=== PATIENT | female | born 1995 | race Asian ===

== ENCOUNTER 2020-10-25 14:51 | Outpatient (CLI) | payer OTHER ==
--- NOTE | 2020-10-26 12:47 | Ultrasound Report ---
PROCEDURE: OB First Trimester INDICATIONS: POSITIVE TEST OUTSIDE/PRIOR DATING DATA: Last menstrual period (LMP): 08/18/2020. LMP-based estimated date of delivery (MATTI): 05/25/2021. First dating scan (date and location): 10/25/2020. Estimated date of delivery (MATTI) from first dating scan: 05/25/2021. TECHNIQUE: Real-time scanning was performed of the fetus and maternal pelvic organs, with image documentation. COMPARISON: None FINDINGS: Embryo: [place]-rump length measures 2.9 cm corresponding to 9 weeks 5 days. Heart rate: 176 Measurement variability in dating: +/- 4 weeks by LMP, +/- 7 days by mean sac diameter (use before 6 weeks gestation if crown-rump length not able to be measured), +/- 5 days by crown-rump length (6-12 weeks gestation). Maternal organs: Ovaries within normal limits, with right corpus luteal cyst measuring 18 mm. IMPRESSION: 9 week 5 day single living IUP. Reviewed by: KIMMIE Hussein on 10/26/2020 12:46 PM PDT Approved by: Oseas Montgomery MD on 10/26/2020 12:46 PM PDT Station ID: [id number]
== END 2020-10-25 14:52 | disposition home or self-care (01) ==
LOC: DI 14:51
PROVIDERS: ATTEND Advanced Practice Midwife
DX: Z32.01 Encounter for pregnancy test, result positive (principal)

== ENCOUNTER 2020-11-08 08:00 | Outpatient (CLI) | payer OTHER ==
[2020-11-09 11:49] LABS: BILIRUBIN,URINE NEGATIVE (NEGATIVE); GLUCOSE, URINE (UA) NEGATIVE (NEGATIVE); KETONES,URINE (UA) NEGATIVE (NEGATIVE); LEUKOCYTE ESTERASE, URINE SMALL (NEGATIVE); NITRITE,URINE NEGATIVE (NEGATIVE); OCCULT BLOOD,URINE NEGATIVE (NEGATIVE); PH,URINE 6.5 PH (5.0-7.5); PROTEIN,URINE NEGATIVE (NEGATIVE); UROBILINOGEN,URINE 0.2 (NORMAL) E.U./dL (NORMAL)
[2020-11-09 11:52] LABS: CLARITY,URINE CLEAR (CLEAR)
[2020-11-09 12:08] LABS: BACTERIA,URINE Few /HPF (None Seen); RBC,URINE 0-5 /HPF (0-5); SQUAMOUS EPITHELIAL CELL,UR FEW Squamous (<= Few); WBC,URINE 0-3 /HPF (0-5)
[2020-11-09 22:18] LABS: NEISSERIA GONORRHOEAE DNA NEGATIVE (NEGATIVE); TRICHOMONAS VAGINALIS DNA NEGATIVE (NEGATIVE)
[2020-11-09 22:21] LABS: CHLAMYDIA TRACHOMATIS DNA POSITIVE (NEGATIVE)
== END 2020-11-08 23:59 ==
LOC: LAB.WCP 08:00
PROVIDERS: ATTEND Nurse Practitioner Obstetrics & Gynecology
DX: Z34.90 Encounter for supervision of normal pregnancy, unspecified, unspecified trimester (principal)
CPT/HCPCS: 81001; 87086; 87491; 87591; 87661

== ENCOUNTER 2020-12-06 08:00 | Outpatient (CLI) | payer OTHER ==
[2020-12-06 21:29] LABS: CHLAMYDIA TRACHOMATIS DNA NEGATIVE (NEGATIVE); NEISSERIA GONORRHOEAE DNA NEGATIVE (NEGATIVE); TRICHOMONAS VAGINALIS DNA NEGATIVE (NEGATIVE)
== END 2020-12-06 23:59 | disposition home or self-care (01) ==
LOC: LAB 08:00
PROVIDERS: ATTEND Nurse Practitioner Obstetrics & Gynecology
DX: O98.319 Other infections with a predominantly sexual mode of transmission complicating pregnancy, unspecified trimester (principal); A56.09 Other chlamydial infection of lower genitourinary tract; O99.891 Other specified diseases and conditions complicating pregnancy; K12.0 Recurrent oral aphthae
CPT/HCPCS: 81001; 86695; 86696; 87086; 87491; 87591; 87661

== ENCOUNTER 2020-12-06 12:40 | Outpatient (CLI) | payer OTHER ==
[2020-12-06 13:17] LABS: BILIRUBIN,URINE NEGATIVE (NEGATIVE); GLUCOSE, URINE (UA) 100 mg/dL (NEGATIVE); KETONES,URINE (UA) 40 mg/dL (NEGATIVE); LEUKOCYTE ESTERASE, URINE NEGATIVE (NEGATIVE); NITRITE,URINE NEGATIVE (NEGATIVE); OCCULT BLOOD,URINE TRACE-INTA (NEGATIVE); PROTEIN,URINE NEGATIVE (NEGATIVE); UROBILINOGEN,URINE 0.2 (NORMAL) E.U./dL (NORMAL)
[2020-12-06 13:37] LABS: CLARITY,URINE CLEAR (CLEAR)
[2020-12-06 13:54] LABS: BACTERIA,URINE None Seen /HPF (None Seen); RBC,URINE None Seen /HPF (0-5); SQUAMOUS EPITHELIAL CELL,UR MANY Squamous (<= Few); WBC,URINE 0-3 /HPF (0-5)
[2020-12-08 10:57] LABS: HSV 1 IGG TYPE SPECIFIC AB <0.90 index; HSV 2 IGG TYPE SPECIFIC AB <0.90 index
== END 2020-12-06 12:41 | disposition home or self-care (01) ==
LOC: LAB 12:40
PROVIDERS: ATTEND Nurse Practitioner Obstetrics & Gynecology
DX: O99.891 Other specified diseases and conditions complicating pregnancy (principal); K12.0 Recurrent oral aphthae
CPT/HCPCS: 81001; 86695; 86696; 87086; 87491; 87591; 87661

== ENCOUNTER 2021-01-08 08:54 | Outpatient (CLI) | payer OTHER ==
--- NOTE | 2021-01-08 13:41 | Ultrasound Report ---
PROCEDURE: OB Detailed Eval INDICATIONS: SUPERVISION OF OUTSIDE/PRIOR DATING DATA: Last menstrual period (LMP): 08/18/2020. LMP-based estimated date of delivery (MATTI): 05/25/2021. First dating scan (date and location): 10/25/2020. Estimated date of delivery (MATTI) from first dating scan: 05/25/2021. The below data below was generated using the ultrasound MATTI of 05/25/2021 TECHNIQUE: Real-time scanning was performed of the fetus, with image documentation and biometric measurements. COMPARISON: 10/25/2020 FINDINGS: General: A single live intrauterine gestation is present. Presentation: Vertex Placenta: Placental position is anterior, without previa. Amniotic fluid index: 16.5 cm, within normal limits for gestational age. heart rate: 150 beats per minute. Maternal cervical canal: 4.1 cm long; normal length is 2.5 cm or more. biometrics: Biparietal diameter: 4.8 cm equals 20 weeks 4 days Head circumference: 17.6 cm equals 20 weeks 0 days Abdominal circumference: 15.6 cm equals 20 weeks 5 days Femur length: 30 cm equals 19 weeks 2 days Estimated gestational age from initial scan: 20 weeks 3 days Composite gestational age from present scan: 20 weeks 0 days Estimated weight and percentile: 331 g, 27th percentile Measurement variability in biometric dating: +/- 10 days from 12-20 weeks gestation, +/- 2 weeks from 20-30 weeks gestation, +/- 3 weeks at 30 weeks gestation or later. Anatomic survey: Neuro: Ventricles are normal at less than 10 mm. Cisterna magna is normal at 3-11 mm. Cerebellum i s normal in size and morphology. Nuchal skin fold: Normal at less than 6 mm between 14 and 20 weeks gestational age. Face: Nose and lips, facial profile are normal. Spine: No evidence for spina bifida. Heart: 4-chambered heart is present, with normal ventricular outflow tracts. Diaphragm: Diaphragm is intact. Stomach: Left-sided stomach is present. Kidneys: No hydronephrosis. Normal is less than 5 mm in 2nd trimester, less than 7 mm in 3rd trimester. Cord: 3 vessel cord has orthotopic insertion. Bladder: Normal in size. Extremities: All 4 extremities are visualized. IMPRESSION: Normal interval growth compared to the prior ultrasound examination. No anatomic abnormalities are identified. Reviewed by: Hema Gutierrez MD on 01/08/2021 12:[address] [facility] Approved by: Hema Gutierrez MD on 01/08/2021 12:[address] [facility] Station ID: [id number]
== END 2021-01-08 08:55 | disposition home or self-care (01) ==
LOC: DI 08:54
PROVIDERS: ATTEND Nurse Practitioner Obstetrics & Gynecology
DX: Z34.00 Encounter for supervision of normal first pregnancy, unspecified trimester (principal); Z36.8A Encounter for antenatal screening for other genetic defects

== ENCOUNTER 2021-01-30 11:56 | Outpatient (CLI) | payer OTHER ==
[2021-01-30 12:37] LABS: BASOPHILS # (AUTO) 0.1 10^3/uL (0.0-0.1); BASOPHILS % (AUTO) 1.8 %; EOSINOPHILS # (AUTO) 0.3 10^3/uL (0.0-0.7); EOSINOPHILS % (AUTO) 8.8 %; HCT - HEMATOCRIT 32.8 % (37.0-47.0); HGB - HEMOGLOBIN 11.4 g/dL (12.0-16.0); LYMPHOCYTES # (AUTO) 1.1 10^3/uL (1.5-3.5); LYMPHOCYTES % (AUTO) 38.5 %; MEAN CORPUSCULAR HEMOGLOBIN 29.3 pg (27.0-31.0); MEAN CORPUSCULAR HGB CONC 34.8 g/dL (32.0-36.0); MEAN CORPUSCULAR VOLUME 84.3 fL (81.0-99.0); MEAN PLATELET VOLUME 9.8 fL (7.9-10.8); MONOCYTES # (AUTO) 0.6 10^3/uL (0.0-1.0); MONOCYTES % (AUTO) 21.2 %; NEUTROPHILS # (AUTO) 0.8 10^3/uL (1.5-6.6); NEUTROPHILS % (AUTO) 28.6 %; PLT - PLATELET COUNT 340 10^3/uL (130-450); RED BLOOD COUNT 3.89 10^6/uL (4.20-5.40); RED CELL DISTRIBUTION WIDTH 13.4 % (12.0-15.0); WHITE BLOOD COUNT 2.8 x10^3/uL (4.8-10.8)
[2021-01-30 12:42] LABS: SLIDE REVIEW? Indicated
[2021-01-30 13:50] LABS: DIFFERENTIAL COMMENT MANUAL=AUTO DIFF; PLATELET ESTIMATE, MANUAL NORMAL (130-450,000) (NORMAL); PLATELET MORPHOLOGY NORMAL APPEARANCE (NORMAL); RBC MORPHOLOGY (MULTIPLE) NORMAL APPEARANCE (NORMAL); WBC MORPHOLOGY (MULTIPLE) NORMAL APPEARANCE (NORMAL)
[2021-01-31 11:12] LABS: HEPATITIS C ANTIBODY NON-REACTIVE (NON-REACTIVE)
[2021-01-31 11:13] LABS: HEPATITIS B SURFACE ANTIGEN NON-REACTIVE (NON-REACTIVE)
[2021-01-31 15:25] LABS: HIV AG/AB 4TH GEN NON-REACTIVE (NON-REACTIVE)
== END 2021-01-30 11:57 | disposition home or self-care (01) ==
LOC: LAB 11:56
DX: Z36.89 Encounter for other specified antenatal screening (principal)
CPT/HCPCS: 36415; 85025; 86592; 86762; 86787; 86803; 86850; 86900; 86901; 87340; 87389

== ENCOUNTER 2021-01-31 08:00 | Outpatient (CLI) | payer OTHER | END 2021-01-31 23:59 | disposition home or self-care (01) | LOC: LAB.WC 08:00 | PROVIDERS: ATTEND Nurse Practitioner Obstetrics & Gynecology | DX: K12.0 Recurrent oral aphthae (principal) | CPT/HCPCS: 81599; 87255 ==

== ENCOUNTER 2021-01-31 12:10 | Outpatient (CLI) | payer OTHER | END 2021-01-31 12:11 | disposition home or self-care (01) | LOC: LAB 12:10 | PROVIDERS: ATTEND Nurse Practitioner Obstetrics & Gynecology | DX: Z34.00 Encounter for supervision of normal first pregnancy, unspecified trimester (principal); Z36.8A Encounter for antenatal screening for other genetic defects | CPT/HCPCS: 36415 ==

== ENCOUNTER 2021-02-14 08:00 | Outpatient (CLI) | payer OTHER | END 2021-02-14 23:59 | LOC: LAB.N 08:00 | PROVIDERS: ATTEND Family Medicine | DX: U07.1 COVID-19 (principal) ==

== ENCOUNTER 2021-03-07 11:15 | Outpatient (CLI) | payer OTHER ==
[2021-03-07 12:46] LABS: HCT - HEMATOCRIT 32.8 % (37.0-47.0); HGB - HEMOGLOBIN 11.2 g/dL (12.0-16.0); MEAN CORPUSCULAR HEMOGLOBIN 29.2 pg (27.0-31.0); MEAN CORPUSCULAR HGB CONC 34.1 g/dL (32.0-36.0); MEAN CORPUSCULAR VOLUME 85.4 fL (81.0-99.0); RED BLOOD COUNT 3.84 10^6/uL (4.20-5.40); WHITE BLOOD COUNT 2.8 x10^3/uL (4.8-10.8)
== END 2021-03-07 11:16 | disposition home or self-care (01) ==
LOC: LAB 11:15
PROVIDERS: ATTEND Nurse Practitioner Obstetrics & Gynecology
DX: Z34.90 Encounter for supervision of normal pregnancy, unspecified, unspecified trimester (principal); Z36.8A Encounter for antenatal screening for other genetic defects
CPT/HCPCS: 36415; 82950; 85027

== ENCOUNTER 2021-03-15 08:00 | Outpatient (CLI) | payer OTHER ==
[2021-03-15 23:49] LABS: NEISSERIA GONORRHOEAE DNA NEGATIVE (NEGATIVE); TRICHOMONAS VAGINALIS DNA NEGATIVE (NEGATIVE)
[2021-03-15 23:51] LABS: CHLAMYDIA TRACHOMATIS DNA POSITIVE (NEGATIVE)
== END 2021-03-15 23:59 | disposition home or self-care (01) ==
LOC: LAB.WC 08:00
PROVIDERS: ATTEND Nurse Practitioner Obstetrics & Gynecology
DX: A56.09 Other chlamydial infection of lower genitourinary tract (principal)
CPT/HCPCS: 87491; 87591; 87661

== ENCOUNTER 2021-03-16 07:58 | Outpatient (CLI) | payer OTHER ==
[2021-03-16 08:41] LABS: GTT GLUCOSE,FASTING 81 mg/dL (70-100)
== END 2021-03-16 07:59 | disposition home or self-care (01) ==
LOC: LAB 07:58
PROVIDERS: ATTEND Nurse Practitioner Obstetrics & Gynecology
DX: O99.810 Abnormal glucose complicating pregnancy (principal)
CPT/HCPCS: 36415; 82951; 82952

== ENCOUNTER 2021-04-11 10:01 | Outpatient (CLI) | payer OTHER ==
[2021-04-11 10:11] LABS: HCT - HEMATOCRIT 38.4 % (37.0-47.0); MEAN CORPUSCULAR HGB CONC 33.9 g/dL (32.0-36.0); MEAN CORPUSCULAR VOLUME 85.7 fL (81.0-99.0); MEAN PLATELET VOLUME 10.2 fL (7.9-10.8); RED BLOOD COUNT 4.48 10^6/uL (4.20-5.40); RED CELL DISTRIBUTION WIDTH 14.3 % (12.0-15.0); WHITE BLOOD COUNT 2.9 x10^3/uL (4.8-10.8)
[2021-04-11 10:26] LABS: ALBUMIN 2.9 g/dL (3.2-5.5); ALBUMIN/GLOBULIN RATIO 0.7 (1.0-2.2); BILIRUBIN,TOTAL 0.3 mg/dL (0.2-1.0); CALCIUM 9.1 mg/dL (8.5-10.3); CREATININE 0.8 mg/dL (0.4-1.0); POTASSIUM 3.8 mmol/L (3.5-5.0); TOTAL PROTEIN 6.9 g/dL (6.7-8.2)
[2021-04-11 10:58] LABS: CREATININE,URINE 42.4 mg/dL; PROTEIN/CREATININE RATIO,URINE 0.2 (<=0.2)
== END 2021-04-11 10:02 | disposition home or self-care (01) ==
LOC: LAB 10:01
PROVIDERS: ATTEND Nurse Practitioner Obstetrics & Gynecology
DX: R03.0 Elevated blood-pressure reading, without diagnosis of hypertension (principal)
CPT/HCPCS: 36415; 80053; 82570; 84156; 85027

== ENCOUNTER 2021-04-21 10:30 | Outpatient (CLI) | payer OTHER ==
[2021-04-21 10:52] VITALS: BP 157/96
[2021-04-21 11:33] LABS: BASOPHILS # (AUTO) 0.1 10^3/uL (0.0-0.1); BASOPHILS % (AUTO) 2.4 %; EOSINOPHILS # (AUTO) 0.1 10^3/uL (0.0-0.7); EOSINOPHILS % (AUTO) 3.9 %; HCT - HEMATOCRIT 37.4 % (37.0-47.0); HGB - HEMOGLOBIN 12.9 g/dL (12.0-16.0); LYMPHOCYTES # (AUTO) 1.9 10^3/uL (1.5-3.5); LYMPHOCYTES % (AUTO) 55.4 %; MEAN CORPUSCULAR HEMOGLOBIN 29.5 pg (27.0-31.0); MEAN CORPUSCULAR HGB CONC 34.5 g/dL (32.0-36.0); MEAN CORPUSCULAR VOLUME 85.6 fL (81.0-99.0); MEAN PLATELET VOLUME 10.7 fL (7.9-10.8); MONOCYTES # (AUTO) 0.4 10^3/uL (0.0-1.0); MONOCYTES % (AUTO) 11.6 %; NEUTROPHILS # (AUTO) 0.9 10^3/uL (1.5-6.6); NEUTROPHILS % (AUTO) 26.4 %; PLT - PLATELET COUNT 275 10^3/uL (130-450); RED BLOOD COUNT 4.37 10^6/uL (4.20-5.40); RED CELL DISTRIBUTION WIDTH 14.7 % (12.0-15.0); WHITE BLOOD COUNT 3.4 x10^3/uL (4.8-10.8)
[2021-04-21 11:46] LABS: CREATININE,URINE 42.1 mg/dL; PROTEIN/CREATININE RATIO,URINE 0.1 (<=0.2)
[2021-04-21 11:47] LABS: ALBUMIN 2.7 g/dL (3.2-5.5); ALBUMIN/GLOBULIN RATIO 0.7 (1.0-2.2); BILIRUBIN,TOTAL 0.6 mg/dL (0.2-1.0); CALCIUM 9.1 mg/dL (8.5-10.3); CREATININE 0.7 mg/dL (0.4-1.0); POTASSIUM 3.7 mmol/L (3.5-5.0); TOTAL PROTEIN 6.7 g/dL (6.7-8.2)
--- NOTE | 2021-04-21 12:37 | Ultrasound Report ---
PROCEDURE: OB Biophysical Profile INDICATIONS: high blood pressure OUTSIDE/PRIOR DATING DATA: Last menstrual period (LMP): August 18, 2020. LMP-based estimated date of delivery (MATTI): May 25, 2021. First dating scan (date ): October 25, 2020. Estimated date of delivery (MATTI) from first dating scan: May 25, 2021. TECHNIQUE: Real-time scanning was performed of the fetus, with image documentation and biometric anne surements. Biophysical profile was also obtained. COMPARISON: January 08, 2021 FINDINGS: General: A single living intrauterine gestation is present. Presentation: Vertex Placenta: Placental position is anterior, without previa. Amniotic fluid index: 10 cm, appropriate for gestational age. heart rate: 148 beats per minute. Maternal cervical canal: 3.8 cm long; normal length is 2.5 cm or more. Biophysical profile: Tone: 2 points. Movement: 2 points. Respiration: 2 points. Largest pocket of fluid: 2 points. Umbilical artery Doppler: 2.1, 2.2, 2.1 IMPRESSION: 1. No significant abnormality. Reviewed by: Herb Marino MD on 04/21/2021 12:35 PM PST Approved by: Herb Marino MD on 04/21/2021 12:35 PM PST Station ID: [id number]
--- NOTE | 2021-04-21 16:52 | PROVIDER PROGRESS NOTE ---
- HPI Chief Complaint: Hypertension/PIH Current : Current EDU 05/29/21 Gestation 34 Weeks and 4 Days 1 Para 0 Vital Signs Temperature 36.9 C 04/21/21 10:36 Heart Rate 101 H 04/21/21 10:36 Respiratory Rate 20 04/21/21 10:36 Blood Pressure 157/96 H 04/21/21 10:36 O2 Saturation 100 04/21/21 10:36 Temperature 36.9 C 04/21/21 10:36 Heart Rate 101 H 04/21/21 10:36 Respiratory Rate 20 04/21/21 10:36 Blood Pressure 157/96 H 04/21/21 10:36 O2 Saturation 100 04/21/21 10:36 - Procedures OB Procedure Performed: NST Diagnosis/Indication for NST: Gestational Hypertension NST Procedure: NST Procedure Start Date 04/21/21 Start Time 10:47 Stop Time 11:31 Vibroacoustic Stimulation Used No Patient States Movement Yes - Plan Plan: Dena presents to [facility] as directed following her routine office visit secondary to gestational hypertension. She denies [place], visual disturbances, RUQ or epigastric pain. She denies edema. She states she is feeling great. She reports +FM and denies vaginal bleeding, leakage of fluid, or contractions. Serial BPs 130-150s/90s-100s NST performed 04/21/2021 NST read 04/21/2021 NST reactive. FHR baseline 140s, moderate variability, + accels, no decels No contractions appreciated via tocometry BPP 8/8. PIH labs WNL. Protein/creatinine ratio 0.1. Pt released home with precautions. Will return Saturday for NST. Proceed with twice weekly NSTs, once weekly BPPs and AFIs and weekly labs. FINAL DIAGNOSIS: Gestational hypertension, third trimester
== END 2021-04-21 13:00 | disposition home or self-care (01) ==
LOC: WFO 10:30 → FBP 10:33 → WFO 13:00
PROVIDERS: ATTEND Nurse Practitioner Obstetrics & Gynecology
DX: O13.3 Gestational [pregnancy-induced] hypertension without significant proteinuria, third trimester (principal); Z3A.34 34 weeks gestation of pregnancy
CPT/HCPCS: 36415; 59025; 80053; 82570; 84156; 85025; 99214

== ENCOUNTER 2021-04-25 14:20 | Outpatient (CLI) | payer OTHER ==
[2021-04-25 14:33] VITALS: BP 146/93
--- NOTE | 2021-04-26 07:40 | PROCEDURE REPORT ---
- HPI Diagnosis/Indication for NST: Gestational Hypertension Current EDU 05/29/21 Gestation 35 Weeks and 1 Days 1 Para 0 Vital Signs Temperature 97.9 F 04/25/21 14:32 Heart Rate 95 04/25/21 14:32 Respiratory Rate 18 04/25/21 14:32 Blood Pressure 146/93 H 04/25/21 14:32 O2 Saturation 100 04/25/21 14:32 Temperature 97.9 F 04/25/21 14:40 Heart Rate 95 04/25/21 14:32 Respiratory Rate 18 04/25/21 14:32 Blood Pressure 146/93 H 04/25/21 14:32 O2 Saturation 100 04/25/21 14:32 - NST Procedure NST Procedure Start Date 04/25/21 Start Time 14:29 Stop Time 15:01 Vibroacoustic Stimulation Used No Patient States Movement Yes EFM: 130s, moderate variability, 15x15 accelerations, no decelerations [place]: 1 contraction Reactive NST - Results and Plan Plan: 25yo at 35w presenting for scheduled NST for gestational hypertension - NST reactive - Reviewed labs and BPP 3/4, repeat weekly - Consider growth US - Plan for IOL after 37w for GHTN or earlier if severe BP/preeclampsia - Preeclampsia, labor precautions
== END 2021-04-25 15:07 | disposition home or self-care (01) ==
LOC: WFO 14:20 → FBP 14:21 → WFO 15:07
PROVIDERS: ATTEND Obstetrics & Gynecology
DX: O13.3 Gestational [pregnancy-induced] hypertension without significant proteinuria, third trimester (principal); Z3A.35 35 weeks gestation of pregnancy
CPT/HCPCS: 59025

== ENCOUNTER 2021-04-28 11:54 | Observation (INO) | payer OTHER ==
[2021-04-28 15:35] LABS: BASOPHILS # (AUTO) 0.1 10^3/uL (0.0-0.1); BASOPHILS % (AUTO) 1.8 %; EOSINOPHILS # (AUTO) 0.2 10^3/uL (0.0-0.7); EOSINOPHILS % (AUTO) 4.5 %; HCT - HEMATOCRIT 38.6 % (37.0-47.0); HGB - HEMOGLOBIN 13.2 g/dL (12.0-16.0); LYMPHOCYTES # (AUTO) 2.2 10^3/uL (1.5-3.5); LYMPHOCYTES % (AUTO) 66.3 %; MEAN CORPUSCULAR HEMOGLOBIN 29.4 pg (27.0-31.0); MEAN CORPUSCULAR HGB CONC 34.2 g/dL (32.0-36.0); MEAN PLATELET VOLUME 10.8 fL (7.9-10.8); MONOCYTES # (AUTO) 0.4 10^3/uL (0.0-1.0); MONOCYTES % (AUTO) 12.3 %; NEUTROPHILS % (AUTO) 14.8 %; PLT - PLATELET COUNT 311 10^3/uL (130-450); RED BLOOD COUNT 4.49 10^6/uL (4.20-5.40); RED CELL DISTRIBUTION WIDTH 14.9 % (12.0-15.0); WHITE BLOOD COUNT 3.3 x10^3/uL (4.8-10.8)
[2021-04-28 15:41] LABS: URIC ACID 10.3 mg/dL (2.6-7.2)
[2021-04-28 15:43] LABS: SLIDE REVIEW? Indicated
--- NOTE | 2021-04-28 15:47 | PROCEDURE REPORT ---
- HPI Diagnosis/Indication for NST: Gestational Hypertension Current EDU 05/29/21 Gestation 35 Weeks and 4 Days 1 Para 0 Vital Signs Temperature 98.1 F 04/28/21 12:10 Heart Rate 92 04/28/21 12:10 Respiratory Rate 16 04/28/21 12:10 Blood Pressure 149/84 H 04/28/21 12:10 O2 Saturation 100 04/28/21 12:10 Temperature 98.1 F 04/28/21 12:10 Heart Rate 92 04/28/21 12:10 Respiratory Rate 18 04/28/21 12:10 Blood Pressure 149/84 H 04/28/21 12:10 O2 Saturation 100 04/28/21 12:10 - NST Procedure NST Procedure Start Date 04/28/21 Start Time 12:06 Stop Time 12:30 Vibroacoustic Stimulation Used No Patient States Movement Yes heart rate baseline-beats per minutes Moderate variability Accelerations 15x15 Decelerations none Contractions rare NST reactive and reassuring NSTs and BPP scheduled for history of gestational hypertension. Blood pressures mild range 140s over 80s. Asymptomatic. BPP was 8 out of 10 -2 for breathing. Preeclampsia labs significant for elevated urine protein creatinine ratio of 0.3. Uric acid was incidentally found to be elevated as well. We will continue blood pressure monitoring. Start betamethasone series and continue to monitor overnight. - Results and Plan Findings/Impression: 25-year-old G1, P0 at 35 weeks 5 days who presents for BPP and NST secondary to history of gestational hypertension, Now with elevated urine protein creatinine ratio significant for preeclampsia without severe features. NST reactive and reassuring. BPP8/10. Will observe patient overnight.
[2021-04-28 16:31] LABS: DIFFERENTIAL COMMENT MANUAL=AUTO DIFF; PLATELET ESTIMATE, MANUAL NORMAL (130-450,000) (NORMAL); PLATELET MORPHOLOGY NORMAL APPEARANCE (NORMAL); RBC MORPHOLOGY (MULTIPLE) NORMAL APPEARANCE (NORMAL)
[2021-04-28 16:33] LABS: NEUTROPHILS # (AUTO) 0.5 10^3/uL (1.5-6.6)
[2021-04-28 16:37] LABS: CREATININE,URINE 34.7 mg/dL
--- NOTE | 2021-04-28 16:38 | Ultrasound Report ---
PROCEDURE: OB Biophysical Profile INDICATIONS: GHTN OUTSIDE/PRIOR DATING DATA: Last menstrual period (LMP): 08/18/2020. LMP-based estimated date of delivery (MATTI): 05/25/2021. First dating scan (date and location): 04/28/2021. Estimated date of delivery (MATTI) from first dating scan: 06/04/2021. The below data below was generated using the MATTI of 05/25/2021 TECHNIQUE: Real-time scanning was performed of the fetus, with image documentation and biometric anne surements. Biophysical profile was also obtained. COMPARISON: 11/04/2020, 01/08/2021, 04/21/2021. FINDINGS: General: A single living intrauterine gestation is present. Presentation: Vertex Placenta: Placental position is anterior, without previa. Amniotic fluid index: 16.8 cm, within normal limits for gestational age. heart rate: 126 beats per minute. Maternal cervical canal: The 0.7 cm long; normal length is 2.5 cm or more. Biophysical profile: Tone: 2 points. Movement: 2 points. Respiration: 0 points. Largest pocket of fluid: 2 points. (4.93 cm.) Umbilical artery Doppler: Systolic/diastolic ratios of 2.37, 2.63, and 2.35 IMPRESSION: 1. Single living intrauterine redemonstrated in vertex presentation. 2. Biophysical profile score 6/8. No respiration visualized. 3. Umbilical artery Doppler demonstrates preserved diastolic flow. Reviewed by: Chapo Coughlin MD on 04/28/2021 4:37 PM PST Approved by: Chapo Coughlin MD on 04/28/2021 4:37 PM PST Station ID: [id number]
--- NOTE | 2021-04-28 16:41 | HISTORY & PHYSICAL EXAMINATION ---
Admit History - Visit Reason Visit Reason: Other (Patient was scheduled for NST and BPP secondary to history of gestational hypertension. She has no complaints. She denies headaches vision changes or abdominal pain. The patient was noted to have a BPP of 6 out of 8. Preeclampsia labs were done and were significant for e) - : 1 Parity: 0 Care: positive: [facility] Complications This : positive: Pre-eclampsia, Other Smoking Status: Never smoker - Mother's Labs Mother's Blood Type: positive: B Mother's RH: positive: Positive Rubella Status: positive: Immune Meds/Allgy - Home Medications Home Medications: Ambulatory Orders Medication Instructions Recorded Confirmed Amoxicillin 500 mg PO TID #30 cap 02/15/21 Pnv No.95/Ferrous Fum/Folic AC 02/15/21 [ Caplet] guaiFENesin/CODEINE [Robitussin AC] 5 - 10 ml PO Q6H PRN #120 ml 02/15/21 - Allergies Allergies/Adverse Reactions: Allergies Allergy/AdvReac Type Severity Reaction Status Date / Time No Known Drug Allergies Allergy Verified 02/15/21 13:47 Physical - Abdominal Exam Vital Signs: Temp Pulse Resp BP Pulse Ox 98.1 F 92 18 149/84 H 100 04/28/21 12:10 04/28/21 12:10 04/28/21 12:10 04/28/21 12:10 04/28/21 12:10 Uterine Resting Tone: positive: Soft - Monitoring Strip Review: positive: Category I Assessment/Plan - Problem List (1) Preeclampsia Assessment/Plan: NSTs and BPP scheduled for history of gestational hypertension. Blood pressures mild range 140s over 80s. Asymptomatic. BPP was 8 out of 10, -2 for breathing. Preeclampsia labs significant for elevated urine protein creatinine ratio of 0.3. Uric acid was incidentally found to be elevated as well. We will continue blood pressure monitoring. Start betamethasone series and continue to monitor overnight. (2) 35 weeks gestation of Assessment/Plan: Betamethasone series ordered. Admitted for blood pressure monitoring. - Results Lab Results: Laboratory Results AST 30 IU/L (10-42) 04/28/21 15:23 - Home Meds/Allergies Allergies No Known Drug Allergies Allergy (Verified 02/15/21 13:47) - Additional Planning My Orders: My Active Orders 04/28/21 GROUP B STREP PCR Routine 04/28/21 12:10 NST [OB NST] [RC] ONCE 04/28/21 Dinner Regular Diet [DIET] 04/28/21 17:14 Vital Signs - OB [RC] Q1HR 04/28/21 17:15 Activity Orders [RC] DAILY IO [RC] Q4H IV Insert [RC] ONCE 04/28/21 17:20 Electronic Monitoring - [RC] [id number] 04/28/21 17:30 Betamethasone [Celestone Soluspan] 12 mg IM Q24H 04/29/21 15:00 OB Biophysical Profile [US] Routine
[2021-04-28 16:52] LABS: PROTEIN/CREATININE RATIO,URINE 0.3 (<=0.2)
--- OUTSIDE RECORDS SUMMARY | 2021-04-28 17:26 | EXTERNAL MEDICAL SUMMARY RPT | Continuity of Care Document ---
:1995 Author Organization [facility] Address [address] [place] [address] Phone Care Team Providers Name Role Phone Enrike, Provider Unavailable Unavailable ALLEGRA, Deanne Arreola Unavailable Unavailable Ralph UMANA Unavailable Unavailable RN, Annie Mcdaniel Unavailable Unavailable Miscellaneous, Doctor Unavailable Unavailable CNM, Michelle BAILEY, Unavailable Unavailable BEV, Lorena Stoo Unavailable Unavailable Allergies No information. Encounters No information. Medications date description facility 20210307 ferrous gluconate All 20210307 ferrous gluconate All 20210307 ferrous gluconate All 20210307 ferrous gluconate All 20210307 ferrous gluconate All Problems date description facility [id number] US OB FOLLOW-UP All 20210421 NST WITH BIOPHYSICAL PROFILE All 20210411 URINE PROTEIN TO CREATININE RATIO All 20210411 Gestational [-induced] hyperten samy without All significant proteinuria, third trimester 20210411 Elevated blood pressure reading without diagnosis of All hypertension 20210411 COMPREHENSIVE METABOLIC PANEL All 20210411 Elevated blood-pressure reading without diagnosis of All hypertension 20210411 Transient hypertension of , an tepartum condition or All complication 20210411 -induced hypertension All 20210411 Elevated blood-pressure reading, withou t diagnosis of All hypertension 20210411 CBC AND PLATELETS w/o DIFF All 20210314 CHLAM, NEISSERIA, TRICH DNA All 20210307 Impaired glucose tolerance in All 20210307 Anemia complicating , childbirt h, or the puerperium, All antepartum condition or complication 20210307 Abnormal glucose tolerance complicating , childbirth, All or the puerperium, antepartum condition or complication 20210307 Anemia complicating , unspecif ied trimester All 20210307 Anemia during - baby not yet delivered All 20210307 Abnormal glucose complicating All 20210307 3HR GTT All 20210228 Encounter for immunization All 20210228 Need for prophylactic vaccination and in oculation against other All combinations of diseases 20210228 CBC w/o DIFF All 20210228 1HR GTT All 20210228 Administration of diphtheria, pertussis , and tetanus vaccine All 20210214 Total score? All 20210214 Never smoker All 20210214 Cough All 20210214 Alcohol use All 20210214 Details of drug misuse behavior All 20210214 Other specified cough All 20210214 COVID19 Testing All 20210131 [facility] All 20210130 [facility] All Procedures date description facility 20210421 0502F - SUBSEQUENT VISIT All 20210421 050F - SUBSEQUENT VISIT All 20210411 CBC AND PLATELETS w/o DIFF All 20210411 COMPREHENSIVE METABOLIC PANEL All 20210411 050F - SUBSEQUENT VISIT All 20210411 URINE PROTEIN TO CREATININE RATIO All 20210411 CBC AND PLATELETS w/o DIFF All 20210411 COMPREHENSIVE METABOLIC PANEL All 20210411 050F - SUBSEQUENT VISIT All 20210411 URINE PROTEIN TO CREATININE RATIO All 20210411 CBC AND PLATELETS w/o DIFF All 20210411 COMPREHENSIVE METABOLIC PANEL All 20210411 050F - SUBSEQUENT VISIT All 20210411 URINE PROTEIN TO CREATININE RATIO All 20210411 CBC AND PLATELETS w/o DIFF All 20210411 COMPREHENSIVE METABOLIC PANEL All 20210411 050F - SUBSEQUENT VISIT All 20210411 URINE PROTEIN TO CREATININE RATIO All 20210328 0502F - SUBSEQUENT VISIT All 20210328 0502F - SUBSEQUENT VISIT All 20210328 0502F - SUBSEQUENT VISIT All 20210328 0502F - SUBSEQUENT VISIT All 20210314 0502F - SUBSEQUENT VISIT All 20210314 0502F - SUBSEQUENT VISIT All 20210314 0502F - SUBSEQUENT VISIT All 20210314 0502F - SUBSEQUENT VISIT All 20210314 0502F - SUBSEQUENT VISIT All 20210307 3HR GTT All 20210307 3HR GTT All 20210307 3HR GTT All 20210307 3HR GTT All 20210228 INJECTION FEE All 20210228 TDAP INJECTION All 20210228 Boostrix Intramuscular Suspension 5-2.5 -18.5 All 20210228 First Ix admin via ID IM or jet injects with counseling All by physician for adult 20210228 CBC w/o DIFF All 20210228 1HR GTT All 20210228 0502F - SUBSEQUENT VISIT All 20210228 INJECTION FEE All 20210228 TDAP INJECTION All 20210228 Boostrix Intramuscular Suspension 5-2.5 -18.5 All 20210228 First Ix admin via ID IM or jet injects with counseling All by physician for adult 20210228 CBC w/o DIFF All 20210228 1HR GTT All 20210228 0502F - SUBSEQUENT VISIT All 20210228 INJECTION FEE All 20210228 TDAP INJECTION All 20210228 Boostrix Intramuscular Suspension 5-2.5 -18.5 All 20210228 First Ix admin via ID IM or jet injects with counseling All by physician for adult 20210228 CBC w/o DIFF All 20210228 1HR GTT All 20210228 0502F - SUBSEQUENT VISIT All 20210228 INJECTION FEE All 20210228 TDAP INJECTION All 20210228 Boostrix Intramuscular Suspension 5-2.5 -18.5 All 20210228 First Ix admin via ID IM or jet injects with counseling All by physician for adult 20210228 CBC w/o DIFF All 20210228 1HR GTT All 20210228 0502F - SUBSEQUENT VISIT All 20210228 INJECTION FEE All 20210228 TDAP INJECTION All 20210228 Boostrix Intramuscular Suspension 5-2.5 -18.5 All 20210228 First Ix admin via ID IM or jet injects with counseling All by physician for adult 20210228 CBC w/o DIFF All 20210228 1HR GTT All 20210228 0502F - SUBSEQUENT VISIT All 20210214 COVID19 Testing All 20210214 COVID19 Testing All 20210214 COVID19 Testing All 20210214 COVID19 Testing All 20210214 COVID19 Testing All 20210214 COVID19 Testing All 20210131 Viral Culture All 14063934 0502F - SUBSEQUENT VISIT All 73922160 Viral Culture All 20210131 0502F - SUBSEQUENT VISIT All 76362168 Viral Culture All 20210131 0502F - SUBSEQUENT VISIT All 77965242 Viral Culture All 86196986 0502F - SUBSEQUENT VISIT All 69435111 Viral Culture All 47665171 0502F - SUBSEQUENT VISIT All 20210130 HARMONY All 20210130 HARMONY All 20210130 HARMONY All 20210130 HARMONY All 20210129 [facility] 20210129 [facility] 20210129 [facility] Results test status date ordered by attending specimen geovanna e platelet_count_estimat unknown 20210428 unknown unknown unknown e Erythrocytes_volume_in unknown 20210428 unknown unknown unknown _Blood_by_Automated_cou nt Erythrocyte_distributi unknown 20210428 unknown unknown unknown on_width_Ratio_by_Autom ated_count MCV_Entitic_volume_by_ unknown 20281278 unknown unknown unknown Automated_count MCH_Entitic_mass_by_Au unknown 33267735 unknown unknown unknown tomated_count Platelets_volume_in_Bl unknown 51403885 unknown unknown unknown ood_by_Automated_count Platelet_mean_volume_E unknown 23870708 unknown unknown unknown ntitic_volume_in_Blood_ by_Rees-Ericka neutrophil_count_blood unknown 04158193 unknown unknown unknown monocyte_count_blood unknown 75918342 unknown unknown un known lymphocyte_count_blood unknown 68728847 unknown unknown unknown Hemoglobin_Mass_volume unknown 95280327 unknown unknown unknown _in_Blood eosinophil_count_blood unknown 32769455 unknown unknown unknown Basophils_volume_in_Bl unknown 71662168 unknown unknown unknown ood_by_Manual_count leukocyte_count_blood unknown 01328430 unknown unknown u nknown erythrocyte_RBC_count unknown 47332123 unknown unknown u nknown Leukocytes_volume_in_B unknown 47165312 unknown unknown unknown lood_by_Automated_count platelet_count unknown 00315894 unknown unknown unknown hemoglobin_blood unknown 69689362 unknown unknown unknow n hematocrit_blood unknown 85547461 unknown unknown unknow n uric_acid_serum unknown 32985708 unknown unknown unknown Hematocrit_Volume_Frac unknown 14749478 unknown unknown unknown tion_of_Blood_by_Automa ted_count aspartate_aminotransfe unknown 19315020 unknown unknown unknown rase_SGOT_serum mean_corpuscular_volum unknown 16642545 unknown unknown unknown e_RBC platelet_count_estimat unknown 87873326 unknown unknown unknown e Urate_Mass_volume_in_S unknown 74676848 unknown unknown unknown erum_or_Plasma eosinophil_count_blood unknown 59300402 unknown unknown unknown mean_platelet_volume unknown 65634854 unknown unknown un known basophil_count_blood unknown 99100808 unknown unknown un known monocyte_count_blood unknown 21799140 unknown unknown un known lymphocyte_count_blood unknown 61812212 unknown unknown unknown neutrophil_count_blood unknown 17830561 unknown unknown unknown Aspartate_aminotransfe unknown 12551874 unknown unknown unknown rase_Enzymatic_activity _volume_in_Serum_or_Pla sma mean_corpuscular_hemog unknown 69681823 unknown unknown unknown lobin_concentration_rbc LACTATE_DEHYDROGENASE unknown 43654153 unknown unknown u nknown mean_corpuscular_hemog unknown 67829376 unknown unknown unknown lobin_RBC red_blood_cell_distrib unknown 73630733 unknown unknown unknown ution_width Slide_Interpretation unknown 63725000 unknown unknown un known T unknown 47958179 unknown unknown unknown T unknown 15164396 unknown unknown unknown T unknown 13012426 unknown unknown unknown SLIDE_REVIEW_ unknown 21058407 unknown unknown unknown T unknown 17404208 unknown unknown unknown T unknown 72095092 unknown unknown unknown T unknown 51921953 unknown unknown unknown PLATELET_ESTIMATE_MANU unknown 80852874 unknown unknown unknown AL T unknown 47470376 unknown unknown unknown NEUTROPHILS_AUTO_ unknown 09894634 unknown unknown unkno wn T unknown 28624489 unknown unknown unknown T unknown 57285607 unknown unknown unknown MONOCYTES_AUTO_ unknown 66067394 unknown unknown unknown T unknown 42057802 unknown unknown unknown T unknown 46264889 unknown unknown unknown T unknown 41065087 unknown unknown unknown T unknown 98705111 unknown unknown unknown LYMPHOCYTES_AUTO_ unknown 70538513 unknown unknown unkno wn T unknown 96995943 unknown unknown unknown T unknown 36047316 unknown unknown unknown T unknown 80826277 unknown unknown unknown T unknown 99297462 unknown unknown unknown EOSINOPHILS_AUTO_ unknown 43659198 unknown unknown unkno wn T unknown 49636651 unknown unknown unknown BASOPHILS_AUTO_ unknown 54618928 unknown unknown unknown T unknown 30169235 unknown unknown unknown T unknown 57487136 unknown unknown unknown urea_nitrogen_blood unknown 95970965 unknown unknown unk nown Erythrocytes_volume_in unknown 70335228 unknown unknown unknown _Blood_by_Automated_cou nt Erythrocyte_distributi unknown 33703713 unknown unknown unknown on_width_Ratio_by_Autom ated_count MCV_Entitic_volume_by_ unknown 87761437 unknown unknown unknown Automated_count MCH_Entitic_mass_by_Au unknown 07585797 unknown unknown unknown tomated_count Platelets_volume_in_Bl unknown 11444714 unknown unknown unknown ood_by_Automated_count Platelet_mean_volume_E unknown 11034243 unknown unknown unknown ntitic_volume_in_Blood_ by_Rees-Ericka neutrophil_count_blood unknown 43194055 unknown unknown unknown monocyte_count_blood unknown 99506143 unknown unknown un known lymphocyte_count_blood unknown 77241290 unknown unknown unknown Hemoglobin_Mass_volume unknown 08995669 unknown unknown unknown _in_Blood eosinophil_count_blood unknown 94876837 unknown unknown unknown Basophils_volume_in_Bl unknown 54686858 unknown unknown unknown ood_by_Manual_count leukocyte_count_blood unknown 14593868 unknown unknown u nknown erythrocyte_RBC_count unknown 80642975 unknown unknown u nknown Leukocytes_volume_in_B unknown 15101683 unknown unknown unknown lood_by_Automated_count Glomerular_Filtration_ unknown 64313505 unknown unknown unknown rate platelet_count unknown 90615782 unknown unknown unknown hemoglobin_blood unknown 79776487 unknown unknown unknow n hematocrit_blood unknown 36518963 unknown unknown unknow n potassium_blood unknown 25019246 unknown unknown unknown Glomerular_filtration_r unknown 06452754 unknown unknown unknown ate_1.73_sq_M.predicted _among_non-blacks_Volum e_Rate_Area_in_Serum_Pl asma_or_Blood_by_Creati nine-based_formula_MDRD _ Hematocrit_Volume_Frac unknown 10570769 unknown unknown unknown tion_of_Blood_by_Automa ted_count bilirubin_serum_total unknown 98437129 unknown unknown u nknown alanine_aminotransfera unknown 52420214 unknown unknown unknown se_SGPT_serum carbon_dioxide_serum_t unknown 66051566 unknown unknown unknown otal aspartate_aminotransfe unknown 70627285 unknown unknown unknown rase_SGOT_serum protein_total_serum unknown 36898272 unknown unknown unk nown blood_glucose unknown 76688465 unknown unknown unknown potassium_blood unknown 03070101 unknown unknown unknown mean_corpuscular_volum unknown 48447953 unknown unknown unknown e_RBC Urea_nitrogen_Mass_vol unknown 94946357 unknown unknown unknown ume_in_Serum_or_Plasma globulin_serum unknown 79291923 unknown unknown unknown alkaline_phosphatase_s unknown 36190903 unknown unknown unknown anthony Sodium_Moles_volume_in unknown 58619212 unknown unknown unknown _Serum_or_Plasma Protein_Mass_volume_in unknown 28838314 unknown unknown unknown _Serum_or_Plasma eosinophil_count_blood unknown 18484339 unknown unknown unknown anion_gap_serum unknown 71703226 unknown unknown unknown mean_platelet_volume unknown 42443914 unknown unknown un known basophil_count_blood unknown 41563868 unknown unknown un known monocyte_count_blood unknown 01233875 unknown unknown un known lymphocyte_count_blood unknown 41457310 unknown unknown unknown neutrophil_count_blood unknown 33515652 unknown unknown unknown Glucose_Mass_volume_in unknown 16605053 unknown unknown unknown _Serum_or_Plasma Globulin_Mass_volume_i unknown 36198502 unknown unknown unknown n_Serum Creatinine_Mass_volume unknown 22547590 unknown unknown unknown _in_Serum_or_Plasma Chloride_Moles_volume_ unknown 96734440 unknown unknown unknown in_Serum_or_Plasma carbon_dioxide_serum_t unknown 80668494 unknown unknown unknown otal Calcium_Moles_volume_i unknown 60017323 unknown unknown unknown n_Serum_or_Plasma albumin_serum unknown 11162416 unknown unknown unknown Bilirubin.total_Mass_v unknown 94756216 unknown unknown unknown olume_in_Serum_or_Plasm a Aspartate_aminotransfe unknown 21058322 unknown unknown unknown rase_Enzymatic_activity _volume_in_Serum_or_Pla sma Anion_gap_4_in_Serum_o unknown 99518264 unknown unknown unknown r_Plasma creatinine_serum unknown 94373218 unknown unknown unknow n Alkaline_phosphatase_E unknown 13732355 unknown unknown unknown nzymatic_activity_volum e_in_Blood Albumin_Globulin_Mass_ unknown 32485884 unknown unknown unknown Ratio_in_Serum_or_Plasm a Albumin_Mass_volume_in unknown 39797812 unknown unknown unknown _Serum_or_Plasma Alanine_aminotransfera unknown 05753285 unknown unknown unknown se_Enzymatic_activity_v olume_in_Serum_or_Plasm a mean_corpuscular_hemog unknown 43564597 unknown unknown unknown lobin_concentration_rbc sodium_serum unknown 21586458 unknown unknown unknown albumin_globulin_ratio unknown 11154965 unknown unknown unknown _serum chloride_serum unknown 87388327 unknown unknown unknown calcium_serum unknown 59830844 unknown unknown unknown mean_corpuscular_hemog unknown 31606036 unknown unknown unknown lobin_RBC red_blood_cell_distrib unknown 29461622 unknown unknown unknown ution_width T unknown 23808087 unknown unknown unknown T unknown 31991856 unknown unknown unknown T unknown 13405572 unknown unknown unknown T unknown 10793808 unknown unknown unknown T unknown 67859108 unknown unknown unknown T unknown 11647546 unknown unknown unknown NEUTROPHILS_AUTO_ unknown 89094678 unknown unknown unkno wn T unknown 64741095 unknown unknown unknown T unknown 90641665 unknown unknown unknown T unknown 19609253 unknown unknown unknown MONOCYTES_AUTO_ unknown 81205224 unknown unknown unknown T unknown 22167140 unknown unknown unknown T unknown 72825270 unknown unknown unknown T unknown 98350883 unknown unknown unknown T unknown 78650457 unknown unknown unknown LYMPHOCYTES_AUTO_ unknown 34663260 unknown unknown unkno wn T unknown 95059967 unknown unknown unknown T unknown 14575418 unknown unknown unknown T unknown 65082993 unknown unknown unknown T unknown 48414312 unknown unknown unknown T unknown 50450913 unknown unknown unknown T unknown 91977828 unknown unknown unknown T unknown 09477329 unknown unknown unknown GFR_-_MDRD unknown 90181297 unknown unknown unknown T unknown 89176072 unknown unknown unknown EOSINOPHILS_AUTO_ unknown 23518246 unknown unknown unkno wn T unknown 57684542 unknown unknown unknown T unknown 80616309 unknown unknown unknown T unknown 14883078 unknown unknown unknown T unknown 48566802 unknown unknown unknown T unknown 84313544 unknown unknown unknown T unknown 28456317 unknown unknown unknown BILIRUBIN_TOTAL unknown 49210316 unknown unknown unknown BASOPHILS_AUTO_ unknown 53834120 unknown unknown unknown T unknown 19832518 unknown unknown unknown T unknown 31799128 unknown unknown unknown T unknown 06318338 unknown unknown unknown T unknown 05777275 unknown unknown unknown ALT_ALANINE_AMINOTRANS unknown 21195527 unknown unknown unknown FERASE ALKALINE_PHOSPHATASE unknown 74376665 unknown unknown un known T unknown 87356740 unknown unknown unknown T unknown 82313496 unknown unknown unknown ALBUMIN_GLOBULIN_RATIO unknown 55170850 unknown unknown unknown urea_nitrogen_blood unknown 94545652 unknown unknown unk nown Erythrocytes_volume_in unknown 49484109 unknown unknown unknown _Blood_by_Automated_cou nt Erythrocyte_distributi unknown 02394929 unknown unknown unknown on_width_Ratio_by_Autom ated_count MCV_Entitic_volume_by_ unknown 61849856 unknown unknown unknown Automated_count MCH_Entitic_mass_by_Au unknown 95378247 unknown unknown unknown tomated_count Platelets_volume_in_Bl unknown 66687089 unknown unknown unknown ood_by_Automated_count Platelet_mean_volume_E unknown 75110613 unknown unknown unknown ntitic_volume_in_Blood_ by_Rees-Ericka neutrophil_count_blood unknown 38223602 unknown unknown unknown monocyte_count_blood unknown 28634919 unknown unknown un known lymphocyte_count_blood unknown 27381633 unknown unknown unknown Hemoglobin_Mass_volume unknown 62622798 unknown unknown unknown _in_Blood eosinophil_count_blood unknown 49472404 unknown unknown unknown Basophils_volume_in_Bl unknown 90165923 unknown unknown unknown ood_by_Manual_count leukocyte_count_blood unknown 65229830 unknown unknown u nknown erythrocyte_RBC_count unknown 25254826 unknown unknown u nknown Leukocytes_volume_in_B unknown 53012117 unknown unknown unknown lood_by_Automated_count Glomerular_Filtration_ unknown 81627706 unknown unknown unknown rate platelet_count unknown 85600604 unknown unknown unknown hemoglobin_blood unknown 51701816 unknown unknown unknow n hematocrit_blood unknown 38681413 unknown unknown unknow n potassium_blood unknown 80029514 unknown unknown unknown Glomerular_filtration_r unknown 12883276 unknown unknown unknown ate_1.73_sq_M.predicted _among_non-blacks_Volum e_Rate_Area_in_Serum_Pl asma_or_Blood_by_Creati nine-based_formula_MDRD _ Hematocrit_Volume_Frac unknown 34613690 unknown unknown unknown tion_of_Blood_by_Automa ted_count bilirubin_serum_total unknown 49295408 unknown unknown u nknown alanine_aminotransfera unknown 81532919 unknown unknown unknown se_SGPT_serum carbon_dioxide_serum_t unknown 81223729 unknown unknown unknown otal aspartate_aminotransfe unknown 37627974 unknown unknown unknown rase_SGOT_serum protein_total_serum unknown 74261720 unknown unknown unk nown blood_glucose unknown 50888597 unknown unknown unknown potassium_blood unknown 58186546 unknown unknown unknown mean_corpuscular_volum unknown 26032895 unknown unknown unknown e_RBC Urea_nitrogen_Mass_vol unknown 58987982 unknown unknown unknown ume_in_Serum_or_Plasma globulin_serum unknown 30676032 unknown unknown unknown alkaline_phosphatase_s unknown 03772037 unknown unknown unknown anthony Sodium_Moles_volume_in unknown 50546194 unknown unknown unknown _Serum_or_Plasma Protein_Mass_volume_in unknown 32511947 unknown unknown unknown _Serum_or_Plasma eosinophil_count_blood unknown 28996844 unknown unknown unknown anion_gap_serum unknown 34812730 unknown unknown unknown mean_platelet_volume unknown 43088480 unknown unknown un known basophil_count_blood unknown 78433488 unknown unknown un known monocyte_count_blood unknown 52116273 unknown unknown un known lymphocyte_count_blood unknown 33956853 unknown unknown unknown neutrophil_count_blood unknown 39544748 unknown unknown unknown Glucose_Mass_volume_in unknown 99264673 unknown unknown unknown _Serum_or_Plasma Globulin_Mass_volume_i unknown 46623750 unknown unknown unknown n_Serum Creatinine_Mass_volume unknown 86574303 unknown unknown unknown _in_Serum_or_Plasma Chloride_Moles_volume_ unknown 12019378 unknown unknown unknown in_Serum_or_Plasma carbon_dioxide_serum_t unknown 51337410 unknown unknown unknown otal Calcium_Moles_volume_i unknown 05726403 unknown unknown unknown n_Serum_or_Plasma albumin_serum unknown 67627589 unknown unknown unknown Bilirubin.total_Mass_v unknown 61071598 unknown unknown unknown olume_in_Serum_or_Plasm a Aspartate_aminotransfe unknown 71643365 unknown unknown unknown rase_Enzymatic_activity _volume_in_Serum_or_Pla sma Anion_gap_4_in_Serum_o unknown 78094900 unknown unknown unknown r_Plasma creatinine_serum unknown 91543982 unknown unknown unknow n Alkaline_phosphatase_E unknown 68918205 unknown unknown unknown nzymatic_activity_volum e_in_Blood Albumin_Globulin_Mass_ unknown 80018413 unknown unknown unknown Ratio_in_Serum_or_Plasm a Albumin_Mass_volume_in unknown 34531900 unknown unknown unknown _Serum_or_Plasma Alanine_aminotransfera unknown 41404987 unknown unknown unknown se_Enzymatic_activity_v olume_in_Serum_or_Plasm a mean_corpuscular_hemog unknown 05119027 unknown unknown unknown lobin_concentration_rbc sodium_serum unknown 80646787 unknown unknown unknown albumin_globulin_ratio unknown 19997035 unknown unknown unknown _serum chloride_serum unknown 03623377 unknown unknown unknown calcium_serum unknown 21534433 unknown unknown unknown mean_corpuscular_hemog unknown 37418337 unknown unknown unknown lobin_RBC red_blood_cell_distrib unknown 60187451 unknown unknown unknown ution_width T unknown 90735364 unknown unknown unknown T unknown 93057333 unknown unknown unknown T unknown 84046092 unknown unknown unknown T unknown 36822683 unknown unknown unknown T unknown 01010882 unknown unknown unknown T unknown 34349741 unknown unknown unknown NEUTROPHILS_AUTO_ unknown 54571634 unknown unknown unkno wn T unknown 17381648 unknown unknown unknown T unknown 84718002 unknown unknown unknown T unknown 64819206 unknown unknown unknown MONOCYTES_AUTO_ unknown 99948314 unknown unknown unknown T unknown 99413623 unknown unknown unknown T unknown 20748971 unknown unknown unknown T unknown 92924319 unknown unknown unknown T unknown 03836315 unknown unknown unknown LYMPHOCYTES_AUTO_ unknown 98446023 unknown unknown unkno wn T unknown 61040772 unknown unknown unknown T unknown 55133946 unknown unknown unknown T unknown 90516882 unknown unknown unknown T unknown 98878254 unknown unknown unknown T unknown 86670883 unknown unknown unknown T unknown 42835423 unknown unknown unknown T unknown 64540689 unknown unknown unknown GFR_-_MDRD unknown 23806653 unknown unknown unknown T unknown 40703985 unknown unknown unknown EOSINOPHILS_AUTO_ unknown 33470564 unknown unknown unkno wn T unknown 01361678 unknown unknown unknown T unknown 30749771 unknown unknown unknown T unknown 83418006 unknown unknown unknown T unknown 68192118 unknown unknown unknown T unknown 98968326 unknown unknown unknown T unknown 49819047 unknown unknown unknown BILIRUBIN_TOTAL unknown 97426109 unknown unknown unknown BASOPHILS_AUTO_ unknown 06913450 unknown unknown unknown T unknown 25550788 unknown unknown unknown T unknown 02225414 unknown unknown unknown T unknown 34779285 unknown unknown unknown T unknown 46939951 unknown unknown unknown ALT_ALANINE_AMINOTRANS unknown 88707584 unknown unknown unknown FERASE ALKALINE_PHOSPHATASE unknown 77408051 unknown unknown un known T unknown 62156965 unknown unknown unknown T unknown 41594319 unknown unknown unknown ALBUMIN_GLOBULIN_RATIO unknown 59367008 unknown unknown unknown urea_nitrogen_blood unknown 50985451 unknown unknown unk nown Erythrocytes_volume_in unknown 37451993 unknown unknown unknown _Blood_by_Automated_cou nt Erythrocyte_distributi unknown 44679604 unknown unknown unknown on_width_Ratio_by_Autom ated_count MCV_Entitic_volume_by_ unknown 66218951 unknown unknown unknown Automated_count MCH_Entitic_mass_by_Au unknown [id number] unknown unknown unknown tomated_count Platelets_volume_in_Bl unknown [id number] unknown unknown unknown ood_by_Automated_count Platelet_mean_volume_E unknown 03787359 unknown unknown unknown ntitic_volume_in_Blood_ by_Rees-Ericka Hemoglobin_Mass_volume unknown 10522625 unknown unknown unknown _in_Blood leukocyte_count_blood unknown [id number] unknown unknown u nknown erythrocyte_RBC_count unknown 39321150 unknown unknown u nknown Leukocytes_volume_in_B unknown 83459845 unknown unknown unknown lood_by_Automated_count Glomerular_Filtration_ unknown 08061773 unknown unknown unknown rate platelet_count unknown 15897130 unknown unknown unknown hemoglobin_blood unknown 22463198 unknown unknown unknow n hematocrit_blood unknown 12451520 unknown unknown unknow n potassium_blood unknown 01536394 unknown unknown unknown Glomerular_filtration_r unknown 47930589 unknown unknown unknown ate_1.73_sq_M.predicted _among_non-blacks_Volum e_Rate_Area_in_Serum_Pl asma_or_Blood_by_Creati nine-based_formula_MDRD _ Hematocrit_Volume_Frac unknown [id number] unknown unknown unknown tion_of_Blood_by_Automa ted_count bilirubin_serum_total unknown 61551304 unknown unknown u nknown alanine_aminotransfera unknown 75742668 unknown unknown unknown se_SGPT_serum carbon_dioxide_serum_t unknown 06479869 unknown unknown unknown otal aspartate_aminotransfe unknown 44839372 unknown unknown unknown rase_SGOT_serum protein_total_serum unknown 99575155 unknown unknown unk nown blood_glucose unknown 29527923 unknown unknown unknown potassium_blood unknown 03901840 unknown unknown unknown mean_corpuscular_volum unknown [id number] unknown unknown unknown e_RBC Urea_nitrogen_Mass_vol unknown 86536550 unknown unknown unknown ume_in_Serum_or_Plasma globulin_serum unknown 54351281 unknown unknown unknown alkaline_phosphatase_s unknown 38292081 unknown unknown unknown anthony Sodium_Moles_volume_in unknown 15730613 unknown unknown unknown _Serum_or_Plasma Protein_Mass_volume_in unknown 26272053 unknown unknown unknown _Serum_or_Plasma anion_gap_serum unknown [id number] unknown unknown unknown mean_platelet_volume unknown 92047522 unknown unknown un known Glucose_Mass_volume_in unknown 63866009 unknown unknown unknown _Serum_or_Plasma Globulin_Mass_volume_i unknown 17960657 unknown unknown unknown n_Serum Creatinine_Mass_volume unknown [id number] unknown unknown unknown _in_Serum_or_Plasma Chloride_Moles_volume_ unknown 31943238 unknown unknown unknown in_Serum_or_Plasma carbon_dioxide_serum_t unknown 12153703 unknown unknown unknown otal Calcium_Moles_volume_i unknown 94195938 unknown unknown unknown n_Serum_or_Plasma albumin_serum unknown 49112144 unknown unknown unknown Bilirubin.total_Mass_v unknown 47316096 unknown unknown unknown olume_in_Serum_or_Plasm a Aspartate_aminotransfe unknown 39840400 unknown unknown unknown rase_Enzymatic_activity _volume_in_Serum_or_Pla sma Anion_gap_4_in_Serum_o unknown 95735265 unknown unknown unknown r_Plasma creatinine_serum unknown 34900920 unknown unknown unknow n Alkaline_phosphatase_E unknown 85374260 unknown unknown unknown nzymatic_activity_volum e_in_Blood Albumin_Globulin_Mass_ unknown 81545120 unknown unknown unknown Ratio_in_Serum_or_Plasm a Albumin_Mass_volume_in unknown 90486636 unknown unknown unknown _Serum_or_Plasma Alanine_aminotransfera unknown 06181894 unknown unknown unknown se_Enzymatic_activity_v olume_in_Serum_or_Plasm a mean_corpuscular_hemog unknown 51027532 unknown unknown unknown lobin_concentration_rbc sodium_serum unknown 41390583 unknown unknown unknown albumin_globulin_ratio unknown 83361390 unknown unknown unknown _serum chloride_serum unknown 95072587 unknown unknown unknown calcium_serum unknown 51199626 unknown unknown unknown mean_corpuscular_hemog unknown 66077478 unknown unknown unknown lobin_RBC red_blood_cell_distrib unknown 13819768 unknown unknown unknown ution_width T unknown 09494175 unknown unknown unknown T unknown [id number] unknown unknown unknown T unknown 22726056 unknown unknown unknown T unknown 62356998 unknown unknown unknown T unknown 18920552 unknown unknown unknown T unknown 75193671 unknown unknown unknown T unknown [id number] unknown unknown unknown T unknown 23564015 unknown unknown unknown T unknown 13850899 unknown unknown unknown T unknown 44435550 unknown unknown unknown T unknown 61307987 unknown unknown unknown T unknown 21543311 unknown unknown unknown T unknown 72264126 unknown unknown unknown T unknown 45703797 unknown unknown unknown T unknown 22617744 unknown unknown unknown T unknown 56042013 unknown unknown unknown T unknown 13662474 unknown unknown unknown GFR_-_MDRD unknown 28328769 unknown unknown unknown T unknown [id number] unknown unknown unknown T unknown 86255402 unknown unknown unknown T unknown 75353974 unknown unknown unknown T unknown 76413497 unknown unknown unknown T unknown 95204076 unknown unknown unknown T unknown 66424916 unknown unknown unknown BILIRUBIN_TOTAL unknown 11225141 unknown unknown unknown T unknown 68773425 unknown unknown unknown T unknown 10625347 unknown unknown unknown T unknown 77940010 unknown unknown unknown ALT_ALANINE_AMINOTRANS unknown 93719257 unknown unknown unknown FERASE ALKALINE_PHOSPHATASE unknown 91150940 unknown unknown un known T unknown 41574096 unknown unknown unknown T unknown 02791749 unknown unknown unknown ALBUMIN_GLOBULIN_RATIO unknown 84205213 unknown unknown unknown urea_nitrogen_blood unknown [id number] unknown unknown unk nown Erythrocytes_volume_in unknown 91705622 unknown unknown unknown _Blood_by_Automated_cou nt Erythrocyte_distributi unknown 46692323 unknown unknown unknown on_width_Ratio_by_Autom ated_count MCV_Entitic_volume_by_ unknown 97766708 unknown unknown unknown Automated_count MCH_Entitic_mass_by_Au unknown 97231775 unknown unknown unknown tomated_count Platelets_volume_in_Bl unknown 74638311 unknown unknown unknown ood_by_Automated_count Platelet_mean_volume_E unknown 71945938 unknown unknown unknown ntitic_volume_in_Blood_ by_Rees-Ericka Hemoglobin_Mass_volume unknown 65032404 unknown unknown unknown _in_Blood leukocyte_count_blood unknown 54419609 unknown unknown u nknown erythrocyte_RBC_count unknown 24964389 unknown unknown u nknown Leukocytes_volume_in_B unknown 54861141 unknown unknown unknown lood_by_Automated_count Glomerular_Filtration_ unknown 21226359 unknown unknown unknown rate platelet_count unknown 70286036 unknown unknown unknown hemoglobin_blood unknown 20207148 unknown unknown unknow n hematocrit_blood unknown 27866888 unknown unknown unknow n potassium_blood unknown 03386139 unknown unknown unknown Glomerular_filtration_r unknown 33765449 unknown unknown unknown ate_1.73_sq_M.predicted _among_non-blacks_Volum e_Rate_Area_in_Serum_Pl asma_or_Blood_by_Creati nine-based_formula_MDRD _ Hematocrit_Volume_Frac unknown 86916759 unknown unknown unknown tion_of_Blood_by_Automa ted_count bilirubin_serum_total unknown 63910658 unknown unknown u nknown alanine_aminotransfera unknown 39490219 unknown unknown unknown se_SGPT_serum carbon_dioxide_serum_t unknown 38291384 unknown unknown unknown otal aspartate_aminotransfe unknown 43334491 unknown unknown unknown rase_SGOT_serum protein_total_serum unknown 25208682 unknown unknown unk nown blood_glucose unknown 63930189 unknown unknown unknown potassium_blood unknown 04230303 unknown unknown unknown mean_corpuscular_volum unknown 20442627 unknown unknown unknown e_RBC Urea_nitrogen_Mass_vol unknown 30806249 unknown unknown unknown ume_in_Serum_or_Plasma globulin_serum unknown 49112179 unknown unknown unknown alkaline_phosphatase_s unknown 58416651 unknown unknown unknown anthony Sodium_Moles_volume_in unknown 43388204 unknown unknown unknown _Serum_or_Plasma Protein_Mass_volume_in unknown 74822213 unknown unknown unknown _Serum_or_Plasma anion_gap_serum unknown 65076892 unknown unknown unknown mean_platelet_volume unknown 62030831 unknown unknown un known Glucose_Mass_volume_in unknown 03069129 unknown unknown unknown _Serum_or_Plasma Globulin_Mass_volume_i unknown 66372187 unknown unknown unknown n_Serum Creatinine_Mass_volume unknown 78982683 unknown unknown unknown _in_Serum_or_Plasma Chloride_Moles_volume_ unknown 28006838 unknown unknown unknown in_Serum_or_Plasma carbon_dioxide_serum_t unknown 97199870 unknown unknown unknown otal Calcium_Moles_volume_i unknown 88297832 unknown unknown unknown n_Serum_or_Plasma albumin_serum unknown 17305148 unknown unknown unknown Bilirubin.total_Mass_v unknown 49368783 unknown unknown unknown olume_in_Serum_or_Plasm a Aspartate_aminotransfe unknown 82191151 unknown unknown unknown rase_Enzymatic_activity _volume_in_Serum_or_Pla sma Anion_gap_4_in_Serum_o unknown 68769506 unknown unknown unknown r_Plasma creatinine_serum unknown 94620583 unknown unknown unknow n Alkaline_phosphatase_E unknown 06368635 unknown unknown unknown nzymatic_activity_volum e_in_Blood Albumin_Globulin_Mass_ unknown 33042142 unknown unknown unknown Ratio_in_Serum_or_Plasm a Albumin_Mass_volume_in unknown 11947249 unknown unknown unknown _Serum_or_Plasma Alanine_aminotransfera unknown [id number] unknown unknown unknown se_Enzymatic_activity_v olume_in_Serum_or_Plasm a mean_corpuscular_hemog unknown 92912649 unknown unknown unknown lobin_concentration_rbc sodium_serum unknown 26124272 unknown unknown unknown albumin_globulin_ratio unknown 64996523 unknown unknown unknown _serum chloride_serum unknown 57401094 unknown unknown unknown calcium_serum unknown 83064943 unknown unknown unknown mean_corpuscular_hemog unknown 41826905 unknown unknown unknown lobin_RBC red_blood_cell_distrib unknown 38506079 unknown unknown unknown ution_width T unknown 80883774 unknown unknown unknown T unknown 37640414 unknown unknown unknown T unknown 76978515 unknown unknown unknown T unknown 38529998 unknown unknown unknown T unknown 58450299 unknown unknown unknown T unknown 12496196 unknown unknown unknown T unknown 54790382 unknown unknown unknown T unknown 20860501 unknown unknown unknown T unknown 64857446 unknown unknown unknown T unknown 86011070 unknown unknown unknown T unknown 79254439 unknown unknown unknown T unknown 64443609 unknown unknown unknown T unknown 27772489 unknown unknown unknown T unknown 22934146 unknown unknown unknown T unknown 09149594 unknown unknown unknown T unknown 36834633 unknown unknown unknown T unknown 57047759 unknown unknown unknown GFR_-_MDRD unknown 31351188 unknown unknown unknown T unknown 53811052 unknown unknown unknown T unknown 07419026 unknown unknown unknown T unknown 77965896 unknown unknown unknown T unknown 99728511 unknown unknown unknown T unknown 54973264 unknown unknown unknown T unknown 56374732 unknown unknown unknown BILIRUBIN_TOTAL unknown 94233851 unknown unknown unknown T unknown 47158455 unknown unknown unknown T unknown 29657785 unknown unknown unknown T unknown 86254617 unknown unknown unknown ALT_ALANINE_AMINOTRANS unknown 94749903 unknown unknown unknown FERASE ALKALINE_PHOSPHATASE unknown 10187185 unknown unknown un known T unknown 03029526 unknown unknown unknown T unknown 10960692 unknown unknown unknown ALBUMIN_GLOBULIN_RATIO unknown 20240346 unknown unknown unknown urea_nitrogen_blood unknown 61220288 unknown unknown unk nown Erythrocytes_volume_in unknown 31616798 unknown unknown unknown _Blood_by_Automated_cou nt Erythrocyte_distributi unknown 52774992 unknown unknown unknown on_width_Ratio_by_Autom ated_count MCV_Entitic_volume_by_ unknown 17031526 unknown unknown unknown Automated_count MCH_Entitic_mass_by_Au unknown 02413840 unknown unknown unknown tomated_count Platelets_volume_in_Bl unknown 93202070 unknown unknown unknown ood_by_Automated_count Platelet_mean_volume_E unknown 60480477 unknown unknown unknown ntitic_volume_in_Blood_ by_Rees-Ericka Hemoglobin_Mass_volume unknown 09291861 unknown unknown unknown _in_Blood leukocyte_count_blood unknown 25733031 unknown unknown u nknown erythrocyte_RBC_count unknown 72725771 unknown unknown u nknown Leukocytes_volume_in_B unknown 63369868 unknown unknown unknown lood_by_Automated_count Glomerular_Filtration_ unknown 29597674 unknown unknown unknown rate platelet_count unknown 05080405 unknown unknown unknown hemoglobin_blood unknown 28287074 unknown unknown unknow n hematocrit_blood unknown 74053887 unknown unknown unknow n potassium_blood unknown 26753947 unknown unknown unknown Glomerular_filtration_r unknown 49938768 unknown unknown unknown ate_1.73_sq_M.predicted _among_non-blacks_Volum e_Rate_Area_in_Serum_Pl asma_or_Blood_by_Creati nine-based_formula_MDRD _ Hematocrit_Volume_Frac unknown 58927588 unknown unknown unknown tion_of_Blood_by_Automa ted_count bilirubin_serum_total unknown 26411373 unknown unknown u nknown alanine_aminotransfera unknown 58799419 unknown unknown unknown se_SGPT_serum carbon_dioxide_serum_t unknown 09436839 unknown unknown unknown otal aspartate_aminotransfe unknown 23186774 unknown unknown unknown rase_SGOT_serum protein_total_serum unknown 09330680 unknown unknown unk nown blood_glucose unknown 05980983 unknown unknown unknown potassium_blood unknown 49440826 unknown unknown unknown mean_corpuscular_volum unknown 29581202 unknown unknown unknown e_RBC Urea_nitrogen_Mass_vol unknown 54225441 unknown unknown unknown ume_in_Serum_or_Plasma globulin_serum unknown 24983822 unknown unknown unknown alkaline_phosphatase_s unknown 04524488 unknown unknown unknown anthony Sodium_Moles_volume_in unknown 27320631 unknown unknown unknown _Serum_or_Plasma Protein_Mass_volume_in unknown 01997394 unknown unknown unknown _Serum_or_Plasma anion_gap_serum unknown 63601814 unknown unknown unknown mean_platelet_volume unknown 21668086 unknown unknown un known Glucose_Mass_volume_in unknown 97822957 unknown unknown unknown _Serum_or_Plasma Globulin_Mass_volume_i unknown 03985387 unknown unknown unknown n_Serum Creatinine_Mass_volume unknown 42298053 unknown unknown unknown _in_Serum_or_Plasma Chloride_Moles_volume_ unknown 79281394 unknown unknown unknown in_Serum_or_Plasma carbon_dioxide_serum_t unknown 63678164 unknown unknown unknown otal Calcium_Moles_volume_i unknown 02150442 unknown unknown unknown n_Serum_or_Plasma albumin_serum unknown 56550417 unknown unknown unknown Bilirubin.total_Mass_v unknown 74383242 unknown unknown unknown olume_in_Serum_or_Plasm a Aspartate_aminotransfe unknown 17747753 unknown unknown unknown rase_Enzymatic_activity _volume_in_Serum_or_Pla sma Anion_gap_4_in_Serum_o unknown 25423572 unknown unknown unknown r_Plasma creatinine_serum unknown 79150606 unknown unknown unknow n Alkaline_phosphatase_E unknown 62362113 unknown unknown unknown nzymatic_activity_volum e_in_Blood Albumin_Globulin_Mass_ unknown 00012952 unknown unknown unknown Ratio_in_Serum_or_Plasm a Albumin_Mass_volume_in unknown 42117414 unknown unknown unknown _Serum_or_Plasma Alanine_aminotransfera unknown 47242938 unknown unknown unknown se_Enzymatic_activity_v olume_in_Serum_or_Plasm a mean_corpuscular_hemog unknown 93105457 unknown unknown unknown lobin_concentration_rbc sodium_serum unknown 85955252 unknown unknown unknown albumin_globulin_ratio unknown 43500549 unknown unknown unknown _serum chloride_serum unknown 74527026 unknown unknown unknown calcium_serum unknown 45665424 unknown unknown unknown mean_corpuscular_hemog unknown 57445191 unknown unknown unknown lobin_RBC red_blood_cell_distrib unknown 84709620 unknown unknown unknown ution_width T unknown 04925078 unknown unknown unknown T unknown 34814325 unknown unknown unknown T unknown 69566840 unknown unknown unknown T unknown 93049059 unknown unknown unknown T unknown 09677490 unknown unknown unknown T unknown 52588172 unknown unknown unknown T unknown 94865843 unknown unknown unknown T unknown 20226208 unknown unknown unknown T unknown 61993570 unknown unknown unknown T unknown 46896990 unknown unknown unknown T unknown 70569388 unknown unknown unknown T unknown 45400560 unknown unknown unknown T unknown 89533390 unknown unknown unknown T unknown 59511027 unknown unknown unknown T unknown 08558353 unknown unknown unknown T unknown 31755222 unknown unknown unknown T unknown 51297095 unknown unknown unknown GFR_-_MDRD unknown 91087732 unknown unknown unknown T unknown 89408112 unknown unknown unknown T unknown [id number] unknown unknown unknown T unknown 54959433 unknown unknown unknown T unknown 24419745 unknown unknown unknown T unknown 69623051 unknown unknown unknown T unknown 01798925 unknown unknown unknown BILIRUBIN_TOTAL unknown 63270581 unknown unknown unknown T unknown 92937637 unknown unknown unknown T unknown 26702797 unknown unknown unknown T unknown 40945580 unknown unknown unknown ALT_ALANINE_AMINOTRANS unknown 01488600 unknown unknown unknown FERASE ALKALINE_PHOSPHATASE unknown 84523382 unknown unknown un known T unknown [id number] unknown unknown unknown T unknown 20997136 unknown unknown unknown ALBUMIN_GLOBULIN_RATIO unknown 10712188 unknown unknown unknown glucose_tolerance_test unknown 38441402 unknown unknown unknown _with_glucose_fasting blood_glucose_3_hours_ unknown 87047135 unknown unknown unknown after_glucose_tolerance _test blood_glucose_2_hours_ unknown 80186286 unknown unknown unknown after_glucose_tolerance _test blood_glucose_60_minut unknown 95531561 unknown unknown unknown es_after_glucose_tolera nce_test glucose_tolerance_test unknown 99171302 unknown unknown unknown _with_glucose_fasting blood_glucose_3_hours_ unknown 73921624 unknown unknown unknown after_glucose_tolerance _test blood_glucose_2_hours_ unknown 33899054 unknown unknown unknown after_glucose_tolerance _test blood_glucose_60_minut unknown 91695308 unknown unknown unknown es_after_glucose_tolera nce_test glucose_tolerance_test unknown 22632596 unknown unknown unknown _with_glucose_fasting blood_glucose_3_hours_ unknown 20210316 unknown unknown unknown after_glucose_tolerance _test blood_glucose_2_hours_ unknown 20210316 unknown unknown unknown after_glucose_tolerance _test blood_glucose_60_minut unknown 20210316 unknown unknown unknown es_after_glucose_tolera nce_test glucose_tolerance_test unknown 20210316 unknown unknown unknown _with_glucose_fasting blood_glucose_3_hours_ unknown 20210316 unknown unknown unknown after_glucose_tolerance _test blood_glucose_2_hours_ unknown 20210316 unknown unknown unknown after_glucose_tolerance _test blood_glucose_60_minut unknown 20210316 unknown unknown unknown es_after_glucose_tolera nce_test glucose_tolerance_test unknown 20210316 unknown unknown unknown _with_glucose_fasting blood_glucose_3_hours_ unknown 20210316 unknown unknown unknown after_glucose_tolerance _test blood_glucose_2_hours_ unknown 20210316 unknown unknown unknown after_glucose_tolerance _test blood_glucose_60_minut unknown 20210316 unknown unknown unknown es_after_glucose_tolera nce_test Chlamydia_trachomatis_ unknown 20210314 unknown unknown unknown DNA_Presence_in_Specime n_by_NAA_with_probe_det ection chlamydia_DNA_probe unknown 20210314 unknown unknown unk nown TRICHOMONAS_VAGINALIS_ unknown 20210314 unknown unknown unknown DNA_PROBE TRICHOMONAS_VAGINALIS_ unknown 20210314 unknown unknown unknown DNA T unknown 20210314 unknown unknown unknown CHLAMYDIA_TRACHOMATIS_ unknown 20210314 unknown unknown unknown DNA T unknown 20210314 unknown unknown unknown Chlamydia_trachomatis_ unknown 20210314 unknown unknown unknown DNA_Presence_in_Specime n_by_NAA_with_probe_det ection chlamydia_DNA_probe unknown 20210314 unknown unknown unk nown TRICHOMONAS_VAGINALIS_ unknown 20210314 unknown unknown unknown DNA_PROBE TRICHOMONAS_VAGINALIS_ unknown 20210314 unknown unknown unknown DNA T unknown 20210314 unknown unknown unknown CHLAMYDIA_TRACHOMATIS_ unknown 20210314 unknown unknown unknown DNA T unknown 20210314 unknown unknown unknown Chlamydia_trachomatis_ unknown 20210314 unknown unknown unknown DNA_Presence_in_Specime n_by_NAA_with_probe_det ection chlamydia_DNA_probe unknown 20210314 unknown unknown unk nown TRICHOMONAS_VAGINALIS_ unknown 20210314 unknown unknown unknown DNA_PROBE TRICHOMONAS_VAGINALIS_ unknown 20210314 unknown unknown unknown DNA T unknown 20210314 unknown unknown unknown CHLAMYDIA_TRACHOMATIS_ unknown 20210314 unknown unknown unknown DNA T unknown 20210314 unknown unknown unknown Chlamydia_trachomatis_ unknown 20210314 unknown unknown unknown DNA_Presence_in_Specime n_by_NAA_with_probe_det ection chlamydia_DNA_probe unknown 20210314 unknown unknown unk nown TRICHOMONAS_VAGINALIS_ unknown 20210314 unknown unknown unknown DNA_PROBE TRICHOMONAS_VAGINALIS_ unknown 20210314 unknown unknown unknown DNA T unknown 20210314 unknown unknown unknown CHLAMYDIA_TRACHOMATIS_ unknown 20210314 unknown unknown unknown DNA T unknown 20210314 unknown unknown unknown Chlamydia_trachomatis_ unknown 20210314 unknown unknown unknown DNA_Presence_in_Specime n_by_NAA_with_probe_det ection chlamydia_DNA_probe unknown 20210314 unknown unknown unk nown TRICHOMONAS_VAGINALIS_ unknown 20210314 unknown unknown unknown DNA_PROBE TRICHOMONAS_VAGINALIS_ unknown 20210314 unknown unknown unknown DNA T unknown 20210314 unknown unknown unknown CHLAMYDIA_TRACHOMATIS_ unknown 20210314 unknown unknown unknown DNA T unknown 20210314 unknown unknown unknown blood_glucose_1_hour_a unknown 20210307 unknown unknown unknown fter_100_gm_oral_glucos e blood_glucose_1_hour_a unknown 20210307 unknown unknown unknown fter_50_gm_oral_glucose blood_glucose_1_hour_a unknown 20210307 unknown unknown unknown fter_100_gm_oral_glucos e blood_glucose_1_hour_a unknown 20210307 unknown unknown unknown fter_50_gm_oral_glucose T unknown 20210307 unknown unknown unknown GLUCOSE_1H_PP_50GM_DOS unknown 20210307 unknown unknown unknown E blood_glucose_1_hour_a unknown 20210307 unknown unknown unknown fter_100_gm_oral_glucos e blood_glucose_1_hour_a unknown 20210307 unknown unknown unknown fter_50_gm_oral_glucose blood_glucose_1_hour_a unknown 20210307 unknown unknown unknown fter_100_gm_oral_glucos e blood_glucose_1_hour_a unknown 20210307 unknown unknown unknown fter_50_gm_oral_glucose T unknown 20210307 unknown unknown unknown GLUCOSE_1H_PP_50GM_DOS unknown 20210307 unknown unknown unknown E Erythrocytes_volume_in unknown 20210307 unknown unknown unknown _Blood_by_Automated_cou nt Erythrocyte_distributi unknown 20210307 unknown unknown unknown on_width_Ratio_by_Autom ated_count MCV_Entitic_volume_by_ unknown 20210307 unknown unknown unknown Automated_count MCH_Entitic_mass_by_Au unknown 20210307 unknown unknown unknown tomated_count Platelets_volume_in_Bl unknown 20210307 unknown unknown unknown ood_by_Automated_count Platelet_mean_volume_E unknown 20210307 unknown unknown unknown ntitic_volume_in_Blood_ by_Rees-Ericka Hemoglobin_Mass_volume unknown 20210307 unknown unknown unknown _in_Blood leukocyte_count_blood unknown 20210307 unknown unknown u nknown erythrocyte_RBC_count unknown 20210307 unknown unknown u nknown Leukocytes_volume_in_B unknown 20210307 unknown unknown unknown lood_by_Automated_count platelet_count unknown 20210307 unknown unknown unknown hemoglobin_blood unknown 20210307 unknown unknown unknow n hematocrit_blood unknown 20210307 unknown unknown unknow n Hematocrit_Volume_Frac unknown 20210307 unknown unknown unknown tion_of_Blood_by_Automa ted_count mean_corpuscular_volum unknown 20210307 unknown unknown unknown e_RBC blood_glucose_1_hour_a unknown 20210307 unknown unknown unknown fter_100_gm_oral_glucos e mean_platelet_volume unknown 20210307 unknown unknown un known mean_corpuscular_hemog unknown 20210307 unknown unknown unknown lobin_concentration_rbc blood_glucose_1_hour_a unknown 20210307 unknown unknown unknown fter_50_gm_oral_glucose blood_glucose_1_hour_a unknown 20210307 unknown unknown unknown fter_100_gm_oral_glucos e blood_glucose_1_hour_a unknown 20210307 unknown unknown unknown fter_50_gm_oral_glucose mean_corpuscular_hemog unknown 20210307 unknown unknown unknown lobin_RBC red_blood_cell_distrib unknown 20210307 unknown unknown unknown ution_width T unknown 20210307 unknown unknown unknown T unknown 20210307 unknown unknown unknown T unknown 20210307 unknown unknown unknown T unknown 20210307 unknown unknown unknown T unknown 20210307 unknown unknown unknown T unknown 20210307 unknown unknown unknown T unknown 20210307 unknown unknown unknown T unknown 20210307 unknown unknown unknown T unknown 20210307 unknown unknown unknown T unknown 20210307 unknown unknown unknown T unknown 20210307 unknown unknown unknown GLUCOSE_1H_PP_50GM_DOS unknown 20210307 unknown unknown unknown E Erythrocytes_volume_in unknown 20210307 unknown unknown unknown _Blood_by_Automated_cou nt Erythrocyte_distributi unknown 20210307 unknown unknown unknown on_width_Ratio_by_Autom ated_count MCV_Entitic_volume_by_ unknown 20210307 unknown unknown unknown Automated_count MCH_Entitic_mass_by_Au unknown 20210307 unknown unknown unknown tomated_count Platelets_volume_in_Bl unknown 20210307 unknown unknown unknown ood_by_Automated_count Platelet_mean_volume_E unknown 20210307 unknown unknown unknown ntitic_volume_in_Blood_ by_Rees-Ericka Hemoglobin_Mass_volume unknown 20210307 unknown unknown unknown _in_Blood leukocyte_count_blood unknown 20210307 unknown unknown u nknown erythrocyte_RBC_count unknown 20210307 unknown unknown u nknown Leukocytes_volume_in_B unknown 20210307 unknown unknown unknown lood_by_Automated_count platelet_count unknown 20210307 unknown unknown unknown hemoglobin_blood unknown 20210307 unknown unknown unknow n hematocrit_blood unknown 20210307 unknown unknown unknow n Hematocrit_Volume_Frac unknown 20210307 unknown unknown unknown tion_of_Blood_by_Automa ted_count mean_corpuscular_volum unknown 20210307 unknown unknown unknown e_RBC blood_glucose_1_hour_a unknown 20210307 unknown unknown unknown fter_100_gm_oral_glucos e mean_platelet_volume unknown 20210307 unknown unknown un known mean_corpuscular_hemog unknown 20210307 unknown unknown unknown lobin_concentration_rbc blood_glucose_1_hour_a unknown 20210307 unknown unknown unknown fter_50_gm_oral_glucose blood_glucose_1_hour_a unknown 20210307 unknown unknown unknown fter_100_gm_oral_glucos e blood_glucose_1_hour_a unknown 20210307 unknown unknown unknown fter_50_gm_oral_glucose mean_corpuscular_hemog unknown 20210307 unknown unknown unknown lobin_RBC red_blood_cell_distrib unknown 20210307 unknown unknown unknown ution_width T unknown 20210307 unknown unknown unknown T unknown 20210307 unknown unknown unknown T unknown 20210307 unknown unknown unknown T unknown 20210307 unknown unknown unknown T unknown 20210307 unknown unknown unknown T unknown 20210307 unknown unknown unknown T unknown 20210307 unknown unknown unknown T unknown 20210307 unknown unknown unknown T unknown 20210307 unknown unknown unknown T unknown 20210307 unknown unknown unknown T unknown 20210307 unknown unknown unknown GLUCOSE_1H_PP_50GM_DOS unknown 20210307 unknown unknown unknown E Erythrocytes_volume_in unknown 20210307 unknown unknown unknown _Blood_by_Automated_cou nt Erythrocyte_distributi unknown 20210307 unknown unknown unknown on_width_Ratio_by_Autom ated_count MCV_Entitic_volume_by_ unknown 20210307 unknown unknown unknown Automated_count MCH_Entitic_mass_by_Au unknown 20210307 unknown unknown unknown tomated_count Platelets_volume_in_Bl unknown 20210307 unknown unknown unknown ood_by_Automated_count Platelet_mean_volume_E unknown 20210307 unknown unknown unknown ntitic_volume_in_Blood_ by_Rees-Ericka Hemoglobin_Mass_volume unknown 20210307 unknown unknown unknown _in_Blood leukocyte_count_blood unknown 20210307 unknown unknown u nknown erythrocyte_RBC_count unknown 20210307 unknown unknown u nknown Leukocytes_volume_in_B unknown 20210307 unknown unknown unknown lood_by_Automated_count platelet_count unknown 20210307 unknown unknown unknown hemoglobin_blood unknown 20210307 unknown unknown unknow n hematocrit_blood unknown 20210307 unknown unknown unknow n Hematocrit_Volume_Frac unknown 20210307 unknown unknown unknown tion_of_Blood_by_Automa ted_count mean_corpuscular_volum unknown 20210307 unknown unknown unknown e_RBC blood_glucose_1_hour_a unknown 20210307 unknown unknown unknown fter_100_gm_oral_glucos e mean_platelet_volume unknown [id number] unknown unknown un known mean_corpuscular_hemog unknown 20210307 unknown unknown unknown lobin_concentration_rbc blood_glucose_1_hour_a unknown 20210307 unknown unknown unknown fter_50_gm_oral_glucose blood_glucose_1_hour_a unknown 25922597 unknown unknown unknown fter_100_gm_oral_glucos e blood_glucose_1_hour_a unknown 20210307 unknown unknown unknown fter_50_gm_oral_glucose mean_corpuscular_hemog unknown 20210307 unknown unknown unknown lobin_RBC red_blood_cell_distrib unknown 20210307 unknown unknown unknown ution_width T unknown 20210307 unknown unknown unknown T unknown 20210307 unknown unknown unknown T unknown 20210307 unknown unknown unknown T unknown 20210307 unknown unknown unknown T unknown 20210307 unknown unknown unknown T unknown 20210307 unknown unknown unknown T unknown 20210307 unknown unknown unknown T unknown 20210307 unknown unknown unknown T unknown 20210307 unknown unknown unknown T unknown 20210307 unknown unknown unknown T unknown 20210307 unknown unknown unknown GLUCOSE_1H_PP_50GM_DOS unknown [id number] unknown unknown unknown E _2019NCoV_COVID-19_Lab unknown [id number] unknown unknown unknown _Test_Result_Text_ COVID-19_REFERENCE_TES unknown 10307794 unknown unknown unknown T T unknown [id number] unknown unknown unknown _2019NCoV_COVID-19_Lab unknown 11024616 unknown unknown unknown _Test_Result_Text_ COVID-19_REFERENCE_TES unknown [id number] unknown unknown unknown T T unknown 10358613 unknown unknown unknown _2019NCoV_COVID-19_Lab unknown [id number] unknown unknown unknown _Test_Result_Text_ COVID-19_REFERENCE_TES unknown 87045571 unknown unknown unknown T T unknown [id number] unknown unknown unknown _2019NCoV_COVID-19_Lab unknown [id number] unknown unknown unknown _Test_Result_Text_ COVID-19_REFERENCE_TES unknown 92315685 unknown unknown unknown T T unknown [id number] unknown unknown unknown _2019NCoV_COVID-19_Lab unknown [id number] unknown unknown unknown _Test_Result_Text_ COVID-19_REFERENCE_TES unknown [id number] unknown unknown unknown T T unknown 12393295 unknown unknown unknown SIGNAL_TO_CUT-OFF unknown [id number] unknown unknown unkno wn platelet_count_estimat unknown 42469324 unknown unknown unknown e antibody_screen_serum unknown 12598413 unknown unknown u nknown hepatitis_B_surface_an unknown 42833772 unknown unknown unknown tigen varicella_zoster_antib unknown 74786274 unknown unknown unknown ody_IgG_serum rubella_antibody_serum unknown [id number] unknown unknown unknown _titer Reagin_Ab_Units_volume unknown 44981219 unknown unknown unknown _in_Serum_by_VDRL hepatitis_B_surface_an unknown 79913164 unknown unknown unknown tigen rubella_antibody_serum unknown 10074452 unknown unknown unknown _titer platelet_count_estimat unknown 02860500 unknown unknown unknown e rapid_plasma_reagin_an unknown 29460279 unknown unknown unknown tibody_serum Rh_antigen unknown [id number] unknown unknown unknown antibody_screen_serum unknown 71610235 unknown unknown u nknown varicella_zoster_antib unknown [id number] unknown unknown unknown ody_IgG_serum blood_type_with_RH_fac unknown 31226158 unknown unknown unknown tor Hepatitis_C_Antibody_S unknown [id number] unknown unknown unknown ignal_to_Cut-Off Rh_antigen unknown [id number] unknown unknown unknown Slide_Interpretation unknown 25749595 unknown unknown un known T unknown [id number] unknown unknown unknown SLIDE_REVIEW_ unknown [id number] unknown unknown unknown T unknown 82953444 unknown unknown unknown T unknown [id number] unknown unknown unknown PLATELET_ESTIMATE_MANU unknown [id number] unknown unknown unknown AL SIGNAL_TO_CUT-OFF unknown [id number] unknown unknown unkno wn platelet_count_estimat unknown 15225118 unknown unknown unknown e antibody_screen_serum unknown 88711977 unknown unknown u nknown hepatitis_B_surface_an unknown 24718294 unknown unknown unknown tigen neutrophil_count_blood unknown 90306186 unknown unknown unknown monocyte_count_blood unknown 13445399 unknown unknown un known lymphocyte_count_blood unknown 01482579 unknown unknown unknown eosinophil_count_blood unknown 99858574 unknown unknown unknown Basophils_volume_in_Bl unknown 13360877 unknown unknown unknown ood_by_Manual_count varicella_zoster_antib unknown 55354113 unknown unknown unknown ody_IgG_serum rubella_antibody_serum unknown [id number] unknown unknown unknown _titer Reagin_Ab_Units_volume unknown 53374395 unknown unknown unknown _in_Serum_by_VDRL hepatitis_B_surface_an unknown 29266848 unknown unknown unknown tigen rubella_antibody_serum unknown 08302900 unknown unknown unknown _titer platelet_count_estimat unknown 14037244 unknown unknown unknown e rapid_plasma_reagin_an unknown 31269697 unknown unknown unknown tibody_serum eosinophil_count_blood unknown 12518209 unknown unknown unknown Rh_antigen unknown 28367594 unknown unknown unknown antibody_screen_serum unknown 22275157 unknown unknown u nknown varicella_zoster_antib unknown 74850871 unknown unknown unknown ody_IgG_serum basophil_count_blood unknown 09166689 unknown unknown un known monocyte_count_blood unknown 21134603 unknown unknown un known lymphocyte_count_blood unknown [id number] unknown unknown unknown neutrophil_count_blood unknown 89749537 unknown unknown unknown blood_type_with_RH_fac unknown 19961386 unknown unknown unknown tor Hepatitis_C_Antibody_S unknown 38285927 unknown unknown unknown ignal_to_Cut-Off Rh_antigen unknown 54826992 unknown unknown unknown Slide_Interpretation unknown 54148769 unknown unknown un known T unknown [id number] unknown unknown unknown SLIDE_REVIEW_ unknown [id number] unknown unknown unknown T unknown [id number] unknown unknown unknown T unknown 73110316 unknown unknown unknown PLATELET_ESTIMATE_MANU unknown [id number] unknown unknown unknown AL NEUTROPHILS_AUTO_ unknown [id number] unknown unknown unkno wn T unknown [id number] unknown unknown unknown MONOCYTES_AUTO_ unknown 72761084 unknown unknown unknown T unknown [id number] unknown unknown unknown LYMPHOCYTES_AUTO_ unknown [id number] unknown unknown unkno wn T unknown [id number] unknown unknown unknown EOSINOPHILS_AUTO_ unknown [id number] unknown unknown unkno wn T unknown [id number] unknown unknown unknown BASOPHILS_AUTO_ unknown [id number] unknown unknown unknown T unknown 79430103 unknown unknown unknown SIGNAL_TO_CUT-OFF unknown 25791101 unknown unknown unkno wn platelet_count_estimat unknown [id number] unknown unknown unknown e antibody_screen_serum unknown 49082530 unknown unknown u nknown hepatitis_B_surface_an unknown 55160049 unknown unknown unknown tigen neutrophil_count_blood unknown 60831217 unknown unknown unknown monocyte_count_blood unknown 65467249 unknown unknown un known lymphocyte_count_blood unknown [id number] unknown unknown unknown eosinophil_count_blood unknown 95972914 unknown unknown unknown Basophils_volume_in_Bl unknown 39630813 unknown unknown unknown ood_by_Manual_count varicella_zoster_antib unknown [id number] unknown unknown unknown ody_IgG_serum rubella_antibody_serum unknown [id number] unknown unknown unknown _titer Reagin_Ab_Units_volume unknown 71171803 unknown unknown unknown _in_Serum_by_VDRL hepatitis_B_surface_an unknown 65585102 unknown unknown unknown tigen rubella_antibody_serum unknown [id number] unknown unknown unknown _titer platelet_count_estimat unknown 52377254 unknown unknown unknown e rapid_plasma_reagin_an unknown 33081999 unknown unknown unknown tibody_serum eosinophil_count_blood unknown 84814470 unknown unknown unknown Rh_antigen unknown [id number] unknown unknown unknown antibody_screen_serum unknown 10747067 unknown unknown u nknown varicella_zoster_antib unknown [id number] unknown unknown unknown ody_IgG_serum basophil_count_blood unknown [id number] unknown unknown un known monocyte_count_blood unknown 66286458 unknown unknown un known lymphocyte_count_blood unknown 51872291 unknown unknown unknown neutrophil_count_blood unknown 16190196 unknown unknown unknown blood_type_with_RH_fac unknown 17900963 unknown unknown unknown tor Hepatitis_C_Antibody_S unknown [id number] unknown unknown unknown ignal_to_Cut-Off Rh_antigen unknown 82265901 unknown unknown unknown Slide_Interpretation unknown [id number] unknown unknown un known T unknown 91226183 unknown unknown unknown SLIDE_REVIEW_ unknown [id number] unknown unknown unknown T unknown [id number] unknown unknown unknown T unknown [id number] unknown unknown unknown PLATELET_ESTIMATE_MANU unknown [id number] unknown unknown unknown AL NEUTROPHILS_AUTO_ unknown [id number] unknown unknown unkno wn T unknown 62011660 unknown unknown unknown MONOCYTES_AUTO_ unknown [id number] unknown unknown unknown T unknown [id number] unknown unknown unknown LYMPHOCYTES_AUTO_ unknown [id number] unknown unknown unkno wn T unknown [id number] unknown unknown unknown EOSINOPHILS_AUTO_ unknown [id number] unknown unknown unkno wn T unknown [id number] unknown unknown unknown BASOPHILS_AUTO_ unknown [id number] unknown unknown unknown T unknown [id number] unknown unknown unknown SIGNAL_TO_CUT-OFF unknown [id number] unknown unknown unkno wn platelet_count_estimat unknown [id number] unknown unknown unknown e antibody_screen_serum unknown [id number] unknown unknown u nknown hepatitis_B_surface_an unknown 16421764 unknown unknown unknown tigen neutrophil_count_blood unknown 05594658 unknown unknown unknown monocyte_count_blood unknown 46248547 unknown unknown un known lymphocyte_count_blood unknown 29125041 unknown unknown unknown eosinophil_count_blood unknown 84211583 unknown unknown unknown Basophils_volume_in_Bl unknown 63753764 unknown unknown unknown ood_by_Manual_count varicella_zoster_antib unknown [id number] unknown unknown unknown ody_IgG_serum rubella_antibody_serum unknown 58056138 unknown unknown unknown _titer Reagin_Ab_Units_volume unknown [id number] unknown unknown unknown _in_Serum_by_VDRL hepatitis_B_surface_an unknown 51626073 unknown unknown unknown tigen rubella_antibody_serum unknown [id number] unknown unknown unknown _titer platelet_count_estimat unknown 00416066 unknown unknown unknown e rapid_plasma_reagin_an unknown 38512122 unknown unknown unknown tibody_serum eosinophil_count_blood unknown 38833303 unknown unknown unknown Rh_antigen unknown 55588299 unknown unknown unknown antibody_screen_serum unknown 75954914 unknown unknown u nknown varicella_zoster_antib unknown [id number] unknown unknown unknown ody_IgG_serum basophil_count_blood unknown [id number] unknown unknown un known monocyte_count_blood unknown 83515811 unknown unknown un known lymphocyte_count_blood unknown 03736256 unknown unknown unknown neutrophil_count_blood unknown 63859883 unknown unknown unknown blood_type_with_RH_fac unknown 28130713 unknown unknown unknown tor Hepatitis_C_Antibody_S unknown [id number] unknown unknown unknown ignal_to_Cut-Off Rh_antigen unknown 19562886 unknown unknown unknown Slide_Interpretation unknown 60214120 unknown unknown un known T unknown [id number] unknown unknown unknown SLIDE_REVIEW_ unknown [id number] unknown unknown unknown T unknown 38876285 unknown unknown unknown T unknown [id number] unknown unknown unknown PLATELET_ESTIMATE_MANU unknown 62690411 unknown unknown unknown AL NEUTROPHILS_AUTO_ unknown [id number] unknown unknown unkno wn T unknown [id number] unknown unknown unknown MONOCYTES_AUTO_ unknown [id number] unknown unknown unknown T unknown [id number] unknown unknown unknown LYMPHOCYTES_AUTO_ unknown [id number] unknown unknown unkno wn T unknown [id number] unknown unknown unknown EOSINOPHILS_AUTO_ unknown [id number] unknown unknown unkno wn T unknown 28120816 unknown unknown unknown BASOPHILS_AUTO_ unknown [id number] unknown unknown unknown T unknown [id number] unknown unknown unknown SIGNAL_TO_CUT-OFF unknown [id number] unknown unknown unkno wn platelet_count_estimat unknown 55180090 unknown unknown unknown e antibody_screen_serum unknown 11866036 unknown unknown u nknown hepatitis_B_surface_an unknown 27326532 unknown unknown unknown tigen Erythrocytes_volume_in unknown 05929889 unknown unknown unknown _Blood_by_Automated_cou nt Erythrocyte_distributi unknown 74840100 unknown unknown unknown on_width_Ratio_by_Autom ated_count MCV_Entitic_volume_by_ unknown [id number] unknown unknown unknown Automated_count MCH_Entitic_mass_by_Au unknown 54902845 unknown unknown unknown tomated_count Platelets_volume_in_Bl unknown 91445292 unknown unknown unknown ood_by_Automated_count Platelet_mean_volume_E unknown 06053720 unknown unknown unknown ntitic_volume_in_Blood_ by_Rees-Ericka neutrophil_count_blood unknown 23887957 unknown unknown unknown monocyte_count_blood unknown 33309856 unknown unknown un known lymphocyte_count_blood unknown 64983700 unknown unknown unknown Hemoglobin_Mass_volume unknown 39162155 unknown unknown unknown _in_Blood eosinophil_count_blood unknown 75607929 unknown unknown unknown Basophils_volume_in_Bl unknown 42536221 unknown unknown unknown ood_by_Manual_count leukocyte_count_blood unknown 38071112 unknown unknown u nknown erythrocyte_RBC_count unknown 61166021 unknown unknown u nknown Leukocytes_volume_in_B unknown 40005789 unknown unknown unknown lood_by_Automated_count platelet_count unknown 98638455 unknown unknown unknown hemoglobin_blood unknown 01446328 unknown unknown unknow n hematocrit_blood unknown 91575464 unknown unknown unknow n varicella_zoster_antib unknown 47241881 unknown unknown unknown ody_IgG_serum rubella_antibody_serum unknown 72024600 unknown unknown unknown _titer Reagin_Ab_Units_volume unknown 95826635 unknown unknown unknown _in_Serum_by_VDRL hepatitis_B_surface_an unknown 24838887 unknown unknown unknown tigen Hematocrit_Volume_Frac unknown 41917829 unknown unknown unknown tion_of_Blood_by_Automa ted_count rubella_antibody_serum unknown 06768501 unknown unknown unknown _titer mean_corpuscular_volum unknown 93533931 unknown unknown unknown e_RBC platelet_count_estimat unknown 25506527 unknown unknown unknown e rapid_plasma_reagin_an unknown 89990403 unknown unknown unknown tibody_serum eosinophil_count_blood unknown 72584207 unknown unknown unknown mean_platelet_volume unknown 91058264 unknown unknown un known Rh_antigen unknown 61514970 unknown unknown unknown antibody_screen_serum unknown 47193684 unknown unknown u nknown varicella_zoster_antib unknown 32043297 unknown unknown unknown ody_IgG_serum basophil_count_blood unknown 18499854 unknown unknown un known monocyte_count_blood unknown 85846550 unknown unknown un known lymphocyte_count_blood unknown 58413139 unknown unknown unknown neutrophil_count_blood unknown 36258274 unknown unknown unknown blood_type_with_RH_fac unknown 20814531 unknown unknown unknown tor mean_corpuscular_hemog unknown 37872798 unknown unknown unknown lobin_concentration_rbc Hepatitis_C_Antibody_S unknown [id number] unknown unknown unknown ignal_to_Cut-Off Rh_antigen unknown 57726508 unknown unknown unknown mean_corpuscular_hemog unknown 28670085 unknown unknown unknown lobin_RBC red_blood_cell_distrib unknown 89941518 unknown unknown unknown ution_width Slide_Interpretation unknown [id number] unknown unknown un known T unknown 60771085 unknown unknown unknown T unknown 32843141 unknown unknown unknown SLIDE_REVIEW_ unknown 71239444 unknown unknown unknown T unknown 22931815 unknown unknown unknown T unknown 83960769 unknown unknown unknown T unknown 88013554 unknown unknown unknown T unknown [id number] unknown unknown unknown PLATELET_ESTIMATE_MANU unknown 05902887 unknown unknown unknown AL T unknown 79796437 unknown unknown unknown NEUTROPHILS_AUTO_ unknown [id number] unknown unknown unkno wn T unknown 24263668 unknown unknown unknown T unknown [id number] unknown unknown unknown MONOCYTES_AUTO_ unknown [id number] unknown unknown unknown T unknown [id number] unknown unknown unknown T unknown 32634587 unknown unknown unknown T unknown [id number] unknown unknown unknown T unknown [id number] unknown unknown unknown LYMPHOCYTES_AUTO_ unknown [id number] unknown unknown unkno wn T unknown 12295125 unknown unknown unknown T unknown 20210130 unknown unknown unknown T unknown 20210130 unknown unknown unknown EOSINOPHILS_AUTO_ unknown 20210130 unknown unknown unkno wn T unknown 20210130 unknown unknown unknown BASOPHILS_AUTO_ unknown 20210130 unknown unknown unknown T unknown 20210130 unknown unknown unknown facility observation status value reference units lab abnor mal line range code notes All platelet_cou unknown NORMAL unknown _9317-9 unknow n unknown nt_estimate (130-450,00 0) All Erythrocytes unknown 4.49 10 unknown _789-8 unknow n unknown _volume_in_Bl 6/UL ood_by_Automa ted_count All Erythrocyte_ unknown 14.9 unknown % _788-0 unknown unknown distribution_ width_Ratio_b y_Automated_c ount All MCV_Entitic_ unknown 86.0 unknown fL _787-2 unknown unknown volume_by_Aut omated_count All MCH_Entitic_ unknown 29.4 unknown pg _785-6 unknown unknown mass_by_Autom ated_count All Platelets_vo unknown 311 10 unknown _777-3 unknown unknown lume_in_Blood 3/UL _by_Automated _count All Platelet_mea unknown 10.8 unknown fL _776-5 unknown unknown n_volume_Enti tic_volume_in _Blood_by_Ree s-Ericka All neutrophil_c unknown 0.5 10 unknown _752-6 unknown unknown ount_blood 3/UL All monocyte_cou unknown 0.4 10 unknown _743-5 unknown unknown nt_blood 3/UL All lymphocyte_c unknown 2.2 10 unknown _732-8 unknown unknown ount_blood 3/UL All Hemoglobin_M unknown 13.2 unknown g/dL _718-7 unknown unknown ass_volume_in _Blood All eosinophil_c unknown 0.2 10 unknown _712-0 unknown unknown ount_blood 3/UL All Basophils_vo unknown 0.1 10 unknown _705-4 unknown unknown lume_in_Blood 3/UL _by_Manual_co unt All leukocyte_co unknown 3.3 X10 unknown _68 unknow n unknown unt_blood 3/UL All erythrocyte_ unknown 4.49 10 unknown _67 unknow n unknown RBC_count 6/UL All Leukocytes_v unknown 3.3 X10 unknown _6690-2 unkno wn unknown olume_in_Bloo 3/UL d_by_Automate d_count All platelet_cou unknown 311 10 unknown _66 unknown unknown nt 3/UL All hemoglobin_b unknown 13.2 unknown g/dL _65 unknown unknown lood All hematocrit_b unknown 38.6 unknown % _64 unknown unknown lood All uric_acid_se unknown 10.3 unknown mg/dL _46 unknown unknown rum All Hematocrit_V unknown 38.6 unknown % _4544-3 unknow n unknown olume_Fractio n_of_Blood_by _Automated_co unt All aspartate_am unknown 30 unknown U/L _39 unknown unknown inotransferas e_SGOT_serum All mean_corpusc unknown 86.0 unknown fL _315 unknown unknown ular_volume_R BC All platelet_cou unknown NORMAL unknown _3109 unknown unknown nt_estimate (130-450,00 0) All Urate_Mass_v unknown 10.3 unknown mg/dL _3084-1 unknow n unknown olume_in_Seru m_or_Plasma All eosinophil_c unknown 0.2 10 unknown _285 unknown unknown ount_blood 3/UL All mean_platele unknown 10.8 unknown fL _2784 unknown unknown t_volume All basophil_cou unknown 0.1 10 unknown _2427 unknown unknown nt_blood 3/UL All monocyte_cou unknown 0.4 10 unknown _2422 unknown unknown nt_blood 3/UL All lymphocyte_c unknown 2.2 10 unknown _2420 unknown unknown ount_blood 3/UL All neutrophil_c unknown 0.5 10 unknown _2418 unknown unknown ount_blood 3/UL All Aspartate_am unknown 30 unknown U/L _1920-8 unknow n unknown inotransferas e_Enzymatic_a ctivity_volum e_in_Serum_or _Plasma All mean_corpusc unknown 34.2 unknown g/dL _17029 unknown unknown ular_hemoglob in_concentrat ion_rbc All LACTATE_DEHY unknown 181 unknown U/L _124575 unknow n unknown DROGENASE All mean_corpusc unknown 29.4 unknown pg _1031 unknown unknown ular_hemoglob in_RBC All red_blood_ce unknown 14.9 unknown % _1030 unknown unknown ll_distributi on_width All Slide_Interp unknown Indicated unknown _102992 unk nown unknown retation All T unknown 3.3 X10 unknown WBC unknown unk nown 3/UL All T unknown 10.3 unknown mg/dL URIC unknown unkn own All T unknown Indicated unknown SLIDE_R unknown unknown EVIEW_ All SLIDE_REVIEW unknown Indicated unknown SLIDERE unk nown unknown _ V_ All T unknown 14.9 unknown % RDW unknown unkn own All T unknown 4.49 10 unknown RBC unknown unk nown 6/UL All T unknown NORMAL unknown PLT_EST unknown unk nown (130-450,00 0) All PLATELET_EST unknown NORMAL unknown PLTEST unknown unknown IMATE_MANUAL (130-450,00 0) All T unknown 311 10 unknown PLT unknown unkn own 3/UL All NEUTROPHILS_ unknown 0.5 10 unknown NE_ unknown unknown AUTO_ 3/UL All T unknown 0.5 10 unknown NEUT_AU unknown unk nown 3/UL TO_ All T unknown 10.8 unknown fL MPV unknown unkn own All MONOCYTES_AU unknown 0.4 10 unknown MO_ unknown unknown TO_ 3/UL All T unknown 0.4 10 unknown MONO_AU unknown unk nown 3/UL TO_ All T unknown 86.0 unknown fL MCV unknown unkn own All T unknown 34.2 unknown g/dL MCHC unknown unkn own All T unknown 29.4 unknown pg MCH unknown unkn own All LYMPHOCYTES_ unknown 2.2 10 unknown LY_ unknown unknown AUTO_ 3/UL All T unknown 2.2 10 unknown LYMPH_A unknown unk nown 3/UL UTO_ All T unknown 181 unknown U/L LDH unknown unkn own All T unknown 13.2 unknown g/dL HGB unknown unkn own All T unknown 38.6 unknown % HCT unknown unkn own All EOSINOPHILS_ unknown 0.2 10 unknown EO_ unknown unknown AUTO_ 3/UL All T unknown 0.2 10 unknown EOS_AUT unknown unk nown 3/UL O_ All BASOPHILS_AU unknown 0.1 10 unknown BA_ unknown unknown TO_ 3/UL All T unknown 0.1 10 unknown BASO_AU unknown unk nown 3/UL TO_ All T unknown 30 unknown U/L AST unknown unkn own All urea_nitroge unknown 12 unknown mg/dL _9 unknown unknown n_blood All Erythrocytes unknown 4.37 10 unknown _789-8 unknow n unknown _volume_in_Bl 6/UL ood_by_Automa ted_count All Erythrocyte_ unknown 14.7 unknown % _788-0 unknown unknown distribution_ width_Ratio_b y_Automated_c ount All MCV_Entitic_ unknown 85.6 unknown fL _787-2 unknown unknown volume_by_Aut omated_count All MCH_Entitic_ unknown 29.5 unknown pg _785-6 unknown unknown mass_by_Autom ated_count All Platelets_vo unknown 275 10 unknown _777-3 unknown unknown lume_in_Blood 3/UL _by_Automated _count All Platelet_mea unknown 10.7 unknown fL _776-5 unknown unknown n_volume_Enti tic_volume_in _Blood_by_Ree s-Ericka All neutrophil_c unknown 0.9 10 unknown _752-6 unknown unknown ount_blood 3/UL All monocyte_cou unknown 0.4 10 unknown _743-5 unknown unknown nt_blood 3/UL All lymphocyte_c unknown 1.9 10 unknown _732-8 unknown unknown ount_blood 3/UL All Hemoglobin_M unknown 12.9 unknown g/dL _718-7 unknown unknown ass_volume_in _Blood All eosinophil_c unknown 0.1 10 unknown _712-0 unknown unknown ount_blood 3/UL All Basophils_vo unknown 0.1 10 unknown _705-4 unknown unknown lume_in_Blood 3/UL _by_Manual_co unt All leukocyte_co unknown 3.4 X10 unknown _68 unknow n unknown unt_blood 3/UL All erythrocyte_ unknown 4.37 10 unknown _67 unknow n unknown RBC_count 6/UL All Leukocytes_v unknown 3.4 X10 unknown _6690-2 unkno wn unknown olume_in_Bloo 3/UL d_by_Automate d_count All Glomerular_F unknown 101 unknown mL/mi _66455 unknown unknown iltration_rat n e All platelet_cou unknown 275 10 unknown _66 unknown unknown nt 3/UL All hemoglobin_b unknown 12.9 unknown g/dL _65 unknown unknown lood All hematocrit_b unknown 37.4 unknown % _64 unknown unknown lood All potassium_bl unknown 3.7 unknown meq/L _6298-4 unknow n unknown ood All Glomerular_fi unknown 101 unknown mL/mi _48642- unknow n unknown ltration_rate n 3 _1.73_sq_M.pr edicted_among _non-blacks_V olume_Rate_Ar ea_in_Serum_P lasma_or_Bloo d_by_Creatini ne-based_form ula_MDRD_ All Hematocrit_V unknown 37.4 unknown % _4544-3 unknow n unknown olume_Fractio n_of_Blood_by _Automated_co unt All bilirubin_se unknown 0.6 unknown mg/dL _43 unknown unknown rum_total All alanine_amin unknown 16 unknown U/L _40 unknown unknown otransferase_ SGPT_serum All carbon_dioxi unknown 22 unknown mmol/ _3962 unknown unknown de_serum_tota L l All aspartate_am unknown 27 unknown U/L _39 unknown unknown inotransferas e_SGOT_serum All protein_tota unknown 6.7 unknown g/dL _36 unknown unknown l_serum All blood_glucos unknown 109 unknown mg/dL _3565 unknown unknown e All potassium_bl unknown 3.7 unknown meq/L _3483 unknown unknown ood All mean_corpusc unknown 85.6 unknown fL _315 unknown unknown ular_volume_R BC All Urea_nitroge unknown 12 unknown mg/dL _3094-0 unknow n unknown n_Mass_volume _in_Serum_or_ Plasma All globulin_ser unknown 4.0 unknown _3059 unknown unknown um All alkaline_pho unknown 154 unknown U/L _3 unknown unknown sphatase_seru m All Sodium_Moles unknown 134 unknown mmol/ _2951-2 unknow n unknown _volume_in_Se L rum_or_Plasma All Protein_Mass unknown 6.7 unknown g/dL _2885-2 unknow n unknown _volume_in_Se rum_or_Plasma All eosinophil_c unknown 0.1 10 unknown _285 unknown unknown ount_blood 3/UL All anion_gap_se unknown 9.0 unknown _279 unknown unknown rum All mean_platele unknown 10.7 unknown fL _2784 unknown unknown t_volume All basophil_cou unknown 0.1 10 unknown _2427 unknown unknown nt_blood 3/UL All monocyte_cou unknown 0.4 10 unknown _2422 unknown unknown nt_blood 3/UL All lymphocyte_c unknown 1.9 10 unknown _2420 unknown unknown ount_blood 3/UL All neutrophil_c unknown 0.9 10 unknown _2418 unknown unknown ount_blood 3/UL All Glucose_Mass unknown 109 unknown mg/dL _2345-7 unknow n unknown _volume_in_Se rum_or_Plasma All Globulin_Mas unknown 4.0 unknown _2336-6 unknow n unknown s_volume_in_S anthony All Creatinine_M unknown 0.7 unknown mg/dL _2160-0 unknow n unknown ass_volume_in _Serum_or_Pla sma All Chloride_Mol unknown 103 unknown mmol/ _2074-0 unknow n unknown es_volume_in_ L Serum_or_Plas ma All carbon_dioxi unknown 22 unknown mmol/ _2027- unknow n unknown de_serum_tota L l All Calcium_Mole unknown 9.1 unknown mg/dL _1999- unknow n unknown s_volume_in_S erum_or_Plasm a All albumin_seru unknown 2.7 unknown g/dL _2 unknown unknown m All Bilirubin.to unknown 0.6 unknown mg/dL _1974- unknow n unknown tal_Mass_volu me_in_Serum_o r_Plasma All Aspartate_am unknown 27 unknown U/L _1920-8 unknow n unknown inotransferas e_Enzymatic_a ctivity_volum e_in_Serum_or _Plasma All Anion_gap_4_ unknown 9.0 unknown _1863-0 unknow n unknown in_Serum_or_P lasma All creatinine_s unknown 0.7 unknown mg/dL _18 unknown unknown anthony All Alkaline_pho unknown 154 unknown U/L _1783-0 unknow n unknown sphatase_Enzy matic_activit y_volume_in_B lood All Albumin_Glob unknown 0.7 unknown _1759-0 unknow n unknown ulin_Mass_Rat io_in_Serum_o r_Plasma All Albumin_Mass unknown 2.7 unknown g/dL _1751-7 unknow n unknown _volume_in_Se rum_or_Plasma All Alanine_amin unknown 16 unknown U/L _1742-6 unknow n unknown otransferase_ Enzymatic_act ivity_volume_ in_Serum_or_P lasma All mean_corpusc unknown 34.5 unknown g/dL _17029 unknown unknown ular_hemoglob in_concentrat ion_rbc All sodium_serum unknown 134 unknown mmol/ _159 unknown unknown L All albumin_glob unknown 0.7 unknown _146 unknown unknown ulin_ratio_se rum All chloride_ser unknown 103 unknown mmol/ _13 unknown unknown um L All calcium_seru unknown 9.1 unknown mg/dL _11 unknown unknown m All mean_corpusc unknown 29.5 unknown pg _1031 unknown unknown ular_hemoglob in_RBC All red_blood_ce unknown 14.7 unknown % _1030 unknown unknown ll_distributi on_width All T unknown 3.4 X10 unknown WBC unknown unk nown 3/UL All T unknown 0.6 unknown mg/dL TOTAL_B unknown unk nown THONG All T unknown 14.7 unknown % RDW unknown unkn own All T unknown 4.37 10 unknown RBC unknown unk nown 6/UL All T unknown 6.7 unknown g/dL PRO_TOT unknown unk nown AL All T unknown 275 10 unknown PLT unknown unkn own 3/UL All NEUTROPHILS_ unknown 0.9 10 unknown NE_ unknown unknown AUTO_ 3/UL All T unknown 0.9 10 unknown NEUT_AU unknown unk nown 3/UL TO_ All T unknown 134 unknown mmol/ NA unknown unkn own L All T unknown 10.7 unknown fL MPV unknown unkn own All MONOCYTES_AU unknown 0.4 10 unknown MO_ unknown unknown TO_ 3/UL All T unknown 0.4 10 unknown MONO_AU unknown unk nown 3/UL TO_ All T unknown 85.6 unknown fL MCV unknown unkn own All T unknown 34.5 unknown g/dL MCHC unknown unkn own All T unknown 29.5 unknown pg MCH unknown unkn own All LYMPHOCYTES_ unknown 1.9 10 unknown LY_ unknown unknown AUTO_ 3/UL All T unknown 1.9 10 unknown LYMPH_A unknown unk nown 3/UL UTO_ All T unknown 3.7 unknown meq/L K unknown unkn own All T unknown 12.9 unknown g/dL HGB unknown unkn own All T unknown 37.4 unknown % HCT unknown unkn own All T unknown 109 unknown mg/dL GLU unknown unkn own All T unknown 4.0 unknown GLOB unknown unkn own All T unknown 101 unknown mL/mi GFR_-_M unknown unk nown n DRD All GFR_-_MDRD unknown 101 unknown mL/mi GFR unknown unknown n All T unknown 9.0 unknown GAP unknown unkn own All EOSINOPHILS_ unknown 0.1 10 unknown EO_ unknown unknown AUTO_ 3/UL All T unknown 0.1 10 unknown EOS_AUT unknown unk nown 3/UL O_ All T unknown 0.7 unknown mg/dL CREAT unknown unkn own All T unknown 22 unknown mmol/ CO2 unknown unkn own L All T unknown 103 unknown mmol/ CL unknown unkn own L All T unknown 9.1 unknown mg/dL CA unknown unkn own All T unknown 12 unknown mg/dL BUN unknown unkn own All BILIRUBIN_TO unknown 0.6 unknown mg/dL BILIT unknown unknown JULIO All BASOPHILS_AU unknown 0.1 10 unknown BA_ unknown unknown TO_ 3/UL All T unknown 0.1 10 unknown BASO_AU unknown unk nown 3/UL TO_ All T unknown 0.7 unknown A_G_RAT unknown unk nown IO All T unknown 27 unknown U/L AST unknown unkn own All T unknown 16 unknown U/L ALT_SGP unknown unk nown T_ All ALT_ALANINE_ unknown 16 unknown U/L ALT unknown unknown AMINOTRANSFER ASE All ALKALINE_PHO unknown 154 unknown U/L ALP unknown unknown SPHATASE All T unknown 154 unknown U/L ALK_PHO unknown unk nown S All T unknown 2.7 unknown g/dL ALB unknown unkn own All ALBUMIN_GLOB unknown 0.7 unknown AGRATIO unknow n unknown ULIN_RATIO All urea_nitroge unknown 12 unknown mg/dL _9 unknown unknown n_blood All Erythrocytes unknown 4.37 10 unknown _789-8 unknow n unknown _volume_in_Bl 6/UL ood_by_Automa ted_count All Erythrocyte_ unknown 14.7 unknown % _788-0 unknown unknown distribution_ width_Ratio_b y_Automated_c ount All MCV_Entitic_ unknown 85.6 unknown fL _787-2 unknown unknown volume_by_Aut omated_count All MCH_Entitic_ unknown 29.5 unknown pg _785-6 unknown unknown mass_by_Autom ated_count All Platelets_vo unknown 275 10 unknown _777-3 unknown unknown lume_in_Blood 3/UL _by_Automated _count All Platelet_mea unknown 10.7 unknown fL _776-5 unknown unknown n_volume_Enti tic_volume_in _Blood_by_Ree s-Ericka All neutrophil_c unknown 0.9 10 unknown _752-6 unknown unknown ount_blood 3/UL All monocyte_cou unknown 0.4 10 unknown _743-5 unknown unknown nt_blood 3/UL All lymphocyte_c unknown 1.9 10 unknown _732-8 unknown unknown ount_blood 3/UL All Hemoglobin_M unknown 12.9 unknown g/dL _718-7 unknown unknown ass_volume_in _Blood All eosinophil_c unknown 0.1 10 unknown _712-0 unknown unknown ount_blood 3/UL All Basophils_vo unknown 0.1 10 unknown _705-4 unknown unknown lume_in_Blood 3/UL _by_Manual_co unt All leukocyte_co unknown 3.4 X10 unknown _68 unknow n unknown unt_blood 3/UL All erythrocyte_ unknown 4.37 10 unknown _67 unknow n unknown RBC_count 6/UL All Leukocytes_v unknown 3.4 X10 unknown _6690-2 unkno wn unknown olume_in_Bloo 3/UL d_by_Automate d_count All Glomerular_F unknown 101 unknown mL/mi _66455 unknown unknown iltration_rat n e All platelet_cou unknown 275 10 unknown _66 unknown unknown nt 3/UL All hemoglobin_b unknown 12.9 unknown g/dL _65 unknown unknown lood All hematocrit_b unknown 37.4 unknown % _64 unknown unknown lood All potassium_bl unknown 3.7 unknown meq/L _6298-4 unknow n unknown ood All Glomerular_fi unknown 101 unknown mL/mi _48642- unknow n unknown ltration_rate n 3 _1.73_sq_M.pr edicted_among _non-blacks_V olume_Rate_Ar ea_in_Serum_P lasma_or_Bloo d_by_Creatini ne-based_form ula_MDRD_ All Hematocrit_V unknown 37.4 unknown % _4544-3 unknow n unknown olume_Fractio n_of_Blood_by _Automated_co unt All bilirubin_se unknown 0.6 unknown mg/dL _43 unknown unknown rum_total All alanine_amin unknown 16 unknown U/L _40 unknown unknown otransferase_ SGPT_serum All carbon_dioxi unknown 22 unknown mmol/ _3962 unknown unknown de_serum_tota L l All aspartate_am unknown 27 unknown U/L _39 unknown unknown inotransferas e_SGOT_serum All protein_tota unknown 6.7 unknown g/dL _36 unknown unknown l_serum All blood_glucos unknown 109 unknown mg/dL _3565 unknown unknown e All potassium_bl unknown 3.7 unknown meq/L _3483 unknown unknown ood All mean_corpusc unknown 85.6 unknown fL _315 unknown unknown ular_volume_R BC All Urea_nitroge unknown 12 unknown mg/dL _3094-0 unknow n unknown n_Mass_volume _in_Serum_or_ Plasma All globulin_ser unknown 4.0 unknown _3059 unknown unknown um All alkaline_pho unknown 154 unknown U/L _3 unknown unknown sphatase_seru m All Sodium_Moles unknown 134 unknown mmol/ _2951-2 unknow n unknown _volume_in_Se L rum_or_Plasma All Protein_Mass unknown 6.7 unknown g/dL _2885-2 unknow n unknown _volume_in_Se rum_or_Plasma All eosinophil_c unknown 0.1 10 unknown _285 unknown unknown ount_blood 3/UL All anion_gap_se unknown 9.0 unknown _279 unknown unknown rum All mean_platele unknown 10.7 unknown fL _2784 unknown unknown t_volume All basophil_cou unknown 0.1 10 unknown _2427 unknown unknown nt_blood 3/UL All monocyte_cou unknown 0.4 10 unknown _2422 unknown unknown nt_blood 3/UL All lymphocyte_c unknown 1.9 10 unknown _2420 unknown unknown ount_blood 3/UL All neutrophil_c unknown 0.9 10 unknown _2418 unknown unknown ount_blood 3/UL All Glucose_Mass unknown 109 unknown mg/dL _2345-7 unknow n unknown _volume_in_Se rum_or_Plasma All Globulin_Mas unknown 4.0 unknown _2336-6 unknow n unknown s_volume_in_S anthony All Creatinine_M unknown 0.7 unknown mg/dL _2160-0 unknow n unknown ass_volume_in _Serum_or_Pla sma All Chloride_Mol unknown 103 unknown mmol/ _5-0 unknow n unknown es_volume_in_ L Serum_or_Plas ma All carbon_dioxi unknown 22 unknown mmol/ _2027- unknow n unknown de_serum_tota L l All Calcium_Mole unknown 9.1 unknown mg/dL _1999- unknow n unknown s_volume_in_S erum_or_Plasm a All albumin_seru unknown 2.7 unknown g/dL _2 unknown unknown m All Bilirubin.to unknown 0.6 unknown mg/dL _1974- unknow n unknown tal_Mass_volu me_in_Serum_o r_Plasma All Aspartate_am unknown 27 unknown U/L _192-8 unknow n unknown inotransferas e_Enzymatic_a ctivity_volum e_in_Serum_or _Plasma All Anion_gap_4_ unknown 9.0 unknown _1863-0 unknow n unknown in_Serum_or_P lasma All creatinine_s unknown 0.7 unknown mg/dL _18 unknown unknown anthony All Alkaline_pho unknown 154 unknown U/L _1783-0 unknow n unknown sphatase_Enzy matic_activit y_volume_in_B lood All Albumin_Glob unknown 0.7 unknown _1759-0 unknow n unknown ulin_Mass_Rat io_in_Serum_o r_Plasma All Albumin_Mass unknown 2.7 unknown g/dL _1751-7 unknow n unknown _volume_in_Se rum_or_Plasma All Alanine_amin unknown 16 unknown U/L _1742-6 unknow n unknown otransferase_ Enzymatic_act ivity_volume_ in_Serum_or_P lasma All mean_corpusc unknown 34.5 unknown g/dL _17029 unknown unknown ular_hemoglob in_concentrat ion_rbc All sodium_serum unknown 134 unknown mmol/ _159 unknown unknown L All albumin_glob unknown 0.7 unknown _146 unknown unknown ulin_ratio_se rum All chloride_ser unknown 103 unknown mmol/ _13 unknown unknown um L All calcium_seru unknown 9.1 unknown mg/dL _11 unknown unknown m All mean_corpusc unknown 29.5 unknown pg _1031 unknown unknown ular_hemoglob in_RBC All red_blood_ce unknown 14.7 unknown % _1030 unknown unknown ll_distributi on_width All T unknown 3.4 X10 unknown WBC unknown unk nown 3/UL All T unknown 0.6 unknown mg/dL TOTAL_B unknown unk nown THONG All T unknown 14.7 unknown % RDW unknown unkn own All T unknown 4.37 10 unknown RBC unknown unk nown 6/UL All T unknown 6.7 unknown g/dL PRO_TOT unknown unk nown AL All T unknown 275 10 unknown PLT unknown unkn own 3/UL All NEUTROPHILS_ unknown 0.9 10 unknown NE_ unknown unknown AUTO_ 3/UL All T unknown 0.9 10 unknown NEUT_AU unknown unk nown 3/UL TO_ All T unknown 134 unknown mmol/ NA unknown unkn own L All T unknown 10.7 unknown fL MPV unknown unkn own All MONOCYTES_AU unknown 0.4 10 unknown MO_ unknown unknown TO_ 3/UL All T unknown 0.4 10 unknown MONO_AU unknown unk nown 3/UL TO_ All T unknown 85.6 unknown fL MCV unknown unkn own All T unknown 34.5 unknown g/dL MCHC unknown unkn own All T unknown 29.5 unknown pg MCH unknown unkn own All LYMPHOCYTES_ unknown 1.9 10 unknown LY_ unknown unknown AUTO_ 3/UL All T unknown 1.9 10 unknown LYMPH_A unknown unk nown 3/UL UTO_ All T unknown 3.7 unknown meq/L K unknown unkn own All T unknown 12.9 unknown g/dL HGB unknown unkn own All T unknown 37.4 unknown % HCT unknown unkn own All T unknown 109 unknown mg/dL GLU unknown unkn own All T unknown 4.0 unknown GLOB unknown unkn own All T unknown 101 unknown mL/mi GFR_-_M unknown unk nown n DRD All GFR_-_MDRD unknown 101 unknown mL/mi GFR unknown unknown n All T unknown 9.0 unknown GAP unknown unkn own All EOSINOPHILS_ unknown 0.1 10 unknown EO_ unknown unknown AUTO_ 3/UL All T unknown 0.1 10 unknown EOS_AUT unknown unk nown 3/UL O_ All T unknown 0.7 unknown mg/dL CREAT unknown unkn own All T unknown 22 unknown mmol/ CO2 unknown unkn own L All T unknown 103 unknown mmol/ CL unknown unkn own L All T unknown 9.1 unknown mg/dL CA unknown unkn own All T unknown 12 unknown mg/dL BUN unknown unkn own All BILIRUBIN_TO unknown 0.6 unknown mg/dL BILIT unknown unknown JULIO All BASOPHILS_AU unknown 0.1 10 unknown BA_ unknown unknown TO_ 3/UL All T unknown 0.1 10 unknown BASO_AU unknown unk nown 3/UL TO_ All T unknown 0.7 unknown A_G_RAT unknown unk nown IO All T unknown 27 unknown U/L AST unknown unkn own All T unknown 16 unknown U/L ALT_SGP unknown unk nown T_ All ALT_ALANINE_ unknown 16 unknown U/L ALT unknown unknown AMINOTRANSFER ASE All ALKALINE_PHO unknown 154 unknown U/L ALP unknown unknown SPHATASE All T unknown 154 unknown U/L ALK_PHO unknown unk nown S All T unknown 2.7 unknown g/dL ALB unknown unkn own All ALBUMIN_GLOB unknown 0.7 unknown AGRATIO unknow n unknown ULIN_RATIO All urea_nitroge unknown 10 unknown mg/dL _9 unknown unknown n_blood All Erythrocytes unknown 4.48 10 unknown _789-8 unknow n unknown _volume_in_Bl 6/UL ood_by_Automa ted_count All Erythrocyte_ unknown 14.3 unknown % _788-0 unknown unknown distribution_ width_Ratio_b y_Automated_c ount All MCV_Entitic_ unknown 85.7 unknown fL _787-2 unknown unknown volume_by_Aut omated_count All MCH_Entitic_ unknown 29.0 unknown pg _785-6 unknown unknown mass_by_Autom ated_count All Platelets_vo unknown 314 10 unknown _777-3 unknown unknown lume_in_Blood 3/UL _by_Automated _count All Platelet_mea unknown 10.2 unknown fL _776-5 unknown unknown n_volume_Enti tic_volume_in _Blood_by_Ree s-Ericka All Hemoglobin_M unknown 13.0 unknown g/dL _718-7 unknown unknown ass_volume_in _Blood All leukocyte_co unknown 2.9 X10 unknown _68 unknow n unknown unt_blood 3/UL All erythrocyte_ unknown 4.48 10 unknown _67 unknow n unknown RBC_count 6/UL All Leukocytes_v unknown 2.9 X10 unknown _6690-2 unkno wn unknown olume_in_Bloo 3/UL d_by_Automate d_count All Glomerular_F unknown 87 unknown mL/mi _66455 unknown unknown iltration_rat n e All platelet_cou unknown 314 10 unknown _66 unknown unknown nt 3/UL All hemoglobin_b unknown 13.0 unknown g/dL _65 unknown unknown lood All hematocrit_b unknown 38.4 unknown % _64 unknown unknown lood All potassium_bl unknown 3.8 unknown meq/L _6298-4 unknow n unknown ood All Glomerular_fi unknown 87 unknown mL/mi _48642- unknow n unknown ltration_rate n 3 _1.73_sq_M.pr edicted_among _non-blacks_V olume_Rate_Ar ea_in_Serum_P lasma_or_Bloo d_by_Creatini ne-based_form ula_MDRD_ All Hematocrit_V unknown 38.4 unknown % _4544-3 unknow n unknown olume_Fractio n_of_Blood_by _Automated_co unt All bilirubin_se unknown 0.3 unknown mg/dL _43 unknown unknown rum_total All alanine_amin unknown 19 unknown U/L _40 unknown unknown otransferase_ SGPT_serum All carbon_dioxi unknown 23 unknown mmol/ _3962 unknown unknown de_serum_tota L l All aspartate_am unknown 30 unknown U/L _39 unknown unknown inotransferas e_SGOT_serum All protein_tota unknown 6.9 unknown g/dL _36 unknown unknown l_serum All blood_glucos unknown 116 unknown mg/dL _3565 unknown unknown e All potassium_bl unknown 3.8 unknown meq/L _3483 unknown unknown ood All mean_corpusc unknown 85.7 unknown fL _315 unknown unknown ular_volume_R BC All Urea_nitroge unknown 10 unknown mg/dL _3094-0 unknow n unknown n_Mass_volume _in_Serum_or_ Plasma All globulin_ser unknown 4.0 unknown _3059 unknown unknown um All alkaline_pho unknown 155 unknown U/L _3 unknown unknown sphatase_seru m All Sodium_Moles unknown 133 unknown mmol/ _2951-2 unknow n unknown _volume_in_Se L rum_or_Plasma All Protein_Mass unknown 6.9 unknown g/dL _2885-2 unknow n unknown _volume_in_Se rum_or_Plasma All anion_gap_se unknown 10.0 unknown _279 unknown unknown rum All mean_platele unknown 10.2 unknown fL _2784 unknown unknown t_volume All Glucose_Mass unknown 116 unknown mg/dL _2345-7 unknow n unknown _volume_in_Se rum_or_Plasma All Globulin_Mas unknown 4.0 unknown _2336-6 unknow n unknown s_volume_in_S anthony All Creatinine_M unknown 0.8 unknown mg/dL _2160-0 unknow n unknown ass_volume_in _Serum_or_Pla sma All Chloride_Mol unknown 100 unknown mmol/ _2075-0 unknow n unknown es_volume_in_ L Serum_or_Plas ma All carbon_dioxi unknown 23 unknown mmol/ _8-9 unknow n unknown de_serum_tota L l All Calcium_Mole unknown 9.1 unknown mg/dL _1999-8 unknow n unknown s_volume_in_S erum_or_Plasm a All albumin_seru unknown 2.9 unknown g/dL _2 unknown unknown m All Bilirubin.to unknown 0.3 unknown mg/dL _1974-2 unknow n unknown tal_Mass_volu me_in_Serum_o r_Plasma All Aspartate_am unknown 30 unknown U/L _1920-8 unknow n unknown inotransferas e_Enzymatic_a ctivity_volum e_in_Serum_or _Plasma All Anion_gap_4_ unknown 10.0 unknown _1863-0 unknow n unknown in_Serum_or_P lasma All creatinine_s unknown 0.8 unknown mg/dL _18 unknown unknown anthony All Alkaline_pho unknown 155 unknown U/L _1783-0 unknow n unknown sphatase_Enzy matic_activit y_volume_in_B lood All Albumin_Glob unknown 0.7 unknown _1759-0 unknow n unknown ulin_Mass_Rat io_in_Serum_o r_Plasma All Albumin_Mass unknown 2.9 unknown g/dL _1751-7 unknow n unknown _volume_in_Se rum_or_Plasma All Alanine_amin unknown 19 unknown U/L _1742-6 unknow n unknown otransferase_ Enzymatic_act ivity_volume_ in_Serum_or_P lasma All mean_corpusc unknown 33.9 unknown g/dL _17029 unknown unknown ular_hemoglob in_concentrat ion_rbc All sodium_serum unknown 133 unknown mmol/ _159 unknown unknown L All albumin_glob unknown 0.7 unknown _146 unknown unknown ulin_ratio_se rum All chloride_ser unknown 100 unknown mmol/ _13 unknown unknown um L All calcium_seru unknown 9.1 unknown mg/dL _11 unknown unknown m All mean_corpusc unknown 29.0 unknown pg _1031 unknown unknown ular_hemoglob in_RBC All red_blood_ce unknown 14.3 unknown % _1030 unknown unknown ll_distributi on_width All T unknown 2.9 X10 unknown WBC unknown unk nown 3/UL All T unknown 0.3 unknown mg/dL TOTAL_B unknown unk nown THONG All T unknown 14.3 unknown % RDW unknown unkn own All T unknown 4.48 10 unknown RBC unknown unk nown 6/UL All T unknown 6.9 unknown g/dL PRO_TOT unknown unk nown AL All T unknown 314 10 unknown PLT unknown unkn own 3/UL All T unknown 133 unknown mmol/ NA unknown unkn own L All T unknown 10.2 unknown fL MPV unknown unkn own All T unknown 85.7 unknown fL MCV unknown unkn own All T unknown 33.9 unknown g/dL MCHC unknown unkn own All T unknown 29.0 unknown pg MCH unknown unkn own All T unknown 3.8 unknown meq/L K unknown unkn own All T unknown 13.0 unknown g/dL HGB unknown unkn own All T unknown 38.4 unknown % HCT unknown unkn own All T unknown 116 unknown mg/dL GLU unknown unkn own All T unknown 4.0 unknown GLOB unknown unkn own All T unknown 87 unknown mL/mi GFR_-_M unknown unk nown n DRD All GFR_-_MDRD unknown 87 unknown mL/mi GFR unknown unknown n All T unknown 10.0 unknown GAP unknown unkn own All T unknown 0.8 unknown mg/dL CREAT unknown unkn own All T unknown 23 unknown mmol/ CO2 unknown unkn own L All T unknown 100 unknown mmol/ CL unknown unkn own L All T unknown 9.1 unknown mg/dL CA unknown unkn own All T unknown 10 unknown mg/dL BUN unknown unkn own All BILIRUBIN_TO unknown 0.3 unknown mg/dL BILIT unknown unknown JULIO All T unknown 0.7 unknown A_G_RAT unknown unk nown IO All T unknown 30 unknown U/L AST unknown unkn own All T unknown 19 unknown U/L ALT_SGP unknown unk nown T_ All ALT_ALANINE_ unknown 19 unknown U/L ALT unknown unknown AMINOTRANSFER ASE All ALKALINE_PHO unknown 155 unknown U/L ALP unknown unknown SPHATASE All T unknown 155 unknown U/L ALK_PHO unknown unk nown S All T unknown 2.9 unknown g/dL ALB unknown unkn own All ALBUMIN_GLOB unknown 0.7 unknown AGRATIO unknow n unknown ULIN_RATIO All urea_nitroge unknown 10 unknown mg/dL _9 unknown unknown n_blood All Erythrocytes unknown 4.48 10 unknown _789-8 unknow n unknown _volume_in_Bl 6/UL ood_by_Automa ted_count All Erythrocyte_ unknown 14.3 unknown % _788-0 unknown unknown distribution_ width_Ratio_b y_Automated_c ount All MCV_Entitic_ unknown 85.7 unknown fL _787-2 unknown unknown volume_by_Aut omated_count All MCH_Entitic_ unknown 29.0 unknown pg _785-6 unknown unknown mass_by_Autom ated_count All Platelets_vo unknown 314 10 unknown _777-3 unknown unknown lume_in_Blood 3/UL _by_Automated _count All Platelet_mea unknown 10.2 unknown fL _776-5 unknown unknown n_volume_Enti tic_volume_in _Blood_by_Ree s-Ericka All Hemoglobin_M unknown 13.0 unknown g/dL _718-7 unknown unknown ass_volume_in _Blood All leukocyte_co unknown 2.9 X10 unknown _68 unknow n unknown unt_blood 3/UL All erythrocyte_ unknown 4.48 10 unknown _67 unknow n unknown RBC_count 6/UL All Leukocytes_v unknown 2.9 X10 unknown _6690-2 unkno wn unknown olume_in_Bloo 3/UL d_by_Automate d_count All Glomerular_F unknown 87 unknown mL/mi _66455 unknown unknown iltration_rat n e All platelet_cou unknown 314 10 unknown _66 unknown unknown nt 3/UL All hemoglobin_b unknown 13.0 unknown g/dL _65 unknown unknown lood All hematocrit_b unknown 38.4 unknown % _64 unknown unknown lood All potassium_bl unknown 3.8 unknown meq/L _6298-4 unknow n unknown ood All Glomerular_fi unknown 87 unknown mL/mi _48642- unknow n unknown ltration_rate n 3 _1.73_sq_M.pr edicted_among _non-blacks_V olume_Rate_Ar ea_in_Serum_P lasma_or_Bloo d_by_Creatini ne-based_form ula_MDRD_ All Hematocrit_V unknown 38.4 unknown % _4544-3 unknow n unknown olume_Fractio n_of_Blood_by _Automated_co unt All bilirubin_se unknown 0.3 unknown mg/dL _43 unknown unknown rum_total All alanine_amin unknown 19 unknown U/L _40 unknown unknown otransferase_ SGPT_serum All carbon_dioxi unknown 23 unknown mmol/ _3962 unknown unknown de_serum_tota L l All aspartate_am unknown 30 unknown U/L _39 unknown unknown inotransferas e_SGOT_serum All protein_tota unknown 6.9 unknown g/dL _36 unknown unknown l_serum All blood_glucos unknown 116 unknown mg/dL _3565 unknown unknown e All potassium_bl unknown 3.8 unknown meq/L _3483 unknown unknown ood All mean_corpusc unknown 85.7 unknown fL _315 unknown unknown ular_volume_R BC All Urea_nitroge unknown 10 unknown mg/dL _3094-0 unknow n unknown n_Mass_volume _in_Serum_or_ Plasma All globulin_ser unknown 4.0 unknown _3059 unknown unknown um All alkaline_pho unknown 155 unknown U/L _3 unknown unknown sphatase_seru m All Sodium_Moles unknown 133 unknown mmol/ _2951-2 unknow n unknown _volume_in_Se L rum_or_Plasma All Protein_Mass unknown 6.9 unknown g/dL _2885-2 unknow n unknown _volume_in_Se rum_or_Plasma All anion_gap_se unknown 10.0 unknown _279 unknown unknown rum All mean_platele unknown 10.2 unknown fL _2784 unknown unknown t_volume All Glucose_Mass unknown 116 unknown mg/dL _2345-7 unknow n unknown _volume_in_Se rum_or_Plasma All Globulin_Mas unknown 4.0 unknown _2336-6 unknow n unknown s_volume_in_S anthony All Creatinine_M unknown 0.8 unknown mg/dL _2160-0 unknow n unknown ass_volume_in _Serum_or_Pla sma All Chloride_Mol unknown 100 unknown mmol/ _2075-0 unknow n unknown es_volume_in_ L Serum_or_Plas ma All carbon_dioxi unknown 23 unknown mmol/ _8-9 unknow n unknown de_serum_tota L l All Calcium_Mole unknown 9.1 unknown mg/dL _1999-8 unknow n unknown s_volume_in_S erum_or_Plasm a All albumin_seru unknown 2.9 unknown g/dL _2 unknown unknown m All Bilirubin.to unknown 0.3 unknown mg/dL _1974-2 unknow n unknown tal_Mass_volu me_in_Serum_o r_Plasma All Aspartate_am unknown 30 unknown U/L _1920-8 unknow n unknown inotransferas e_Enzymatic_a ctivity_volum e_in_Serum_or _Plasma All Anion_gap_4_ unknown 10.0 unknown _1863-0 unknow n unknown in_Serum_or_P lasma All creatinine_s unknown 0.8 unknown mg/dL _18 unknown unknown anthony All Alkaline_pho unknown 155 unknown U/L _1783-0 unknow n unknown sphatase_Enzy matic_activit y_volume_in_B lood All Albumin_Glob unknown 0.7 unknown _1759-0 unknow n unknown ulin_Mass_Rat io_in_Serum_o r_Plasma All Albumin_Mass unknown 2.9 unknown g/dL _1751-7 unknow n unknown _volume_in_Se rum_or_Plasma All Alanine_amin unknown 19 unknown U/L _1742-6 unknow n unknown otransferase_ Enzymatic_act ivity_volume_ in_Serum_or_P lasma All mean_corpusc unknown 33.9 unknown g/dL _17029 unknown unknown ular_hemoglob in_concentrat ion_rbc All sodium_serum unknown 133 unknown mmol/ _159 unknown unknown L All albumin_glob unknown 0.7 unknown _146 unknown unknown ulin_ratio_se rum All chloride_ser unknown 100 unknown mmol/ _13 unknown unknown um L All calcium_seru unknown 9.1 unknown mg/dL _11 unknown unknown m All mean_corpusc unknown 29.0 unknown pg _1031 unknown unknown ular_hemoglob in_RBC All red_blood_ce unknown 14.3 unknown % _1030 unknown unknown ll_distributi on_width All T unknown 2.9 X10 unknown WBC unknown unk nown 3/UL All T unknown 0.3 unknown mg/dL TOTAL_B unknown unk nown THONG All T unknown 14.3 unknown % RDW unknown unkn own All T unknown 4.48 10 unknown RBC unknown unk nown 6/UL All T unknown 6.9 unknown g/dL PRO_TOT unknown unk nown AL All T unknown 314 10 unknown PLT unknown unkn own 3/UL All T unknown 133 unknown mmol/ NA unknown unkn own L All T unknown 10.2 unknown fL MPV unknown unkn own All T unknown 85.7 unknown fL MCV unknown unkn own All T unknown 33.9 unknown g/dL MCHC unknown unkn own All T unknown 29.0 unknown pg MCH unknown unkn own All T unknown 3.8 unknown meq/L K unknown unkn own All T unknown 13.0 unknown g/dL HGB unknown unkn own All T unknown 38.4 unknown % HCT unknown unkn own All T unknown 116 unknown mg/dL GLU unknown unkn own All T unknown 4.0 unknown GLOB unknown unkn own All T unknown 87 unknown mL/mi GFR_-_M unknown unk nown n DRD All GFR_-_MDRD unknown 87 unknown mL/mi GFR unknown unknown n All T unknown 10.0 unknown GAP unknown unkn own All T unknown 0.8 unknown mg/dL CREAT unknown unkn own All T unknown 23 unknown mmol/ CO2 unknown unkn own L All T unknown 100 unknown mmol/ CL unknown unkn own L All T unknown 9.1 unknown mg/dL CA unknown unkn own All T unknown 10 unknown mg/dL BUN unknown unkn own All BILIRUBIN_TO unknown 0.3 unknown mg/dL BILIT unknown unknown JULIO All T unknown 0.7 unknown A_G_RAT unknown unk nown IO All T unknown 30 unknown U/L AST unknown unkn own All T unknown 19 unknown U/L ALT_SGP unknown unk nown T_ All ALT_ALANINE_ unknown 19 unknown U/L ALT unknown unknown AMINOTRANSFER ASE All ALKALINE_PHO unknown 155 unknown U/L ALP unknown unknown SPHATASE All T unknown 155 unknown U/L ALK_PHO unknown unk nown S All T unknown 2.9 unknown g/dL ALB unknown unkn own All ALBUMIN_GLOB unknown 0.7 unknown AGRATIO unknow n unknown ULIN_RATIO All urea_nitroge unknown 10 unknown mg/dL _9 unknown unknown n_blood All Erythrocytes unknown 4.48 10 unknown _789-8 unknow n unknown _volume_in_Bl 6/UL ood_by_Automa ted_count All Erythrocyte_ unknown 14.3 unknown % _788-0 unknown unknown distribution_ width_Ratio_b y_Automated_c ount All MCV_Entitic_ unknown 85.7 unknown fL _787-2 unknown unknown volume_by_Aut omated_count All MCH_Entitic_ unknown 29.0 unknown pg _785-6 unknown unknown mass_by_Autom ated_count All Platelets_vo unknown 314 10 unknown _777-3 unknown unknown lume_in_Blood 3/UL _by_Automated _count All Platelet_mea unknown 10.2 unknown fL _776-5 unknown unknown n_volume_Enti tic_volume_in _Blood_by_Ree s-Ericka All Hemoglobin_M unknown 13.0 unknown g/dL _718-7 unknown unknown ass_volume_in _Blood All leukocyte_co unknown 2.9 X10 unknown _68 unknow n unknown unt_blood 3/UL All erythrocyte_ unknown 4.48 10 unknown _67 unknow n unknown RBC_count 6/UL All Leukocytes_v unknown 2.9 X10 unknown _6690-2 unkno wn unknown olume_in_Bloo 3/UL d_by_Automate d_count All Glomerular_F unknown 87 unknown mL/mi _66455 unknown unknown iltration_rat n e All platelet_cou unknown 314 10 unknown _66 unknown unknown nt 3/UL All hemoglobin_b unknown 13.0 unknown g/dL _65 unknown unknown lood All hematocrit_b unknown 38.4 unknown % _64 unknown unknown lood All potassium_bl unknown 3.8 unknown meq/L _6298-4 unknow n unknown ood All Glomerular_fi unknown 87 unknown mL/mi _48642- unknow n unknown ltration_rate n 3 _1.73_sq_M.pr edicted_among _non-blacks_V olume_Rate_Ar ea_in_Serum_P lasma_or_Bloo d_by_Creatini ne-based_form ula_MDRD_ All Hematocrit_V unknown 38.4 unknown % _4544-3 unknow n unknown olume_Fractio n_of_Blood_by _Automated_co unt All bilirubin_se unknown 0.3 unknown mg/dL _43 unknown unknown rum_total All alanine_amin unknown 19 unknown U/L _40 unknown unknown otransferase_ SGPT_serum All carbon_dioxi unknown 23 unknown mmol/ _3962 unknown unknown de_serum_tota L l All aspartate_am unknown 30 unknown U/L _39 unknown unknown inotransferas e_SGOT_serum All protein_tota unknown 6.9 unknown g/dL _36 unknown unknown l_serum All blood_glucos unknown 116 unknown mg/dL _3565 unknown unknown e All potassium_bl unknown 3.8 unknown meq/L _3483 unknown unknown ood All mean_corpusc unknown 85.7 unknown fL _315 unknown unknown ular_volume_R BC All Urea_nitroge unknown 10 unknown mg/dL _3094-0 unknow n unknown n_Mass_volume _in_Serum_or_ Plasma All globulin_ser unknown 4.0 unknown _3059 unknown unknown um All alkaline_pho unknown 155 unknown U/L _3 unknown unknown sphatase_seru m All Sodium_Moles unknown 133 unknown mmol/ _2951-2 unknow n unknown _volume_in_Se L rum_or_Plasma All Protein_Mass unknown 6.9 unknown g/dL _2885-2 unknow n unknown _volume_in_Se rum_or_Plasma All anion_gap_se unknown 10.0 unknown _279 unknown unknown rum All mean_platele unknown 10.2 unknown fL _2784 unknown unknown t_volume All Glucose_Mass unknown 116 unknown mg/dL _2345-7 unknow n unknown _volume_in_Se rum_or_Plasma All Globulin_Mas unknown 4.0 unknown _2336-6 unknow n unknown s_volume_in_S anthony All Creatinine_M unknown 0.8 unknown mg/dL _2160-0 unknow n unknown ass_volume_in _Serum_or_Pla sma All Chloride_Mol unknown 100 unknown mmol/ _5-0 unknow n unknown es_volume_in_ L Serum_or_Plas ma All carbon_dioxi unknown 23 unknown mmol/ _8-9 unknow n unknown de_serum_tota L l All Calcium_Mole unknown 9.1 unknown mg/dL _1999- unknow n unknown s_volume_in_S erum_or_Plasm a All albumin_seru unknown 2.9 unknown g/dL _2 unknown unknown m All Bilirubin.to unknown 0.3 unknown mg/dL _1974-2 unknow n unknown tal_Mass_volu me_in_Serum_o r_Plasma All Aspartate_am unknown 30 unknown U/L _1920-8 unknow n unknown inotransferas e_Enzymatic_a ctivity_volum e_in_Serum_or _Plasma All Anion_gap_4_ unknown 10.0 unknown _1863-0 unknow n unknown in_Serum_or_P lasma All creatinine_s unknown 0.8 unknown mg/dL _18 unknown unknown anthony All Alkaline_pho unknown 155 unknown U/L _1783-0 unknow n unknown sphatase_Enzy matic_activit y_volume_in_B lood All Albumin_Glob unknown 0.7 unknown _1759-0 unknow n unknown ulin_Mass_Rat io_in_Serum_o r_Plasma All Albumin_Mass unknown 2.9 unknown g/dL _1751-7 unknow n unknown _volume_in_Se rum_or_Plasma All Alanine_amin unknown 19 unknown U/L _1742-6 unknow n unknown otransferase_ Enzymatic_act ivity_volume_ in_Serum_or_P lasma All mean_corpusc unknown 33.9 unknown g/dL _17029 unknown unknown ular_hemoglob in_concentrat ion_rbc All sodium_serum unknown 133 unknown mmol/ _159 unknown unknown L All albumin_glob unknown 0.7 unknown _146 unknown unknown ulin_ratio_se rum All chloride_ser unknown 100 unknown mmol/ _13 unknown unknown um L All calcium_seru unknown 9.1 unknown mg/dL _11 unknown unknown m All mean_corpusc unknown 29.0 unknown pg _1031 unknown unknown ular_hemoglob in_RBC All red_blood_ce unknown 14.3 unknown % _1030 unknown unknown ll_distributi on_width All T unknown 2.9 X10 unknown WBC unknown unk nown 3/UL All T unknown 0.3 unknown mg/dL TOTAL_B unknown unk nown THONG All T unknown 14.3 unknown % RDW unknown unkn own All T unknown 4.48 10 unknown RBC unknown unk nown 6/UL All T unknown 6.9 unknown g/dL PRO_TOT unknown unk nown AL All T unknown 314 10 unknown PLT unknown unkn own 3/UL All T unknown 133 unknown mmol/ NA unknown unkn own L All T unknown 10.2 unknown fL MPV unknown unkn own All T unknown 85.7 unknown fL MCV unknown unkn own All T unknown 33.9 unknown g/dL MCHC unknown unkn own All T unknown 29.0 unknown pg MCH unknown unkn own All T unknown 3.8 unknown meq/L K unknown unkn own All T unknown 13.0 unknown g/dL HGB unknown unkn own All T unknown 38.4 unknown % HCT unknown unkn own All T unknown 116 unknown mg/dL GLU unknown unkn own All T unknown 4.0 unknown GLOB unknown unkn own All T unknown 87 unknown mL/mi GFR_-_M unknown unk nown n DRD All GFR_-_MDRD unknown 87 unknown mL/mi GFR unknown unknown n All T unknown 10.0 unknown GAP unknown unkn own All T unknown 0.8 unknown mg/dL CREAT unknown unkn own All T unknown 23 unknown mmol/ CO2 unknown unkn own L All T unknown 100 unknown mmol/ CL unknown unkn own L All T unknown 9.1 unknown mg/dL CA unknown unkn own All T unknown 10 unknown mg/dL BUN unknown unkn own All BILIRUBIN_TO unknown 0.3 unknown mg/dL BILIT unknown unknown JULIO All T unknown 0.7 unknown A_G_RAT unknown unk nown IO All T unknown 30 unknown U/L AST unknown unkn own All T unknown 19 unknown U/L ALT_SGP unknown unk nown T_ All ALT_ALANINE_ unknown 19 unknown U/L ALT unknown unknown AMINOTRANSFER ASE All ALKALINE_PHO unknown 155 unknown U/L ALP unknown unknown SPHATASE All T unknown 155 unknown U/L ALK_PHO unknown unk nown S All T unknown 2.9 unknown g/dL ALB unknown unkn own All ALBUMIN_GLOB unknown 0.7 unknown AGRATIO unknow n unknown ULIN_RATIO All glucose_tole unknown 81 unknown mg/dL _3383 unknown unknown rance_test_wi th_glucose_fa sting All blood_glucos unknown 89 unknown mg/dL _3379 unknown unknown e_3_hours_aft er_glucose_to lerance_test All blood_glucos unknown 137 unknown mg/dL _3378 unknown unknown e_2_hours_aft er_glucose_to lerance_test All blood_glucos unknown 141 unknown mg/dL _3377 unknown unknown e_60_minutes_ after_glucose _tolerance_te st All glucose_tole unknown 81 unknown mg/dL _3383 unknown unknown rance_test_wi th_glucose_fa sting All blood_glucos unknown 89 unknown mg/dL _3379 unknown unknown e_3_hours_aft er_glucose_to lerance_test All blood_glucos unknown 137 unknown mg/dL _3378 unknown unknown e_2_hours_aft er_glucose_to lerance_test All blood_glucos unknown 141 unknown mg/dL _3377 unknown unknown e_60_minutes_ after_glucose _tolerance_te st All glucose_tole unknown 81 unknown mg/dL _3383 unknown unknown rance_test_wi th_glucose_fa sting All blood_glucos unknown 89 unknown mg/dL _3379 unknown unknown e_3_hours_aft er_glucose_to lerance_test All blood_glucos unknown 137 unknown mg/dL _3378 unknown unknown e_2_hours_aft er_glucose_to lerance_test All blood_glucos unknown 141 unknown mg/dL _3377 unknown unknown e_60_minutes_ after_glucose _tolerance_te st All glucose_tole unknown 81 unknown mg/dL _3383 unknown unknown rance_test_wi _glucose_fa sting All blood_glucos unknown 89 unknown mg/dL _3379 unknown unknown e_3_hours_aft er_glucose_to lerance_test All blood_glucos unknown 137 unknown mg/dL _3378 unknown unknown e_2_hours_aft er_glucose_to lerance_test All blood_glucos unknown 141 unknown mg/dL _3377 unknown unknown e_60_minutes_ after_glucose _tolerance_te st All glucose_tole unknown 81 unknown mg/dL _3383 unknown unknown rance_test_wi _glucose_fa sting All blood_glucos unknown 89 unknown mg/dL _3379 unknown unknown e_3_hours_aft er_glucose_to lerance_test All blood_glucos unknown 137 unknown mg/dL _3378 unknown unknown e_2_hours_aft er_glucose_to lerance_test All blood_glucos unknown 141 unknown mg/dL _3377 unknown unknown e_60_minutes_ after_glucose _tolerance_te st All Chlamydia_tr unknown POSITIVE unknown _21613- unkn own unknown achomatis_DNA 5 _Presence_in_ Specimen_by_N AA_with_probe _detection All chlamydia_DN unknown POSITIVE unknown _14722 unkno wn unknown A_probe All TRICHOMONAS_ unknown NEGATIVE unknown _113002 unkn own unknown VAGINALIS_DNA _PROBE All TRICHOMONAS_ unknown NEGATIVE unknown TVDNA unkno wn unknown VAGINALIS_DNA All T unknown NEGATIVE unknown T.VAGIN unknown u nknown ALIS_DNA All CHLAMYDIA_TR unknown POSITIVE unknown CTDNA unkno wn unknown ACHOMATIS_DNA All T unknown POSITIVE unknown C.TRACH unknown u nknown _DNA All Chlamydia_tr unknown POSITIVE unknown _21613- unkn own unknown achomatis_DNA 5 _Presence_in_ Specimen_by_N AA_with_probe _detection All chlamydia_DN unknown POSITIVE unknown _14722 unkno wn unknown A_probe All TRICHOMONAS_ unknown NEGATIVE unknown _113002 unkn own unknown VAGINALIS_DNA _PROBE All TRICHOMONAS_ unknown NEGATIVE unknown TVDNA unkno wn unknown VAGINALIS_DNA All T unknown NEGATIVE unknown T.VAGIN unknown u nknown ALIS_DNA All CHLAMYDIA_TR unknown POSITIVE unknown CTDNA unkno wn unknown ACHOMATIS_DNA All T unknown POSITIVE unknown C.TRACH unknown u nknown _DNA All Chlamydia_tr unknown POSITIVE unknown _21613- unkn own unknown achomatis_DNA 5 _Presence_in_ Specimen_by_N AA_with_probe _detection All chlamydia_DN unknown POSITIVE unknown _14722 unkno wn unknown A_probe All TRICHOMONAS_ unknown NEGATIVE unknown _113002 unkn own unknown VAGINALIS_DNA _PROBE All TRICHOMONAS_ unknown NEGATIVE unknown TVDNA unkno wn unknown VAGINALIS_DNA All T unknown NEGATIVE unknown T.VAGIN unknown u nknown ALIS_DNA All CHLAMYDIA_TR unknown POSITIVE unknown CTDNA unkno wn unknown ACHOMATIS_DNA All T unknown POSITIVE unknown C.TRACH unknown u nknown _DNA All Chlamydia_tr unknown POSITIVE unknown _13- unkn own unknown achomatis_DNA 5 _Presence_in_ Specimen_by_N AA_with_probe _detection All chlamydia_DN unknown POSITIVE unknown _14722 unkno wn unknown A_probe All TRICHOMONAS_ unknown NEGATIVE unknown _113002 unkn own unknown VAGINALIS_DNA _PROBE All TRICHOMONAS_ unknown NEGATIVE unknown TVDNA unkno wn unknown VAGINALIS_DNA All T unknown NEGATIVE unknown T.VAGIN unknown u nknown ALIS_DNA All CHLAMYDIA_TR unknown POSITIVE unknown CTDNA unkno wn unknown ACHOMATIS_DNA All T unknown POSITIVE unknown C.TRACH unknown u nknown _DNA All Chlamydia_tr unknown POSITIVE unknown _13- unkn own unknown achomatis_DNA 5 _Presence_in_ Specimen_by_N AA_with_probe _detection All chlamydia_DN unknown POSITIVE unknown _14722 unkno wn unknown A_probe All TRICHOMONAS_ unknown NEGATIVE unknown _113002 unkn own unknown VAGINALIS_DNA _PROBE All TRICHOMONAS_ unknown NEGATIVE unknown TVDNA unkno wn unknown VAGINALIS_DNA All T unknown NEGATIVE unknown T.VAGIN unknown u nknown ALIS_DNA All CHLAMYDIA_TR unknown POSITIVE unknown CTDNA unkno wn unknown ACHOMATIS_DNA All T unknown POSITIVE unknown C.TRACH unknown u nknown _DNA All blood_glucos unknown 152 (?) unknown _310 unknow n unknown e_1_hour_afte r_100_gm_oral _glucose All blood_glucos unknown 152 unknown mg/dL _1504-0 unknow n unknown e_1_hour_afte r_50_gm_oral_ glucose All blood_glucos unknown 152 (?) unknown _1501-6 unkno wn unknown e_1_hour_afte r_100_gm_oral _glucose All blood_glucos unknown 152 unknown mg/dL _1039 unknown unknown e_1_hour_afte r_50_gm_oral_ glucose All T unknown 152 (?) unknown GLU_1H_ unknown un known PP_50GM All GLUCOSE_1H_P unknown 152 (?) unknown [id number] unkno wn unknown P_50GM_DOSE 0 All blood_glucos unknown 152 (?) unknown _310 unknow n unknown e_1_hour_afte r_100_gm_oral _glucose All blood_glucos unknown 152 unknown mg/dL _1504-0 unknow n unknown e_1_hour_afte r_50_gm_oral_ glucose All blood_glucos unknown 152 (?) unknown _1501-6 unkno wn unknown e_1_hour_afte r_100_gm_oral _glucose All blood_glucos unknown 152 unknown mg/dL _1039 unknown unknown e_1_hour_afte r_50_gm_oral_ glucose All T unknown 152 (?) unknown GLU_1H_ unknown un known PP_50GM All GLUCOSE_1H_P unknown 152 (?) unknown [id number] unkno wn unknown P_50GM_DOSE 0 All Erythrocytes unknown 3.84 10 unknown _789-8 unknow n unknown _volume_in_Bl 6/UL ood_by_Automa ted_count All Erythrocyte_ unknown 14.0 unknown % _788-0 unknown unknown distribution_ width_Ratio_b y_Automated_c ount All MCV_Entitic_ unknown 85.4 unknown fL _787-2 unknown unknown volume_by_Aut omated_count All MCH_Entitic_ unknown 29.2 unknown pg _785-6 unknown unknown mass_by_Autom ated_count All Platelets_vo unknown 321 10 unknown _777-3 unknown unknown lume_in_Blood 3/UL _by_Automated _count All Platelet_mea unknown 10.0 unknown fL _776-5 unknown unknown n_volume_Enti tic_volume_in _Blood_by_Ree s-Ericka All Hemoglobin_M unknown 11.2 unknown g/dL _718-7 unknown unknown ass_volume_in _Blood All leukocyte_co unknown 2.8 X10 unknown _68 unknow n unknown unt_blood 3/UL All erythrocyte_ unknown 3.84 10 unknown _67 unknow n unknown RBC_count 6/UL All Leukocytes_v unknown 2.8 X10 unknown _6690-2 unkno wn unknown olume_in_Bloo 3/UL d_by_Automate d_count All platelet_cou unknown 321 10 unknown _66 unknown unknown nt 3/UL All hemoglobin_b unknown 11.2 unknown g/dL _65 unknown unknown lood All hematocrit_b unknown 32.8 unknown % _64 unknown unknown lood All Hematocrit_V unknown 32.8 unknown % _4544-3 unknow n unknown olume_Fractio n_of_Blood_by _Automated_co unt All mean_corpusc unknown 85.4 unknown fL _315 unknown unknown ular_volume_R BC All blood_glucos unknown 152 (?) unknown _310 unknow n unknown e_1_hour_afte r_100_gm_oral _glucose All mean_platele unknown 10.0 unknown fL _2784 unknown unknown t_volume All mean_corpusc unknown 34.1 unknown g/dL _17029 unknown unknown ular_hemoglob in_concentrat ion_rbc All blood_glucos unknown 152 unknown mg/dL _1504-0 unknow n unknown e_1_hour_afte r_50_gm_oral_ glucose All blood_glucos unknown 152 (?) unknown _1501-6 unkno wn unknown e_1_hour_afte r_100_gm_oral _glucose All blood_glucos unknown 152 unknown mg/dL _1039 unknown unknown e_1_hour_afte r_50_gm_oral_ glucose All mean_corpusc unknown 29.2 unknown pg _1031 unknown unknown ular_hemoglob in_RBC All red_blood_ce unknown 14.0 unknown % _1030 unknown unknown ll_distributi on_width All T unknown 2.8 X10 unknown WBC unknown unk nown 3/UL All T unknown 14.0 unknown % RDW unknown unkn own All T unknown 3.84 10 unknown RBC unknown unk nown 6/UL All T unknown 321 10 unknown PLT unknown unkn own 3/UL All T unknown 10.0 unknown fL MPV unknown unkn own All T unknown 85.4 unknown fL MCV unknown unkn own All T unknown 34.1 unknown g/dL MCHC unknown unkn own All T unknown 29.2 unknown pg MCH unknown unkn own All T unknown 11.2 unknown g/dL HGB unknown unkn own All T unknown 32.8 unknown % HCT unknown unkn own All T unknown 152 (?) unknown GLU_1H_ unknown un known PP_50GM All GLUCOSE_1H_P unknown 152 (?) unknown [id number] unkno wn unknown P_50GM_DOSE 0 All Erythrocytes unknown 3.84 10 unknown _789-8 unknow n unknown _volume_in_Bl 6/UL ood_by_Automa ted_count All Erythrocyte_ unknown 14.0 unknown % _788-0 unknown unknown distribution_ width_Ratio_b y_Automated_c ount All MCV_Entitic_ unknown 85.4 unknown fL _787-2 unknown unknown volume_by_Aut omated_count All MCH_Entitic_ unknown 29.2 unknown pg _785-6 unknown unknown mass_by_Autom ated_count All Platelets_vo unknown 321 10 unknown _777-3 unknown unknown lume_in_Blood 3/UL _by_Automated _count All Platelet_mea unknown 10.0 unknown fL _776-5 unknown unknown n_volume_Enti tic_volume_in _Blood_by_Ree s-Ericka All Hemoglobin_M unknown 11.2 unknown g/dL _718-7 unknown unknown ass_volume_in _Blood All leukocyte_co unknown 2.8 X10 unknown _68 unknow n unknown unt_blood 3/UL All erythrocyte_ unknown 3.84 10 unknown _67 unknow n unknown RBC_count 6/UL All Leukocytes_v unknown 2.8 X10 unknown _6690-2 unkno wn unknown olume_in_Bloo 3/UL d_by_Automate d_count All platelet_cou unknown 321 10 unknown _66 unknown unknown nt 3/UL All hemoglobin_b unknown 11.2 unknown g/dL _65 unknown unknown lood All hematocrit_b unknown 32.8 unknown % _64 unknown unknown lood All Hematocrit_V unknown 32.8 unknown % _4544-3 unknow n unknown olume_Fractio n_of_Blood_by _Automated_co unt All mean_corpusc unknown 85.4 unknown fL _315 unknown unknown ular_volume_R BC All blood_glucos unknown 152 (?) unknown _310 unknow n unknown e_1_hour_afte r_100_gm_oral _glucose All mean_platele unknown 10.0 unknown fL _2784 unknown unknown t_volume All mean_corpusc unknown 34.1 unknown g/dL _17029 unknown unknown ular_hemoglob in_concentrat ion_rbc All blood_glucos unknown 152 unknown mg/dL _1504-0 unknow n unknown e_1_hour_afte r_50_gm_oral_ glucose All blood_glucos unknown 152 (?) unknown _1501-6 unkno wn unknown e_1_hour_afte r_100_gm_oral _glucose All blood_glucos unknown 152 unknown mg/dL _1039 unknown unknown e_1_hour_afte r_50_gm_oral_ glucose All mean_corpusc unknown 29.2 unknown pg _1031 unknown unknown ular_hemoglob in_RBC All red_blood_ce unknown 14.0 unknown % _1030 unknown unknown ll_distributi on_width All T unknown 2.8 X10 unknown WBC unknown unk nown 3/UL All T unknown 14.0 unknown % RDW unknown unkn own All T unknown 3.84 10 unknown RBC unknown unk nown 6/UL All T unknown 321 10 unknown PLT unknown unkn own 3/UL All T unknown 10.0 unknown fL MPV unknown unkn own All T unknown 85.4 unknown fL MCV unknown unkn own All T unknown 34.1 unknown g/dL MCHC unknown unkn own All T unknown 29.2 unknown pg MCH unknown unkn own All T unknown 11.2 unknown g/dL HGB unknown unkn own All T unknown 32.8 unknown % HCT unknown unkn own All T unknown 152 (?) unknown GLU_1H_ unknown un known PP_50GM All GLUCOSE_1H_P unknown 152 (?) unknown [id number] unkno wn unknown P_50GM_DOSE 0 All Erythrocytes unknown 3.84 10 unknown _789-8 unknow n unknown _volume_in_Bl 6/UL ood_by_Automa ted_count All Erythrocyte_ unknown 14.0 unknown % _788-0 unknown unknown distribution_ width_Ratio_b y_Automated_c ount All MCV_Entitic_ unknown 85.4 unknown fL _787-2 unknown unknown volume_by_Aut omated_count All MCH_Entitic_ unknown 29.2 unknown pg _785-6 unknown unknown mass_by_Autom ated_count All Platelets_vo unknown 321 10 unknown _777-3 unknown unknown lume_in_Blood 3/UL _by_Automated _count All Platelet_mea unknown 10.0 unknown fL _776-5 unknown unknown n_volume_Enti tic_volume_in _Blood_by_Ree s-Ericka All Hemoglobin_M unknown 11.2 unknown g/dL _718-7 unknown unknown ass_volume_in _Blood All leukocyte_co unknown 2.8 X10 unknown _68 unknow n unknown unt_blood 3/UL All erythrocyte_ unknown 3.84 10 unknown _67 unknow n unknown RBC_count 6/UL All Leukocytes_v unknown 2.8 X10 unknown _6690-2 unkno wn unknown olume_in_Bloo 3/UL d_by_Automate d_count All platelet_cou unknown 321 10 unknown _66 unknown unknown nt 3/UL All hemoglobin_b unknown 11.2 unknown g/dL _65 unknown unknown lood All hematocrit_b unknown 32.8 unknown % _64 unknown unknown lood All Hematocrit_V unknown 32.8 unknown % _4544-3 unknow n unknown olume_Fractio n_of_Blood_by _Automated_co unt All mean_corpusc unknown 85.4 unknown fL _315 unknown unknown ular_volume_R BC All blood_glucos unknown 152 (?) unknown _310 unknow n unknown e_1_hour_afte r_100_gm_oral _glucose All mean_platele unknown 10.0 unknown fL _2784 unknown unknown t_volume All mean_corpusc unknown 34.1 unknown g/dL _17029 unknown unknown ular_hemoglob in_concentrat ion_rbc All blood_glucos unknown 152 unknown mg/dL _1504-0 unknow n unknown e_1_hour_afte r_50_gm_oral_ glucose All blood_glucos unknown 152 (?) unknown _1501-6 unkno wn unknown e_1_hour_afte r_100_gm_oral _glucose All blood_glucos unknown 152 unknown mg/dL _1039 unknown unknown e_1_hour_afte r_50_gm_oral_ glucose All mean_corpusc unknown 29.2 unknown pg _1031 unknown unknown ular_hemoglob in_RBC All red_blood_ce unknown 14.0 unknown % _1030 unknown unknown ll_distributi on_width All T unknown 2.8 X10 unknown WBC unknown unk nown 3/UL All T unknown 14.0 unknown % RDW unknown unkn own All T unknown 3.84 10 unknown RBC unknown unk nown 6/UL All T unknown 321 10 unknown PLT unknown unkn own 3/UL All T unknown 10.0 unknown fL MPV unknown unkn own All T unknown 85.4 unknown fL MCV unknown unkn own All T unknown 34.1 unknown g/dL MCHC unknown unkn own All T unknown 29.2 unknown pg MCH unknown unkn own All T unknown 11.2 unknown g/dL HGB unknown unkn own All T unknown 32.8 unknown % HCT unknown unkn own All T unknown 152 (?) unknown GLU_1H_ unknown un known PP_50GM All GLUCOSE_1H_P unknown 152 (?) unknown [id number] unkno wn unknown P_50GM_DOSE 0 All _2019NCoV_CO unknown POSITIVE unknown _[id number] unkn own unknown VID-19_Lab_Te st_Result_[place] t_ All COVID-19_REF unknown POSITIVE unknown COVID19 unkn own unknown ERENCE_TEST .REF All T unknown POSITIVE unknown COVID-1 unknown u nknown 9 All _2019NCoV_CO unknown POSITIVE unknown _665997 unkn own unknown VID-19_Lab_Te st_Result_[place]_ All COVID-19_REF unknown POSITIVE unknown COVID19 unkn own unknown ERENCE_TEST .REF All T unknown POSITIVE unknown COVID-1 unknown u nknown 9 All _2019NCoV_CO unknown POSITIVE unknown _665997 unkn own unknown VID-19_Lab_Te st_Result_Tex t_ All COVID-19_REF unknown POSITIVE unknown COVID19 unkn own unknown ERENCE_TEST .REF All T unknown POSITIVE unknown COVID-1 unknown u nknown 9 All _2019NCoV_CO unknown POSITIVE unknown _665997 unkn own unknown VID-19_Lab_Te st_Result_[place] t_ All COVID-19_REF unknown POSITIVE unknown COVID19 unkn own unknown ERENCE_TEST .REF All T unknown POSITIVE unknown COVID-1 unknown u nknown 9 All _2019NCoV_CO unknown POSITIVE unknown _665997 unkn own unknown VID-19_Lab_Te st_Result_[place]_ All COVID-19_REF unknown POSITIVE unknown COVID19 unkn own unknown ERENCE_TEST .REF All T unknown POSITIVE unknown COVID-1 unknown u nknown 9 All SIGNAL_TO_CU unknown 0.00 unknown qSIGNAL unknow n unknown T-OFF All platelet_cou unknown NORMAL unknown _9317-9 unknow n unknown nt_estimate (130-450,00 0) All antibody_scr unknown negative unknown _890-4 unkno wn unknown een_serum All hepatitis_B_ unknown non unknown _79 unknown unknown surface_antig reactive en All varicella_zo unknown immune unknown _5403-1 unknow n unknown ster_antibody _IgG_serum All rubella_anti unknown immune unknown _5333-0 unknow n unknown body_serum_ti ter All Reagin_Ab_Un unknown non unknown _5291-0 unknow n unknown its_volume_in reactive _Serum_by_VDR L All hepatitis_B_ unknown non unknown _5195-3 unknow n unknown surface_antig reactive en All rubella_anti unknown immune unknown _3507 unknown unknown body_serum_ti ter All platelet_cou unknown NORMAL unknown _3109 unknown unknown nt_estimate (130-450,00 0) All rapid_plasma unknown non unknown _308 unknown unknown _reagin_antib reactive ody_serum All Rh_antigen unknown positive unknown _255 unknown unknown All antibody_scr unknown negative unknown _250 unkno wn unknown een_serum All varicella_zo unknown immune unknown _2470 unknown unknown ster_antibody _IgG_serum All blood_type_w unknown B+ unknown _210000 unknow n unknown ith_RH_factor 4 All Hepatitis_C_ unknown 0.00 unknown _[id number] unknow n unknown Antibody_Sign al_to_Cut-Off All Rh_antigen unknown positive unknown _1305-2 unknow n unknown All Slide_Interp unknown Indicated unknown _102992 unk nown unknown retation All T unknown Indicated unknown SLIDE_R unknown unknown EVIEW_ All SLIDE_REVIEW unknown Indicated unknown SLIDERE unk nown unknown _ V_ All T unknown 0.00 unknown SIGNAL_ unknown unk nown CUT-OFF All T unknown NORMAL unknown PLT_EST unknown unk nown (130-450,00 0) All PLATELET_EST unknown NORMAL unknown PLTEST unknown unknown IMATE_MANUAL (130-450,00 0) All SIGNAL_TO_CU unknown 0.00 unknown qSIGNAL unknow n unknown T-OFF All platelet_cou unknown NORMAL unknown _9317-9 unknow n unknown nt_estimate (130-450,00 0) All antibody_scr unknown negative unknown _890-4 unkno wn unknown een_serum All hepatitis_B_ unknown non unknown _79 unknown unknown surface_antig reactive en All neutrophil_c unknown 0.8 10 unknown _752-6 unknown unknown ount_blood 3/UL All monocyte_cou unknown 0.6 10 unknown _743-5 unknown unknown nt_blood 3/UL All lymphocyte_c unknown 1.1 10 unknown _732-8 unknown unknown ount_blood 3/UL All eosinophil_c unknown 0.3 10 unknown _712-0 unknown unknown ount_blood 3/UL All Basophils_vo unknown 0.1 10 unknown _705-4 unknown unknown lume_in_Blood 3/UL _by_Manual_co unt All varicella_zo unknown immune unknown _5403-1 unknow n unknown ster_antibody _IgG_serum All rubella_anti unknown immune unknown _5333-0 unknow n unknown body_serum_ti ter All Reagin_Ab_Un unknown non unknown _5291-0 unknow n unknown its_volume_in reactive _Serum_by_VDR L All hepatitis_B_ unknown non unknown _5195-3 unknow n unknown surface_antig reactive en All rubella_anti unknown immune unknown _3507 unknown unknown body_serum_ti ter All platelet_cou unknown NORMAL unknown _3109 unknown unknown nt_estimate (130-450,00 0) All rapid_plasma unknown non unknown _308 unknown unknown _reagin_antib reactive ody_serum All eosinophil_c unknown 0.3 10 unknown _285 unknown unknown ount_blood 3/UL All Rh_antigen unknown positive unknown _255 unknown unknown All antibody_scr unknown negative unknown _250 unkno wn unknown een_serum All varicella_zo unknown immune unknown _2470 unknown unknown ster_antibody _IgG_serum All basophil_cou unknown 0.1 10 unknown _2427 unknown unknown nt_blood 3/UL All monocyte_cou unknown 0.6 10 unknown _2422 unknown unknown nt_blood 3/UL All lymphocyte_c unknown 1.1 10 unknown _2420 unknown unknown ount_blood 3/UL All neutrophil_c unknown 0.8 10 unknown _2418 unknown unknown ount_blood 3/UL All blood_type_w unknown B+ unknown _210000 unknow n unknown ith_RH_factor 4 All Hepatitis_C_ unknown 0.00 unknown _[id number] unknow n unknown Antibody_Sign al_to_Cut-Off All Rh_antigen unknown positive unknown _1305-2 unknow n unknown All Slide_Interp unknown Indicated unknown _102992 unk nown unknown retation All T unknown Indicated unknown SLIDE_R unknown unknown EVIEW_ All SLIDE_REVIEW unknown Indicated unknown SLIDERE unk nown unknown _ V_ All T unknown 0.00 unknown SIGNAL_ unknown unk nown CUT-OFF All T unknown NORMAL unknown PLT_EST unknown unk nown (130-450,00 0) All PLATELET_EST unknown NORMAL unknown PLTEST unknown unknown IMATE_MANUAL (130-450,00 0) All NEUTROPHILS_ unknown 0.8 10 unknown NE_ unknown unknown AUTO_ 3/UL All T unknown 0.8 10 unknown NEUT_AU unknown unk nown 3/UL TO_ All MONOCYTES_AU unknown 0.6 10 unknown MO_ unknown unknown TO_ 3/UL All T unknown 0.6 10 unknown MONO_AU unknown unk nown 3/UL TO_ All LYMPHOCYTES_ unknown 1.1 10 unknown LY_ unknown unknown AUTO_ 3/UL All T unknown 1.1 10 unknown LYMPH_A unknown unk nown 3/UL UTO_ All EOSINOPHILS_ unknown 0.3 10 unknown EO_ unknown unknown AUTO_ 3/UL All T unknown 0.3 10 unknown EOS_AUT unknown unk nown 3/UL O_ All BASOPHILS_AU unknown 0.1 10 unknown BA_ unknown unknown TO_ 3/UL All T unknown 0.1 10 unknown BASO_AU unknown unk nown 3/UL TO_ All SIGNAL_TO_CU unknown 0.00 unknown qSIGNAL unknow n unknown T-OFF All platelet_cou unknown NORMAL unknown _9317-9 unknow n unknown nt_estimate (130-450,00 0) All antibody_scr unknown negative unknown _890-4 unkno wn unknown een_serum All hepatitis_B_ unknown non unknown _79 unknown unknown surface_antig reactive en All neutrophil_c unknown 0.8 10 unknown _752-6 unknown unknown ount_blood 3/UL All monocyte_cou unknown 0.6 10 unknown _743-5 unknown unknown nt_blood 3/UL All lymphocyte_c unknown 1.1 10 unknown _732-8 unknown unknown ount_blood 3/UL All eosinophil_c unknown 0.3 10 unknown _712-0 unknown unknown ount_blood 3/UL All Basophils_vo unknown 0.1 10 unknown _705-4 unknown unknown lume_in_Blood 3/UL _by_Manual_co unt All varicella_zo unknown immune unknown _5403-1 unknow n unknown ster_antibody _IgG_serum All rubella_anti unknown immune unknown _5333-0 unknow n unknown body_serum_ti ter All Reagin_Ab_Un unknown non unknown _5291-0 unknow n unknown its_volume_in reactive _Serum_by_VDR L All hepatitis_B_ unknown non unknown _5195-3 unknow n unknown surface_antig reactive en All rubella_anti unknown immune unknown _3507 unknown unknown body_serum_ti ter All platelet_cou unknown NORMAL unknown _3109 unknown unknown nt_estimate (130-450,00 0) All rapid_plasma unknown non unknown _308 unknown unknown _reagin_antib reactive ody_serum All eosinophil_c unknown 0.3 10 unknown _285 unknown unknown ount_blood 3/UL All Rh_antigen unknown positive unknown _255 unknown unknown All antibody_scr unknown negative unknown _250 unkno wn unknown een_serum All varicella_zo unknown immune unknown _2470 unknown unknown ster_antibody _IgG_serum All basophil_cou unknown 0.1 10 unknown _2427 unknown unknown nt_blood 3/UL All monocyte_cou unknown 0.6 10 unknown _2422 unknown unknown nt_blood 3/UL All lymphocyte_c unknown 1.1 10 unknown _2420 unknown unknown ount_blood 3/UL All neutrophil_c unknown 0.8 10 unknown _2418 unknown unknown ount_blood 3/UL All blood_type_w unknown B+ unknown _210000 unknow n unknown ith_RH_factor 4 All Hepatitis_C_ unknown 0.00 unknown _[id number] unknow n unknown Antibody_Sign al_to_Cut-Off All Rh_antigen unknown positive unknown _1305-2 unknow n unknown All Slide_Interp unknown Indicated unknown _102992 unk nown unknown retation All T unknown Indicated unknown SLIDE_R unknown unknown EVIEW_ All SLIDE_REVIEW unknown Indicated unknown SLIDERE unk nown unknown _ V_ All T unknown 0.00 unknown SIGNAL_ unknown unk nown CUT-OFF All T unknown NORMAL unknown PLT_EST unknown unk nown (130-450,00 0) All PLATELET_EST unknown NORMAL unknown PLTEST unknown unknown IMATE_MANUAL (130-450,00 0) All NEUTROPHILS_ unknown 0.8 10 unknown NE_ unknown unknown AUTO_ 3/UL All T unknown 0.8 10 unknown NEUT_AU unknown unk nown 3/UL TO_ All MONOCYTES_AU unknown 0.6 10 unknown MO_ unknown unknown TO_ 3/UL All T unknown 0.6 10 unknown MONO_AU unknown unk nown 3/UL TO_ All LYMPHOCYTES_ unknown 1.1 10 unknown LY_ unknown unknown AUTO_ 3/UL All T unknown 1.1 10 unknown LYMPH_A unknown unk nown 3/UL UTO_ All EOSINOPHILS_ unknown 0.3 10 unknown EO_ unknown unknown AUTO_ 3/UL All T unknown 0.3 10 unknown EOS_AUT unknown unk nown 3/UL O_ All BASOPHILS_AU unknown 0.1 10 unknown BA_ unknown unknown TO_ 3/UL All T unknown 0.1 10 unknown BASO_AU unknown unk nown 3/UL TO_ All SIGNAL_TO_CU unknown 0.00 unknown qSIGNAL unknow n unknown T-OFF All platelet_cou unknown NORMAL unknown _9317-9 unknow n unknown nt_estimate (130-450,00 0) All antibody_scr unknown negative unknown _890-4 unkno wn unknown een_serum All hepatitis_B_ unknown non unknown _79 unknown unknown surface_antig reactive en All neutrophil_c unknown 0.8 10 unknown _752-6 unknown unknown ount_blood 3/UL All monocyte_cou unknown 0.6 10 unknown _743-5 unknown unknown nt_blood 3/UL All lymphocyte_c unknown 1.1 10 unknown _732-8 unknown unknown ount_blood 3/UL All eosinophil_c unknown 0.3 10 unknown _712-0 unknown unknown ount_blood 3/UL All Basophils_vo unknown 0.1 10 unknown _705-4 unknown unknown lume_in_Blood 3/UL _by_Manual_co unt All varicella_zo unknown immune unknown _5403-1 unknow n unknown ster_antibody _IgG_serum All rubella_anti unknown immune unknown _5333-0 unknow n unknown body_serum_ti ter All Reagin_Ab_Un unknown non unknown _5291-0 unknow n unknown its_volume_in reactive _Serum_by_VDR L All hepatitis_B_ unknown non unknown _5195-3 unknow n unknown surface_antig reactive en All rubella_anti unknown immune unknown _3507 unknown unknown body_serum_ti ter All platelet_cou unknown NORMAL unknown _3109 unknown unknown nt_estimate (130-450,00 0) All rapid_plasma unknown non unknown _308 unknown unknown _reagin_antib reactive ody_serum All eosinophil_c unknown 0.3 10 unknown _285 unknown unknown ount_blood 3/UL All Rh_antigen unknown positive unknown _255 unknown unknown All antibody_scr unknown negative unknown _250 unkno wn unknown een_serum All varicella_zo unknown immune unknown _2470 unknown unknown ster_antibody _IgG_serum All basophil_cou unknown 0.1 10 unknown _2427 unknown unknown nt_blood 3/UL All monocyte_cou unknown 0.6 10 unknown _2422 unknown unknown nt_blood 3/UL All lymphocyte_c unknown 1.1 10 unknown _2420 unknown unknown ount_blood 3/UL All neutrophil_c unknown 0.8 10 unknown _2418 unknown unknown ount_blood 3/UL All blood_type_w unknown B+ unknown _210000 unknow n unknown ith_RH_factor 4 All Hepatitis_C_ unknown 0.00 unknown _143985 unknow n unknown Antibody_Sign al_to_Cut-Off All Rh_antigen unknown positive unknown _1305-2 unknow n unknown All Slide_Interp unknown Indicated unknown _102992 unk nown unknown retation All T unknown Indicated unknown SLIDE_R unknown unknown EVIEW_ All SLIDE_REVIEW unknown Indicated unknown SLIDERE unk nown unknown _ V_ All T unknown 0.00 unknown SIGNAL_ unknown unk nown CUT-OFF All T unknown NORMAL unknown PLT_EST unknown unk nown (130-450,00 0) All PLATELET_EST unknown NORMAL unknown PLTEST unknown unknown IMATE_MANUAL (130-450,00 0) All NEUTROPHILS_ unknown 0.8 10 unknown NE_ unknown unknown AUTO_ 3/UL All T unknown 0.8 10 unknown NEUT_AU unknown unk nown 3/UL TO_ All MONOCYTES_AU unknown 0.6 10 unknown MO_ unknown unknown TO_ 3/UL All T unknown 0.6 10 unknown MONO_AU unknown unk nown 3/UL TO_ All LYMPHOCYTES_ unknown 1.1 10 unknown LY_ unknown unknown AUTO_ 3/UL All T unknown 1.1 10 unknown LYMPH_A unknown unk nown 3/UL UTO_ All EOSINOPHILS_ unknown 0.3 10 unknown EO_ unknown unknown AUTO_ 3/UL All T unknown 0.3 10 unknown EOS_AUT unknown unk nown 3/UL O_ All BASOPHILS_AU unknown 0.1 10 unknown BA_ unknown unknown TO_ 3/UL All T unknown 0.1 10 unknown BASO_AU unknown unk nown 3/UL TO_ All SIGNAL_TO_CU unknown 0.00 unknown qSIGNAL unknow n unknown T-OFF All platelet_cou unknown NORMAL unknown _9317-9 unknow n unknown nt_estimate (130-450,00 0) All antibody_scr unknown negative unknown _890-4 unkno wn unknown een_serum All hepatitis_B_ unknown non unknown _79 unknown unknown surface_antig reactive en All Erythrocytes unknown 3.89 10 unknown _789-8 unknow n unknown _volume_in_Bl 6/UL ood_by_Automa ted_count All Erythrocyte_ unknown 13.4 unknown % _788-0 unknown unknown distribution_ width_Ratio_b y_Automated_c ount All MCV_Entitic_ unknown 84.3 unknown fL _787-2 unknown unknown volume_by_Aut omated_count All MCH_Entitic_ unknown 29.3 unknown pg _785-6 unknown unknown mass_by_Autom ated_count All Platelets_vo unknown 340 10 unknown _777-3 unknown unknown lume_in_Blood 3/UL _by_Automated _count All Platelet_mea unknown 9.8 unknown fL _776-5 unknown unknown n_volume_Enti tic_volume_in _Blood_by_Ree s-Ericka All neutrophil_c unknown 0.8 10 unknown _752-6 unknown unknown ount_blood 3/UL All monocyte_cou unknown 0.6 10 unknown _743-5 unknown unknown nt_blood 3/UL All lymphocyte_c unknown 1.1 10 unknown _732-8 unknown unknown ount_blood 3/UL All Hemoglobin_M unknown 11.4 unknown g/dL _718-7 unknown unknown ass_volume_in _Blood All eosinophil_c unknown 0.3 10 unknown _712-0 unknown unknown ount_blood 3/UL All Basophils_vo unknown 0.1 10 unknown _705-4 unknown unknown lume_in_Blood 3/UL _by_Manual_co unt All leukocyte_co unknown 2.8 X10 unknown _68 unknow n unknown unt_blood 3/UL All erythrocyte_ unknown 3.89 10 unknown _67 unknow n unknown RBC_count 6/UL All Leukocytes_v unknown 2.8 X10 unknown _6690-2 unkno wn unknown olume_in_Bloo 3/UL d_by_Automate d_count All platelet_cou unknown 340 10 unknown _66 unknown unknown nt 3/UL All hemoglobin_b unknown 11.4 unknown g/dL _65 unknown unknown lood All hematocrit_b unknown 32.8 unknown % _64 unknown unknown lood All varicella_zo unknown immune unknown _5403-1 unknow n unknown ster_antibody _IgG_serum All rubella_anti unknown immune unknown _5333-0 unknow n unknown body_serum_ti ter All Reagin_Ab_Un unknown non unknown _5291-0 unknow n unknown its_volume_in reactive _Serum_by_VDR L All hepatitis_B_ unknown non unknown _5195-3 unknow n unknown surface_antig reactive en All Hematocrit_V unknown 32.8 unknown % _4544-3 unknow n unknown olume_Fractio n_of_Blood_by _Automated_co unt All rubella_anti unknown immune unknown _3507 unknown unknown body_serum_ti ter All mean_corpusc unknown 84.3 unknown fL _315 unknown unknown ular_volume_R BC All platelet_cou unknown NORMAL unknown _3109 unknown unknown nt_estimate (130-450,00 0) All rapid_plasma unknown non unknown _308 unknown unknown _reagin_antib reactive ody_serum All eosinophil_c unknown 0.3 10 unknown _285 unknown unknown ount_blood 3/UL All mean_platele unknown 9.8 unknown fL _2784 unknown unknown t_volume All Rh_antigen unknown positive unknown _255 unknown unknown All antibody_scr unknown negative unknown _250 unkno wn unknown een_serum All varicella_zo unknown immune unknown _2470 unknown unknown ster_antibody _IgG_serum All basophil_cou unknown 0.1 10 unknown _2427 unknown unknown nt_blood 3/UL All monocyte_cou unknown 0.6 10 unknown _2422 unknown unknown nt_blood 3/UL All lymphocyte_c unknown 1.1 10 unknown _2420 unknown unknown ount_blood 3/UL All neutrophil_c unknown 0.8 10 unknown _2418 unknown unknown ount_blood 3/UL All blood_type_w unknown B+ unknown _210000 unknow n unknown ith_RH_factor 4 All mean_corpusc unknown 34.8 unknown g/dL _17029 unknown unknown ular_hemoglob in_concentrat ion_rbc All Hepatitis_C_ unknown 0.00 unknown _143985 unknow n unknown Antibody_Sign al_to_Cut-Off All Rh_antigen unknown positive unknown _1305-2 unknow n unknown All mean_corpusc unknown 29.3 unknown pg _1031 unknown unknown ular_hemoglob in_RBC All red_blood_ce unknown 13.4 unknown % _1030 unknown unknown ll_distributi on_width All Slide_Interp unknown Indicated unknown _102992 unk nown unknown retation All T unknown 2.8 X10 unknown WBC unknown unk nown 3/UL All T unknown Indicated unknown SLIDE_R unknown unknown EVIEW_ All SLIDE_REVIEW unknown Indicated unknown SLIDERE unk nown unknown _ V_ All T unknown 0.00 unknown SIGNAL_ unknown unk nown CUT-OFF All T unknown 13.4 unknown % RDW unknown unkn own All T unknown 3.89 10 unknown RBC unknown unk nown 6/UL All T unknown NORMAL unknown PLT_EST unknown unk nown (130-450,00 0) All PLATELET_EST unknown NORMAL unknown PLTEST unknown unknown IMATE_MANUAL (130-450,00 0) All T unknown 340 10 unknown PLT unknown unkn own 3/UL All NEUTROPHILS_ unknown 0.8 10 unknown NE_ unknown unknown AUTO_ 3/UL All T unknown 0.8 10 unknown NEUT_AU unknown unk nown 3/UL TO_ All T unknown 9.8 unknown fL MPV unknown unkn own All MONOCYTES_AU unknown 0.6 10 unknown MO_ unknown unknown TO_ 3/UL All T unknown 0.6 10 unknown MONO_AU unknown unk nown 3/UL TO_ All T unknown 84.3 unknown fL MCV unknown unkn own All T unknown 34.8 unknown g/dL MCHC unknown unkn own All T unknown 29.3 unknown pg MCH unknown unkn own All LYMPHOCYTES_ unknown 1.1 10 unknown LY_ unknown unknown AUTO_ 3/UL All T unknown 1.1 10 unknown LYMPH_A unknown unk nown 3/UL UTO_ All T unknown 11.4 unknown g/dL HGB unknown unkn own All T unknown 32.8 unknown % HCT unknown unkn own All EOSINOPHILS_ unknown 0.3 10 unknown EO_ unknown unknown AUTO_ 3/UL All T unknown 0.3 10 unknown EOS_AUT unknown unk nown 3/UL O_ All BASOPHILS_AU unknown 0.1 10 unknown BA_ unknown unknown TO_ 3/UL All T unknown 0.1 10 unknown BASO_AU unknown unk nown 3/UL TO_ Vital Signs date measurement value source 20210129 weight_standard 128.24 lb 20210129 weight_metric 58.17 kg 20210129 temperature_standard 97.7 F 20210129 temperature_metric 36.5 C 20210129 respiration_rate 14 /min 20210129 height_standard 61 in 20210129 height_metric 154.94 cm 20210129 heart_rate 119 /min 20210129 BP_systolic 151 mm[Hg] 20210129 BP_diastolic 93 mm[Hg] 20210129 BMI 24.2 kg/m2 20210214 respiration_rate 14 /min 20210214 heart_rate 86 /min 20210214 respiration_rate 14 /min 20210214 heart_rate 86 /min 20210214 respiration_rate 14 /min 20210214 heart_rate 86 /min 20210214 respiration_rate 14 /min 20210214 heart_rate 86 /min 20210214 weight_standard 128 lb 20210214 weight_metric 58.06 kg 20210214 temperature_standard 96.9 F 20210214 temperature_metric 36.06 C 20210214 respiration_rate 14 /min 20210214 height_standard 61 in 20210214 height_metric 154.94 cm 20210214 heart_rate 86 /min 20210214 BP_systolic 126 mm[Hg] 20210214 BP_diastolic 84 mm[Hg] 20210214 BMI 24.27 kg/m2 20210214 respiration_rate 14 /min 20210214 heart_rate 86 /min 20210228 weight_standard 128.6 lb 20210228 weight_metric 58.33 kg 20210228 temperature_standard 97.5 F 20210228 temperature_metric 36.39 C 20210228 height_standard 61 in 20210228 height_metric 154.94 cm 20210228 BP_systolic 120 mm[Hg] 20210228 BP_diastolic 64 mm[Hg] 20210228 BMI 24.39 kg/m2 20210228 weight_standard 128.6 lb 20210228 weight_metric 58.33 kg 20210228 temperature_standard 97.5 F 20210228 temperature_metric 36.39 C 20210228 height_standard 61 in 20210228 height_metric 154.94 cm 20210228 BP_systolic 120 mm[Hg] 20210228 BP_diastolic 64 mm[Hg] 20210228 BMI 24.39 kg/m2 20210314 weight_standard 131.2 lb 20210314 weight_metric 59.51 kg 20210314 temperature_standard 97.6 F 20210314 temperature_metric 36.44 C 20210314 height_standard 61 in 20210314 height_metric 154.94 cm 20210314 BP_systolic 130 mm[Hg] 20210314 BP_diastolic 74 mm[Hg] 20210314 BMI 24.88 kg/m2 20210314 weight_standard 131.2 lb 20210314 weight_metric 59.51 kg 20210314 temperature_standard 97.6 F 20210314 temperature_metric 36.44 C 20210314 height_standard 61 in 20210314 height_metric 154.94 cm 20210314 BP_systolic 130 mm[Hg] 20210314 BP_diastolic 74 mm[Hg] 20210314 BMI 24.88 kg/m2 20210328 weight_standard 135.4 lb 20210328 weight_metric 61.42 kg 20210328 temperature_standard 97.5 F 20210328 temperature_metric 36.39 C 20210328 height_standard 61 in 20210328 height_metric 154.94 cm 20210328 BP_systolic 140 mm[Hg] 20210328 BP_diastolic 80 mm[Hg] 20210328 BMI 25.68 kg/m2 20210411 weight_standard 138 lb 20210411 weight_metric 62.6 kg 20210411 temperature_standard 97.4 F 20210411 temperature_metric 36.33 C 20210411 height_standard 61 in 20210411 height_metric 154.94 cm 20210411 BMI 26.17 kg/m2 20210411 weight_standard 138 lb 20210411 weight_metric 62.6 kg 20210411 temperature_standard 97.4 F 20210411 temperature_metric 36.33 C 20210411 height_standard 61 in 20210411 height_metric 154.94 cm 20210411 BP_systolic 144 mm[Hg] 20210411 BP_diastolic 98 mm[Hg] 20210411 BMI 26.17 kg/m2 20210411 weight_standard 138 lb 20210411 weight_metric 62.6 kg 20210411 temperature_standard 97.4 F 20210411 temperature_metric 36.33 C 20210411 height_standard 61 in 20210411 height_metric 154.94 cm 20210411 BP_systolic 144 mm[Hg] 20210411 BP_diastolic 98 mm[Hg] 20210411 BMI 26.17 kg/m2 20210414 BP_systolic 136 mm[Hg] 20210414 BP_diastolic 90 mm[Hg] 20210414 BP_systolic 136 mm[Hg] 20210414 BP_systolic 132 mm[Hg] 20210414 BP_diastolic 96 mm[Hg] 20210414 BP_diastolic 90 mm[Hg] 20210414 BP_systolic 136 mm[Hg] 20210414 BP_diastolic 90 mm[Hg] 20210421 weight_standard 137.4 lb 20210421 weight_metric 62.32 kg 20210421 temperature_standard 97.4 F 20210421 temperature_metric 36.33 C 20210421 height_standard 61 in 20210421 height_metric 154.94 cm 20210421 BP_systolic 148 mm[Hg] 20210421 BP_diastolic 100 mm[Hg] 20210421 BMI 26.06 kg/m2 20210421 weight_standard 137.4 lb 20210421 weight_metric 62.32 kg 20210421 temperature_standard 97.4 F 20210421 temperature_metric 36.33 C 20210421 height_standard 61 in 20210421 height_metric 154.94 cm 20210421 BP_systolic 148 mm[Hg] 20210421 BP_diastolic 100 mm[Hg] 20210421 BMI 26.06 kg/m2
[2021-04-28] MEDS: BETAMETHASONE 30 MG/5 ML VIAL IM SCH (17:31)
[2021-04-29 10:42] LABS: SLIDE SENT FOR PATH REVIEW? Indicated
--- NOTE | 2021-04-29 11:26 | PROVIDER PROGRESS NOTE ---
Subjective - Prog Note Date Prog Note Date: 04/29/21 Prog Note Time: 11:24 - Subjective Subjective: Patient has no complaints. She denies headaches, vision changes or abdominal pain. Objective - Vital Signs/Intake & Output Reviewed Vital Signs: Yes Vital Signs: Vital Signs x48h Temp Pulse Resp BP Pulse Ox 04/29/21 10:13 96 145/95 H 04/29/21 09:20 112 H 150/96 H 99 04/29/21 08:00 98.2 F 96 16 144/89 H 98 04/29/21 06:52 92 16 149/87 H 04/29/21 06:47 97.9 F 100 18 144/90 H 99 04/29/21 05:55 89 16 134/65 H 99 04/29/21 04:51 72 16 122/68 99 04/29/21 03:53 82 16 128/66 100 Intake & Output: Intake & Output 04/26/21 04/27/21 04/28/21 04/29/21 23:59 23:59 23:59 23:59 Intake Total 600 Balance 600 - Objective General Appearance: positive: No acute distress - Lab Results Fish Bones: 04/28/21 15:23 Other Labs: Lab Results x24hrs 04/29/21 04/28/21 04/28/21 Range/Units 07:02 16:04 16:04 WBC (4.8-10.8) x10^3/uL RBC (4.20-5.40) 10^6/uL Hgb (12.0-16.0) g/dL Hct (37.0-47.0) % MCV (81.0-99.0) fL MCH (27.0-31.0) pg MCHC (32.0-36.0) g/dL RDW (12.0-15.0) % Plt Count (130-450) 10^3/uL MPV (7.9-10.8) fL Neut # (Auto) (1.5-6.6) 10^3/uL Lymph # (Auto) (1.5-3.5) 10^3/uL [place] # (Auto) (0.0-1.0) 10^3/uL Eos # (Auto) (0.0-0.7) 10^3/uL Baso # (Auto) (0.0-0.1) 10^3/uL Absolute Nucleated RBC x10^3/uL Band Neuts % (Manual) Abnorm Lymph % (Manual) Nucleated RBC % /100WBC Neutrophils # (Manual) Lymphocytes # (Manual) Monocytes # (Manual) Eosinophils # (Manual) Basophils # (Manual) Differential Comment Manual Slide Review Platelet Estimate (NORMAL) Platelet Morphology (NORMAL) RBC Morph Micro Appear (NORMAL) Uric Acid (2.6-7.2) mg/dL AST (10-42) IU/L Lactate Dehydrogenase (91-225) IU/L U Random Total Protein 9 mg/dL Urine Creatinine 33.0 34.7 mg/dL Ur Total Protein Timed 10 mg/dL Protein/Creatinin Ratio 0.3 H (<=0.2) Slides for Path Review Blood Type B POSITIVE Antibody Screen NEGATIVE 04/28/21 04/28/21 04/28/21 Range/Units 15:23 15:23 15:23 WBC 3.3 L (4.8-10.8) x10^3/uL RBC 4.49 (4.20-5.40) 10^6/uL Hgb 13.2 (12.0-16.0) g/dL Hct 38.6 (37.0-47.0) % MCV 86.0 (81.0-99.0) fL MCH 29.4 (27.0-31.0) pg MCHC 34.2 (32.0-36.0) g/dL RDW 14.9 (12.0-15.0) % Plt Count 311 (130-450) 10^3/uL MPV 10.8 (7.9-10.8) fL Neut # (Auto) 0.5 L* (1.5-6.6) 10^3/uL Lymph # (Auto) 2.2 (1.5-3.5) 10^3/uL [place] # (Auto) 0.4 (0.0-1.0) 10^3/uL Eos # (Auto) 0.2 (0.0-0.7) 10^3/uL Baso # (Auto) 0.1 (0.0-0.1) 10^3/uL Absolute Nucleated RBC 0.00 x10^3/uL Band Neuts % (Manual) Not Reportable Abnorm Lymph % (Manual) Not Reportable Nucleated RBC % 0.0 /100WBC Neutrophils # (Manual) Not Reportable Lymphocytes # (Manual) Not Reportable Monocytes # (Manual) Not Reportable Eosinophils # (Manual) Not Reportable Basophils # (Manual) Not Reportable Differential Comment MANUAL=AUTO DIFF Manual Slide Review Indicated Platelet Estimate NORMAL (130-450,000) (NORMAL) Platelet Morphology NORMAL APPEARANCE (NORMAL) RBC Morph Micro Appear NORMAL APPEARANCE (NORMAL) Uric Acid 10.3 H (2.6-7.2) mg/dL AST 30 (10-42) IU/L Lactate Dehydrogenase 181 (91-225) IU/L U Random Total Protein mg/dL Urine Creatinine mg/dL Ur Total Protein Timed mg/dL Protein/Creatinin Ratio (<=0.2) Slides for Path Review Indicated Blood Type Antibody Screen Assessment/Plan - Problem List (1) Preeclampsia Impression: 25-year-old G1, P0 at 35 weeks 6 days admitted for preeclampsia without severe features. - Preeclampsia based on elevated blood pressures of 140s to 150s over 60s to 100s, Urine protein creatinine ratio of 0.3. - Asymptomatic - Labs significant for you uric acid of 10.3. - BPP was 6 out of 8 secondary to decrease in breathing effort. Repeat BPP plan today. NST reactive and reassuring (2) 35 weeks gestation of Impression: Betamethasone series started due to plan for delivery at 37 weeks. (3) Neutropenia Impression: Incidental finding of neutropenia noted on labs done for assessment of preeclampsia. Patient not currently on medications. Denies previous history of immunodeficiency. Peripheral smear ordered.
--- NOTE | 2021-04-29 16:42 | Ultrasound Report ---
PROCEDURE: OB Biophysical Profile INDICATIONS: Preeclampsia OUTSIDE/PRIOR DATING DATA: Last menstrual period (LMP): 08/18/2020. LMP-based estimated date of delivery (MATTI): 05/25/2021. First dating scan (date and location): 04/28/2021. Estimated date of delivery (MATTI) from first dating scan: 05/25/2021. TECHNIQUE: Real-time scanning was performed of the fetus, with image documentation and biometric anne surements. Biophysical profile was also obtained. Endovaginal scanning: Not indicated COMPARISON: 04/28/2021. FINDINGS: General: A single living intrauterine gestation is present. Presentation: Vertex Placenta: Placental position is anterior, without previa. Amniotic fluid index: 19.4 cm, normal for gestational age. heart rate: 138 beats per minute. Maternal cervical canal: 4 cm long; normal length is 2.5 cm or more. Cervical canal is closed. Estimated gestational age from initial scan: 36 weeks, 2 days. Biophysical profile: Tone: 2 points. Movement: 2 points. Respiration: 2 points. Largest pocket of fluid: 2 points. Umbilical artery Doppler: 2.27, 2.26, 2.56. IMPRESSION: 1. Single live intrauterine gestation with fetus in vertex presentation. heart rate is 138 bpm. Normal amount of amniotic fluid. Closed cervical canal measures 4 cm in length and is within normal limits. 2. biophysical profile score is 8 out of 8. 3. Normal umbilical artery S/D ratio. Reviewed by: Sagar Painter MD on 04/29/2021 4:41 PM PST Approved by: Sagar Painter MD on 04/29/2021 4:41 PM PST Station ID: [id number]
[2021-04-29] MEDS: BETAMETHASONE 30 MG/5 ML VIAL IM SCH (17:25)
[2021-04-29 17:34] VITALS: BP 148/92
--- NOTE | 2021-04-29 20:22 | MISCELLANEOUS PROVIDER NOTE ---
Miscellaneous Provider Note - - Note: The patient's repeat BPP was 10 out of 10. Blood pressures were normal to mild range. The patient remained asymptomatic. I attempted to consult MFM to discuss the patient's neutropenia but was unable to reach an MFM with [facility] or [facility]. The patient remained in stable condition And had no evidence of infection. She was discharged with plan for follow-up in 48 hours. She was given preeclampsia warnings.
[2021-05-01 13:36] LABS: HIV AG/AB 4TH GEN NON-REACTIVE (NON-REACTIVE)
[2021-05-01 15:11] LABS: HEPATITIS B SURFACE ANTIGEN NON-REACTIVE (NON-REACTIVE)
[2021-05-03 15:49] LABS: PATHOLOGIST SLIDE COMMENTS SEE SEPARATE REPORT
== END 2021-04-29 18:00 | disposition home or self-care (01) ==
LOC: WFO 11:54 → FBP 11:58 → WFO 17:13 → FBP 17:14 → INTOOBSV 17:14
PROVIDERS: ADMIT Obstetrics & Gynecology; ATTEND Obstetrics & Gynecology
DX: O14.03 Mild to moderate pre-eclampsia, third trimester (principal); Z3A.35 35 weeks gestation of pregnancy; O99.113 Other diseases of the blood and blood-forming organs and certain disorders involving the immune mechanism complicating pregnancy, third trimester; D70.9 Neutropenia, unspecified
CPT/HCPCS: 36415; 59025; 76819; 82570; 83615; 84156; 84450; 84460; 84550; 85025; 86850; 86900; 86901; 87340; 87389; 87797; 96372; 99215; G0378; 86707

== ENCOUNTER 2021-05-01 14:58 | Inpatient (IN) | payer OTHER ==
[2021-05-01 16:05] LABS: BASOPHILS # (AUTO) 0.1 10^3/uL (0.0-0.1); BASOPHILS % (AUTO) 2.3 %; EOSINOPHILS # (AUTO) 0.1 10^3/uL (0.0-0.7); EOSINOPHILS % (AUTO) 1.9 %; HCT - HEMATOCRIT 38.2 % (37.0-47.0); LYMPHOCYTES # (AUTO) 2.9 10^3/uL (1.5-3.5); LYMPHOCYTES % (AUTO) 56.4 %; MEAN CORPUSCULAR HEMOGLOBIN 29.5 pg (27.0-31.0); MEAN CORPUSCULAR VOLUME 86.8 fL (81.0-99.0); MONOCYTES # (AUTO) 0.6 10^3/uL (0.0-1.0); MONOCYTES % (AUTO) 11.4 %; NEUTROPHILS # (AUTO) 1.3 10^3/uL (1.5-6.6); NEUTROPHILS % (AUTO) 26.1 %; NRBC ABSOLUTE COUNT (AUTO) 0.09 x10^3/uL; NUCLEATED RED BLOOD CELLS AUTO 1.7 /100WBC; PLT - PLATELET COUNT 329 10^3/uL (130-450); RED CELL DISTRIBUTION WIDTH 15.4 % (12.0-15.0); WHITE BLOOD COUNT 5.2 x10^3/uL (4.8-10.8)
[2021-05-01 16:24] LABS: ALBUMIN 2.6 g/dL (3.2-5.5); ALBUMIN/GLOBULIN RATIO 0.7 (1.0-2.2); ALKALINE PHOSPHATASE 163 IU/L (42-121); ALT ALANINE AMINOTRANSFERASE 453 IU/L (10-60); AST ASPARTATE AMINOTRANSFERASE 324 IU/L (10-42); BILIRUBIN,TOTAL < 0.2 mg/dL (0.2-1.0); BUN - BLOOD UREA NITROGEN 12 mg/dL (6-20); CALCIUM 8.7 mg/dL (8.5-10.3); CARBON DIOXIDE - CO2 21 mmol/L (21-32); CHLORIDE 106 mmol/L (101-111); CREATININE 0.8 mg/dL (0.4-1.0); GFR - MDRD 87 (>89); GLUCOSE 134 mg/dL (70-100); POTASSIUM 3.4 mmol/L (3.5-5.0); SODIUM 139 mmol/L (135-145); TOTAL PROTEIN 6.5 g/dL (6.7-8.2)
[2021-05-01 16:47] LABS: CREATININE,URINE 22.9 mg/dL; PROTEIN/CREATININE RATIO,URINE 0.3 (<=0.2)
--- NOTE | 2021-05-01 17:18 | HISTORY & PHYSICAL EXAMINATION ---
Admit History - Visit Reason Visit Reason: Other (Sounds for follow-up of preeclampsia. She has no complaints. She denies headaches vision changes or abdominal pain. She was seen previously for elevated blood pressures and diagnosed with preeclampsia without severe features. She was found to have elevated LFTs on a evaluation today.) - : 1 Parity: 0 Care: positive: Other (Proven) Complications This : positive: Pre-eclampsia, Other (Chlamydia+) Smoking Status: Never smoker - Mother's Labs Mother's Blood Type: positive: B Mother's RH: positive: Positive GBS: positive: Group B Step Negative Rubella Status: positive: Immune Meds/Allgy - Home Medications Home Medications: Ambulatory Orders Medication Instructions Recorded Confirmed Amoxicillin 500 mg PO TID #30 cap 02/15/21 Pnv No.95/Ferrous Fum/Folic AC 02/15/21 [ Caplet] guaiFENesin/CODEINE [Robitussin AC] 5 - 10 ml PO Q6H PRN #120 ml 02/15/21 - Allergies Allergies/Adverse Reactions: Allergies Allergy/AdvReac Type Severity Reaction Status Date / Time No Known Drug Allergies Allergy Verified 02/15/21 13:47 Review of Systems - Constitutional Constitutional: denies: Fever, Chills - Eyes Eyes: denies: Spots in vision, Field loss, Vision loss - Gastrointestinal Gastrointestinal: denies: Abdominal pain Physical - Abdominal Exam Vital Signs: Temp Pulse Resp BP Pulse Ox 98.3 F 98 16 153/106 H 05/01/21 15:13 05/01/21 15:13 05/01/21 15:13 05/01/21 15:13 - Monitoring Heart Rate Baseline: 130 BPM Strip Review: positive: Category I - Presentation Presentation: positive: Vertex - Vaginal Exam Membranes: positive: Membranes intact Dilation (in cm): 1 Effacement (%): 50 Station: positive: -2 Cervical Position: positive: Posterior Plan for Labor - Plan For Labor Plan for Labor: 25-year-old G1, P0 at 36 weeks 0 days who presents for follow-up of preeclampsia. Preeclampsia with severe featuresbased on intermittent severe range blood pressures and elevated LFTs. Admitted for delivery. Magnesium sulfate for seizure prophylaxis. -36 weeks gestationstatus post betamethasone x2. Estimated weight 2644 g. GBS negative. - Neutropeniapatient with neutropenia noted previously. Labs improved status post betamethasone series. We will continue to follow. - History of STDchlamydia positive during . Urine gonorrhea and chlamydia sent. - Induction of laborSVE and -. Aponte bulb placed using sterile technique. Occasional contractions noted.
--- NOTE | 2021-05-01 17:19 | PROCEDURE REPORT ---
- HPI Diagnosis/Indication for NST: Other (Preeclampsia with severe features) Current EDU 05/29/21 Gestation 36 Weeks and 0 Days 1 Para 0 Vital Signs Temperature 98.3 F 05/01/21 15:13 Heart Rate 98 05/01/21 15:13 Respiratory Rate 16 05/01/21 15:13 Blood Pressure 153/106 H 05/01/21 15:13 Temperature 98.3 F 05/01/21 15:13 Heart Rate 98 05/01/21 15:13 Respiratory Rate 16 05/01/21 15:13 Blood Pressure 153/106 H 05/01/21 15:13 O2 Saturation - NST Procedure NST Procedure Start Date 05/01/21 Start Time 15:10 Stop Time 15:58 Vibroacoustic Stimulation Used No Patient States Movement Yes - Results and Plan Findings/Impression: heart rate baseline-130 beats per minutes Moderate variability Accelerations 15x15 bpm Decelerations none Contractions rare NST reactive and reassuring Plan: 25-year-old G1, P0 at 36 weeks 0 days who presents with history of preeclampsia for NST.. Patient was found to have elevated LFTs consistent with preeclampsia with severe features. Will admit for delivery.
[2021-05-01] MEDS ORDERED: MAGNESIUM SULFATE 4 GRAM 4 GM/50 ML BAG IV ONE ×2 (17:24→17:59)
--- OUTSIDE RECORDS SUMMARY | 2021-05-01 17:57 | EXTERNAL MEDICAL SUMMARY RPT | Continuity of Care Document ---
:1995 Author Organization [facility] Address [address] [place] [address] Phone Care Team Providers Name Role Phone Enrike, Provider Unavailable Unavailable Lorena PABLO Unavailable Unavailable RN, Annie Mcdaniel Unavailable Unavailable VAULT ATTENDANT, Deanne Arreola Unavailable Unavailable Ralph UMANA Unavailable Unavailable , Jordyn Barker Unavailable Unavailable CNM, Michelle BAILEY, Unavailable Unavailable Allergies No information. Encounters No information. Medications date description facility 20210307 ferrous gluconate All 20210307 ferrous gluconate All 20210307 ferrous gluconate All 20210307 ferrous gluconate All 20210307 ferrous gluconate All 20210307 ferrous gluconate All Problems date description facility [id number] NST WITH BIOPHYSICAL PROFILE All 20210421 [facility] OB FOLLOW-UP All 20210411 URINE PROTEIN TO CREATININE RATIO [...] 20210314 CHLAM, NEISSERIA, TRICH DNA All 20210307 Anemia complicating , childbirt h, or the puerperium, All antepartum condition or complication 20210307 Impaired glucose tolerance in All 20210307 Anemia complicating , unspecif ied trimester All 20210307 Abnormal glucose complicating All 20210307 Anemia during - baby not yet delivered All 20210307 Abnormal glucose tolerance complicating , childbirth, All or the puerperium, antepartum condition or complication 20210307 3HR GTT All 20210228 Need for prophylactic vaccination and in oculation against other All combinations of diseases 20210228 Encounter for immunization All 20210228 CBC w/o DIFF All 20210228 Administration of diphtheria, pertussis , and tetanus vaccine All 20210228 1HR GTT All 20210214 COVID19 Testing All 20210214 Total score? All 20210214 Never smoker All 20210214 Cough All 20210214 Other specified cough All 20210214 Details of drug misuse behavior All 20210214 Alcohol use All 20210131 [facility] All Procedures date description facility 20210421F - SUBSEQUENT VISIT All 20210421F - SUBSEQUENT VISIT All 20210421F - SUBSEQUENT VISIT All 20210411 CBC AND PLATELETS w/o DIFF All 20210411 COMPREHENSIVE METABOLIC PANEL All 20210411F - SUBSEQUENT VISIT All 20210411 URINE PROTEIN TO CREATININE RATIO All 20210411 CBC AND PLATELETS w/o DIFF All 20210411 COMPREHENSIVE METABOLIC PANEL All 20210411F - SUBSEQUENT VISIT All 20210411 URINE PROTEIN [...] URINE PROTEIN TO CREATININE RATIO All 20210328 050F - SUBSEQUENT VISIT All 20210328 050F - SUBSEQUENT VISIT All 20210328 050F - SUBSEQUENT VISIT All 20210328 050F - SUBSEQUENT VISIT All 20210328 050F - SUBSEQUENT VISIT All 20210314 050F - SUBSEQUENT VISIT All 20210314 050F - SUBSEQUENT VISIT All 20210314 050F - SUBSEQUENT VISIT All 20210314 050F - SUBSEQUENT VISIT All 20210314 050F - SUBSEQUENT VISIT All 20210314F - SUBSEQUENT VISIT All 20210307 3HR GTT All 20210307 3HR GTT All 20210307 3HR GTT All 20210307 3HR GTT All 20210307 3HR GTT All 20210228 INJECTION FEE All 20210228 TDAP INJECTION All 20210228 Boostrix Intramuscular Suspension 5-2.5 -18.5 All 20210228 First Ix admin via ID IM or jet injects with counseling by All physician for adult 20210228 CBC w/o DIFF All 20210228 1HR GTT All 20210228 0502F - SUBSEQUENT VISIT All 20210228 INJECTION FEE All 20210228 TDAP INJECTION All 20210228 Boostrix Intramuscular Suspension 5-2.5 -18.5 All 20210228 First Ix admin via ID IM or jet injects with counseling by All physician for adult 20210228 CBC w/o DIFF All 20210228 1HR GTT All 20210228 0502F - SUBSEQUENT VISIT All 20210228 INJECTION FEE All 20210228 TDAP INJECTION All 20210228 Boostrix Intramuscular Suspension 5-2.5 -18.5 All 20210228 First Ix admin via ID IM or jet injects with counseling by All physician for adult 20210228 CBC w/o DIFF All 20210228 1HR GTT All 20210228 050F - SUBSEQUENT VISIT All 20210228 INJECTION FEE All 20210228 TDAP INJECTION All 20210228 Boostrix Intramuscular Suspension 5-2.5 -18.5 All 20210228 First Ix admin via ID IM or jet injects with counseling by All physician for adult 20210228 CBC w/o DIFF All 20210228 1HR GTT All 20210228 0502F - SUBSEQUENT VISIT All 20210228 INJECTION FEE All 20210228 TDAP INJECTION All 20210228 Boostrix Intramuscular Suspension 5-2.5 -18.5 All 20210228 First Ix admin via ID IM or jet injects with counseling by All physician for adult 20210228 CBC w/o DIFF All 20210228 1HR GTT All 20210228 0502F - SUBSEQUENT VISIT All 20210228 INJECTION FEE All 20210228 TDAP INJECTION All 20210228 Boostrix Intramuscular Suspension 5-2.5 -18.5 All 20210228 First Ix admin via ID IM or jet injects with counseling by All physician for adult 20210228 CBC w/o DIFF All 20210228 1HR GTT All 20210228 0502F - SUBSEQUENT VISIT All 20210214 COVID19 Testing All 20210214 COVID19 Testing All 20210214 COVID19 Testing All 20210214 COVID19 Testing All 20210214 COVID19 Testing All 20210214 COVID19 Testing All 20210214 COVID19 Testing All 20210131 Viral Culture All 20210131 0502F - SUBSEQUENT VISIT All 65833537 Viral Culture All 05783573 0502F - SUBSEQUENT VISIT All 15750870 Viral Culture All 16618129 0502F - SUBSEQUENT VISIT All 16822026 Viral Culture All 41231507 0502F - SUBSEQUENT VISIT All 14848538 Viral Culture All 67644110 0502F - SUBSEQUENT VISIT All 13515411 Viral Culture All 16951325 0502F - SUBSEQUENT VISIT All Results test status date ordered by attending specimen geovanna e urea_nitrogen_blood unknown [id number] unknown unknown unk nown Erythrocytes_volume_in unknown 61469399 unknown unknown unknown _Blood_by_Automated_cou nt Erythrocyte_distributi unknown 53320575 unknown unknown unknown on_width_Ratio_by_Autom ated_count MCV_Entitic_volume_by_ unknown 43562005 unknown unknown unknown Automated_count MCH_Entitic_mass_by_Au unknown 88115692 unknown unknown unknown tomated_count Platelets_volume_in_Bl unknown 70959994 unknown unknown unknown ood_by_Automated_count Platelet_mean_volume_E unknown 02987348 unknown unknown unknown ntitic_volume_in_Blood_ by_Rees-Ericka neutrophil_count_blood unknown 62825811 unknown unknown unknown monocyte_count_blood unknown 49068221 unknown unknown un known lymphocyte_count_blood unknown 25560844 unknown unknown unknown Hemoglobin_Mass_volume unknown 33630047 unknown unknown unknown _in_Blood eosinophil_count_blood unknown 04308477 unknown unknown unknown Basophils_volume_in_Bl unknown 51628919 unknown unknown unknown ood_by_Manual_count leukocyte_count_blood unknown 05360371 unknown unknown u nknown erythrocyte_RBC_count unknown 62142644 unknown unknown u nknown Leukocytes_volume_in_B unknown 82883346 unknown unknown unknown lood_by_Automated_count Glomerular_Filtration_ unknown 71520624 unknown unknown unknown rate platelet_count unknown 09303784 unknown unknown unknown hemoglobin_blood unknown 67897527 unknown unknown unknow n hematocrit_blood unknown 66627897 unknown unknown unknow n potassium_blood unknown 79856414 unknown unknown unknown Glomerular_filtration_r unknown 27728511 unknown unknown unknown ate_1.73_sq_M.predicted _among_non-blacks_Volum e_Rate_Area_in_Serum_Pl asma_or_Blood_by_Creati nine-based_formula_MDRD _ Hematocrit_Volume_Frac unknown 22513555 unknown unknown unknown tion_of_Blood_by_Automa ted_count bilirubin_serum_total unknown 78408312 unknown unknown u nknown alanine_aminotransfera unknown 17012348 unknown unknown unknown se_SGPT_serum carbon_dioxide_serum_t unknown 37132028 unknown unknown unknown otal aspartate_aminotransfe unknown 23950527 unknown unknown unknown rase_SGOT_serum protein_total_serum unknown 38527363 unknown unknown unk nown blood_glucose unknown 98671861 unknown unknown unknown potassium_blood unknown 15091883 unknown unknown unknown mean_corpuscular_volum unknown 11351462 unknown unknown unknown e_RBC Urea_nitrogen_Mass_vol unknown 37847545 unknown unknown unknown ume_in_Serum_or_Plasma globulin_serum unknown 87985473 unknown unknown unknown alkaline_phosphatase_s unknown 99479429 unknown unknown unknown anthony Sodium_Moles_volume_in unknown 79920355 unknown unknown unknown _Serum_or_Plasma Protein_Mass_volume_in unknown 40167237 unknown unknown unknown _Serum_or_Plasma eosinophil_count_blood unknown 84983052 unknown unknown unknown anion_gap_serum unknown 69491368 unknown unknown unknown mean_platelet_volume unknown 83123153 unknown unknown un known basophil_count_blood unknown 34455396 unknown unknown un known monocyte_count_blood unknown 66054633 unknown unknown un known lymphocyte_count_blood unknown 95328566 unknown unknown unknown neutrophil_count_blood unknown 30138102 unknown unknown unknown Glucose_Mass_volume_in unknown 43118557 unknown unknown unknown _Serum_or_Plasma Globulin_Mass_volume_i unknown 52055458 unknown unknown unknown n_Serum Creatinine_Mass_volume unknown 21630585 unknown unknown unknown _in_Serum_or_Plasma Chloride_Moles_volume_ unknown 28189002 unknown unknown unknown in_Serum_or_Plasma carbon_dioxide_serum_t unknown 15323781 unknown unknown unknown otal Calcium_Moles_volume_i unknown 41204430 unknown unknown unknown n_Serum_or_Plasma albumin_serum unknown 20492393 unknown unknown unknown Bilirubin.total_Mass_v unknown 53728372 unknown unknown unknown olume_in_Serum_or_Plasm a Aspartate_aminotransfe unknown 06341060 unknown unknown unknown rase_Enzymatic_activity _volume_in_Serum_or_Pla sma Anion_gap_4_in_Serum_o unknown 81686745 unknown unknown unknown r_Plasma creatinine_serum unknown 65793871 unknown unknown unknow n Alkaline_phosphatase_E unknown 96693901 unknown unknown unknown nzymatic_activity_volum e_in_Blood Albumin_Globulin_Mass_ unknown 30282082 unknown unknown unknown Ratio_in_Serum_or_Plasm a Albumin_Mass_volume_in unknown 50266314 unknown unknown unknown _Serum_or_Plasma Alanine_aminotransfera unknown 32675663 unknown unknown unknown se_Enzymatic_activity_v olume_in_Serum_or_Plasm a mean_corpuscular_hemog unknown 85213724 unknown unknown unknown lobin_concentration_rbc sodium_serum unknown 90059326 unknown unknown unknown albumin_globulin_ratio unknown 92909793 unknown unknown unknown _serum chloride_serum unknown 07683634 unknown unknown unknown calcium_serum unknown 90377989 unknown unknown unknown mean_corpuscular_hemog unknown 52002561 unknown unknown unknown lobin_RBC red_blood_cell_distrib unknown 66936414 unknown unknown unknown ution_width T unknown 56925519 unknown unknown unknown T unknown 68936681 unknown unknown unknown T unknown 39904433 unknown unknown unknown T unknown 38836025 unknown unknown unknown T unknown 67713136 unknown unknown unknown T unknown 14419587 unknown unknown unknown NEUTROPHILS_AUTO_ unknown 51643531 unknown unknown unkno wn T unknown 70796221 unknown unknown unknown T unknown 66140940 unknown unknown unknown T unknown 28610307 unknown unknown unknown MONOCYTES_AUTO_ unknown 15121699 unknown unknown unknown T unknown 35057942 unknown unknown unknown T unknown 37974135 unknown unknown unknown T unknown 50405139 unknown unknown unknown T unknown 15238372 unknown unknown unknown LYMPHOCYTES_AUTO_ unknown 54862586 unknown unknown unkno wn T unknown 53083041 unknown unknown unknown T unknown 71818519 unknown unknown unknown T unknown 36924951 unknown unknown unknown T unknown 52612671 unknown unknown unknown T unknown 68415095 unknown unknown unknown T unknown 87687169 unknown unknown unknown T unknown 46151711 unknown unknown unknown GFR_-_MDRD unknown 11297895 unknown unknown unknown T unknown 86846519 unknown unknown unknown EOSINOPHILS_AUTO_ unknown 76038449 unknown unknown unkno wn T unknown 85895673 unknown unknown unknown T unknown 55479905 unknown unknown unknown T unknown 05481280 unknown unknown unknown T unknown 82206147 unknown unknown unknown T unknown 90991498 unknown unknown unknown T unknown 76979199 unknown unknown unknown BILIRUBIN_TOTAL unknown 82852831 unknown unknown unknown BASOPHILS_AUTO_ unknown 03191307 unknown unknown unknown T unknown 71674952 unknown unknown unknown T unknown 87670584 unknown unknown unknown T unknown 24361735 unknown unknown unknown T unknown 09463851 unknown unknown unknown ALT_ALANINE_AMINOTRANS unknown 01833701 unknown unknown unknown FERASE ALKALINE_PHOSPHATASE unknown 02740630 unknown unknown un known T unknown 53631621 unknown unknown unknown T unknown 48577588 unknown unknown unknown ALBUMIN_GLOBULIN_RATIO unknown 99645987 unknown unknown unknown platelet_count_estimat unknown 15227315 unknown unknown unknown e Erythrocytes_volume_in unknown 22173934 unknown unknown unknown _Blood_by_Automated_cou nt Erythrocyte_distributi unknown 42017436 unknown unknown unknown on_width_Ratio_by_Autom ated_count MCV_Entitic_volume_by_ unknown 67675058 unknown unknown unknown Automated_count MCH_Entitic_mass_by_Au unknown 89235313 unknown unknown unknown tomated_count Platelets_volume_in_Bl unknown 98640750 unknown unknown unknown ood_by_Automated_count Platelet_mean_volume_E unknown 58218653 unknown unknown unknown ntitic_volume_in_Blood_ by_Rees-Ericka neutrophil_count_blood unknown 78396041 unknown unknown unknown monocyte_count_blood unknown 88747708 unknown unknown un known lymphocyte_count_blood unknown 31173625 unknown unknown unknown Hemoglobin_Mass_volume unknown 81305611 unknown unknown unknown _in_Blood eosinophil_count_blood unknown 12820523 unknown unknown unknown Basophils_volume_in_Bl unknown 57566671 unknown unknown unknown ood_by_Manual_count leukocyte_count_blood unknown 38225640 unknown unknown u nknown erythrocyte_RBC_count unknown 17441237 unknown unknown u nknown Leukocytes_volume_in_B unknown 92858293 unknown unknown unknown lood_by_Automated_count platelet_count unknown 52357953 unknown unknown unknown hemoglobin_blood unknown 27091624 unknown unknown unknow n hematocrit_blood unknown 89875852 unknown unknown unknow n uric_acid_serum unknown 34024816 unknown unknown unknown Hematocrit_Volume_Frac unknown 48163265 unknown unknown unknown tion_of_Blood_by_Automa ted_count alanine_aminotransfera unknown 20479368 unknown unknown unknown se_SGPT_serum aspartate_aminotransfe unknown 29907204 unknown unknown unknown rase_SGOT_serum mean_corpuscular_volum unknown 70127892 unknown unknown unknown e_RBC platelet_count_estimat unknown 14043997 unknown unknown unknown e Urate_Mass_volume_in_S unknown 83619508 unknown unknown unknown erum_or_Plasma eosinophil_count_blood unknown 88137290 unknown unknown unknown mean_platelet_volume unknown 80134632 unknown unknown un known basophil_count_blood unknown 11377550 unknown unknown un known monocyte_count_blood unknown 88174011 unknown unknown un known lymphocyte_count_blood unknown 86872901 unknown unknown unknown neutrophil_count_blood unknown 46353311 unknown unknown unknown Aspartate_aminotransfe unknown 64887801 unknown unknown unknown rase_Enzymatic_activity _volume_in_Serum_or_Pla sma Alanine_aminotransfera unknown 54808143 unknown unknown unknown se_Enzymatic_activity_v olume_in_Serum_or_Plasm a mean_corpuscular_hemog unknown 26569739 unknown unknown unknown lobin_concentration_rbc Vaginal_Group_B_Strep_ unknown 29520916 unknown unknown unknown by_Real-Time_PCR LACTATE_DEHYDROGENASE unknown 23600369 unknown unknown u nknown mean_corpuscular_hemog unknown 94517955 unknown unknown unknown lobin_RBC red_blood_cell_distrib unknown 33195247 unknown unknown unknown ution_width Slide_Interpretation unknown 85491636 unknown unknown un known T unknown 55218003 unknown unknown unknown T unknown 61256606 unknown unknown unknown T unknown 70614161 unknown unknown unknown SLIDE_REVIEW_ unknown 69421061 unknown unknown unknown T unknown 03821917 unknown unknown unknown T unknown 48100942 unknown unknown unknown T unknown 14771439 unknown unknown unknown PLATELET_ESTIMATE_MANU unknown 24219609 unknown unknown unknown AL T unknown 97462198 unknown unknown unknown NEUTROPHILS_AUTO_ unknown 70489852 unknown unknown unkno wn T unknown 39502354 unknown unknown unknown T unknown 43243471 unknown unknown unknown MONOCYTES_AUTO_ unknown 97319507 unknown unknown unknown T unknown 21856110 unknown unknown unknown T unknown 39581117 unknown unknown unknown T unknown 65902419 unknown unknown unknown T unknown 13158203 unknown unknown unknown LYMPHOCYTES_AUTO_ unknown 81832695 unknown unknown unkno wn T unknown 30891199 unknown unknown unknown T unknown 20210428 unknown unknown unknown T unknown 20210428 unknown unknown unknown T unknown 06066415 unknown unknown unknown T unknown 20210428 unknown unknown unknown GROUP_B_STREP_PCR unknown 20210428 unknown unknown unkno wn EOSINOPHILS_AUTO_ unknown 20210428 unknown unknown unkno wn T unknown 20210428 unknown unknown unknown BASOPHILS_AUTO_ unknown 20210428 unknown unknown unknown T unknown 20210428 unknown unknown unknown T unknown 20210428 unknown unknown unknown T unknown 20210428 unknown unknown unknown ALT_ALANINE_AMINOTRANS unknown 20210428 unknown unknown unknown FERASE platelet_count_estimat unknown 20210428 unknown unknown unknown e Erythrocytes_volume_in unknown 20210428 unknown unknown unknown _Blood_by_Automated_cou nt Erythrocyte_distributi unknown 20210428 unknown unknown unknown on_width_Ratio_by_Autom ated_count MCV_Entitic_volume_by_ unknown 20210428 unknown unknown unknown Automated_count MCH_Entitic_mass_by_Au unknown 47788370 unknown unknown unknown tomated_count Platelets_volume_in_Bl unknown 20210428 unknown unknown unknown ood_by_Automated_count Platelet_mean_volume_E unknown 20210428 unknown unknown unknown ntitic_volume_in_Blood_ by_Rees-Ericka neutrophil_count_blood unknown 07126780 unknown unknown unknown monocyte_count_blood unknown 54702310 unknown unknown un known lymphocyte_count_blood unknown 29767087 unknown unknown unknown Hemoglobin_Mass_volume unknown 39313314 unknown unknown unknown _in_Blood eosinophil_count_blood unknown 47137943 unknown unknown unknown Basophils_volume_in_Bl unknown 20210428 unknown unknown unknown ood_by_Manual_count leukocyte_count_blood unknown 72389559 unknown unknown u nknown erythrocyte_RBC_count unknown 82098513 unknown unknown u nknown Leukocytes_volume_in_B unknown 52248137 unknown unknown unknown lood_by_Automated_count platelet_count unknown 57277659 unknown unknown unknown hemoglobin_blood unknown 98412985 unknown unknown unknow n hematocrit_blood unknown 69923610 unknown unknown unknow n uric_acid_serum unknown 10387087 unknown unknown unknown Hematocrit_Volume_Frac unknown 19257097 unknown unknown unknown tion_of_Blood_by_Automa ted_count alanine_aminotransfera unknown 57518544 unknown unknown unknown se_SGPT_serum aspartate_aminotransfe unknown 65922274 unknown unknown unknown rase_SGOT_serum mean_corpuscular_volum unknown 47699559 unknown unknown unknown e_RBC platelet_count_estimat unknown 04046747 unknown unknown unknown e Urate_Mass_volume_in_S unknown 51486870 unknown unknown unknown erum_or_Plasma eosinophil_count_blood unknown 28171284 unknown unknown unknown mean_platelet_volume unknown 78394465 unknown unknown un known basophil_count_blood unknown 47658955 unknown unknown un known monocyte_count_blood unknown 37642078 unknown unknown un known lymphocyte_count_blood unknown 82293729 unknown unknown unknown neutrophil_count_blood unknown 28764557 unknown unknown unknown Aspartate_aminotransfe unknown 81013460 unknown unknown unknown rase_Enzymatic_activity _volume_in_Serum_or_Pla sma Alanine_aminotransfera unknown 84621198 unknown unknown unknown se_Enzymatic_activity_v olume_in_Serum_or_Plasm a mean_corpuscular_hemog unknown 81451357 unknown unknown unknown lobin_concentration_rbc Vaginal_Group_B_Strep_ unknown 66637419 unknown unknown unknown by_Real-Time_PCR LACTATE_DEHYDROGENASE unknown 81869746 unknown unknown u nknown mean_corpuscular_hemog unknown 90936734 unknown unknown unknown lobin_RBC red_blood_cell_distrib unknown 66212279 unknown unknown unknown ution_width Slide_Interpretation unknown 99330741 unknown unknown un known T unknown 06634786 unknown unknown unknown T unknown 00918423 unknown unknown unknown T unknown 74632969 unknown unknown unknown SLIDE_REVIEW_ unknown 77477349 unknown unknown unknown T unknown 62415478 unknown unknown unknown T unknown 96761357 unknown unknown unknown T unknown 87914921 unknown unknown unknown PLATELET_ESTIMATE_MANU unknown 73249776 unknown unknown unknown AL T unknown 95244280 unknown unknown unknown NEUTROPHILS_AUTO_ unknown 52162612 unknown unknown unkno wn T unknown 42556504 unknown unknown unknown T unknown 03943839 unknown unknown unknown MONOCYTES_AUTO_ unknown 21750475 unknown unknown unknown T unknown 85380200 unknown unknown unknown T unknown 41110421 unknown unknown unknown T unknown 38599903 unknown unknown unknown T unknown 70262917 unknown unknown unknown LYMPHOCYTES_AUTO_ unknown 58385745 unknown unknown unkno wn T unknown 79352127 unknown unknown unknown T unknown 95053398 unknown unknown unknown T unknown 85203365 unknown unknown unknown T unknown 61694811 unknown unknown unknown T unknown 62556002 unknown unknown unknown GROUP_B_STREP_PCR unknown 86642927 unknown unknown unkno wn EOSINOPHILS_AUTO_ unknown 09576805 unknown unknown unkno wn T unknown 38441425 unknown unknown unknown BASOPHILS_AUTO_ unknown 56239129 unknown unknown unknown T unknown 88269180 unknown unknown unknown T unknown 85837957 unknown unknown unknown T unknown 98913788 unknown unknown unknown ALT_ALANINE_AMINOTRANS unknown 28761650 unknown unknown unknown FERASE urea_nitrogen_blood unknown 11566291 unknown unknown unk nown Glomerular_Filtration_ unknown 82171169 unknown unknown unknown rate potassium_blood unknown 49345814 unknown unknown unknown Glomerular_filtration_r unknown 98360164 unknown unknown unknown ate_1.73_sq_M.predicted _among_non-blacks_Volum e_Rate_Area_in_Serum_Pl asma_or_Blood_by_Creati nine-based_formula_MDRD _ bilirubin_serum_total unknown 50041559 unknown unknown u nknown carbon_dioxide_serum_t unknown 81228244 unknown unknown unknown otal protein_total_serum unknown 23300918 unknown unknown unk nown blood_glucose unknown 16334285 unknown unknown unknown potassium_blood unknown 05992820 unknown unknown unknown Urea_nitrogen_Mass_vol unknown 14377762 unknown unknown unknown ume_in_Serum_or_Plasma globulin_serum unknown 04340244 unknown unknown unknown alkaline_phosphatase_s unknown 40503790 unknown unknown unknown anthony Sodium_Moles_volume_in unknown 57056145 unknown unknown unknown _Serum_or_Plasma Protein_Mass_volume_in unknown 95678505 unknown unknown unknown _Serum_or_Plasma anion_gap_serum unknown 67459196 unknown unknown unknown Glucose_Mass_volume_in unknown 73377670 unknown unknown unknown _Serum_or_Plasma Globulin_Mass_volume_i unknown 29417913 unknown unknown unknown n_Serum Creatinine_Mass_volume unknown 92070506 unknown unknown unknown _in_Serum_or_Plasma Chloride_Moles_volume_ unknown 16514162 unknown unknown unknown in_Serum_or_Plasma carbon_dioxide_serum_t unknown 09698943 unknown unknown unknown otal Calcium_Moles_volume_i unknown 20006757 unknown unknown unknown n_Serum_or_Plasma albumin_serum unknown 31849189 unknown unknown unknown Bilirubin.total_Mass_v unknown 77447170 unknown unknown unknown olume_in_Serum_or_Plasm a Anion_gap_4_in_Serum_o unknown 67569771 unknown unknown unknown r_Plasma creatinine_serum unknown 39916092 unknown unknown unknow n Alkaline_phosphatase_E unknown 18038476 unknown unknown unknown nzymatic_activity_volum e_in_Blood Albumin_Globulin_Mass_ unknown 31323994 unknown unknown unknown Ratio_in_Serum_or_Plasm a Albumin_Mass_volume_in unknown 59307727 unknown unknown unknown _Serum_or_Plasma sodium_serum unknown 72682323 unknown unknown unknown albumin_globulin_ratio unknown 39081937 unknown unknown unknown _serum chloride_serum unknown 40600526 unknown unknown unknown calcium_serum unknown 78474433 unknown unknown unknown T unknown 83699839 unknown unknown unknown T unknown 40266039 unknown unknown unknown T unknown 15268244 unknown unknown unknown T unknown 74881341 unknown unknown unknown T unknown 06091868 unknown unknown unknown T unknown 47873654 unknown unknown unknown T unknown 72536820 unknown unknown unknown GFR_-_MDRD unknown 64704447 unknown unknown unknown T unknown 05649530 unknown unknown unknown T unknown 56511142 unknown unknown unknown T unknown [id number] unknown unknown unknown T unknown [id number] unknown unknown unknown T unknown [id number] unknown unknown unknown T unknown [id number] unknown unknown unknown BILIRUBIN_TOTAL unknown [id number] unknown unknown unknown T unknown [id number] unknown unknown unknown ALKALINE_PHOSPHATASE unknown [id number] unknown unknown un known T unknown [id number] unknown unknown unknown T unknown [id number] unknown unknown unknown ALBUMIN_GLOBULIN_RATIO unknown [id number] unknown unknown unknown urea_nitrogen_blood unknown [id number] unknown unknown unk nown Erythrocytes_volume_in unknown [id number] unknown unknown unknown _Blood_by_Automated_cou nt Erythrocyte_distributi unknown [id number] unknown unknown unknown on_width_Ratio_by_Autom ated_count MCV_Entitic_volume_by_ unknown 72224596 unknown unknown unknown Automated_count MCH_Entitic_mass_by_Au unknown 72300088 unknown unknown unknown tomated_count Platelets_volume_in_Bl unknown 55982624 unknown unknown unknown ood_by_Automated_count Platelet_mean_volume_E unknown 02335968 unknown unknown unknown ntitic_volume_in_Blood_ by_Rees-Ericka neutrophil_count_blood unknown 11800640 unknown unknown unknown monocyte_count_blood unknown 77226479 unknown unknown un known lymphocyte_count_blood unknown 71434267 unknown unknown unknown Hemoglobin_Mass_volume unknown 07464098 unknown unknown unknown _in_Blood eosinophil_count_blood unknown 67773505 unknown unknown unknown Basophils_volume_in_Bl unknown 45063921 unknown unknown unknown ood_by_Manual_count leukocyte_count_blood unknown 59282872 unknown unknown u nknown erythrocyte_RBC_count unknown 35606018 unknown unknown u nknown Leukocytes_volume_in_B unknown 00042788 unknown unknown unknown lood_by_Automated_count Glomerular_Filtration_ unknown 11575452 unknown unknown unknown rate platelet_count unknown 58038014 unknown unknown unknown hemoglobin_blood unknown 42424138 unknown unknown unknow n hematocrit_blood unknown 75672874 unknown unknown unknow n potassium_blood unknown 58864247 unknown unknown unknown Glomerular_filtration_r unknown 92835409 unknown unknown unknown ate_1.73_sq_M.predicted _among_non-blacks_Volum e_Rate_Area_in_Serum_Pl asma_or_Blood_by_Creati nine-based_formula_MDRD _ Hematocrit_Volume_Frac unknown [id number] unknown unknown unknown tion_of_Blood_by_Automa ted_count bilirubin_serum_total unknown 26797736 unknown unknown u nknown alanine_aminotransfera unknown 50702114 unknown unknown unknown se_SGPT_serum carbon_dioxide_serum_t unknown 39539281 unknown unknown unknown otal aspartate_aminotransfe unknown 05712874 unknown unknown unknown rase_SGOT_serum protein_total_serum unknown 03420912 unknown unknown unk nown blood_glucose unknown 59558012 unknown unknown unknown potassium_blood unknown 42052299 unknown unknown unknown mean_corpuscular_volum unknown 73753610 unknown unknown unknown e_RBC Urea_nitrogen_Mass_vol unknown 60123534 unknown unknown unknown ume_in_Serum_or_Plasma globulin_serum unknown 39087870 unknown unknown unknown alkaline_phosphatase_s unknown 38171467 unknown unknown unknown anthony Sodium_Moles_volume_in unknown 05906460 unknown unknown unknown _Serum_or_Plasma Protein_Mass_volume_in unknown 18983420 unknown unknown unknown _Serum_or_Plasma eosinophil_count_blood unknown 06421404 unknown unknown unknown anion_gap_serum unknown 37779250 unknown unknown unknown mean_platelet_volume unknown 91606946 unknown unknown un known basophil_count_blood unknown 16402303 unknown unknown un known monocyte_count_blood unknown 91390696 unknown unknown un known lymphocyte_count_blood unknown 80484813 unknown unknown unknown neutrophil_count_blood unknown 85257225 unknown unknown unknown Glucose_Mass_volume_in unknown 95536752 unknown unknown unknown _Serum_or_Plasma Globulin_Mass_volume_i unknown 86162286 unknown unknown unknown n_Serum Creatinine_Mass_volume unknown 97765563 unknown unknown unknown _in_Serum_or_Plasma Chloride_Moles_volume_ unknown 84498777 unknown unknown unknown in_Serum_or_Plasma carbon_dioxide_serum_t unknown 67539472 unknown unknown unknown otal Calcium_Moles_volume_i unknown 13298569 unknown unknown unknown n_Serum_or_Plasma albumin_serum unknown 93088979 unknown unknown unknown Bilirubin.total_Mass_v unknown 48091330 unknown unknown unknown olume_in_Serum_or_Plasm a Aspartate_aminotransfe unknown 27982626 unknown unknown unknown rase_Enzymatic_activity _volume_in_Serum_or_Pla sma Anion_gap_4_in_Serum_o unknown 57686925 unknown unknown unknown r_Plasma creatinine_serum unknown 58206117 unknown unknown unknow n Alkaline_phosphatase_E unknown [id number] unknown unknown unknown nzymatic_activity_volum e_in_Blood Albumin_Globulin_Mass_ unknown 14326838 unknown unknown unknown Ratio_in_Serum_or_Plasm a Albumin_Mass_volume_in unknown 17559507 unknown unknown unknown _Serum_or_Plasma Alanine_aminotransfera unknown 56708486 unknown unknown unknown se_Enzymatic_activity_v olume_in_Serum_or_Plasm a mean_corpuscular_hemog unknown 03345853 unknown unknown unknown lobin_concentration_rbc sodium_serum unknown 44333171 unknown unknown unknown albumin_globulin_ratio unknown 22752055 unknown unknown unknown _serum chloride_serum unknown 55523482 unknown unknown unknown calcium_serum unknown 72105602 unknown unknown unknown mean_corpuscular_hemog unknown 45247831 unknown unknown unknown lobin_RBC red_blood_cell_distrib unknown 08142611 unknown unknown unknown ution_width T unknown 04766363 unknown unknown unknown T unknown 55662096 unknown unknown unknown T unknown 88984766 unknown unknown unknown T unknown 18879572 unknown unknown unknown T unknown 22872508 unknown unknown unknown T unknown 94300949 unknown unknown unknown NEUTROPHILS_AUTO_ unknown [id number] unknown unknown unkno wn T unknown [id number] unknown unknown unknown T unknown 71585845 unknown unknown unknown T unknown 11393814 unknown unknown unknown MONOCYTES_AUTO_ unknown [id number] unknown unknown unknown T unknown 72662080 unknown unknown unknown T unknown 82799087 unknown unknown unknown T unknown 59635255 unknown unknown unknown T unknown 60732110 unknown unknown unknown LYMPHOCYTES_AUTO_ unknown 18439100 unknown unknown unkno wn T unknown [id number] unknown unknown unknown T unknown 72866852 unknown unknown unknown T unknown [id number] unknown unknown unknown T unknown 56107574 unknown unknown unknown T unknown [id number] unknown unknown unknown T unknown 05641808 unknown unknown unknown T unknown 10806532 unknown unknown unknown GFR_-_MDRD unknown [id number] unknown unknown unknown T unknown 63310547 unknown unknown unknown EOSINOPHILS_AUTO_ unknown [id number] unknown unknown unkno wn T unknown 51613540 unknown unknown unknown T unknown 84856365 unknown unknown unknown T unknown 58307122 unknown unknown unknown T unknown 52291523 unknown unknown unknown T unknown 31523563 unknown unknown unknown T unknown 07665156 unknown unknown unknown BILIRUBIN_TOTAL unknown 86510042 unknown unknown unknown BASOPHILS_AUTO_ unknown [id number] unknown unknown unknown T unknown 62475998 unknown unknown unknown T unknown 08398159 unknown unknown unknown T unknown 11811718 unknown unknown unknown T unknown 71412385 unknown unknown unknown ALT_ALANINE_AMINOTRANS unknown 64863711 unknown unknown unknown FERASE ALKALINE_PHOSPHATASE unknown [id number] unknown unknown un known T unknown 62524954 unknown unknown unknown T unknown 04813199 unknown unknown unknown ALBUMIN_GLOBULIN_RATIO unknown [id number] unknown unknown unknown urea_nitrogen_blood unknown 57027009 unknown unknown unk nown Erythrocytes_volume_in unknown [id number] unknown unknown unknown _Blood_by_Automated_cou nt Erythrocyte_distributi unknown 61053727 unknown unknown unknown on_width_Ratio_by_Autom ated_count MCV_Entitic_volume_by_ unknown 87438089 unknown unknown unknown Automated_count MCH_Entitic_mass_by_Au unknown 75111634 unknown unknown unknown tomated_count Platelets_volume_in_Bl unknown 80546527 unknown unknown unknown ood_by_Automated_count Platelet_mean_volume_E unknown 38756104 unknown unknown unknown ntitic_volume_in_Blood_ by_Rees-Ericka neutrophil_count_blood unknown 68859784 unknown unknown unknown monocyte_count_blood unknown 49348178 unknown unknown un known lymphocyte_count_blood unknown 50176987 unknown unknown unknown Hemoglobin_Mass_volume unknown 99143843 unknown unknown unknown _in_Blood eosinophil_count_blood unknown 33136458 unknown unknown unknown Basophils_volume_in_Bl unknown 92845160 unknown unknown unknown ood_by_Manual_count leukocyte_count_blood unknown 93303694 unknown unknown u nknown erythrocyte_RBC_count unknown 70026173 unknown unknown u nknown Leukocytes_volume_in_B unknown 91739439 unknown unknown unknown lood_by_Automated_count Glomerular_Filtration_ unknown 98642899 unknown unknown unknown rate platelet_count unknown 44089840 unknown unknown unknown hemoglobin_blood unknown 30612016 unknown unknown unknow n hematocrit_blood unknown 39395527 unknown unknown unknow n potassium_blood unknown 13381352 unknown unknown unknown Glomerular_filtration_r unknown 90132744 unknown unknown unknown ate_1.73_sq_M.predicted _among_non-blacks_Volum e_Rate_Area_in_Serum_Pl asma_or_Blood_by_Creati nine-based_formula_MDRD _ Hematocrit_Volume_Frac unknown 30522972 unknown unknown unknown tion_of_Blood_by_Automa ted_count bilirubin_serum_total unknown 34865514 unknown unknown u nknown alanine_aminotransfera unknown 26110479 unknown unknown unknown se_SGPT_serum carbon_dioxide_serum_t unknown 69686227 unknown unknown unknown otal aspartate_aminotransfe unknown 39151947 unknown unknown unknown rase_SGOT_serum protein_total_serum unknown 06460761 unknown unknown unk nown blood_glucose unknown 73589812 unknown unknown unknown potassium_blood unknown 32930881 unknown unknown unknown mean_corpuscular_volum unknown 68905193 unknown unknown unknown e_RBC Urea_nitrogen_Mass_vol unknown 76833826 unknown unknown unknown ume_in_Serum_or_Plasma globulin_serum unknown 84985716 unknown unknown unknown alkaline_phosphatase_s unknown 81095510 unknown unknown unknown anthony Sodium_Moles_volume_in unknown 96997730 unknown unknown unknown _Serum_or_Plasma Protein_Mass_volume_in unknown 88284686 unknown unknown unknown _Serum_or_Plasma eosinophil_count_blood unknown 66673964 unknown unknown unknown anion_gap_serum unknown 14257459 unknown unknown unknown mean_platelet_volume unknown 59462626 unknown unknown un known basophil_count_blood unknown 63564283 unknown unknown un known monocyte_count_blood unknown 29552543 unknown unknown un known lymphocyte_count_blood unknown 97223895 unknown unknown unknown neutrophil_count_blood unknown 88903828 unknown unknown unknown Glucose_Mass_volume_in unknown 05516468 unknown unknown unknown _Serum_or_Plasma Globulin_Mass_volume_i unknown 69346120 unknown unknown unknown n_Serum Creatinine_Mass_volume unknown 62325649 unknown unknown unknown _in_Serum_or_Plasma Chloride_Moles_volume_ unknown 84738097 unknown unknown unknown in_Serum_or_Plasma carbon_dioxide_serum_t unknown 25187762 unknown unknown unknown otal Calcium_Moles_volume_i unknown 20175046 unknown unknown unknown n_Serum_or_Plasma albumin_serum unknown 55055798 unknown unknown unknown Bilirubin.total_Mass_v unknown 94563185 unknown unknown unknown olume_in_Serum_or_Plasm a Aspartate_aminotransfe unknown 43778443 unknown unknown unknown rase_Enzymatic_activity _volume_in_Serum_or_Pla sma Anion_gap_4_in_Serum_o unknown 43181080 unknown unknown unknown r_Plasma creatinine_serum unknown 99899529 unknown unknown unknow n Alkaline_phosphatase_E unknown 50486394 unknown unknown unknown nzymatic_activity_volum e_in_Blood Albumin_Globulin_Mass_ unknown 89529559 unknown unknown unknown Ratio_in_Serum_or_Plasm a Albumin_Mass_volume_in unknown 56450709 unknown unknown unknown _Serum_or_Plasma Alanine_aminotransfera unknown 00928063 unknown unknown unknown se_Enzymatic_activity_v olume_in_Serum_or_Plasm a mean_corpuscular_hemog unknown 85153005 unknown unknown unknown lobin_concentration_rbc sodium_serum unknown 76783209 unknown unknown unknown albumin_globulin_ratio unknown 46189222 unknown unknown unknown _serum chloride_serum unknown 33873936 unknown unknown unknown calcium_serum unknown 54612767 unknown unknown unknown mean_corpuscular_hemog unknown 51886518 unknown unknown unknown lobin_RBC red_blood_cell_distrib unknown 29471472 unknown unknown unknown ution_width T unknown 04799614 unknown unknown unknown T unknown 28184643 unknown unknown unknown T unknown 43151506 unknown unknown unknown T unknown 92731028 unknown unknown unknown T unknown 72794037 unknown unknown unknown T unknown 50862444 unknown unknown unknown NEUTROPHILS_AUTO_ unknown 76898904 unknown unknown unkno wn T unknown 12072521 unknown unknown unknown T unknown 66114512 unknown unknown unknown T unknown 58353257 unknown unknown unknown MONOCYTES_AUTO_ unknown 30846024 unknown unknown unknown T unknown 44938106 unknown unknown unknown T unknown 43775918 unknown unknown unknown T unknown 08338746 unknown unknown unknown T unknown 90321463 unknown unknown unknown LYMPHOCYTES_AUTO_ unknown 05829377 unknown unknown unkno wn T unknown 62969010 unknown unknown unknown T unknown 59729133 unknown unknown unknown T unknown 21120361 unknown unknown unknown T unknown 38833377 unknown unknown unknown T unknown 08710075 unknown unknown unknown T unknown 74144031 unknown unknown unknown T unknown 41358469 unknown unknown unknown GFR_-_MDRD unknown 91603241 unknown unknown unknown T unknown 87224498 unknown unknown unknown EOSINOPHILS_AUTO_ unknown 88496919 unknown unknown unkno wn T unknown 30912642 unknown unknown unknown T unknown 34011349 unknown unknown unknown T unknown 39528959 unknown unknown unknown T unknown 23459803 unknown unknown unknown T unknown 06675474 unknown unknown unknown T unknown 36110440 unknown unknown unknown BILIRUBIN_TOTAL unknown 07026647 unknown unknown unknown BASOPHILS_AUTO_ unknown [id number] unknown unknown unknown T unknown 70872192 unknown unknown unknown T unknown 86184717 unknown unknown unknown T unknown 12660663 unknown unknown unknown T unknown 82701248 unknown unknown unknown ALT_ALANINE_AMINOTRANS unknown [id number] unknown unknown unknown FERASE ALKALINE_PHOSPHATASE unknown 77061824 unknown unknown un known T unknown 18080749 unknown unknown unknown T unknown 26003571 unknown unknown unknown ALBUMIN_GLOBULIN_RATIO unknown 01743587 unknown unknown unknown urea_nitrogen_blood unknown 53743286 unknown unknown unk nown Erythrocytes_volume_in unknown 01239747 unknown unknown unknown _Blood_by_Automated_cou nt Erythrocyte_distributi unknown 73469506 unknown unknown unknown on_width_Ratio_by_Autom ated_count MCV_Entitic_volume_by_ unknown 58137927 unknown unknown unknown Automated_count MCH_Entitic_mass_by_Au unknown 67291342 unknown unknown unknown tomated_count Platelets_volume_in_Bl unknown 83925127 unknown unknown unknown ood_by_Automated_count Platelet_mean_volume_E unknown 84385733 unknown unknown unknown ntitic_volume_in_Blood_ by_Rees-Ericka Hemoglobin_Mass_volume unknown 93913497 unknown unknown unknown _in_Blood leukocyte_count_blood unknown 97113997 unknown unknown u nknown erythrocyte_RBC_count unknown 97894712 unknown unknown u nknown Leukocytes_volume_in_B unknown 34451597 unknown unknown unknown lood_by_Automated_count Glomerular_Filtration_ unknown 60658095 unknown unknown unknown rate platelet_count unknown 02458067 unknown unknown unknown hemoglobin_blood unknown 23127564 unknown unknown unknow n hematocrit_blood unknown 28355012 unknown unknown unknow n potassium_blood unknown 10524530 unknown unknown unknown Glomerular_filtration_r unknown 32909942 unknown unknown unknown ate_1.73_sq_M.predicted _among_non-blacks_Volum e_Rate_Area_in_Serum_Pl asma_or_Blood_by_Creati nine-based_formula_MDRD _ Hematocrit_Volume_Frac unknown 15179011 unknown unknown unknown tion_of_Blood_by_Automa ted_count bilirubin_serum_total unknown 95664377 unknown unknown u nknown alanine_aminotransfera unknown 99091423 unknown unknown unknown se_SGPT_serum carbon_dioxide_serum_t unknown 83082117 unknown unknown unknown otal aspartate_aminotransfe unknown 61798025 unknown unknown unknown rase_SGOT_serum protein_total_serum unknown 15143425 unknown unknown unk nown blood_glucose unknown 54396615 unknown unknown unknown potassium_blood unknown 96706767 unknown unknown unknown mean_corpuscular_volum unknown 06327352 unknown unknown unknown e_RBC Urea_nitrogen_Mass_vol unknown 41893470 unknown unknown unknown ume_in_Serum_or_Plasma globulin_serum unknown 58739493 unknown unknown unknown alkaline_phosphatase_s unknown 48086378 unknown unknown unknown anthony Sodium_Moles_volume_in unknown 69571323 unknown unknown unknown _Serum_or_Plasma Protein_Mass_volume_in unknown 92390538 unknown unknown unknown _Serum_or_Plasma anion_gap_serum unknown 33448685 unknown unknown unknown mean_platelet_volume unknown 51229257 unknown unknown un known Glucose_Mass_volume_in unknown 13343478 unknown unknown unknown _Serum_or_Plasma Globulin_Mass_volume_i unknown 52673834 unknown unknown unknown n_Serum Creatinine_Mass_volume unknown 16441959 unknown unknown unknown _in_Serum_or_Plasma Chloride_Moles_volume_ unknown 20667888 unknown unknown unknown in_Serum_or_Plasma carbon_dioxide_serum_t unknown 10097668 unknown unknown unknown otal Calcium_Moles_volume_i unknown 14387341 unknown unknown unknown n_Serum_or_Plasma albumin_serum unknown 25563400 unknown unknown unknown Bilirubin.total_Mass_v unknown 45259697 unknown unknown unknown olume_in_Serum_or_Plasm a Aspartate_aminotransfe unknown 12175006 unknown unknown unknown rase_Enzymatic_activity _volume_in_Serum_or_Pla sma Anion_gap_4_in_Serum_o unknown 93548074 unknown unknown unknown r_Plasma creatinine_serum unknown 19790884 unknown unknown unknow n Alkaline_phosphatase_E unknown [id number] unknown unknown unknown nzymatic_activity_volum e_in_Blood Albumin_Globulin_Mass_ unknown 53724603 unknown unknown unknown Ratio_in_Serum_or_Plasm a Albumin_Mass_volume_in unknown 41107920 unknown unknown unknown _Serum_or_Plasma Alanine_aminotransfera unknown 35510717 unknown unknown unknown se_Enzymatic_activity_v olume_in_Serum_or_Plasm a mean_corpuscular_hemog unknown 59418916 unknown unknown unknown lobin_concentration_rbc sodium_serum unknown 71686863 unknown unknown unknown albumin_globulin_ratio unknown 36886032 unknown unknown unknown _serum chloride_serum unknown 12900804 unknown unknown unknown calcium_serum unknown 46329483 unknown unknown unknown mean_corpuscular_hemog unknown 92537672 unknown unknown unknown lobin_RBC red_blood_cell_distrib unknown 44581159 unknown unknown unknown ution_width T unknown 27012195 unknown unknown unknown T unknown 46510077 unknown unknown unknown T unknown 02094860 unknown unknown unknown T unknown 00070530 unknown unknown unknown T unknown [id number] unknown unknown unknown T unknown 18604938 unknown unknown unknown T unknown 12973316 unknown unknown unknown T unknown 65626570 unknown unknown unknown T unknown 43264000 unknown unknown unknown T unknown 79708131 unknown unknown unknown T unknown 89017569 unknown unknown unknown T unknown 09979464 unknown unknown unknown T unknown 90865505 unknown unknown unknown T unknown 29372801 unknown unknown unknown T unknown 72237611 unknown unknown unknown T unknown 19123942 unknown unknown unknown T unknown 53225759 unknown unknown unknown GFR_-_MDRD unknown 95496880 unknown unknown unknown T unknown 80835221 unknown unknown unknown T unknown 73991146 unknown unknown unknown T unknown 89546187 unknown unknown unknown T unknown 18262318 unknown unknown unknown T unknown 56702055 unknown unknown unknown T unknown 79237481 unknown unknown unknown BILIRUBIN_TOTAL unknown 18517274 unknown unknown unknown T unknown 47650525 unknown unknown unknown T unknown 36230669 unknown unknown unknown T unknown 70427809 unknown unknown unknown ALT_ALANINE_AMINOTRANS unknown 33143537 unknown unknown unknown FERASE ALKALINE_PHOSPHATASE unknown 35993213 unknown unknown un known T unknown 72068901 unknown unknown unknown T unknown 04766189 unknown unknown unknown ALBUMIN_GLOBULIN_RATIO unknown 62088384 unknown unknown unknown urea_nitrogen_blood unknown 95873650 unknown unknown unk nown Erythrocytes_volume_in unknown 50266121 unknown unknown unknown _Blood_by_Automated_cou nt Erythrocyte_distributi unknown 65111313 unknown unknown unknown on_width_Ratio_by_Autom ated_count MCV_Entitic_volume_by_ unknown 74702614 unknown unknown unknown Automated_count MCH_Entitic_mass_by_Au unknown 95712097 unknown unknown unknown tomated_count Platelets_volume_in_Bl unknown 65830141 unknown unknown unknown ood_by_Automated_count Platelet_mean_volume_E unknown 56759959 unknown unknown unknown ntitic_volume_in_Blood_ by_Rees-Ericka Hemoglobin_Mass_volume unknown 58478958 unknown unknown unknown _in_Blood leukocyte_count_blood unknown 95666471 unknown unknown u nknown erythrocyte_RBC_count unknown 47550048 unknown unknown u nknown Leukocytes_volume_in_B unknown 63727196 unknown unknown unknown lood_by_Automated_count Glomerular_Filtration_ unknown 62250129 unknown unknown unknown rate platelet_count unknown 02435470 unknown unknown unknown hemoglobin_blood unknown 07036823 unknown unknown unknow n hematocrit_blood unknown 63314534 unknown unknown unknow n potassium_blood unknown 33566912 unknown unknown unknown Glomerular_filtration_r unknown 22693365 unknown unknown unknown ate_1.73_sq_M.predicted _among_non-blacks_Volum e_Rate_Area_in_Serum_Pl asma_or_Blood_by_Creati nine-based_formula_MDRD _ Hematocrit_Volume_Frac unknown 14505237 unknown unknown unknown tion_of_Blood_by_Automa ted_count bilirubin_serum_total unknown 76244279 unknown unknown u nknown alanine_aminotransfera unknown 73394489 unknown unknown unknown se_SGPT_serum carbon_dioxide_serum_t unknown 28435227 unknown unknown unknown otal aspartate_aminotransfe unknown 17936454 unknown unknown unknown rase_SGOT_serum protein_total_serum unknown 21968755 unknown unknown unk nown blood_glucose unknown 61296817 unknown unknown unknown potassium_blood unknown 20023762 unknown unknown unknown mean_corpuscular_volum unknown 82219062 unknown unknown unknown e_RBC Urea_nitrogen_Mass_vol unknown 47557690 unknown unknown unknown ume_in_Serum_or_Plasma globulin_serum unknown 29210747 unknown unknown unknown alkaline_phosphatase_s unknown 99833870 unknown unknown unknown anthony Sodium_Moles_volume_in unknown 00520732 unknown unknown unknown _Serum_or_Plasma Protein_Mass_volume_in unknown 41306366 unknown unknown unknown _Serum_or_Plasma anion_gap_serum unknown 72136425 unknown unknown unknown mean_platelet_volume unknown 34660759 unknown unknown un known Glucose_Mass_volume_in unknown 34661939 unknown unknown unknown _Serum_or_Plasma Globulin_Mass_volume_i unknown 53943513 unknown unknown unknown n_Serum Creatinine_Mass_volume unknown 42688223 unknown unknown unknown _in_Serum_or_Plasma Chloride_Moles_volume_ unknown 34108027 unknown unknown unknown in_Serum_or_Plasma carbon_dioxide_serum_t unknown 33386749 unknown unknown unknown otal Calcium_Moles_volume_i unknown 00797515 unknown unknown unknown n_Serum_or_Plasma albumin_serum unknown 60951583 unknown unknown unknown Bilirubin.total_Mass_v unknown 10567720 unknown unknown unknown olume_in_Serum_or_Plasm a Aspartate_aminotransfe unknown 24233076 unknown unknown unknown rase_Enzymatic_activity _volume_in_Serum_or_Pla sma Anion_gap_4_in_Serum_o unknown 47618577 unknown unknown unknown r_Plasma creatinine_serum unknown 10215124 unknown unknown unknow n Alkaline_phosphatase_E unknown 76561315 unknown unknown unknown nzymatic_activity_volum e_in_Blood Albumin_Globulin_Mass_ unknown 58903032 unknown unknown unknown Ratio_in_Serum_or_Plasm a Albumin_Mass_volume_in unknown 03873244 unknown unknown unknown _Serum_or_Plasma Alanine_aminotransfera unknown 75255808 unknown unknown unknown se_Enzymatic_activity_v olume_in_Serum_or_Plasm a mean_corpuscular_hemog unknown 28419858 unknown unknown unknown lobin_concentration_rbc sodium_serum unknown 99066448 unknown unknown unknown albumin_globulin_ratio unknown 03888118 unknown unknown unknown _serum chloride_serum unknown [id number] unknown unknown unknown calcium_serum unknown [id number] unknown unknown unknown mean_corpuscular_hemog unknown [id number] unknown unknown unknown lobin_RBC red_blood_cell_distrib unknown [id number] unknown unknown unknown ution_width T unknown 16645224 unknown unknown unknown T unknown [id number] unknown unknown unknown T unknown [id number] unknown unknown unknown T unknown [id number] unknown unknown unknown T unknown [id number] unknown unknown unknown T unknown [id number] unknown unknown unknown T unknown [id number] unknown unknown unknown T unknown [id number] unknown unknown unknown T unknown [id number] unknown unknown unknown T unknown [id number] unknown unknown unknown T unknown [id number] unknown unknown unknown T unknown [id number] unknown unknown unknown T unknown [id number] unknown unknown unknown T unknown [id number] unknown unknown unknown T unknown [id number] unknown unknown unknown T unknown [id number] unknown unknown unknown T unknown [id number] unknown unknown unknown GFR_-_MDRD unknown [id number] unknown unknown unknown T unknown [id number] unknown unknown unknown T unknown [id number] unknown unknown unknown T unknown [id number] unknown unknown unknown T unknown [id number] unknown unknown unknown T unknown [id number] unknown unknown unknown T unknown [id number] unknown unknown unknown BILIRUBIN_TOTAL unknown 14748866 unknown unknown unknown T unknown [id number] unknown unknown unknown T unknown [id number] unknown unknown unknown T unknown [id number] unknown unknown unknown ALT_ALANINE_AMINOTRANS unknown [id number] unknown unknown unknown FERASE ALKALINE_PHOSPHATASE unknown [id number] unknown unknown un known T unknown [id number] unknown unknown unknown T unknown [id number] unknown unknown unknown ALBUMIN_GLOBULIN_RATIO unknown 61012686 unknown unknown unknown urea_nitrogen_blood unknown [id number] unknown unknown unk nown Erythrocytes_volume_in unknown [id number] unknown unknown unknown _Blood_by_Automated_cou nt Erythrocyte_distributi unknown [id number] unknown unknown unknown on_width_Ratio_by_Autom ated_count MCV_Entitic_volume_by_ unknown 57531854 unknown unknown unknown Automated_count MCH_Entitic_mass_by_Au unknown 45655415 unknown unknown unknown tomated_count Platelets_volume_in_Bl unknown 55786158 unknown unknown unknown ood_by_Automated_count Platelet_mean_volume_E unknown 03749541 unknown unknown unknown ntitic_volume_in_Blood_ by_Rees-Ericka Hemoglobin_Mass_volume unknown 55771614 unknown unknown unknown _in_Blood leukocyte_count_blood unknown 99028063 unknown unknown u nknown erythrocyte_RBC_count unknown 26520207 unknown unknown u nknown Leukocytes_volume_in_B unknown 01578031 unknown unknown unknown lood_by_Automated_count Glomerular_Filtration_ unknown 10942633 unknown unknown unknown rate platelet_count unknown 80502012 unknown unknown unknown hemoglobin_blood unknown 72372051 unknown unknown unknow n hematocrit_blood unknown 20140685 unknown unknown unknow n potassium_blood unknown [id number] unknown unknown unknown Glomerular_filtration_r unknown 66005324 unknown unknown unknown ate_1.73_sq_M.predicted _among_non-blacks_Volum e_Rate_Area_in_Serum_Pl asma_or_Blood_by_Creati nine-based_formula_MDRD _ Hematocrit_Volume_Frac unknown [id number] unknown unknown unknown tion_of_Blood_by_Automa ted_count bilirubin_serum_total unknown 72320912 unknown unknown u nknown alanine_aminotransfera unknown 82029968 unknown unknown unknown se_SGPT_serum carbon_dioxide_serum_t unknown 64012068 unknown unknown unknown otal aspartate_aminotransfe unknown 75103828 unknown unknown unknown rase_SGOT_serum protein_total_serum unknown 39921612 unknown unknown unk nown blood_glucose unknown 81186753 unknown unknown unknown potassium_blood unknown 40124551 unknown unknown unknown mean_corpuscular_volum unknown 92504229 unknown unknown unknown e_RBC Urea_nitrogen_Mass_vol unknown 44946989 unknown unknown unknown ume_in_Serum_or_Plasma globulin_serum unknown 18998212 unknown unknown unknown alkaline_phosphatase_s unknown 08556717 unknown unknown unknown anthony Sodium_Moles_volume_in unknown 80281912 unknown unknown unknown _Serum_or_Plasma Protein_Mass_volume_in unknown 65202485 unknown unknown unknown _Serum_or_Plasma anion_gap_serum unknown 16460243 unknown unknown unknown mean_platelet_volume unknown 33913282 unknown unknown un known Glucose_Mass_volume_in unknown 00651624 unknown unknown unknown _Serum_or_Plasma Globulin_Mass_volume_i unknown 52124193 unknown unknown unknown n_Serum Creatinine_Mass_volume unknown [id number] unknown unknown unknown _in_Serum_or_Plasma Chloride_Moles_volume_ unknown 65780496 unknown unknown unknown in_Serum_or_Plasma carbon_dioxide_serum_t unknown 27579171 unknown unknown unknown otal Calcium_Moles_volume_i unknown 31659550 unknown unknown unknown n_Serum_or_Plasma albumin_serum unknown 25193253 unknown unknown unknown Bilirubin.total_Mass_v unknown 63169764 unknown unknown unknown olume_in_Serum_or_Plasm a Aspartate_aminotransfe unknown 08752967 unknown unknown unknown rase_Enzymatic_activity _volume_in_Serum_or_Pla sma Anion_gap_4_in_Serum_o unknown 40649246 unknown unknown unknown r_Plasma creatinine_serum unknown 41490990 unknown unknown unknow n Alkaline_phosphatase_E unknown 18402492 unknown unknown unknown nzymatic_activity_volum e_in_Blood Albumin_Globulin_Mass_ unknown 26674491 unknown unknown unknown Ratio_in_Serum_or_Plasm a Albumin_Mass_volume_in unknown 79547065 unknown unknown unknown _Serum_or_Plasma Alanine_aminotransfera unknown 75510005 unknown unknown unknown se_Enzymatic_activity_v olume_in_Serum_or_Plasm a mean_corpuscular_hemog unknown 89495450 unknown unknown unknown lobin_concentration_rbc sodium_serum unknown 81412168 unknown unknown unknown albumin_globulin_ratio unknown 26998820 unknown unknown unknown _serum chloride_serum unknown 84106072 unknown unknown unknown calcium_serum unknown 29230157 unknown unknown unknown mean_corpuscular_hemog unknown 94384455 unknown unknown unknown lobin_RBC red_blood_cell_distrib unknown 68304663 unknown unknown unknown ution_width T unknown 16656508 unknown unknown unknown T unknown 05444451 unknown unknown unknown T unknown [id number] unknown unknown unknown T unknown [id number] unknown unknown unknown T unknown [id number] unknown unknown unknown T unknown 20322337 unknown unknown unknown T unknown 42927754 unknown unknown unknown T unknown 34591707 unknown unknown unknown T unknown 30062047 unknown unknown unknown T unknown 89703546 unknown unknown unknown T unknown [id number] unknown unknown unknown T unknown 65505066 unknown unknown unknown T unknown 81773806 unknown unknown unknown T unknown 66543082 unknown unknown unknown T unknown 78995019 unknown unknown unknown T unknown 37293470 unknown unknown unknown T unknown 74106666 unknown unknown unknown GFR_-_MDRD unknown 45038893 unknown unknown unknown T unknown 63520507 unknown unknown unknown T unknown 58470481 unknown unknown unknown T unknown 95115549 unknown unknown unknown T unknown 05065317 unknown unknown unknown T unknown 12668403 unknown unknown unknown T unknown 68124210 unknown unknown unknown BILIRUBIN_TOTAL unknown 51668296 unknown unknown unknown T unknown 13097271 unknown unknown unknown T unknown 08151073 unknown unknown unknown T unknown [id number] unknown unknown unknown ALT_ALANINE_AMINOTRANS unknown 26878950 unknown unknown unknown FERASE ALKALINE_PHOSPHATASE unknown 53510876 unknown unknown un known T unknown 53698278 unknown unknown unknown T unknown 70513306 unknown unknown unknown ALBUMIN_GLOBULIN_RATIO unknown 47868922 unknown unknown unknown glucose_tolerance_test unknown 59367954 unknown unknown unknown _with_glucose_fasting blood_glucose_3_hours_ unknown 59028288 unknown unknown unknown after_glucose_tolerance _test blood_glucose_2_hours_ unknown 59253127 unknown unknown unknown after_glucose_tolerance _test blood_glucose_60_minut unknown 07277102 unknown unknown unknown es_after_glucose_tolera nce_test glucose_tolerance_test unknown 51274767 unknown unknown unknown _with_glucose_fasting blood_glucose_3_hours_ unknown 63312298 unknown unknown unknown after_glucose_tolerance _test blood_glucose_2_hours_ unknown 71041053 unknown unknown unknown after_glucose_tolerance _test blood_glucose_60_minut unknown 17056596 unknown unknown unknown es_after_glucose_tolera nce_test glucose_tolerance_test unknown [...] GLUCOSE_1H_PP_50GM_DOS unknown 20210307 unknown unknown unknown E _2019NCoV_COVID-19_Lab unknown 93534721 unknown unknown unknown _Test_Result_Text_ COVID-19_REFERENCE_TES unknown 85332873 unknown unknown unknown T T unknown 85693981 unknown unknown unknown _2019NCoV_COVID-19_Lab unknown 65887168 unknown unknown unknown _Test_Result_Text_ COVID-19_REFERENCE_TES unknown 92172671 unknown unknown unknown T T unknown 17231228 unknown unknown unknown _2019NCoV_COVID-19_Lab unknown 81248216 unknown unknown unknown _Test_Result_Text_ COVID-19_REFERENCE_TES unknown 73015582 unknown unknown unknown T T unknown 38388882 unknown unknown unknown _2019NCoV_COVID-19_Lab unknown 87882699 unknown unknown unknown _Test_Result_Text_ COVID-19_REFERENCE_TES unknown 42410568 unknown unknown unknown T T unknown 10337187 unknown unknown unknown _2019NCoV_COVID-19_Lab unknown 46927210 unknown unknown unknown _Test_Result_Text_ COVID-19_REFERENCE_TES unknown 83188096 unknown unknown unknown T T unknown 45863998 unknown unknown unknown _2019NCoV_COVID-19_Lab unknown 97739804 unknown unknown unknown _Test_Result_Text_ COVID-19_REFERENCE_TES unknown 86042916 unknown unknown unknown T T unknown 50030477 unknown unknown unknown facility observation status value reference units lab [facility] mal line range code notes All urea_nitroge unknown 12 unknown mg/dL _9 unknown unknown n_blood All Erythrocytes unknown 4.40 10 unknown _789-8 unknow n unknown _volume_in_Bl 6/UL ood_by_Automa ted_count All Erythrocyte_ unknown 15.4 unknown % _788-0 unknown unknown distribution_ width_Ratio_b y_Automated_c ount All MCV_Entitic_ unknown 86.8 unknown fL _787-2 unknown unknown volume_by_Aut omated_count All MCH_Entitic_ unknown 29.5 unknown pg _785-6 unknown unknown mass_by_Autom ated_count All Platelets_vo unknown 329 10 unknown _777-3 unknown unknown lume_in_Blood 3/UL _by_Automated _count All Platelet_mea unknown 11.0 unknown fL _776-5 unknown unknown n_volume_Enti tic_volume_in _Blood_by_Ree s-Ericka All neutrophil_c unknown 1.3 10 unknown _752-6 unknown unknown ount_blood 3/UL All monocyte_cou unknown 0.6 10 unknown _743-5 unknown unknown nt_blood 3/UL All lymphocyte_c unknown 2.9 10 unknown _732-8 unknown unknown ount_blood 3/UL All Hemoglobin_M unknown 13.0 unknown g/dL _718-7 unknown unknown ass_volume_in _Blood All eosinophil_c unknown 0.1 10 unknown _712-0 unknown unknown ount_blood 3/UL All Basophils_vo unknown 0.1 10 unknown _705-4 unknown unknown lume_in_Blood 3/UL _by_Manual_co unt All leukocyte_co unknown 5.2 X10 unknown _68 unknow n unknown unt_blood 3/UL All erythrocyte_ unknown 4.40 10 unknown _67 unknow n unknown RBC_count 6/UL All Leukocytes_v unknown 5.2 X10 unknown _6690-2 unkno wn unknown olume_in_Bloo 3/UL d_by_Automate d_count All Glomerular_F unknown 87 unknown mL/mi _66455 unknown unknown iltration_rat n e All platelet_cou unknown 329 10 unknown _66 unknown unknown nt 3/UL All hemoglobin_b unknown 13.0 unknown g/dL _65 unknown unknown lood All hematocrit_b unknown 38.2 unknown % _64 unknown unknown lood All potassium_bl unknown 3.4 unknown meq/L _6298-4 unknow n unknown ood All Glomerular_fi unknown 87 unknown mL/mi _48642- unknow n unknown ltration_rate n 3 _1.73_sq_M.pr edicted_among _non-blacks_V olume_Rate_Ar ea_in_Serum_P lasma_or_Bloo d_by_Creatini ne-based_form ula_MDRD_ All Hematocrit_V unknown 38.2 unknown % _4544-3 unknow n unknown olume_Fractio n_of_Blood_by _Automated_co unt All bilirubin_se unknown < 0.2 unknown _43 unknown unknown rum_total mg/dL All alanine_amin unknown 453 unknown U/L _40 unknown unknown otransferase_ SGPT_serum All carbon_dioxi unknown 21 unknown mmol/ _3962 unknown unknown de_serum_tota L l All aspartate_am unknown 324 unknown U/L _39 unknown unknown inotransferas e_SGOT_serum All protein_tota unknown 6.5 unknown g/dL _36 unknown unknown l_serum All blood_glucos unknown 134 unknown mg/dL _3565 unknown unknown e All potassium_bl unknown 3.4 unknown meq/L _3483 unknown unknown ood All mean_corpusc unknown 86.8 unknown fL _315 unknown unknown ular_volume_R BC All Urea_nitroge unknown 12 unknown mg/dL _3094-0 unknow n unknown n_Mass_volume _in_Serum_or_ Plasma All globulin_ser unknown 3.9 unknown _3059 unknown unknown um All alkaline_pho unknown 163 unknown U/L _3 unknown unknown sphatase_seru m All Sodium_Moles unknown 139 unknown mmol/ _2951-2 unknow n unknown _volume_in_Se L rum_or_Plasma All Protein_Mass unknown 6.5 unknown g/dL _2885-2 unknow n unknown _volume_in_Se rum_or_Plasma All eosinophil_c unknown 0.1 10 unknown _285 unknown unknown ount_blood 3/UL All anion_gap_se unknown 12.0 unknown _279 unknown unknown rum All mean_platele unknown 11.0 unknown fL _2784 unknown unknown t_volume All basophil_cou unknown 0.1 10 unknown _2427 unknown unknown nt_blood 3/UL All monocyte_cou unknown 0.6 10 unknown _2422 unknown unknown nt_blood 3/UL All lymphocyte_c unknown 2.9 10 unknown _2420 unknown unknown ount_blood 3/UL All neutrophil_c unknown 1.3 10 unknown _2418 unknown unknown ount_blood 3/UL All Glucose_Mass unknown 134 unknown mg/dL _2345-7 unknow n unknown _volume_in_Se rum_or_Plasma All Globulin_Mas unknown 3.9 unknown _2336-6 unknow n unknown s_volume_in_S anthony All Creatinine_M unknown 0.8 unknown mg/dL _2160-0 unknow n unknown ass_volume_in _Serum_or_Pla sma All Chloride_Mol unknown 106 unknown mmol/ _5-0 unknow n unknown es_volume_in_ L Serum_or_Plas ma All carbon_dioxi unknown 21 unknown mmol/ _2027-9 unknow n unknown de_serum_tota L l All Calcium_Mole unknown 8.7 unknown mg/dL _1999-8 unknow n unknown s_volume_in_S erum_or_Plasm a All albumin_seru unknown 2.6 unknown g/dL _2 unknown unknown m All Bilirubin.to unknown < 0.2 unknown _1974- unknow n unknown tal_Mass_volu mg/dL me_in_Serum_o r_Plasma All Aspartate_am unknown 324 unknown U/L _1920-8 unknow n unknown inotransferas e_Enzymatic_a ctivity_volum e_in_Serum_or _Plasma All Anion_gap_4_ unknown 12.0 unknown _1863-0 unknow n unknown in_Serum_or_P lasma All creatinine_s unknown 0.8 unknown mg/dL _18 unknown unknown anthony All Alkaline_pho unknown 163 unknown U/L _1783-0 unknow n unknown sphatase_Enzy matic_activit y_volume_in_B lood All Albumin_Glob unknown 0.7 unknown _1759-0 unknow n unknown ulin_Mass_Rat io_in_Serum_o r_Plasma All Albumin_Mass unknown 2.6 unknown g/dL _1751-7 unknow n unknown _volume_in_Se rum_or_Plasma All Alanine_amin unknown 453 unknown U/L _1742-6 unknow n unknown otransferase_ Enzymatic_act ivity_volume_ in_Serum_or_P lasma All mean_corpusc unknown 34.0 unknown g/dL _17029 unknown unknown ular_hemoglob in_concentrat ion_rbc All sodium_serum unknown 139 unknown mmol/ _159 unknown unknown L All albumin_glob unknown 0.7 unknown _146 unknown unknown ulin_ratio_se rum All chloride_ser unknown 106 unknown mmol/ _13 unknown unknown um L All calcium_seru unknown 8.7 unknown mg/dL _11 unknown unknown m All mean_corpusc unknown 29.5 unknown pg _1031 unknown unknown ular_hemoglob in_RBC All red_blood_ce unknown 15.4 unknown % _1030 unknown unknown ll_distributi on_width All T unknown 5.2 X10 unknown WBC unknown unk nown 3/UL All T unknown < 0.2 unknown TOTAL_B unknown unk nown mg/dL THONG All T unknown 15.4 unknown % RDW unknown unkn own All T unknown 4.40 10 unknown RBC unknown unk nown 6/UL All T unknown 6.5 unknown g/dL PRO_TOT unknown unk nown AL All T unknown 329 10 unknown PLT unknown unkn own 3/UL All NEUTROPHILS_ unknown 1.3 10 unknown NE_ unknown unknown AUTO_ 3/UL All T unknown 1.3 10 unknown NEUT_AU unknown unk nown 3/UL TO_ All T unknown 139 unknown mmol/ NA unknown unkn own L All T unknown 11.0 unknown fL MPV unknown unkn own All MONOCYTES_AU unknown 0.6 10 unknown MO_ unknown unknown TO_ 3/UL All T unknown 0.6 10 unknown MONO_AU unknown unk nown 3/UL TO_ All T unknown 86.8 unknown fL MCV unknown unkn own All T unknown 34.0 unknown g/dL MCHC unknown unkn own All T unknown 29.5 unknown pg MCH unknown unkn own All LYMPHOCYTES_ unknown 2.9 10 unknown LY_ unknown unknown AUTO_ 3/UL All T unknown 2.9 10 unknown LYMPH_A unknown unk nown 3/UL UTO_ All T unknown 3.4 unknown meq/L K unknown unkn own All T unknown 13.0 unknown g/dL HGB unknown unkn own All T unknown 38.2 unknown % HCT unknown unkn own All T unknown 134 unknown mg/dL GLU unknown unkn own All T unknown 3.9 unknown GLOB unknown unkn own All T unknown 87 unknown mL/mi GFR_-_M unknown unk nown n DRD All GFR_-_MDRD unknown 87 unknown mL/mi GFR unknown unknown n All T unknown 12.0 unknown GAP unknown unkn own All EOSINOPHILS_ unknown 0.1 10 unknown EO_ unknown unknown AUTO_ 3/UL All T unknown 0.1 10 unknown EOS_AUT unknown unk nown 3/UL O_ All T unknown 0.8 unknown mg/dL CREAT unknown unkn own All T unknown 21 unknown mmol/ CO2 unknown unkn own L All T unknown 106 unknown mmol/ CL unknown unkn own L All T unknown 8.7 unknown mg/dL CA unknown unkn own All T unknown 12 unknown mg/dL BUN unknown unkn own All BILIRUBIN_TO unknown < 0.2 unknown BILIT unknown unknown JULIO mg/dL All BASOPHILS_AU unknown 0.1 10 unknown BA_ unknown unknown TO_ 3/UL All T unknown 0.1 10 unknown BASO_AU unknown unk nown 3/UL TO_ All T unknown 0.7 unknown A_G_RAT unknown unk nown IO All T unknown 324 unknown U/L AST unknown unkn own All T unknown 453 unknown U/L ALT_SGP unknown unk nown T_ All ALT_ALANINE_ unknown 453 unknown U/L ALT unknown unknown AMINOTRANSFER ASE All ALKALINE_PHO unknown 163 unknown U/L ALP unknown unknown SPHATASE All T unknown 163 unknown U/L ALK_PHO unknown unk nown S All T unknown 2.6 unknown g/dL ALB unknown unkn own All ALBUMIN_GLOB unknown 0.7 unknown AGRATIO unknow n unknown ULIN_RATIO All platelet_cou unknown NORMAL unknown _9317-9 unknow [...] n unknown olume_Fractio n_of_Blood_by _Automated_co unt All alanine_amin unknown 17 unknown U/L _40 unknown unknown otransferase_ SGPT_serum All aspartate_am unknown 30 unknown U/L _39 [...] unknown inotransferas e_Enzymatic_a ctivity_volum e_in_Serum_or _Plasma All Alanine_amin unknown 17 unknown U/L _1742-6 unknow n unknown otransferase_ Enzymatic_act ivity_volume_ in_Serum_or_P lasma All mean_corpusc unknown 34.2 unknown g/dL _17029 unknown unknown ular_hemoglob in_concentrat ion_rbc All Vaginal_Grou unknown NEGATIVE unknown _153587 unkn own unknown p_B_Strep_by_ Real-Time_PCR All LACTATE_DEHY unknown 181 unknown U/L _124575 [...] HCT unknown unkn own All T unknown NEGATIVE unknown GBS_PCR unknown u nknown All GROUP_B_STRE unknown NEGATIVE unknown GBSPCR unkno wn unknown P_PCR All EOSINOPHILS_ unknown 0.2 10 unknown EO_ unknown unknown AUTO_ 3/UL All T unknown 0.2 10 unknown EOS_AUT unknown unk nown 3/UL O_ All BASOPHILS_AU unknown 0.1 10 unknown BA_ unknown unknown TO_ 3/UL All T unknown 0.1 10 unknown BASO_AU unknown unk nown 3/UL TO_ All T unknown 30 unknown U/L AST unknown unkn own All T unknown 17 unknown U/L ALT_SGP unknown unk nown T_ All ALT_ALANINE_ unknown 17 unknown U/L ALT unknown unknown AMINOTRANSFER ASE All platelet_cou unknown NORMAL unknown _9317-9 unknow [...] n unknown olume_Fractio n_of_Blood_by _Automated_co unt All alanine_amin unknown 17 unknown U/L _40 unknown unknown otransferase_ SGPT_serum All aspartate_am unknown 30 unknown U/L _39 [...] unknown inotransferas e_Enzymatic_a ctivity_volum e_in_Serum_or _Plasma All Alanine_amin unknown 17 unknown U/L _1742-6 unknow n unknown otransferase_ Enzymatic_act ivity_volume_ in_Serum_or_P lasma All mean_corpusc unknown 34.2 unknown g/dL _17029 unknown unknown ular_hemoglob in_concentrat ion_rbc All Vaginal_Grou unknown NEGATIVE unknown _153587 unkn own unknown p_B_Strep_by_ Real-Time_PCR All LACTATE_DEHY unknown 181 unknown U/L _124575 [...] HCT unknown unkn own All T unknown NEGATIVE unknown GBS_PCR unknown u nknown All GROUP_B_STRE unknown NEGATIVE unknown GBSPCR unkno wn unknown P_PCR All EOSINOPHILS_ unknown 0.2 10 unknown EO_ unknown unknown AUTO_ 3/UL All T unknown 0.2 10 unknown EOS_AUT unknown unk nown 3/UL O_ All BASOPHILS_AU unknown 0.1 10 unknown BA_ unknown unknown TO_ 3/UL All T unknown 0.1 10 unknown BASO_AU unknown unk nown 3/UL TO_ All T unknown 30 unknown U/L AST unknown unkn own All T unknown 17 unknown U/L ALT_SGP unknown unk nown T_ All ALT_ALANINE_ unknown 17 unknown U/L ALT unknown unknown AMINOTRANSFER ASE All urea_nitroge unknown 12 unknown mg/dL _9 unknown unknown n_blood All Glomerular_F unknown 101 unknown mL/mi _66455 unknown unknown iltration_rat n e All potassium_bl unknown 3.7 unknown meq/L _6298-4 unknow n unknown ood All Glomerular_fi unknown 101 unknown mL/mi _48642- unknow n unknown ltration_rate n 3 _1.73_sq_M.pr edicted_among _non-blacks_V olume_Rate_Ar ea_in_Serum_P lasma_or_Bloo d_by_Creatini ne-based_form ula_MDRD_ All bilirubin_se unknown 0.6 unknown mg/dL _43 unknown unknown rum_total All carbon_dioxi unknown 22 unknown mmol/ _3962 unknown unknown de_serum_tota L l All protein_tota unknown 6.7 unknown g/dL _36 unknown unknown l_serum All blood_glucos unknown 109 unknown mg/dL _3565 unknown unknown e All potassium_bl unknown 3.7 unknown meq/L _3483 unknown unknown ood All Urea_nitroge unknown 12 unknown mg/dL _3094-0 unknow n unknown n_Mass_volume _in_Serum_or_ Plasma All globulin_ser unknown 4.0 unknown _3059 unknown unknown um All alkaline_pho unknown 154 unknown U/L _3 unknown unknown sphatase_seru m All Sodium_Moles unknown 134 unknown mmol/ _2951-2 unknow n unknown _volume_in_Se L rum_or_Plasma All Protein_Mass unknown 6.7 unknown g/dL _2885-2 unknow n unknown _volume_in_Se rum_or_Plasma All anion_gap_se unknown 9.0 unknown _279 unknown unknown rum All Glucose_Mass unknown 109 unknown mg/dL _2345-7 unknow n unknown _volume_in_Se rum_or_Plasma All Globulin_Mas unknown 4.0 unknown _2336-6 unknow n unknown s_volume_in_S anthony All Creatinine_M unknown 0.7 unknown mg/dL _2160-0 unknow n unknown ass_volume_in _Serum_or_Pla sma All Chloride_Mol unknown 103 unknown mmol/ _2075-0 unknow n unknown es_volume_in_ L Serum_or_Plas ma All carbon_dioxi unknown 22 unknown mmol/ _2028-9 unknow n unknown de_serum_tota L l All Calcium_Mole unknown 9.1 unknown mg/dL _1999- unknow n unknown s_volume_in_S erum_or_Plasm a All albumin_seru unknown 2.7 unknown g/dL _2 unknown unknown m All Bilirubin.to unknown 0.6 unknown mg/dL _1974- unknow n unknown tal_Mass_volu me_in_Serum_o r_Plasma All Anion_gap_4_ unknown 9.0 unknown _1863-0 unknow n unknown in_Serum_or_P lasma All creatinine_s unknown 0.7 unknown mg/dL _18 unknown unknown anthony All Alkaline_pho unknown 154 unknown U/L _1783-0 unknow n unknown sphatase_Enzy matic_activit y_volume_in_B lood All Albumin_Glob unknown 0.7 unknown _1759-0 unknow n unknown ulin_Mass_Rat io_in_Serum_o r_Plasma All Albumin_Mass unknown 2.7 unknown g/dL _1751-7 unknow n unknown _volume_in_Se rum_or_Plasma All sodium_serum unknown 134 unknown mmol/ _159 unknown unknown L All albumin_glob unknown 0.7 unknown _146 unknown unknown ulin_ratio_se rum All chloride_ser unknown 103 unknown mmol/ _13 unknown unknown um L All calcium_seru unknown 9.1 unknown mg/dL _11 unknown unknown m All T unknown 0.6 unknown mg/dL TOTAL_B unknown unk nown THONG All T unknown 6.7 unknown g/dL PRO_TOT unknown unk nown AL All T unknown 134 unknown mmol/ NA unknown unkn own L All T unknown 3.7 unknown meq/L K unknown unkn own All T unknown 109 unknown mg/dL GLU unknown unkn own All T unknown 4.0 unknown GLOB unknown unkn own All T unknown 101 unknown mL/mi GFR_-_M unknown unk nown n DRD All GFR_-_MDRD unknown 101 unknown mL/mi GFR unknown unknown n All T unknown 9.0 unknown GAP unknown unkn own All T unknown 0.7 unknown mg/dL CREAT [...] unknown A_G_RAT unknown unk nown IO All ALKALINE_PHO unknown 154 unknown U/L ALP [...] ma All carbon_dioxi unknown 22 unknown mmol/ _8-9 unknow n unknown de_serum_tota [...] anthony All Creatinine_M unknown 0.7 unknown mg/dL _0-0 unknow n unknown ass_volume_in _Serum_or_Pla sma All Chloride_Mol unknown 103 unknown mmol/ _5-0 unknow n unknown es_volume_in_ L Serum_or_Plas ma All carbon_dioxi unknown 22 unknown mmol/ _2027-9 unknow n unknown de_serum_tota L l All [...] ma All carbon_dioxi unknown 23 unknown mmol/ _2028-9 unknow n unknown de_serum_tota L l All Calcium_Mole unknown 9.1 unknown mg/dL _1999-8 unknow n unknown s_volume_in_S erum_or_Plasm a All albumin_seru unknown 2.9 unknown g/dL _2 unknown unknown m All Bilirubin.to unknown 0.3 unknown mg/dL _1974- unknow n unknown tal_Mass_volu [...] ma All carbon_dioxi unknown 23 unknown mmol/ _2028-9 unknow n unknown de_serum_tota L l All [...] ma All carbon_dioxi unknown 23 unknown mmol/ _2028-9 unknow n unknown de_serum_tota L l All [...] _tolerance_te st All Chlamydia_tr unknown POSITIVE unknown _13- unkn [...] PP_50GM All GLUCOSE_1H_P unknown 152 (?) unknown [id number] unkno wn unknown P_50GM_DOSE 0 All blood_glucos [...] PP_50GM All GLUCOSE_1H_P unknown 152 (?) unknown [id number] unkno wn unknown P_50GM_DOSE 0 All blood_glucos [...] PP_50GM All GLUCOSE_1H_P unknown 152 (?) unknown [id number] unkno wn unknown P_50GM_DOSE 0 All Erythrocytes [...] PP_50GM All GLUCOSE_1H_P unknown 152 (?) unknown [id number] unkno wn unknown P_50GM_DOSE 0 All Erythrocytes [...] PP_50GM All GLUCOSE_1H_P unknown 152 (?) unknown [id number] unkno wn unknown P_50GM_DOSE 0 All Erythrocytes [...] PP_50GM All GLUCOSE_1H_P unknown 152 (?) unknown [id number] unkno wn unknown P_50GM_DOSE 0 All _2019NCoV_CO [...] unknown COVID-1 unknown u nknown 9 All _2018NCoV_CO unknown POSITIVE unknown _[id number] unkn own unknown VID-19_Lab_Te st_Result_Tex t_ All COVID-19_REF unknown POSITIVE unknown COVID19 unkn own unknown ERENCE_TEST .REF All T unknown POSITIVE unknown COVID-1 unknown u nknown 9 Vital Signs date measurement value source [id number] respiration_rate 14 /min [id number] heart_rate 86 [...]
[2021-05-01] MEDS ORDERED: LACTATED RINGERS 1,000 ML ONE (17:58)
[2021-05-01] MEDS ORDERED: MAGNESIUM SULFATE IN WATER 20 GM/500 ML IV.SOLN IV ONE (17:59)
[2021-05-01] MEDS ORDERED: fentaNYL 100 MCG/2 ML VIAL IVP PRN (18:00)
[2021-05-01] MEDS ORDERED: METHYLERGONOVINE 0.2 MG/ML VIAL IM PRN (18:00)
[2021-05-01] MEDS ORDERED: TRANEXAMIC ACID IN NACL 1,000 MG/100 ML BAG IV PRN (18:00)
[2021-05-01] MEDS ORDERED: SODIUM CHLORIDE FLUSH 0.9% 10 ML SYRINGE IVP PRN (18:00)
[2021-05-01] MEDS ORDERED: LABETALOL 20 MG/4 ML SYRINGE IVP PRN (18:00)
[2021-05-01] MEDS ORDERED: CARBOPROST TROMETHAMINE 250 MCG/ML AMP IM PRN (18:00)
[2021-05-01] MEDS ORDERED: LIDOCAINE-MPF 1% 30 ML VIAL ID PRN (18:00)
[2021-05-01] MEDS ORDERED: miSOPROStoL 200 MCG TABLET BC PRN (18:00)
[2021-05-01] MEDS ORDERED: hydrALAZINE INJ 20 MG/ML VIAL IVP PRN (18:00)
[2021-05-01] MEDS ORDERED: OXYTOCIN 10 UNIT/ML VIAL IM PRN (18:00)
[2021-05-01] MEDS ORDERED: ONDANSETRON 4 MG/2 ML VIAL IVP PRN (18:00)
[2021-05-01] MEDS ORDERED: OXYTOCIN/SODIUM CHLORIDE 500 ML IV PRN (18:00)
[2021-05-01] MEDS: LACTATED RINGERS 1,000 ML IV SCH (18:05)
[2021-05-01] MEDS: MAGNESIUM SULFATE IN WATER 20 GM/500 ML IV.SOLN IV SCH (18:36)
[2021-05-01] MEDS ORDERED: AMPICILLIN 2 GM in SODIUM CHLORIDE 0.9% MINIBAG 100 ML IV ONE (19:00)
--- NOTE | 2021-05-01 19:27 | Ultrasound Report ---
PROCEDURE: OB F/U or Repeat INDICATIONS: Pre-eclampsia, 36.0 weeks gestation, OUTSIDE/PRIOR DATING DATA: Last menstrual period (LMP): 08/18/2020. LMP-based estimated date of delivery (MATTI): 05/25/2021. First dating scan (date and location): 04/28/2021. Estimated date of delivery (MATTI) from first dating scan: 05/25/2021. The below data below was generated using the ultrasound generated MATTI of 05/25/2021 TECHNIQUE: Real-time scanning was performed of the fetus, with image documentation and biometric measurements. Endovaginal scanning: Not performed COMPARISON: 04/29/2021 FINDINGS: General: A single living intrauterine gestation is present. Presentation: Vertex Placenta: Placental position is anterior, without previa. Amniotic fluid index: 18.8 cm, normal for gestational age. heart rate: 143 beats per minute. Maternal cervical canal: 3.6 cm long; normal length is 2.5 cm or more. Estimated weight and percentile: 2644 g, 22nd percentile IMPRESSION: Single live intrauterine gestation with normal AMANDA and normal heart rate. Estimate d weight at 22nd percentile. Reviewed by: Alberto Muñoz MD on 05/01/2021 7:26 PM PDT Approved by: Alberto Muñoz MD on 05/01/2021 7:26 PM PDT Station ID: [id number]
[2021-05-01] MEDS ORDERED: AMPICILLIN 1 GM in SODIUM CHLORIDE 0.9% MINIBAG 100 ML IV SCH (23:00)
[2021-05-01 23:15] LABS: CHLAMYDIA TRACHOMATIS DNA NEGATIVE (NEGATIVE); NEISSERIA GONORRHOEAE DNA NEGATIVE (NEGATIVE); TRICHOMONAS VAGINALIS DNA NEGATIVE (NEGATIVE)
[2021-05-02] MEDS ORDERED: SODIUM CHLORIDE FLUSH 0.9% 10 ML SYRINGE IVP SCH (01:00)
[2021-05-02] MEDS: MAGNESIUM SULFATE IN WATER 20 GM/500 ML IV.SOLN IV SCH ×3 (04:11→20:18)
[2021-05-02] MEDS: LACTATED RINGERS 1,000 ML IV SCH ×5 (04:12→20:18)
[2021-05-02] MEDS: ACETAMINOPHEN 325 MG TABLET PO PRN ×3 (06:30→20:16)
[2021-05-02] MEDS: OXYTOCIN/SODIUM CHLORIDE 500 ML IV SCH ×2 (06:30→06:45)
--- NOTE | 2021-05-02 07:43 | PROVIDER PROGRESS NOTE ---
Labor Progress Note - Uterine Monitoring Uterine Monitoring Mode: positive: External toco Contraction Frequency (min/apart): Q5 mins - Monitoring Heart Rate Variability: positive: Moderate (6-25 bmp) Accelerations: positive: Present, 15x15 Decelerations: positive: None Strip Review: positive: Category I - Vaginal Exam Dilation (in cm): 3 ( on exam by RN) Effacement (%): 80 Cervical Position: Midposition - Labor Progress Note Labor Progress Note/Additional Text: Subjectivepatient reported headache which is improved by Tylenol. She feels occasional contractions but they are not painful. She has no other complaints Objective- Vital Signs Temp 98.8 F 05/02/21 07:00 Pulse 103 H 05/02/21 07:00 Resp 18 05/02/21 07:00 BP 100/56 L 05/02/21 07:00 Pulse Ox Intake & Output 05/01/21 05/01/21 05/02/21 11:59 23:59 11:59 Intake Total 185 1139.917 Output Total 450 Balance -265 1139.917 Intake: Intake, IV Amount 185 1139.917 Lactated Ringers 1,000 ml 135 657.5 @ 100 mls/hr IV .Q10H [facility] Rx#:[id number] Magnesium Sulfate 4 Gram 50 4 gm In 50 ml @ 100 mls/ hr IV ONCE ONE Rx#: [id number] Magnesium Sulfate in 479.167 Water 20 gm In 500 ml @ 2 GM/HR 50 mls/hr IV .Q10H [facility] Rx#:[id number] Oxytocin/Sodium Chloride 3.25 500 ml @ 1 MILLIUNIT/MIN 1 mls/hr IV TITR DANIELA Rx#: [id number] Output: Urine 450 Assessment and Plan 25-year-old G1, P0 at 36 weeks 1 day admitted for induction of labor secondary to preeclampsia with severe features. Induction of laborstatus post Aponte bulb. Pitocin titration in progress. SVE @0600 - Preeclampsia with severe featuresbased on severe range blood pressures and elevated LFTs. Blood pressures currently within normal limits. Asymptomatic. On magnesium sulfate for seizure prophylaxis. Urine output adequate. - Periods of tachycardia noted with pulse in the 110s to 120s. Currently within normal limits. T-max of 99. We will continue to monitor for evidence of chorioamnionitis and start antibiotics as indicated.
[2021-05-02 08:41] LABS: BASOPHILS # (AUTO) 0.1 10^3/uL (0.0-0.1); BASOPHILS % (AUTO) 0.4 %; EOSINOPHILS % (AUTO) 0.2 %; HCT - HEMATOCRIT 37.7 % (37.0-47.0); LYMPHOCYTES # (AUTO) 1.9 10^3/uL (1.5-3.5); LYMPHOCYTES % (AUTO) 14.7 %; MEAN CORPUSCULAR HEMOGLOBIN 29.4 pg (27.0-31.0); MEAN CORPUSCULAR HGB CONC 34.5 g/dL (32.0-36.0); MEAN CORPUSCULAR VOLUME 85.3 fL (81.0-99.0); MEAN PLATELET VOLUME 10.7 fL (7.9-10.8); MONOCYTES # (AUTO) 1.2 10^3/uL (0.0-1.0); MONOCYTES % (AUTO) 9.2 %; NEUTROPHILS # (AUTO) 9.6 10^3/uL (1.5-6.6); NEUTROPHILS % (AUTO) 75.1 %; NRBC ABSOLUTE COUNT (AUTO) 0.06 x10^3/uL; NUCLEATED RED BLOOD CELLS AUTO 0.5 /100WBC; PLT - PLATELET COUNT 315 10^3/uL (130-450); RED BLOOD COUNT 4.42 10^6/uL (4.20-5.40); RED CELL DISTRIBUTION WIDTH 15.4 % (12.0-15.0); WHITE BLOOD COUNT 12.8 x10^3/uL (4.8-10.8)
[2021-05-02 08:54] LABS: ALBUMIN 2.5 g/dL (3.2-5.5); ALBUMIN/GLOBULIN RATIO 0.7 (1.0-2.2); BILIRUBIN,TOTAL 0.3 mg/dL (0.2-1.0); CALCIUM 6.7 mg/dL (8.5-10.3); POTASSIUM 3.8 mmol/L (3.5-5.0); TOTAL PROTEIN 6.3 g/dL (6.7-8.2)
--- NOTE | 2021-05-02 09:33 | PROVIDER PROGRESS NOTE ---
Labor Progress Note - Uterine Monitoring Contraction Frequency (min/apart): 4m Contraction Intensity: positive: Mild to moderate Uterine Resting Tone: positive: Soft - Monitoring Monitor Mode: positive: External ultrasound Heart Rate Baseline: 150 Heart Rate Variability: positive: Moderate (6-25 bmp) Accelerations: positive: Present, 15x15 Decelerations: positive: None Strip Review: positive: Category I - Vaginal Exam Dilation (in cm): 7 Effacement (%): 100 Station: -2 Cervical Position: Midposition - Labor Progress Note Labor Progress Note/Additional Text: 25yo at 36.1w admitted for IOL for preeclampsia with severe features (elevated LFTs) - s/p Aponte balloon - Continue Pitocin, currently at 8mu/m - AROM now 0915, meconium - Received betamethasone - Magnesium level ordered. Labs today reviewed - Anticipate
[2021-05-02] MEDS ORDERED: ROPIVACAINE 0.2% 200 MG/100 ML BAG EP ONE (09:51)
[2021-05-02] MEDS ORDERED: METOCLOPRAMIDE 10 MG/2 ML VIAL IVP PRN (10:25)
[2021-05-02] MEDS ORDERED: NALBUPHINE 10 MG/ML AMP IVP PRN (10:25)
[2021-05-02] MEDS ORDERED: ONDANSETRON 4 MG/2 ML VIAL IVP PRN (10:25)
[2021-05-02] MEDS ORDERED: diphenhydrAMINE INJ 50 MG/ML VIAL IVP PRN (10:25)
[2021-05-02] MEDS ORDERED: ROPIVACAINE 0.2% 200 MG/100 ML BAG EP PRN (10:25)
[2021-05-02] MEDS ORDERED: NALOXONE 0.4 MG/ML VIAL IVP PRN (10:25)
--- NOTE | 2021-05-02 10:27 | ANESTHESIA ---
Pre-Anesthesia VS, & Labs - Diagnosis term labor, IUP - Procedure epidural for Vital Signs: Temp Pulse Resp BP Pulse Ox 37.1 C 103 H 18 100/56 L 05/02/21 07:00 05/02/21 07:00 05/02/21 07:00 05/02/21 07:00 Height: 5 ft 1 in Weight (kg): 63.957 kg Body Mass Index: 26.6 BMI Classification: Overweight - NPO Last Fluid Intake: t/o day - Is Patient ?: Yes - Lab Results Current Lab Results: Laboratory Tests 05/02/21 08:35: Sodium 126 L, Potassium 3.8, Chloride 94 L, Carbon Dioxide 20 L, Anion Gap 12.0, BUN 12, Creatinine 1.0, Estimated GFR (MDRD) 67 L, Glucose 104 H , Calcium 6.7 L, Total Bilirubin 0.3, AST 186 H, ALT 294 H, Alkaline Phosphatase 164 H, Total Protein 6.3 L, Albumin 2.5 L, Globulin 3.8, Albumin/Globulin Ratio 0.7 L 05/02/21 08:35: WBC 12.8 H, RBC 4.42, Hgb 13.0, Hct 37.7, MCV 85.3, MCH 29.4, MCHC 34.5, RDW 15.4 H, Plt Count 315, MPV 10.7, Neut # (Auto) 9.6 H, Lymph # (Auto) 1.9, [place] # (Auto) 1.2 H, Eos # (Auto) 0.0, Baso # (Auto) 0.1, Absolute Nucleated RBC 0.06, Nucleated RBC % 0.5 05/01/21 17:30: Blood Type B POSITIVE, Antibody Screen NEGATIVE 05/01/21 15:59: Sodium 139, Potassium 3.4 L, Chloride 106, Carbon Dioxide 21, Anion Gap 12.0, BUN 12, Creatinine 0.8, Estimated GFR (MDRD) 87 L, Glucose 134 H , Calcium 8.7, Total Bilirubin < 0.2 L, AST 324 H, ALT 453 H, Alkaline Phosphatase 163 H, Total Protein 6.5 L, Albumin 2.6 L, Globulin 3.9, Albumin/Globulin Ratio 0.7 L 05/01/21 15:59: WBC 5.2, RBC 4.40, Hgb 13.0, Hct 38.2, MCV 86.8, MCH 29.5, MCHC 34.0, RDW 15.4 H, Plt Count 329, MPV 11.0 H, Neut # (Auto) 1.3 L, Lymph # (Auto) 2.9, [place] # (Auto) 0.6, Eos # (Auto) 0.1, Baso # (Auto) 0.1, Absolute Nucleated RBC 0.09, Nucleated RBC % 1.7 Lab results reviewed: Yes Fish Bones: 05/02/21 08:35 05/02/21 08:35 Home Medications and Allergies Active Medications Acetaminophen (Acetaminophen 325 Mg Tablet) 650 mg PO Q4HR PRN PRN Reason: Pain or Fever > 38C (100.4F) Last Admin: 05/02/21 06:30 Dose: 650 mg Carboprost Tromethamine (Carboprost Tromethamine 250 Mcg/Ml Amp) 250 mcg IM Q15M PRN PRN Reason: Step 4: Hemorrhage protocol Stop: 05/06/21 18:06 Fentanyl (Fentanyl 100 Mcg/2 Ml Vial) 50 mcg IVP Q1H PRN PRN Reason: PAIN Hydralazine HCl (Hydralazine Inj 20 Mg/Ml Vial) 10 mg IVP .ONCE PRN; Protocol PRN Reason: Step 9 of Labetalol protocol Stop: 05/06/21 18:06 Magnesium Sulfate (Magnesium Sulf 20 G/500 Ml Bag) 20 gm in 500 mls @ 50 mls/hr IV .Q10H [facility] Last Admin: 05/02/21 04:11 Dose: 2 gm/hr, 50 mls/hr Lactated Ringer's (Lr) 1,000 mls @ 100 mls/hr IV .Q10H [facility] Last Admin: 05/02/21 04:12 Dose: 75 mls/hr Oxytocin/Sodium Chloride (Pitocin/Sodium Chloride) 500 mls @ 999 mls/hr IV PRN PRN; Protocol PRN Reason: POST- HEMORR PREVENTION Stop: 05/06/21 18:06 Tranexamic Acid (Tranexamic 1,000 Mg/100ml-Nacl) 1,000 mg in 100 mls @ 600 mls/hr IV .ONCE PRN PRN Reason: EBL >1200mL and within 3hr Stop: 05/06/21 18:06 Oxytocin/Sodium Chloride (Pitocin/Sodium Chloride) 500 mls @ 1 mls/hr IV TITR DANIELA; Protocol Last Titration: 05/02/21 08:40 Dose: 7 milliunit/min, 7 mls/hr Labetalol HCl (Labetalol 20 Mg/4 Ml Syringe) 20 - 80 mg IVP Q10M PRN; Protocol PRN Reason: SBP >160 or DBP >110 Lidocaine HCl (Lidocaine-Mpf 1% 30 Ml Vial) 30 ml ID .ONCE PRN PRN Reason: PERINEAL REPAIR Stop: 05/06/21 18:06 Methylergonovine Maleate (Methylergonovine 0.2 Mg/Ml Vial) 0.2 mg IM .ONCE PRN PRN Reason: Step 2: Hemorrhage protocol Stop: 05/06/21 18:06 Misoprostol (Misoprostol 200 Mcg Tablet) 800 mcg BC .ONCE PRN PRN Reason: Step 3: Hemorrhage protocol Stop: 05/06/21 18:06 Ondansetron HCl (Ondansetron 4 Mg/2 Ml Vial) 4 mg IVP Q4HR PRN PRN Reason: Nausea / Vomiting Oxytocin (Oxytocin 10 Unit/Ml Vial) 10 unit IM .ONCE PRN PRN Reason: Step one: If no IV access Stop: 05/06/21 18:06 Sodium Chloride (Sodium Chloride Flush 0.9% 10 Ml Syringe) 10 ml IVP 010 0,0900,1700 [facility] Last Admin: 05/02/21 04:11 Dose: 10 ml Sodium Chloride (Sodium Chloride Flush 0.9% 10 Ml Syringe) 10 ml IVP PRN PRN PRN Reason: NEEDED PER PROVIDER ORDERS Pnv No.95/Ferrous Fum/Folic AC [ Caplet] 02/15/21 Allergies/Adverse Reactions: Allergies Allergy/AdvReac Type Severity Reaction Status Date / Time No Known Drug Allergies Allergy Verified 02/15/21 13:47 Anes History & Medical History - Anesthetic History Anesthesia Complications: reports: No previous complications Family history of Anesthesia Complications: Denies Family history of Malignant Hyperthermia: Denies - Medical History Smoking Status: Never smoker - Obstetrical History : 1 Parity: 0 Complications: reports: Pre-eclampsia, Other (Chlamydia+) Exam General: Alert, Oriented x3, Cooperative Dental: WNL Mouth Openin Fingerbreadth Neck Mobility: Normal Mallampati classification: II Respiratory: No respiratory distress Cardiovascular: Regular rate Neurological: Normal speech Mental/Cognitive Status: Alert/Oriented X3, Normal for patient Cognitive Status: Within normal limits Plan Anesthesia Type: Epidural Consent for Procedure(s) Verified and Reviewed: Yes Code Status: Attempt Resuscitation ASA classification: 2-Mild systemic disease Is this case an emergency?: No
[2021-05-02] MEDS ORDERED: MAGNESIUM SULFATE IN WATER 20 GM/500 ML IV.SOLN IV SCH (11:11)
[2021-05-02] MEDS: ePHEDrine 50 MG/ML VIAL IVP PRN ×2 (11:46→11:50)
--- NOTE | 2021-05-02 15:02 | DELIVERY NOTE ---
Delivery Note - Labor Labor: positive: Induced by oxytocin - Delivery Method Delivery Method: positive: Spontaneous vaginal delivery - Cervical Ripening Method Cervical Ripening Method: positive: Balloon device, Oxytocin - Presentation Presentation: positive: Vertex, MAME - right occiput anterior - Nuchal Cord Nuchal Cord: positive: None - Amniotic Fluid Description Amniotic Fluid Description: positive: Thick meconium - Episiotomy Type Episiotomy Type: positive: None - Laceration Laceration: positive: None - Delivery Outcome Delivery Outcome: positive: Livebirth - [place] : positive: Placed in direct skin contact with mother [place] sex: positive: Female - Cord Cord: positive: 3 vessels - Placenta Placenta: positive: Intact, Spontaneous, Meconium stained - Estimated Blood Loss Estimated Blood Loss (in cc): 100 - Post Delivery Events Post Delivery Events: positive: No post delivery events - Delivery Comments (Free Text/Narrative) Delivery Comments (Free Text/Narrative): /+1 and maternal pushing began with good efforts. Head delivered MAME. Shoulders and body followed with ease. placed on mother's abdomen. Channeler Runner present for meconium fluid. Delayed cord clamping. Fundus firm. Placenta delivered spontaneously, intact, 3vc. Vagina and perineum inspected- no lacerations. Family bonding at bedside, doing well. EBL 100cc.
[2021-05-02] MEDS: IBUPROFEN 800 MG TABLET PO SCH ×2 (15:47→21:44)
[2021-05-02 15:51] LABS: BASOPHILS # (AUTO) 0.1 10^3/uL (0.0-0.1); BASOPHILS % (AUTO) 0.5 %; EOSINOPHILS % (AUTO) 0.2 %; HGB - HEMOGLOBIN 13.8 g/dL (12.0-16.0); LYMPHOCYTES # (AUTO) 1.7 10^3/uL (1.5-3.5); MEAN CORPUSCULAR HEMOGLOBIN 29.7 pg (27.0-31.0); MEAN CORPUSCULAR HGB CONC 34.5 g/dL (32.0-36.0); MEAN PLATELET VOLUME 10.7 fL (7.9-10.8); MONOCYTES # (AUTO) 0.7 10^3/uL (0.0-1.0); NEUTROPHILS # (AUTO) 10.6 10^3/uL (1.5-6.6); NEUTROPHILS % (AUTO) 80.9 %; NRBC ABSOLUTE COUNT (AUTO) 0.04 x10^3/uL; NUCLEATED RED BLOOD CELLS AUTO 0.3 /100WBC; PLT - PLATELET COUNT 310 10^3/uL (130-450); RED BLOOD COUNT 4.65 10^6/uL (4.20-5.40); RED CELL DISTRIBUTION WIDTH 15.4 % (12.0-15.0); WHITE BLOOD COUNT 13.1 x10^3/uL (4.8-10.8)
[2021-05-02 16:05] LABS: ALBUMIN 2.5 g/dL (3.2-5.5); ALBUMIN/GLOBULIN RATIO 0.6 (1.0-2.2); BILIRUBIN,TOTAL 0.4 mg/dL (0.2-1.0); CALCIUM 6.7 mg/dL (8.5-10.3); CREATININE 0.9 mg/dL (0.4-1.0); POTASSIUM 4.1 mmol/L (3.5-5.0); TOTAL PROTEIN 6.6 g/dL (6.7-8.2)
[2021-05-02] MEDS: DOCUSATE SODIUM 100 MG CAPSULE PO SCH (20:16)
[2021-05-02] MEDS: LABETALOL 100 MG TABLET PO SCH (23:08)
[2021-05-03] MEDS: ACETAMINOPHEN 325 MG TABLET PO PRN (05:20)
[2021-05-03 05:21] LABS: HCT - HEMATOCRIT 36.8 % (37.0-47.0); HGB - HEMOGLOBIN 12.6 g/dL (12.0-16.0); MEAN CORPUSCULAR HEMOGLOBIN 29.6 pg (27.0-31.0); MEAN CORPUSCULAR HGB CONC 34.2 g/dL (32.0-36.0); MEAN CORPUSCULAR VOLUME 86.4 fL (81.0-99.0); MEAN PLATELET VOLUME 10.5 fL (7.9-10.8); RED BLOOD COUNT 4.26 10^6/uL (4.20-5.40); RED CELL DISTRIBUTION WIDTH 15.5 % (12.0-15.0); WHITE BLOOD COUNT 17.7 x10^3/uL (4.8-10.8)
[2021-05-03] MEDS: IBUPROFEN 800 MG TABLET PO SCH ×4 (05:21→23:51)
[2021-05-03 05:33] LABS: ALBUMIN 2.1 g/dL (3.2-5.5); ALBUMIN/GLOBULIN RATIO 0.6 (1.0-2.2); BILIRUBIN,TOTAL 0.2 mg/dL (0.2-1.0); CALCIUM 6.7 mg/dL (8.5-10.3); CREATININE 0.9 mg/dL (0.4-1.0); POTASSIUM 4.6 mmol/L (3.5-5.0); TOTAL PROTEIN 5.7 g/dL (6.7-8.2)
[2021-05-03] MEDS: LABETALOL 100 MG TABLET PO SCH ×3 (07:35→21:30)
--- NOTE | 2021-05-03 07:40 | PROVIDER PROGRESS NOTE ---
Subjective - Prog Note Date Prog Note Date: 05/03/21 - Subjective Pt reports feeling: Improved Subjective: Comfortable. Feels better with magnesium sulfate discontinued. Aponte out, showered. Appropriate lochia. Ambulating. Voiding. Tolerating regular diet. well. Mood is good. Denies headache, visual changes. Objective - Vital Signs/Intake & Output Reviewed Vital Signs: Yes Vital Signs: Vital Signs x48h Temp Pulse Resp BP BP 05/03/21 04:58 98.1 F 72 18 115/65 05/03/21 04:00 73 20 109/63 05/03/21 03:00 98.1 F 76 20 107/63 05/03/21 01:07 79 18 126/73 05/03/21 00:38 85 18 115/63 05/03/21 00:00 98.2 F 87 18 107/60 Intake & Output: Intake & Output 04/30/21 05/01/21 05/02/21 05/03/21 23:59 23:59 23:59 23:59 Intake Total 185 4089.834 550 Output Total 450 5975 [facility] Balance -293 -3890.682 -7391 - Objective General Appearance: positive: No acute distress Respiratory: positive: No respiratory distress Cardiovascular: positive: Regular rate & rhythm Abdomen: positive: Non-tender (FF) Extremities: positive: Non-tender (+1 edema) Neurologic/Psychiatric: positive: Oriented x3 - Lab Results Fish Bones: 05/03/21 05:15 05/03/21 05:15 Other Labs: Lab Results x24hrs 05/03/21 05/03/21 05/03/21 Range/Units 05:15 05:15 05:15 WBC 17.7 H (4.8-10.8) x10^3/uL RBC 4.26 (4.20-5.40) 10^6/uL Hgb 12.6 (12.0-16.0) g/dL Hct 36.8 L (37.0-47.0) % MCV 86.4 (81.0-99.0) fL MCH 29.6 (27.0-31.0) pg MCHC 34.2 (32.0-36.0) g/dL RDW 15.5 H (12.0-15.0) % Plt Count 269 (130-450) 10^3/uL MPV 10.5 (7.9-10.8) fL Neut # (Auto) (1.5-6.6) 10^3/uL Lymph # (Auto) (1.5-3.5) 10^3/uL [place] # (Auto) (0.0-1.0) 10^3/uL Eos # (Auto) (0.0-0.7) 10^3/uL Baso # (Auto) (0.0-0.1) 10^3/uL Absolute Nucleated RBC x10^3/uL Nucleated RBC % /100WBC Sodium 134 L (135-145) mmol/L Potassium 4.6 (3.5-5.0) mmol/L Chloride 102 (101-111) mmol/L Carbon Dioxide 24 (21-32) mmol/L Anion Gap 8.0 (6-13) BUN 14 (6-20) mg/dL Creatinine 0.9 (0.4-1.0) mg/dL Estimated GFR (MDRD) 76 L (>89) Glucose 89 (70-100) mg/dL Calcium 6.7 L (8.5-10.3) mg/dL Magnesium 5.2 H* (1.7-2.8) mg/dL Total Bilirubin 0.2 (0.2-1.0) mg/dL AST 93 H (10-42) IU/L ALT 176 H (10-60) IU/L Alkaline Phosphatase 125 H (42-121) IU/L Total Protein 5.7 L (6.7-8.2) g/dL Albumin 2.1 L (3.2-5.5) g/dL Globulin 3.6 (2.1-4.2) g/dL Albumin/Globulin Ratio 0.6 L (1.0-2.2) 05/02/21 05/02/21 05/02/21 Range/Units 22:37 15:46 15:46 WBC 13.1 H (4.8-10.8) x10^3/uL RBC 4.65 (4.20-5.40) 10^6/uL Hgb 13.8 (12.0-16.0) g/dL Hct 40.0 (37.0-47.0) % MCV 86.0 (81.0-99.0) fL MCH 29.7 (27.0-31.0) pg MCHC 34.5 (32.0-36.0) g/dL RDW 15.4 H (12.0-15.0) % Plt Count 310 (130-450) 10^3/uL MPV 10.7 (7.9-10.8) fL Neut # (Auto) 10.6 H (1.5-6.6) 10^3/uL Lymph # (Auto) 1.7 (1.5-3.5) 10^3/uL [place] # (Auto) 0.7 (0.0-1.0) 10^3/uL Eos # (Auto) 0.0 (0.0-0.7) 10^3/uL Baso # (Auto) 0.1 (0.0-0.1) 10^3/uL Absolute Nucleated RBC 0.04 x10^3/uL Nucleated RBC % 0.3 /100WBC Sodium 128 L (135-145) mmol/L Potassium 4.1 (3.5-5.0) mmol/L Chloride 96 L (101-111) mmol/L Carbon Dioxide 20 L (21-32) mmol/L Anion Gap 12.0 (6-13) BUN 14 (6-20) mg/dL Creatinine 0.9 (0.4-1.0) mg/dL Estimated GFR (MDRD) 76 L (>89) Glucose 99 (70-100) mg/dL Calcium 6.7 L (8.5-10.3) mg/dL Magnesium 5.0 H* (1.7-2.8) mg/dL Total Bilirubin 0.4 (0.2-1.0) mg/dL AST 168 H (10-42) IU/L ALT 271 H (10-60) IU/L Alkaline Phosphatase 163 H (42-121) IU/L Total Protein 6.6 L (6.7-8.2) g/dL Albumin 2.5 L (3.2-5.5) g/dL Globulin 4.1 (2.1-4.2) g/dL Albumin/Globulin Ratio 0.6 L (1.0-2.2) 05/02/21 05/02/21 05/02/21 Range/Units 08:35 08:35 08:05 WBC 12.8 H (4.8-10.8) x10^3/uL RBC 4.42 (4.20-5.40) 10^6/uL Hgb 13.0 (12.0-16.0) g/dL Hct 37.7 (37.0-47.0) % MCV 85.3 (81.0-99.0) fL MCH 29.4 (27.0-31.0) pg MCHC 34.5 (32.0-36.0) g/dL RDW 15.4 H (12.0-15.0) % Plt Count 315 (130-450) 10^3/uL MPV 10.7 (7.9-10.8) fL Neut # (Auto) 9.6 H (1.5-6.6) 10^3/uL Lymph # (Auto) 1.9 (1.5-3.5) 10^3/uL [place] # (Auto) 1.2 H (0.0-1.0) 10^3/uL Eos # (Auto) 0.0 (0.0-0.7) 10^3/uL Baso # (Auto) 0.1 (0.0-0.1) 10^3/uL Absolute Nucleated RBC 0.06 x10^3/uL Nucleated RBC % 0.5 /100WBC Sodium 126 L (135-145) mmol/L Potassium 3.8 (3.5-5.0) mmol/L Chloride 94 L (101-111) mmol/L Carbon Dioxide 20 L (21-32) mmol/L Anion Gap 12.0 (6-13) BUN 12 (6-20) mg/dL Creatinine 1.0 (0.4-1.0) mg/dL Estimated GFR (MDRD) 67 L (>89) Glucose 104 H (70-100) mg/dL Calcium 6.7 L (8.5-10.3) mg/dL Magnesium 6.8 H* (1.7-2.8) mg/dL Total Bilirubin 0.3 (0.2-1.0) mg/dL AST 186 H (10-42) IU/L ALT 294 H (10-60) IU/L Alkaline Phosphatase 164 H (42-121) IU/L Total Protein 6.3 L (6.7-8.2) g/dL Albumin 2.5 L (3.2-5.5) g/dL Globulin 3.8 (2.1-4.2) g/dL Albumin/Globulin Ratio 0.7 L (1.0-2.2) Assessment/Plan - Problem List (1) Pre-eclampsia affecting , antepartum Impression: 25yo s/p PPD#1 following IOL for preeclampsia with severe features - Magnesium sulfate discontinued . Labetalol 300mg q8h ordered, but has yet to be given as BP <120/80. Labs/LFTs improving, reviewed. Repeat labs in am or earlier prn. Preeclampsia improving. - to be monitored until tomorrow. Keep mother admitted, possible discharge tomorrow. Continue to monitor BP, labs. - Continue care.
[2021-05-03] MEDS: DOCUSATE SODIUM 100 MG CAPSULE PO SCH ×2 (11:27→21:30)
--- NOTE | 2021-05-03 13:48 | MISCELLANEOUS PROVIDER NOTE ---
Miscellaneous Provider Note - - Note: Subjective: Notified of patient with elevated blood pressures of 150s over 90s. Patient reports some "fogginess" however is otherwise asymptomatic Objective: Vital Signs Temp 97.5 F L 05/03/21 13:29 Pulse 77 05/03/21 13:32 Resp 18 05/03/21 13:29 BP 154/95 H 05/03/21 13:32 Pulse Ox 100 05/03/21 13:29 Intake & Output 05/02/21 05/03/21 05/03/21 23:59 11:59 23:59 Intake Total 2422.434 550 Output Total 5350 1999 Balance -2927.566 -1450 Intake: Intake, IV Amount 2222.434 Lactated Ringers 1,000 ml 1000.000 @ 100 mls/hr IV .Q10H [facility] Rx#:[id number] Lactated Ringers 1,000 ml 556.667 @ 100 mls/hr IV .Q10H [facility] Rx#:[id number] Magnesium Sulfate in 201.25 Water 20 gm In 500 ml @ 1 GM/HR 25 mls/hr IV .Q20H [facility] Rx#:[id number] Oxytocin/Sodium Chloride 464.517 500 ml @ 1 MILLIUNIT/MIN 1 mls/hr IV TITR [facility]A Rx#: [id number] Oral 200 300 Other 250 Output: Urine 5350 1999 General- no acute distress Heartregular rate and rhythm Lungs- clear to auscultation bilaterally Lower extremitiesno edema noted normal reflexes bilayerally Assessment and plan: 25-year-old G1, P1 post day 1 status post spontaneous vaginal delivery at 36 weeks secondary to preeclampsia. Preeclampsia with severe featuresbased on elevated blood pressures and elevated LFTs and creatinine. Status post magnesium sulfate for seizure prophylaxis. Patient now with mild range blood pressures from 130s to 150s over 90s. She was given labetalol as previously ordered. We will continue to monitor blood pressures closely. Currently asymptomatic. Exam within normal limits. Patient counseled to report symptoms of preeclampsia.
[2021-05-04] MEDS: IBUPROFEN 800 MG TABLET PO SCH ×3 (05:50→18:02)
[2021-05-04 05:55] LABS: HCT - HEMATOCRIT 37.3 % (37.0-47.0); HGB - HEMOGLOBIN 12.4 g/dL (12.0-16.0); MEAN CORPUSCULAR HGB CONC 33.2 g/dL (32.0-36.0); MEAN CORPUSCULAR VOLUME 87.1 fL (81.0-99.0); MEAN PLATELET VOLUME 10.5 fL (7.9-10.8); RED BLOOD COUNT 4.28 10^6/uL (4.20-5.40); RED CELL DISTRIBUTION WIDTH 15.7 % (12.0-15.0); WHITE BLOOD COUNT 14.7 x10^3/uL (4.8-10.8)
[2021-05-04 06:07] LABS: ALBUMIN 2.4 g/dL (3.2-5.5); ALBUMIN/GLOBULIN RATIO 0.6 (1.0-2.2); BILIRUBIN,TOTAL 0.2 mg/dL (0.2-1.0); CALCIUM 8.4 mg/dL (8.5-10.3); CREATININE 0.9 mg/dL (0.4-1.0); POTASSIUM 4.2 mmol/L (3.5-5.0); TOTAL PROTEIN 6.4 g/dL (6.7-8.2)
[2021-05-04] MEDS: LABETALOL 100 MG TABLET PO SCH ×2 (06:56→15:03)
[2021-05-04] MEDS: DOCUSATE SODIUM 100 MG CAPSULE PO SCH ×2 (11:54→20:49)
--- NOTE | 2021-05-04 21:21 | PROVIDER PROGRESS NOTE ---
Subjective - Prog Note Date Prog Note Date: 05/04/21 Prog Note Time: 11:30 - Subjective Subjective: ID: 25 yo PPD#2 s/p with complicated by pre-eclampsia with severe features with elevated LFTs. S: Patient is doing well. States she feels great. No [place]/vision change/RUQ pain. LFTs remain elevated but are trending down. Pain managed with tylenol and ibuprofen. O: 99.0 76 137/75 16 100 GEN: NAD HEENT: NCAT CV: RRR RESP: nl effort, CTAB ABD: S&NT/ND. FF below umbi. No RUQ TTP EXT: WWP, NT PSYCH: appropriate affect A/P: 25 yo s/p at 36 wga in setting of severe Pre-E -Off magnesium and doing well -LFTs trending down -Stopping acetaminophen given liver injury -Labetalol 300 mg po bid ordered but patient has been having mild to normal range BPs Cont in-patient care for obs of baby Anticipate DC home in am Objective - Vital Signs/Intake & Output Vital Signs: Vital Signs x48h Temp Pulse Resp BP Pulse Ox 05/04/21 19:34 98.4 F 75 18 142/90 H 98 05/04/21 14:57 85 135/79 H 05/04/21 13:55 98.2 F 75 16 150/81 H 98 Intake & Output: Intake & Output 05/01/21 05/02/21 05/03/21 05/04/21 23:59 23:59 23:59 23:59 Intake Total 185 4089.538 914 7910 Output Total 450 5975 1999 Balance -433 -8557.469 -0243 2500 - Lab Results Fish Bones: 05/04/21 05:48 05/04/21 05:48 Other Labs: Lab Results x24hrs 05/04/21 05/04/21 Range/Units 05:48 05:48 WBC 14.7 H (4.8-10.8) x10^3/uL RBC 4.28 (4.20-5.40) 10^6/uL Hgb 12.4 (12.0-16.0) g/dL Hct 37.3 (37.0-47.0) % MCV 87.1 (81.0-99.0) fL MCH 29.0 (27.0-31.0) pg MCHC 33.2 (32.0-36.0) g/dL RDW 15.7 H (12.0-15.0) % Plt Count 348 (130-450) 10^3/uL MPV 10.5 (7.9-10.8) fL Sodium 135 (135-145) mmol/L Potassium 4.2 (3.5-5.0) mmol/L Chloride 100 L (101-111) mmol/L Carbon Dioxide 24 (21-32) mmol/L Anion Gap 11.0 (6-13) BUN 16 (6-20) mg/dL Creatinine 0.9 (0.4-1.0) mg/dL Estimated GFR (MDRD) 76 L (>89) Glucose 88 (70-100) mg/dL Calcium 8.4 L (8.5-10.3) mg/dL Total Bilirubin 0.2 (0.2-1.0) mg/dL AST 56 H (10-42) IU/L ALT 132 H (10-60) IU/L Alkaline Phosphatase 126 H (42-121) IU/L Total Protein 6.4 L (6.7-8.2) g/dL Albumin 2.4 L (3.2-5.5) g/dL Globulin 4.0 (2.1-4.2) g/dL Albumin/Globulin Ratio 0.6 L (1.0-2.2)
[2021-05-05] MEDS: IBUPROFEN 800 MG TABLET PO SCH ×3 (00:05→12:16)
[2021-05-05] MEDS: LABETALOL 100 MG TABLET PO SCH (00:06)
[2021-05-05] MEDS ORDERED: LABETALOL 100 MG TABLET PO SCH (03:00)
[2021-05-05 05:39] LABS: BASOPHILS # (AUTO) 0.1 10^3/uL (0.0-0.1); BASOPHILS % (AUTO) 0.9 %; EOSINOPHILS # (AUTO) 0.4 10^3/uL (0.0-0.7); EOSINOPHILS % (AUTO) 4.8 %; HCT - HEMATOCRIT 39.6 % (37.0-47.0); HGB - HEMOGLOBIN 13.4 g/dL (12.0-16.0); LYMPHOCYTES # (AUTO) 2.5 10^3/uL (1.5-3.5); LYMPHOCYTES % (AUTO) 33.6 %; MEAN CORPUSCULAR HEMOGLOBIN 29.1 pg (27.0-31.0); MEAN CORPUSCULAR HGB CONC 33.8 g/dL (32.0-36.0); MEAN CORPUSCULAR VOLUME 86.1 fL (81.0-99.0); MEAN PLATELET VOLUME 9.6 fL (7.9-10.8); MONOCYTES # (AUTO) 0.9 10^3/uL (0.0-1.0); MONOCYTES % (AUTO) 11.5 %; NEUTROPHILS # (AUTO) 3.7 10^3/uL (1.5-6.6); NEUTROPHILS % (AUTO) 48.4 %; PLT - PLATELET COUNT 383 10^3/uL (130-450); RED CELL DISTRIBUTION WIDTH 15.6 % (12.0-15.0); WHITE BLOOD COUNT 7.6 x10^3/uL (4.8-10.8)
[2021-05-05 05:50] LABS: ALBUMIN 2.5 g/dL (3.2-5.5); ALBUMIN/GLOBULIN RATIO 0.6 (1.0-2.2); BILIRUBIN,TOTAL 0.2 mg/dL (0.2-1.0); CALCIUM 8.8 mg/dL (8.5-10.3); CREATININE 0.6 mg/dL (0.4-1.0); POTASSIUM 4.8 mmol/L (3.5-5.0); TOTAL PROTEIN 6.8 g/dL (6.7-8.2)
[2021-05-05] MEDS: DOCUSATE SODIUM 100 MG CAPSULE PO SCH (09:31)
[2021-05-05 12:19] VITALS: BP 135/81
--- NOTE | 2021-05-05 14:45 | Discharge Plan ---
Discharge Plan Problem Reviewed?: Yes Disposition: Home, Self Care Condition: Good Prescriptions: Docusate Sodium 100Mg Capsule [Colace 100Mg Capsule] 100 - 200 mg PO BID PRN #60 cap PRN Reason: Constipation Ibuprofen [Motrin] 600 mg PO Q6H PRN #60 tab PRN Reason: Pain Labetalol [Trandate] 200 mg PO BID #90 tablet Diet: Regular Activity Restrictions: Additional Comments (see below) Shower Restrictions: Yes (no tub baths or hot tubs) Additional Instructions or Follow Up instructions: Nothing in the vagina for 6 weeks: No intercourse, tampons, douching Call for: -Fever greater than 100.5 -Pain that does not improve with pain medication -Heavy bleeding in which you are soaking a pad an hour for 2 hours in a row -Pain in the legs (especially one sided), swelling in one leg and not the other, or difficulty/pain with breathing. No tub baths or hot tubs for 4 weeks PRE-ECLAMPSIA WARNING SIGNS: Call for the following: Headaches that do not improve with pain medications Vision changes that include sparkly lights or black spots Pain in the rught upper part of the belly/abdomen Blood pressures in which the SBP (top number) is 160 or higher OR the DBP (bottom number) is 110 or higher DISCHARGE MEDICATIONS: Ibuprofen 600 mg by mouth every 6 hours as needed for pain Acetaminophen 500-1000 mg by mouth every 8 hours as needed for pain Docusate 100-200 mg by mouth twice a day as needed for constipation No Smoking: If you smoke, Please STOP! Call for help. Follow-up with: Brendan Ricardo MD [Provider Admit Priv/Credential] -
--- NOTE | 2021-05-05 14:48 | DISCHARGE SUMMARY ---
Discharge Summary Admit Date: 05/01/21 Discharge Date: 05/05/21 Discharging Provider: Tanna Condition at Discharge: Good Discharge Disposition: 01 Home, Self Care - DIAGNOSES Admission Diagnoses: IUP at 36+0 wga Pre-eclampsia with severe features Elevated LFTs Discharge Diagnoses with Status of Each Condition: Same and delivery of late infant - HPI History of Present Illness: 25-year-old G1, P0 at 36 weeks 0 days admitted for follow-up of preeclampsia with severe features. Preeclampsia with severe featuresbased on intermittent severe range blood pressures and elevated LFTs. Admitted for delivery. Magnesium sulfate for seizure prophylaxis. -36 weeks gestationstatus post betamethasone x2. Estimated weight 2644 g. GBS negative. - Neutropeniapatient with neutropenia noted previously. Labs improved status post betamethasone series. We will continue to follow. - History of STDchlamydia positive during . Urine gonorrhea and chlamydia sent. - Induction of laborSVE and -2. Hercules bulb placed using sterile technique. Occasional contractions noted. - HOSPITAL COURSE Hospital Course: Patient was admitted on 05/01/21 for IOL for pre-eclampsia with severe features. IOL: Initial SVE and -2. Hercules bulb placed using sterile technique. - Pitocin started post Hercules balloon, currently at 8mu/m - AROM 05/02/21 at 0915, meconium -Uncomplicated on 05/02/21. Delayed cord clamping. DELIVERY: On Magnesium sulfate due to pre-eclampsia (stopped prior to delivery) ROM: meconium at 0922 Born via at 1431, female in MAME presentation Pediatrics was at the delivery due to meconium/late . No resuscitation was needed. Apgars were 9/9 BW 2516g Arrived at 1030 (concerning decel during epidural, but then recovered PAIN: Epidural for pain management PRE-ECLAMPSIA: -Received BMZ in days prior to IOL given brewing pre-eclampsia -Intermittent severe range pressures, marked elevation in LFTs, occ [place] -Magnesium infusion continued through first 24 hours with trend towards normalization of LFTs at time of discharge -Discharged on labetalol 200 mg po bid Baby observed until PPD#3 for prematurity and weight By PPD#3 mother and baby were both meeting criteria for discharge RH pos - ALLERGIES Allergies/Adverse Reactions: Allergies Allergy/AdvReac Type Severity Reaction Status Date / Time No Known Drug Allergies Allergy Verified 02/15/21 13:47 - MEDICATIONS Home Medications: Ambulatory Orders Medication Instructions Recorded Confirmed Amoxicillin 500 mg PO TID #30 cap 02/15/21 Pnv No.95/Ferrous Fum/Folic AC 02/15/21 [ Caplet] guaiFENesin/CODEINE [Robitussin AC] 5 - 10 ml PO Q6H PRN #120 ml 02/15/21 Docusate Sodium 100Mg Capsule 100 - 200 mg PO BID PRN #60 cap 05/05/21 [Colace 100Mg Capsule] Ibuprofen [Motrin] 600 mg PO Q6H PRN #60 tab 05/05/21 Labetalol [Trandate] 200 mg PO BID #90 tablet 05/05/21 - PHYSICAL EXAM AT DISCHARGE General Appearance: positive: No acute distress Respiratory: positive: No respiratory distress, Breath sounds nml Cardiovascular: positive: Regular rate & rhythm Peripheral Pulses: positive: 2+ Abdomen: positive: Non-tender, Other (S&NT/ND FF below umbi. No RUQ tenderness) Neurologic/Psychiatric: positive: Oriented x3 - LABS Result Diagrams: 05/05/21 05:31 05/05/21 05:31 - FOLLOW UP Follow Up: BP check within one week - TIME SPENT Time Spent in Discharge (Minutes): 30
--- NOTE | 2021-05-05 16:04 | Labor Flowsheet ---
Labor Flowsheet Datetime Report Generated by CPN: 05/05/2021 16:04 Datetime: 05/05/2021 12:06 VITAL SIGNS NBP Sys/Ingrid/Mean (mmHg): 135 : 81 : 94 Pulse: 81 Datetime: 05/05/2021 06:05 SpO2 (%): 99 Datetime: 05/02/2021 15:55 Respirations: 16 Temperature (C): 37.0 Datetime: 05/02/2021 14:30 LaborFlag: Labor Datetime: 05/02/2021 14:06 Contraction Comments: Pushing with contractions Datetime: 05/02/2021 14:01 I/O Interventions: Aponte Discontinued STAGE 2 Pushing: Coached on Pushing Pushing Position: Pushing with Contractions; Pushing Lithotomy Datetime: 05/02/2021 13:29 Patient Position/Activity: High Fowlers Patient Care Comments: Labor down for MD Datetime: 05/02/2021 13:25 VAGINAL EXAM Dilatation (cm): 10.0 Station: 0 Exam by: Dr. Sueabyajovon Vaginal Bleeding: Normal Show Datetime: 05/02/2021 12:59 PATIENT CARE IV/Blood Work: New IV Bag Hung Datetime: 05/02/2021 11:56 MEDICATIONS Pitocin (milliunits): Increased to @ 12 Datetime: 05/02/2021 11:45 Magnesium/Antihypertensives: Ephedrine IV (mg) @ 5 Datetime: 05/02/2021 11:33 Antiemetics/Antacids: Zofran (mg) @ 4 Datetime: 05/02/2021 11:25 Effacement (%): 100 Medication Comments: mag d/c'd Datetime: 05/02/2021 11:24 COMMUNICATION Communication: Provider at Bedside Datetime: 05/02/2021 11:06 Communication Comments: per lab, mag level is 6.8. Reported to MD. Order received to decrease mag to 1 gram/hour Datetime: 05/02/2021 10:29 MATERNAL ASSESSMENT Level of Consciousness: Alert DTR's/Clonus: DTRs Absent; No Clonus Headache: Denies Datetime: 05/02/2021 10:15 ASSESSMENT A Monitor Mode: Internal Scalp Electrode FHR Baseline Rate : 135 Variability: Moderate 6-25 bpm Decelerations: Prolonged Category: Category II Comments: deceleration to 60's for 5 minutes with gradual recovery. Provider called to room. Datetime: 05/02/2021 10:12 Actions for Decelerations: Side to Side; IV Bolus Datetime: 05/02/2021 10:02 Epidural Procedure: Test Dose Datetime: 05/02/2021 10:00 UTERINE ACTIVITY Monitor Mode: External Frequency (min): 2-4 Quality: Moderate Duration (sec): 60-90 Pattern: Normal: <= 5 Contractions in 10 Minutes Resting Tone (Palpate): Relaxed Accelerations: 10X10 Datetime: 05/02/2021 09:42 Anesthesia Comments: anes here Datetime: 05/02/2021 09:38 ANESTHESIA Anesthesia Plans: Epidural Datetime: 05/02/2021 09:22 Membrane Status: Ruptured Membranes Rupture Method: Artificial Amniotic Fluid Color: Heavy Meconium Amniotic Fluid Amount: Moderate Membrane Comments: AROM by Dr. Le Datetime: 05/02/2021 08:45 Monitor Interventions for UA: [place] Adjusted Datetime: 05/02/2021 07:15 Stage of : Labor Datetime: 05/02/2021 07:00 FHR Baseline Changes: No Baseline Change Datetime: 05/02/2021 06:45 Pitocin Checklist: At Least 1 Acceleration of 15 bpm x 15 Seconds in 30 Minutes or Adequate Variabi lity Datetime: 05/02/2021 06:00 PAIN Pain Scale: 4 Pain Presence: Intermittent Pain Type: Dull Pain Location: Head Pain Goal: 0 Pain Relief Measures: Pain Medication Given Breath Sounds, Left: Clear and Equal Breath Sounds, Right: Clear and Equal Nausea/Vomiting: Denies RUQ Epigastric Pain: Denies PRE-INDUCTION CHECKLIST Orders on Chart: Yes H Record Available: Yes Indication Charted: Yes Adequate Pelvis Charted: Yes EFW Documented: Yes Gestational Age Documented: Yes Consent Signed and on Chart: Yes Provider with C/S Priv Aware: Yes Status of Cervix Documented: Yes Presentation Documented: Yes 30min of Monitoring Prior: Yes 2 Accels of 15X15 Present: Yes No Late Decels Present: Yes Less than 2 Variable Decels: Yes Pt Meets Criteria for Induction: Yes Datetime: 05/02/2021 04:00 Pain Coping: Talking Through Contractions; Sleeping Cervical Ripening Agents Other: Tugged on Cook Balloon. Resistance met. Datetime: 05/02/2021 02:00 Temperature Route: Oral Vital Sign Comments: 0 Datetime: 05/01/2021 22:00 Comfort Measures: Family Support Datetime: 05/01/2021 20:00 Cervical Ripening Agents: Aponte Balloon (Annotations: in place) Hygiene: Elis Care TEACHING Instructional Method: Verbal; Written; Patient Instructed; Family/Support Person Instructed; Verbal ized Understanding Plan of Care: Plan of Care Discussed; Vaginal Delivery; Labor; Induction; Labor; Gestationa l Hypertension/Preeclampsia/Eclampsia Unit Routine: [place] to Room; Call [place]; Bed; Visiting Policy; Infant Security; Unit Personnel; Desai dwashing; Flu/Illness Precautions; Monitoring; IV Pumps; Safety/Fall Risk Prevention; Diet/Nutr ition Services; Bathroom Privileges; Routine Time Outs; Medications Labor/Induction: Labor Stages; Cervical Ripening; Augmentation; Induction Pain Management: IV Narcotics; Epidural; Pain Scale/Goals; Comfort Measures Medications: Cervical Ripening; Pitocin; Magnesium Sulfate PTL/PROM: Tocolytics; Hydration; Expected Outcomes Provider Notified (Name): Oseas Puente CRNA to give update on patient and eventual placement of epidu ral Notification Reason: Patient Request Nurse Giving Report: Ghislaine Robison RN
== END 2021-05-05 15:30 | disposition home or self-care (01) | DRG 806 ==
LOC: WFO 14:58 → FBP 15:04 → WFO 15:26 → FBP 17:27
PROVIDERS: ADMIT Obstetrics & Gynecology; ATTEND Obstetrics & Gynecology
PROC: 3E033VJ Introduction of Other Hormone into Peripheral Vein, Percutaneous Approach (ICD-10-PCS; 2021-05-01)
PROC: 10E0XZZ Delivery of Products of Conception, External Approach (ICD-10-PCS; principal; 2021-05-02)
PROC: 10907ZC Drainage of Amniotic Fluid, Therapeutic from Products of Conception, Via Natural or Artificial Opening (ICD-10-PCS; 2021-05-02)
PROC: 4A1HXCZ Monitoring of Products of Conception, Cardiac Rate, External Approach (ICD-10-PCS; 2021-05-02)
DX: O14.14 Severe pre-eclampsia complicating childbirth (principal); O99.12 Other diseases of the blood and blood-forming organs and certain disorders involving the immune mechanism complicating childbirth; Z37.0 Single live birth; Z3A.36 36 weeks gestation of pregnancy; D70.9 Neutropenia, unspecified; O77.0 Labor and delivery complicated by meconium in amniotic fluid; O75.89 Other specified complications of labor and delivery; R79.89 Other specified abnormal findings of blood chemistry; R00.0 Tachycardia, unspecified; Z11.3 Encounter for screening for infections with a predominantly sexual mode of transmission; Z86.19 Personal history of other infectious and parasitic diseases
CPT/HCPCS: 36415; 59025; 76816; 80053; 82570; 83735; 84156; 85025; 85027; 86850; 86900; 86901; 87491; 87591; 87661; A9270; J7120; J3475

== ENCOUNTER 2021-06-17 19:12 | Emergency (ER) | payer OTHER ==
[2021-06-17 19:21] VITALS: BP 130/84
--- OUTSIDE RECORDS SUMMARY | 2021-06-17 19:32 | EXTERNAL MEDICAL SUMMARY RPT | Continuity of Care Document ---
:1995 Author Organization [facility] Address [address] [place] [address] Phone Care Team Providers Name Role Phone CNM, Michelle BAILEY, Unavailable Unavailable Enrike, Provider Unavailable Unavailable , Brendan Ricardo Unavailable Unavailable BEV, Lorena Soto Unavailable Unavailable , Jordyn Barker Unavailable Unavailable RN, Annie Mcdaniel Unavailable Unavailable Direct, Womens RN Unavailable Unavailable Allergies No information. Encounters No information. Medications date description facility 20210612 dicloxacillin All 20210612 dicloxacillin All Problems date description facility 20210503 support All 20210503 Encounter for care and examination of l actating mother All 20210503 care and examination of lact ating mother All 20210421 NST WITH BIOPHYSICAL PROFILE All 20210421 US OB FOLLOW-UP All 20210411 Gestational [-induced] hyperten samy without All significant proteinuria, third trimester 20210411 URINE PROTEIN TO CREATININE RATIO All 20210411 -induced hypertension All 20210411 CBC AND PLATELETS w/o DIFF All 20210411 Elevated blood-pressure reading without diagnosis of All hypertension 20210411 Transient hypertension of , an tepartum condition or All complication 20210411 Elevated blood-pressure reading, withou t diagnosis of All hypertension 20210411 Elevated blood pressure reading without diagnosis of All hypertension 20210411 COMPREHENSIVE METABOLIC PANEL All Procedures date description facility 20210511 POST VISIT All 20210511 POST VISIT All 20210511 POST VISIT All 20210421 NST WITH BIOPHYSICAL PROFILE All 20210421 US OB FOLLOW-UP All 20210421 0502F - SUBSEQUENT VISIT All 20210421 050F - SUBSEQUENT VISIT All 20210421 050F - SUBSEQUENT VISIT All 20210421 NST WITH BIOPHYSICAL PROFILE All 20210421 US OB FOLLOW-UP All 20210421 050F - SUBSEQUENT VISIT All 20210421 NST WITH BIOPHYSICAL PROFILE All 20210421 US OB FOLLOW-UP All 20210421 050F - SUBSEQUENT VISIT All 00147337 0502F - SUBSEQUENT VISIT All 20210411 CBC AND PLATELETS w/o DIFF All 20210411 COMPREHENSIVE METABOLIC PANEL All 20210411 0502F - SUBSEQUENT VISIT All 20210411 URINE PROTEIN TO CREATININE RATIO All 20210411 CBC AND PLATELETS w/o DIFF All 20210411 COMPREHENSIVE METABOLIC PANEL All 20210411 0502F - SUBSEQUENT VISIT All 20210411 URINE PROTEIN TO CREATININE RATIO All 20210411 CBC AND PLATELETS w/o DIFF All 20210411 COMPREHENSIVE METABOLIC PANEL All 20210411 0502F - SUBSEQUENT VISIT All 20210411 URINE PROTEIN TO CREATININE RATIO All 20210411 CBC AND PLATELETS w/o DIFF All 20210411 COMPREHENSIVE METABOLIC PANEL All 20210411 0502F - SUBSEQUENT VISIT All 20210411 URINE PROTEIN TO CREATININE RATIO All 20210411 CBC AND PLATELETS w/o DIFF All 20210411 COMPREHENSIVE METABOLIC PANEL All 20210411 0502F - SUBSEQUENT VISIT All 20210411 URINE PROTEIN TO CREATININE RATIO All 20210411 CBC AND PLATELETS w/o DIFF All 20210411 COMPREHENSIVE METABOLIC PANEL All 20210411 0502F - SUBSEQUENT VISIT All 20210411 URINE PROTEIN TO CREATININE RATIO All 20210411 CBC AND PLATELETS w/o DIFF All 20210411 COMPREHENSIVE METABOLIC PANEL All 20210411 0502F - SUBSEQUENT VISIT All [id number] URINE PROTEIN TO CREATININE RATIO All 79727723 0502F - SUBSEQUENT VISIT All 63459303 0502F - SUBSEQUENT VISIT All 08633283 0502F - SUBSEQUENT VISIT All 58797298 0502F - SUBSEQUENT VISIT All 35814980 0502F - SUBSEQUENT VISIT All 18630964 0502F - SUBSEQUENT VISIT All 34913412 0502F - SUBSEQUENT VISIT All Results test status date ordered by attending specimen geovanna e urea_nitrogen_blood unknown 20210505 unknown unknown unk nown Erythrocytes_volume_in unknown 20210505 unknown unknown unknown _Blood_by_Automated_cou nt Erythrocyte_distributi unknown 20210505 unknown unknown unknown on_width_Ratio_by_Autom ated_count MCV_Entitic_volume_by_ unknown 20210505 unknown unknown unknown Automated_count MCH_Entitic_mass_by_Au unknown 20210505 unknown unknown unknown tomated_count Platelets_volume_in_Bl unknown 20210505 unknown unknown unknown ood_by_Automated_count Platelet_mean_volume_E unknown 20210505 unknown unknown unknown ntitic_volume_in_Blood_ by_Rees-Ericka neutrophil_count_blood unknown 43834241 unknown unknown unknown monocyte_count_blood unknown 99311625 unknown unknown un known lymphocyte_count_blood unknown 06598447 unknown unknown unknown Hemoglobin_Mass_volume unknown 10504698 unknown unknown unknown _in_Blood eosinophil_count_blood unknown 73319729 unknown unknown unknown Basophils_volume_in_Bl unknown 07185632 unknown unknown unknown ood_by_Manual_count leukocyte_count_blood unknown 06386071 unknown unknown u nknown erythrocyte_RBC_count unknown 97374587 unknown unknown u nknown Leukocytes_volume_in_B unknown 59029267 unknown unknown unknown lood_by_Automated_count Glomerular_Filtration_ unknown 30003170 unknown unknown unknown rate platelet_count unknown 21301274 unknown unknown unknown hemoglobin_blood unknown 45195584 unknown unknown unknow n hematocrit_blood unknown 05249775 unknown unknown unknow n potassium_blood unknown 44949229 unknown unknown unknown Glomerular_filtration_r unknown 13335884 unknown unknown unknown ate_1.73_sq_M.predicted _among_non-blacks_Volum e_Rate_Area_in_Serum_Pl asma_or_Blood_by_Creati nine-based_formula_MDRD _ Hematocrit_Volume_Frac unknown 21639695 unknown unknown unknown tion_of_Blood_by_Automa ted_count bilirubin_serum_total unknown 78348548 unknown unknown u nknown alanine_aminotransfera unknown 77225304 unknown unknown unknown se_SGPT_serum carbon_dioxide_serum_t unknown 26419540 unknown unknown unknown otal aspartate_aminotransfe unknown 60070036 unknown unknown unknown rase_SGOT_serum protein_total_serum unknown 17619343 unknown unknown unk nown blood_glucose unknown 56297550 unknown unknown unknown potassium_blood unknown 48289789 unknown unknown unknown mean_corpuscular_volum unknown 06632482 unknown unknown unknown e_RBC Urea_nitrogen_Mass_vol unknown 68582577 unknown unknown unknown ume_in_Serum_or_Plasma globulin_serum unknown 36136009 unknown unknown unknown alkaline_phosphatase_s unknown 42465701 unknown unknown unknown anthony Sodium_Moles_volume_in unknown 71528258 unknown unknown unknown _Serum_or_Plasma Protein_Mass_volume_in unknown 86095200 unknown unknown unknown _Serum_or_Plasma eosinophil_count_blood unknown 81663804 unknown unknown unknown anion_gap_serum unknown 49904769 unknown unknown unknown mean_platelet_volume unknown 81690484 unknown unknown un known basophil_count_blood unknown 19840380 unknown unknown un known monocyte_count_blood unknown 98489302 unknown unknown un known lymphocyte_count_blood unknown 63291941 unknown unknown unknown neutrophil_count_blood unknown 00219744 unknown unknown unknown Glucose_Mass_volume_in unknown 91704625 unknown unknown unknown _Serum_or_Plasma Globulin_Mass_volume_i unknown 60821016 unknown unknown unknown n_Serum Creatinine_Mass_volume unknown 78111997 unknown unknown unknown _in_Serum_or_Plasma Chloride_Moles_volume_ unknown 09190063 unknown unknown unknown in_Serum_or_Plasma carbon_dioxide_serum_t unknown 72292637 unknown unknown unknown otal Calcium_Moles_volume_i unknown 90993070 unknown unknown unknown n_Serum_or_Plasma albumin_serum unknown 37641766 unknown unknown unknown Bilirubin.total_Mass_v unknown 66626345 unknown unknown unknown olume_in_Serum_or_Plasm a Aspartate_aminotransfe unknown 67431423 unknown unknown unknown rase_Enzymatic_activity _volume_in_Serum_or_Pla sma Anion_gap_4_in_Serum_o unknown 26488171 unknown unknown unknown r_Plasma creatinine_serum unknown 38959201 unknown unknown unknow n Alkaline_phosphatase_E unknown 97593596 unknown unknown unknown nzymatic_activity_volum e_in_Blood Albumin_Globulin_Mass_ unknown 84509717 unknown unknown unknown Ratio_in_Serum_or_Plasm a Albumin_Mass_volume_in unknown 45995497 unknown unknown unknown _Serum_or_Plasma Alanine_aminotransfera unknown 46353167 unknown unknown unknown se_Enzymatic_activity_v olume_in_Serum_or_Plasm a mean_corpuscular_hemog unknown 81651683 unknown unknown unknown lobin_concentration_rbc sodium_serum unknown 09903523 unknown unknown unknown albumin_globulin_ratio unknown 32687662 unknown unknown unknown _serum chloride_serum unknown 56205112 unknown unknown unknown calcium_serum unknown 64828673 unknown unknown unknown mean_corpuscular_hemog unknown 69014704 unknown unknown unknown lobin_RBC red_blood_cell_distrib unknown 39988926 unknown unknown unknown ution_width T unknown 34863545 unknown unknown unknown T unknown 69133254 unknown unknown unknown T unknown 46245926 unknown unknown unknown T unknown 99040497 unknown unknown unknown T unknown 79385714 unknown unknown unknown T unknown 73383579 unknown unknown unknown NEUTROPHILS_AUTO_ unknown 12010460 unknown unknown unkno wn T unknown 18545046 unknown unknown unknown T unknown 14636254 unknown unknown unknown T unknown 19210630 unknown unknown unknown MONOCYTES_AUTO_ unknown 45014756 unknown unknown unknown T unknown 03379046 unknown unknown unknown T unknown 18000342 unknown unknown unknown T unknown 27878523 unknown unknown unknown T unknown 64608404 unknown unknown unknown LYMPHOCYTES_AUTO_ unknown 02854010 unknown unknown unkno wn T unknown 78090798 unknown unknown unknown T unknown 22078103 unknown unknown unknown T unknown 97203210 unknown unknown unknown T unknown 14938817 unknown unknown unknown T unknown 76386893 unknown unknown unknown T unknown 01047431 unknown unknown unknown T unknown 51830706 unknown unknown unknown GFR_-_MDRD unknown 73141466 unknown unknown unknown T unknown 19549151 unknown unknown unknown EOSINOPHILS_AUTO_ unknown 89405214 unknown unknown unkno wn T unknown 10779826 unknown unknown unknown T unknown 98504713 unknown unknown unknown T unknown 91369072 unknown unknown unknown T unknown 99668208 unknown unknown unknown T unknown 64915398 unknown unknown unknown T unknown 22022244 unknown unknown unknown BILIRUBIN_TOTAL unknown 10776012 unknown unknown unknown BASOPHILS_AUTO_ unknown 70387907 unknown unknown unknown T unknown 23185007 unknown unknown unknown T unknown 14138238 unknown unknown unknown T unknown 22216948 unknown unknown unknown T unknown 18990122 unknown unknown unknown ALT_ALANINE_AMINOTRANS unknown 60446229 unknown unknown unknown FERASE ALKALINE_PHOSPHATASE unknown 10023760 unknown unknown un known T unknown 48914620 unknown unknown unknown T unknown 04124360 unknown unknown unknown ALBUMIN_GLOBULIN_RATIO unknown 48301599 unknown unknown unknown urea_nitrogen_blood unknown 20064545 unknown unknown unk nown Erythrocytes_volume_in unknown 77591782 unknown unknown unknown _Blood_by_Automated_cou nt Erythrocyte_distributi unknown 29949067 unknown unknown unknown on_width_Ratio_by_Autom ated_count MCV_Entitic_volume_by_ unknown 07268039 unknown unknown unknown Automated_count MCH_Entitic_mass_by_Au unknown 96751307 unknown unknown unknown tomated_count Platelets_volume_in_Bl unknown 85324896 unknown unknown unknown ood_by_Automated_count Platelet_mean_volume_E unknown 38321967 unknown unknown unknown ntitic_volume_in_Blood_ by_Rees-Ericka neutrophil_count_blood unknown 58877166 unknown unknown unknown monocyte_count_blood unknown 30510924 unknown unknown un known lymphocyte_count_blood unknown 13444567 unknown unknown unknown Hemoglobin_Mass_volume unknown 58855690 unknown unknown unknown _in_Blood eosinophil_count_blood unknown 21263251 unknown unknown unknown Basophils_volume_in_Bl unknown 51932303 unknown unknown unknown ood_by_Manual_count leukocyte_count_blood unknown 81866641 unknown unknown u nknown erythrocyte_RBC_count unknown 75466499 unknown unknown u nknown Leukocytes_volume_in_B unknown 00754455 unknown unknown unknown lood_by_Automated_count Glomerular_Filtration_ unknown 98088825 unknown unknown unknown rate platelet_count unknown 51689381 unknown unknown unknown hemoglobin_blood unknown 50456362 unknown unknown unknow n hematocrit_blood unknown 81867460 unknown unknown unknow n potassium_blood unknown 07192844 unknown unknown unknown Glomerular_filtration_r unknown 37923149 unknown unknown unknown ate_1.73_sq_M.predicted _among_non-blacks_Volum e_Rate_Area_in_Serum_Pl asma_or_Blood_by_Creati nine-based_formula_MDRD _ Hematocrit_Volume_Frac unknown 87106920 unknown unknown unknown tion_of_Blood_by_Automa ted_count bilirubin_serum_total unknown 46109085 unknown unknown u nknown alanine_aminotransfera unknown 93051039 unknown unknown unknown se_SGPT_serum carbon_dioxide_serum_t unknown 68266269 unknown unknown unknown otal aspartate_aminotransfe unknown 01015207 unknown unknown unknown rase_SGOT_serum protein_total_serum unknown 60468551 unknown unknown unk nown blood_glucose unknown 29653526 unknown unknown unknown potassium_blood unknown 87210346 unknown unknown unknown mean_corpuscular_volum unknown 19461080 unknown unknown unknown e_RBC Urea_nitrogen_Mass_vol unknown 49898025 unknown unknown unknown ume_in_Serum_or_Plasma globulin_serum unknown 19223207 unknown unknown unknown alkaline_phosphatase_s unknown 71814813 unknown unknown unknown anthony Sodium_Moles_volume_in unknown 52468476 unknown unknown unknown _Serum_or_Plasma Protein_Mass_volume_in unknown 45984380 unknown unknown unknown _Serum_or_Plasma eosinophil_count_blood unknown 03824909 unknown unknown unknown anion_gap_serum unknown 12214606 unknown unknown unknown mean_platelet_volume unknown 59322055 unknown unknown un known basophil_count_blood unknown 88479056 unknown unknown un known monocyte_count_blood unknown 50727502 unknown unknown un known lymphocyte_count_blood unknown 33540046 unknown unknown unknown neutrophil_count_blood unknown 95834406 unknown unknown unknown Glucose_Mass_volume_in unknown 18927784 unknown unknown unknown _Serum_or_Plasma Globulin_Mass_volume_i unknown 95142776 unknown unknown unknown n_Serum Creatinine_Mass_volume unknown 06892280 unknown unknown unknown _in_Serum_or_Plasma Chloride_Moles_volume_ unknown 61727439 unknown unknown unknown in_Serum_or_Plasma carbon_dioxide_serum_t unknown 33701530 unknown unknown unknown otal Calcium_Moles_volume_i unknown 29922567 unknown unknown unknown n_Serum_or_Plasma albumin_serum unknown 07138409 unknown unknown unknown Bilirubin.total_Mass_v unknown 02953004 unknown unknown unknown olume_in_Serum_or_Plasm a Aspartate_aminotransfe unknown 12994820 unknown unknown unknown rase_Enzymatic_activity _volume_in_Serum_or_Pla sma Anion_gap_4_in_Serum_o unknown 27206117 unknown unknown unknown r_Plasma creatinine_serum unknown 57007437 unknown unknown unknow n Alkaline_phosphatase_E unknown 42515486 unknown unknown unknown nzymatic_activity_volum e_in_Blood Albumin_Globulin_Mass_ unknown 03796516 unknown unknown unknown Ratio_in_Serum_or_Plasm a Albumin_Mass_volume_in unknown 97043985 unknown unknown unknown _Serum_or_Plasma Alanine_aminotransfera unknown 06442734 unknown unknown unknown se_Enzymatic_activity_v olume_in_Serum_or_Plasm a mean_corpuscular_hemog unknown 93336781 unknown unknown unknown lobin_concentration_rbc sodium_serum unknown 47860096 unknown unknown unknown albumin_globulin_ratio unknown 99713506 unknown unknown unknown _serum chloride_serum unknown 83307018 unknown unknown unknown calcium_serum unknown 11633797 unknown unknown unknown mean_corpuscular_hemog unknown 77001789 unknown unknown unknown lobin_RBC red_blood_cell_distrib unknown 99582953 unknown unknown unknown ution_width T unknown 98995132 unknown unknown unknown T unknown 45390841 unknown unknown unknown T unknown 61431217 unknown unknown unknown T unknown 88668625 unknown unknown unknown T unknown 10026375 unknown unknown unknown T unknown 91892245 unknown unknown unknown NEUTROPHILS_AUTO_ unknown 19223628 unknown unknown unkno wn T unknown 62162947 unknown unknown unknown T unknown 09673398 unknown unknown unknown T unknown 32233177 unknown unknown unknown MONOCYTES_AUTO_ unknown 46334136 unknown unknown unknown T unknown 50411422 unknown unknown unknown T unknown 33339917 unknown unknown unknown T unknown 39911261 unknown unknown unknown T unknown 90982573 unknown unknown unknown LYMPHOCYTES_AUTO_ unknown 65385452 unknown unknown unkno wn T unknown 80536227 unknown unknown unknown T unknown 55829009 unknown unknown unknown T unknown 53230224 unknown unknown unknown T unknown 35056176 unknown unknown unknown T unknown 25061310 unknown unknown unknown T unknown 87841663 unknown unknown unknown T unknown 18830938 unknown unknown unknown GFR_-_MDRD unknown 88021470 unknown unknown unknown T unknown 57214499 unknown unknown unknown EOSINOPHILS_AUTO_ unknown 92695263 unknown unknown unkno wn T unknown 70874207 unknown unknown unknown T unknown 97682828 unknown unknown unknown T unknown 01402967 unknown unknown unknown T unknown 43963862 unknown unknown unknown T unknown 94605045 unknown unknown unknown T unknown 08300923 unknown unknown unknown BILIRUBIN_TOTAL unknown 68274948 unknown unknown unknown BASOPHILS_AUTO_ unknown 59231782 unknown unknown unknown T unknown 68396642 unknown unknown unknown T unknown 17907361 unknown unknown unknown T unknown 86428330 unknown unknown unknown T unknown 57490808 unknown unknown unknown ALT_ALANINE_AMINOTRANS unknown 77137123 unknown unknown unknown FERASE ALKALINE_PHOSPHATASE unknown 49009606 unknown unknown un known T unknown 71841724 unknown unknown unknown T unknown 22828976 unknown unknown unknown ALBUMIN_GLOBULIN_RATIO unknown 29024482 unknown unknown unknown urea_nitrogen_blood unknown 98480522 unknown unknown unk nown Erythrocytes_volume_in unknown 12994849 unknown unknown unknown _Blood_by_Automated_cou nt Erythrocyte_distributi unknown 01215657 unknown unknown unknown on_width_Ratio_by_Autom ated_count MCV_Entitic_volume_by_ unknown 91789684 unknown unknown unknown Automated_count MCH_Entitic_mass_by_Au unknown 57857831 unknown unknown unknown tomated_count Platelets_volume_in_Bl unknown 95524484 unknown unknown unknown ood_by_Automated_count Platelet_mean_volume_E unknown 23150612 unknown unknown unknown ntitic_volume_in_Blood_ by_Rees-Ericka neutrophil_count_blood unknown 30637627 unknown unknown unknown monocyte_count_blood unknown 90384951 unknown unknown un known lymphocyte_count_blood unknown 51786923 unknown unknown unknown Hemoglobin_Mass_volume unknown 45780308 unknown unknown unknown _in_Blood eosinophil_count_blood unknown 35203663 unknown unknown unknown Basophils_volume_in_Bl unknown 84935561 unknown unknown unknown ood_by_Manual_count leukocyte_count_blood unknown 99187979 unknown unknown u nknown erythrocyte_RBC_count unknown 74296156 unknown unknown u nknown Leukocytes_volume_in_B unknown 45526599 unknown unknown unknown lood_by_Automated_count Glomerular_Filtration_ unknown 71477447 unknown unknown unknown rate platelet_count unknown 69240590 unknown unknown unknown hemoglobin_blood unknown 75162510 unknown unknown unknow n hematocrit_blood unknown 75686437 unknown unknown unknow n potassium_blood unknown 01044754 unknown unknown unknown Glomerular_filtration_r unknown 05235318 unknown unknown unknown ate_1.73_sq_M.predicted _among_non-blacks_Volum e_Rate_Area_in_Serum_Pl asma_or_Blood_by_Creati nine-based_formula_MDRD _ Hematocrit_Volume_Frac unknown 75316440 unknown unknown unknown tion_of_Blood_by_Automa ted_count bilirubin_serum_total unknown 61679791 unknown unknown u nknown alanine_aminotransfera unknown 82941257 unknown unknown unknown se_SGPT_serum carbon_dioxide_serum_t unknown 76313060 unknown unknown unknown otal aspartate_aminotransfe unknown 11161314 unknown unknown unknown rase_SGOT_serum protein_total_serum unknown 81050425 unknown unknown unk nown blood_glucose unknown 80559565 unknown unknown unknown potassium_blood unknown 14896820 unknown unknown unknown mean_corpuscular_volum unknown 90318225 unknown unknown unknown e_RBC Urea_nitrogen_Mass_vol unknown 85316696 unknown unknown unknown ume_in_Serum_or_Plasma globulin_serum unknown 41965314 unknown unknown unknown alkaline_phosphatase_s unknown 72542749 unknown unknown unknown anthony Sodium_Moles_volume_in unknown 21355793 unknown unknown unknown _Serum_or_Plasma Protein_Mass_volume_in unknown 22352118 unknown unknown unknown _Serum_or_Plasma eosinophil_count_blood unknown 04842172 unknown unknown unknown anion_gap_serum unknown 11337708 unknown unknown unknown mean_platelet_volume unknown 11840672 unknown unknown un known basophil_count_blood unknown 51970052 unknown unknown un known monocyte_count_blood unknown 60519718 unknown unknown un known lymphocyte_count_blood unknown 17175664 unknown unknown unknown neutrophil_count_blood unknown 56543657 unknown unknown unknown Glucose_Mass_volume_in unknown 04844793 unknown unknown unknown _Serum_or_Plasma Globulin_Mass_volume_i unknown 01052063 unknown unknown unknown n_Serum Creatinine_Mass_volume unknown 10058048 unknown unknown unknown _in_Serum_or_Plasma Chloride_Moles_volume_ unknown 20856501 unknown unknown unknown in_Serum_or_Plasma carbon_dioxide_serum_t unknown 83453381 unknown unknown unknown otal Calcium_Moles_volume_i unknown 41739382 unknown unknown unknown n_Serum_or_Plasma albumin_serum unknown 55047577 unknown unknown unknown Bilirubin.total_Mass_v unknown 41850053 unknown unknown unknown olume_in_Serum_or_Plasm a Aspartate_aminotransfe unknown 58598791 unknown unknown unknown rase_Enzymatic_activity _volume_in_Serum_or_Pla sma Anion_gap_4_in_Serum_o unknown 29915665 unknown unknown unknown r_Plasma creatinine_serum unknown 19595129 unknown unknown unknow n Alkaline_phosphatase_E unknown 25952861 unknown unknown unknown nzymatic_activity_volum e_in_Blood Albumin_Globulin_Mass_ unknown 01410209 unknown unknown unknown Ratio_in_Serum_or_Plasm a Albumin_Mass_volume_in unknown 49576631 unknown unknown unknown _Serum_or_Plasma Alanine_aminotransfera unknown 49407307 unknown unknown unknown se_Enzymatic_activity_v olume_in_Serum_or_Plasm a mean_corpuscular_hemog unknown 05765452 unknown unknown unknown lobin_concentration_rbc sodium_serum unknown 00489025 unknown unknown unknown albumin_globulin_ratio unknown 20991580 unknown unknown unknown _serum chloride_serum unknown 66695514 unknown unknown unknown calcium_serum unknown 17271794 unknown unknown unknown mean_corpuscular_hemog unknown 55998908 unknown unknown unknown lobin_RBC red_blood_cell_distrib unknown 56542418 unknown unknown unknown ution_width T unknown 53654422 unknown unknown unknown T unknown 06711088 unknown unknown unknown T unknown 98477090 unknown unknown unknown T unknown 02658070 unknown unknown unknown T unknown 83731714 unknown unknown unknown T unknown 88530150 unknown unknown unknown NEUTROPHILS_AUTO_ unknown 86499332 unknown unknown unkno wn T unknown 87169886 unknown unknown unknown T unknown 83841118 unknown unknown unknown T unknown 02131057 unknown unknown unknown MONOCYTES_AUTO_ unknown 69702780 unknown unknown unknown T unknown 91182940 unknown unknown unknown T unknown 24045187 unknown unknown unknown T unknown 72404553 unknown unknown unknown T unknown 78968516 unknown unknown unknown LYMPHOCYTES_AUTO_ unknown 50616666 unknown unknown unkno wn T unknown 96651409 unknown unknown unknown T unknown 10196771 unknown unknown unknown T unknown 61100071 unknown unknown unknown T unknown 47441328 unknown unknown unknown T unknown 40427826 unknown unknown unknown T unknown 53837334 unknown unknown unknown T unknown 10506920 unknown unknown unknown GFR_-_MDRD unknown 37931451 unknown unknown unknown T unknown 84569022 unknown unknown unknown EOSINOPHILS_AUTO_ unknown 90862795 unknown unknown unkno wn T unknown 33204712 unknown unknown unknown T unknown 10435152 unknown unknown unknown T unknown 88174868 unknown unknown unknown T unknown 53648795 unknown unknown unknown T unknown 34513822 unknown unknown unknown T unknown 64350003 unknown unknown unknown BILIRUBIN_TOTAL unknown 61263505 unknown unknown unknown BASOPHILS_AUTO_ unknown 78845847 unknown unknown unknown T unknown 26210110 unknown unknown unknown T unknown 70369428 unknown unknown unknown T unknown 74117548 unknown unknown unknown T unknown 58445908 unknown unknown unknown ALT_ALANINE_AMINOTRANS unknown [id number] unknown unknown unknown FERASE ALKALINE_PHOSPHATASE unknown [id number] unknown unknown un known T unknown [id number] unknown unknown unknown T unknown [id number] unknown unknown unknown ALBUMIN_GLOBULIN_RATIO unknown [id number] unknown unknown unknown urea_nitrogen_blood unknown [id number] unknown unknown unk nown Erythrocytes_volume_in unknown [id number] unknown unknown unknown _Blood_by_Automated_cou nt Erythrocyte_distributi unknown [id number] unknown unknown unknown on_width_Ratio_by_Autom ated_count MCV_Entitic_volume_by_ unknown 02052524 unknown unknown unknown Automated_count MCH_Entitic_mass_by_Au unknown 85465543 unknown unknown unknown tomated_count Platelets_volume_in_Bl unknown 13086987 unknown unknown unknown ood_by_Automated_count Platelet_mean_volume_E unknown 77958216 unknown unknown unknown ntitic_volume_in_Blood_ by_Rees-Ericka neutrophil_count_blood unknown 37663610 unknown unknown unknown monocyte_count_blood unknown 84763031 unknown unknown un known lymphocyte_count_blood unknown 41360185 unknown unknown unknown Hemoglobin_Mass_volume unknown 81495755 unknown unknown unknown _in_Blood eosinophil_count_blood unknown 54878662 unknown unknown unknown Basophils_volume_in_Bl unknown 99658624 unknown unknown unknown ood_by_Manual_count leukocyte_count_blood unknown 72444683 unknown unknown u nknown erythrocyte_RBC_count unknown 86452510 unknown unknown u nknown Leukocytes_volume_in_B unknown 34874053 unknown unknown unknown lood_by_Automated_count Glomerular_Filtration_ unknown 30564369 unknown unknown unknown rate platelet_count unknown 52930007 unknown unknown unknown hemoglobin_blood unknown 33889862 unknown unknown unknow n hematocrit_blood unknown 27989978 unknown unknown unknow n potassium_blood unknown 79886099 unknown unknown unknown Glomerular_filtration_r unknown 15208150 unknown unknown unknown ate_1.73_sq_M.predicted _among_non-blacks_Volum e_Rate_Area_in_Serum_Pl asma_or_Blood_by_Creati nine-based_formula_MDRD _ Hematocrit_Volume_Frac unknown [id number] unknown unknown unknown tion_of_Blood_by_Automa ted_count bilirubin_serum_total unknown 79105160 unknown unknown u nknown alanine_aminotransfera unknown 35931938 unknown unknown unknown se_SGPT_serum carbon_dioxide_serum_t unknown 87111714 unknown unknown unknown otal aspartate_aminotransfe unknown 04899962 unknown unknown unknown rase_SGOT_serum protein_total_serum unknown 74847175 unknown unknown unk nown blood_glucose unknown 61856307 unknown unknown unknown potassium_blood unknown 11983493 unknown unknown unknown mean_corpuscular_volum unknown 20746522 unknown unknown unknown e_RBC Urea_nitrogen_Mass_vol unknown 16688960 unknown unknown unknown ume_in_Serum_or_Plasma globulin_serum unknown 14962977 unknown unknown unknown alkaline_phosphatase_s unknown 97910932 unknown unknown unknown anthony Sodium_Moles_volume_in unknown 63920079 unknown unknown unknown _Serum_or_Plasma Protein_Mass_volume_in unknown 68308181 unknown unknown unknown _Serum_or_Plasma eosinophil_count_blood unknown 07919275 unknown unknown unknown anion_gap_serum unknown 11825952 unknown unknown unknown mean_platelet_volume unknown 12446117 unknown unknown un known basophil_count_blood unknown 81984272 unknown unknown un known monocyte_count_blood unknown 45559587 unknown unknown un known lymphocyte_count_blood unknown 76355283 unknown unknown unknown neutrophil_count_blood unknown 72454853 unknown unknown unknown Glucose_Mass_volume_in unknown 48973465 unknown unknown unknown _Serum_or_Plasma Globulin_Mass_volume_i unknown 87015103 unknown unknown unknown n_Serum Creatinine_Mass_volume unknown 40458694 unknown unknown unknown _in_Serum_or_Plasma Chloride_Moles_volume_ unknown 54713902 unknown unknown unknown in_Serum_or_Plasma carbon_dioxide_serum_t unknown 96151783 unknown unknown unknown otal Calcium_Moles_volume_i unknown 03613601 unknown unknown unknown n_Serum_or_Plasma albumin_serum unknown 65339152 unknown unknown unknown Bilirubin.total_Mass_v unknown 93966187 unknown unknown unknown olume_in_Serum_or_Plasm a Aspartate_aminotransfe unknown 00364613 unknown unknown unknown rase_Enzymatic_activity _volume_in_Serum_or_Pla sma Anion_gap_4_in_Serum_o unknown 30369718 unknown unknown unknown r_Plasma creatinine_serum unknown 35729245 unknown unknown unknow n Alkaline_phosphatase_E unknown 84672282 unknown unknown unknown nzymatic_activity_volum e_in_Blood Albumin_Globulin_Mass_ unknown 44621438 unknown unknown unknown Ratio_in_Serum_or_Plasm a Albumin_Mass_volume_in unknown 55126636 unknown unknown unknown _Serum_or_Plasma Alanine_aminotransfera unknown 63155660 unknown unknown unknown se_Enzymatic_activity_v olume_in_Serum_or_Plasm a mean_corpuscular_hemog unknown 12769238 unknown unknown unknown lobin_concentration_rbc sodium_serum unknown 99204658 unknown unknown unknown albumin_globulin_ratio unknown 96312497 unknown unknown unknown _serum chloride_serum unknown 76544980 unknown unknown unknown calcium_serum unknown 06459627 unknown unknown unknown mean_corpuscular_hemog unknown 14941551 unknown unknown unknown lobin_RBC red_blood_cell_distrib unknown 25063949 unknown unknown unknown ution_width T unknown 02346436 unknown unknown unknown T unknown 33122832 unknown unknown unknown T unknown 91409383 unknown unknown unknown T unknown 82645956 unknown unknown unknown T unknown 48081862 unknown unknown unknown T unknown 62755499 unknown unknown unknown NEUTROPHILS_AUTO_ unknown 31420318 unknown unknown unkno wn T unknown 10740549 unknown unknown unknown T unknown 77318810 unknown unknown unknown T unknown 14175764 unknown unknown unknown MONOCYTES_AUTO_ unknown 68312058 unknown unknown unknown T unknown 34533376 unknown unknown unknown T unknown 74233462 unknown unknown unknown T unknown 23591701 unknown unknown unknown T unknown 88966066 unknown unknown unknown LYMPHOCYTES_AUTO_ unknown 11582936 unknown unknown unkno wn T unknown 31842284 unknown unknown unknown T unknown 23305846 unknown unknown unknown T unknown 54573624 unknown unknown unknown T unknown 27027756 unknown unknown unknown T unknown 58120100 unknown unknown unknown T unknown 60155636 unknown unknown unknown T unknown [id number] unknown unknown unknown GFR_-_MDRD unknown 43363235 unknown unknown unknown T unknown 70099970 unknown unknown unknown EOSINOPHILS_AUTO_ unknown 61976404 unknown unknown unkno wn T unknown 50170093 unknown unknown unknown T unknown 49455066 unknown unknown unknown T unknown 11828552 unknown unknown unknown T unknown 05883271 unknown unknown unknown T unknown 64655244 unknown unknown unknown T unknown 19509450 unknown unknown unknown BILIRUBIN_TOTAL unknown [id number] unknown unknown unknown BASOPHILS_AUTO_ unknown 03339699 unknown unknown unknown T unknown 39741310 unknown unknown unknown T unknown 02210496 unknown unknown unknown T unknown 39460557 unknown unknown unknown T unknown [id number] unknown unknown unknown ALT_ALANINE_AMINOTRANS unknown 77199240 unknown unknown unknown FERASE ALKALINE_PHOSPHATASE unknown 32086504 unknown unknown un known T unknown 39608618 unknown unknown unknown T unknown 09264498 unknown unknown unknown ALBUMIN_GLOBULIN_RATIO unknown 40075969 unknown unknown unknown urea_nitrogen_blood unknown 63780714 unknown unknown unk nown Erythrocytes_volume_in unknown 20210504 unknown unknown unknown _Blood_by_Automated_cou nt Erythrocyte_distributi unknown 20210504 unknown unknown unknown on_width_Ratio_by_Autom ated_count MCV_Entitic_volume_by_ unknown 81124846 unknown unknown unknown Automated_count MCH_Entitic_mass_by_Au unknown 13108175 unknown unknown unknown tomated_count Platelets_volume_in_Bl unknown 89451715 unknown unknown unknown ood_by_Automated_count Platelet_mean_volume_E unknown 88658763 unknown unknown unknown ntitic_volume_in_Blood_ by_Rees-Ericka Hemoglobin_Mass_volume unknown 20210504 unknown unknown unknown _in_Blood leukocyte_count_blood unknown 20210504 unknown unknown u nknown erythrocyte_RBC_count unknown 20210504 unknown unknown u nknown Leukocytes_volume_in_B unknown 07868399 unknown unknown unknown lood_by_Automated_count Glomerular_Filtration_ unknown 33579125 unknown unknown unknown rate platelet_count unknown 38966743 unknown unknown unknown hemoglobin_blood unknown 66437626 unknown unknown unknow n hematocrit_blood unknown 23961758 unknown unknown unknow n potassium_blood unknown 73148582 unknown unknown unknown Glomerular_filtration_r unknown 19250090 unknown unknown unknown ate_1.73_sq_M.predicted _among_non-blacks_Volum e_Rate_Area_in_Serum_Pl asma_or_Blood_by_Creati nine-based_formula_MDRD _ Hematocrit_Volume_Frac unknown 15396062 unknown unknown unknown tion_of_Blood_by_Automa ted_count bilirubin_serum_total unknown 83741868 unknown unknown u nknown alanine_aminotransfera unknown 97278809 unknown unknown unknown se_SGPT_serum carbon_dioxide_serum_t unknown 55485486 unknown unknown unknown otal aspartate_aminotransfe unknown 04696231 unknown unknown unknown rase_SGOT_serum protein_total_serum unknown 28655629 unknown unknown unk nown blood_glucose unknown 87554643 unknown unknown unknown potassium_blood unknown 65583483 unknown unknown unknown mean_corpuscular_volum unknown 57483747 unknown unknown unknown e_RBC Urea_nitrogen_Mass_vol unknown 09614890 unknown unknown unknown ume_in_Serum_or_Plasma globulin_serum unknown 22735025 unknown unknown unknown alkaline_phosphatase_s unknown 72545574 unknown unknown unknown anthony Sodium_Moles_volume_in unknown 93922738 unknown unknown unknown _Serum_or_Plasma Protein_Mass_volume_in unknown 46886136 unknown unknown unknown _Serum_or_Plasma anion_gap_serum unknown 46541565 unknown unknown unknown mean_platelet_volume unknown 52078796 unknown unknown un known Glucose_Mass_volume_in unknown 57526505 unknown unknown unknown _Serum_or_Plasma Globulin_Mass_volume_i unknown 25403012 unknown unknown unknown n_Serum Creatinine_Mass_volume unknown 14048171 unknown unknown unknown _in_Serum_or_Plasma Chloride_Moles_volume_ unknown 60610766 unknown unknown unknown in_Serum_or_Plasma carbon_dioxide_serum_t unknown 20210504 unknown unknown unknown otal Calcium_Moles_volume_i unknown 30947494 unknown unknown unknown n_Serum_or_Plasma albumin_serum unknown 20210504 unknown unknown unknown Bilirubin.total_Mass_v unknown 20210504 unknown unknown unknown olume_in_Serum_or_Plasm a Aspartate_aminotransfe unknown 20210504 unknown unknown unknown rase_Enzymatic_activity _volume_in_Serum_or_Pla sma Anion_gap_4_in_Serum_o unknown 32863269 unknown unknown unknown r_Plasma creatinine_serum unknown 63703053 unknown unknown unknow n Alkaline_phosphatase_E unknown 02632571 unknown unknown unknown nzymatic_activity_volum e_in_Blood Albumin_Globulin_Mass_ unknown 97145062 unknown unknown unknown Ratio_in_Serum_or_Plasm a Albumin_Mass_volume_in unknown 86289310 unknown unknown unknown _Serum_or_Plasma Alanine_aminotransfera unknown 52327261 unknown unknown unknown se_Enzymatic_activity_v olume_in_Serum_or_Plasm a mean_corpuscular_hemog unknown 20267291 unknown unknown unknown lobin_concentration_rbc sodium_serum unknown 26809683 unknown unknown unknown albumin_globulin_ratio unknown 27112622 unknown unknown unknown _serum chloride_serum unknown 63153320 unknown unknown unknown calcium_serum unknown 06525317 unknown unknown unknown mean_corpuscular_hemog unknown 30090247 unknown unknown unknown lobin_RBC red_blood_cell_distrib unknown 38183426 unknown unknown unknown ution_width T unknown 77346869 unknown unknown unknown T unknown 12510090 unknown unknown unknown T unknown 92847841 unknown unknown unknown T unknown 41451004 unknown unknown unknown T unknown 27391853 unknown unknown unknown T unknown 56382136 unknown unknown unknown T unknown 65387026 unknown unknown unknown T unknown 82573190 unknown unknown unknown T unknown 85381497 unknown unknown unknown T unknown 23612763 unknown unknown unknown T unknown 25507900 unknown unknown unknown T unknown 78140114 unknown unknown unknown T unknown 05980480 unknown unknown unknown T unknown 36627918 unknown unknown unknown T unknown 06906118 unknown unknown unknown T unknown 14742869 unknown unknown unknown T unknown 76227432 unknown unknown unknown GFR_-_MDRD unknown 81803218 unknown unknown unknown T unknown 62037941 unknown unknown unknown T unknown 97994721 unknown unknown unknown T unknown 77212579 unknown unknown unknown T unknown 18156945 unknown unknown unknown T unknown 09391954 unknown unknown unknown T unknown 92519975 unknown unknown unknown BILIRUBIN_TOTAL unknown 86224263 unknown unknown unknown T unknown 52991273 unknown unknown unknown T unknown 07433221 unknown unknown unknown T unknown 92751526 unknown unknown unknown ALT_ALANINE_AMINOTRANS unknown 81904605 unknown unknown unknown FERASE ALKALINE_PHOSPHATASE unknown 01318567 unknown unknown un known T unknown 97538318 unknown unknown unknown T unknown 28445032 unknown unknown unknown ALBUMIN_GLOBULIN_RATIO unknown 50799603 unknown unknown unknown magnesium_serum unknown 21903535 unknown unknown unknown Magnesium_Moles_volume unknown 11901344 unknown unknown unknown _in_Serum_or_Plasma T unknown 69250724 unknown unknown unknown urea_nitrogen_blood unknown 63690999 unknown unknown unk nown Erythrocytes_volume_in unknown 07828050 unknown unknown unknown _Blood_by_Automated_cou nt Erythrocyte_distributi unknown 10181977 unknown unknown unknown on_width_Ratio_by_Autom ated_count MCV_Entitic_volume_by_ unknown 36149066 unknown unknown unknown Automated_count MCH_Entitic_mass_by_Au unknown 96763060 unknown unknown unknown tomated_count Platelets_volume_in_Bl unknown 61855090 unknown unknown unknown ood_by_Automated_count Platelet_mean_volume_E unknown 24515210 unknown unknown unknown ntitic_volume_in_Blood_ by_Rees-Ericka Hemoglobin_Mass_volume unknown 12943208 unknown unknown unknown _in_Blood leukocyte_count_blood unknown 35147899 unknown unknown u nknown erythrocyte_RBC_count unknown 90992463 unknown unknown u nknown Leukocytes_volume_in_B unknown 78262185 unknown unknown unknown lood_by_Automated_count Glomerular_Filtration_ unknown 89517207 unknown unknown unknown rate platelet_count unknown 37258514 unknown unknown unknown hemoglobin_blood unknown 04565887 unknown unknown unknow n hematocrit_blood unknown 96691246 unknown unknown unknow n potassium_blood unknown 15004238 unknown unknown unknown Glomerular_filtration_r unknown 77410214 unknown unknown unknown ate_1.73_sq_M.predicted _among_non-blacks_Volum e_Rate_Area_in_Serum_Pl asma_or_Blood_by_Creati nine-based_formula_MDRD _ Hematocrit_Volume_Frac unknown 61571197 unknown unknown unknown tion_of_Blood_by_Automa ted_count bilirubin_serum_total unknown 38276859 unknown unknown u nknown alanine_aminotransfera unknown 52085789 unknown unknown unknown se_SGPT_serum carbon_dioxide_serum_t unknown 43009233 unknown unknown unknown otal aspartate_aminotransfe unknown 62511066 unknown unknown unknown rase_SGOT_serum protein_total_serum unknown 63790345 unknown unknown unk nown blood_glucose unknown 31195350 unknown unknown unknown potassium_blood unknown 70124584 unknown unknown unknown magnesium_serum unknown 90240689 unknown unknown unknown mean_corpuscular_volum unknown 66236851 unknown unknown unknown e_RBC Urea_nitrogen_Mass_vol unknown 38355752 unknown unknown unknown ume_in_Serum_or_Plasma globulin_serum unknown 84638933 unknown unknown unknown alkaline_phosphatase_s unknown 75780242 unknown unknown unknown anthony Sodium_Moles_volume_in unknown 10258384 unknown unknown unknown _Serum_or_Plasma Protein_Mass_volume_in unknown 45932392 unknown unknown unknown _Serum_or_Plasma anion_gap_serum unknown 60471201 unknown unknown unknown mean_platelet_volume unknown 62811777 unknown unknown un known Magnesium_Moles_volume unknown 92699330 unknown unknown unknown _in_Serum_or_Plasma Glucose_Mass_volume_in unknown 94570147 unknown unknown unknown _Serum_or_Plasma Globulin_Mass_volume_i unknown 25782253 unknown unknown unknown n_Serum Creatinine_Mass_volume unknown 08626758 unknown unknown unknown _in_Serum_or_Plasma Chloride_Moles_volume_ unknown 01747341 unknown unknown unknown in_Serum_or_Plasma carbon_dioxide_serum_t unknown 36664277 unknown unknown unknown otal Calcium_Moles_volume_i unknown 62966205 unknown unknown unknown n_Serum_or_Plasma albumin_serum unknown 72962767 unknown unknown unknown Bilirubin.total_Mass_v unknown 51702146 unknown unknown unknown olume_in_Serum_or_Plasm a Aspartate_aminotransfe unknown 98101769 unknown unknown unknown rase_Enzymatic_activity _volume_in_Serum_or_Pla sma Anion_gap_4_in_Serum_o unknown 43005216 unknown unknown unknown r_Plasma creatinine_serum unknown 26846383 unknown unknown unknow n Alkaline_phosphatase_E unknown 09754311 unknown unknown unknown nzymatic_activity_volum e_in_Blood Albumin_Globulin_Mass_ unknown 91889092 unknown unknown unknown Ratio_in_Serum_or_Plasm a Albumin_Mass_volume_in unknown 59669210 unknown unknown unknown _Serum_or_Plasma Alanine_aminotransfera unknown 74324217 unknown unknown unknown se_Enzymatic_activity_v olume_in_Serum_or_Plasm a mean_corpuscular_hemog unknown 39635158 unknown unknown unknown lobin_concentration_rbc sodium_serum unknown 46406322 unknown unknown unknown albumin_globulin_ratio unknown 02031932 unknown unknown unknown _serum chloride_serum unknown 13385221 unknown unknown unknown calcium_serum unknown 94053072 unknown unknown unknown mean_corpuscular_hemog unknown 77781194 unknown unknown unknown lobin_RBC red_blood_cell_distrib unknown 04250389 unknown unknown unknown ution_width T unknown 11909761 unknown unknown unknown T unknown 71643084 unknown unknown unknown T unknown 35803861 unknown unknown unknown T unknown 43105757 unknown unknown unknown T unknown 40111546 unknown unknown unknown T unknown 39723228 unknown unknown unknown T unknown 44797847 unknown unknown unknown T unknown 25544863 unknown unknown unknown T unknown 94105368 unknown unknown unknown T unknown 31386625 unknown unknown unknown T unknown 85141252 unknown unknown unknown T unknown 42240151 unknown unknown unknown T unknown 17977657 unknown unknown unknown T unknown 14815608 unknown unknown unknown T unknown 54884282 unknown unknown unknown T unknown 45883712 unknown unknown unknown T unknown 51697985 unknown unknown unknown T unknown 21088023 unknown unknown unknown GFR_-_MDRD unknown 42833293 unknown unknown unknown T unknown 85862492 unknown unknown unknown T unknown 24207427 unknown unknown unknown T unknown 37727606 unknown unknown unknown T unknown 31862869 unknown unknown unknown T unknown 08039227 unknown unknown unknown T unknown 44172088 unknown unknown unknown BILIRUBIN_TOTAL unknown 73002287 unknown unknown unknown T unknown 01855337 unknown unknown unknown T unknown 88365786 unknown unknown unknown T unknown 75209115 unknown unknown unknown ALT_ALANINE_AMINOTRANS unknown 07331097 unknown unknown unknown FERASE ALKALINE_PHOSPHATASE unknown 39901694 unknown unknown un known T unknown 07658977 unknown unknown unknown T unknown 23038788 unknown unknown unknown ALBUMIN_GLOBULIN_RATIO unknown 84425940 unknown unknown unknown urea_nitrogen_blood unknown 66769325 unknown unknown unk nown Erythrocytes_volume_in unknown 77470926 unknown unknown unknown _Blood_by_Automated_cou nt Erythrocyte_distributi unknown 56072824 unknown unknown unknown on_width_Ratio_by_Autom ated_count MCV_Entitic_volume_by_ unknown 60649616 unknown unknown unknown Automated_count MCH_Entitic_mass_by_Au unknown 19112847 unknown unknown unknown tomated_count Platelets_volume_in_Bl unknown 82827994 unknown unknown unknown ood_by_Automated_count Platelet_mean_volume_E unknown 06040290 unknown unknown unknown ntitic_volume_in_Blood_ by_Rees-Ericka Hemoglobin_Mass_volume unknown 58177593 unknown unknown unknown _in_Blood leukocyte_count_blood unknown 72756038 unknown unknown u nknown erythrocyte_RBC_count unknown 64228834 unknown unknown u nknown Leukocytes_volume_in_B unknown 45521779 unknown unknown unknown lood_by_Automated_count Glomerular_Filtration_ unknown 75608486 unknown unknown unknown rate platelet_count unknown 22878204 unknown unknown unknown hemoglobin_blood unknown 71188401 unknown unknown unknow n hematocrit_blood unknown 62422790 unknown unknown unknow n potassium_blood unknown 41074481 unknown unknown unknown Glomerular_filtration_r unknown 74591477 unknown unknown unknown ate_1.73_sq_M.predicted _among_non-blacks_Volum e_Rate_Area_in_Serum_Pl asma_or_Blood_by_Creati nine-based_formula_MDRD _ Hematocrit_Volume_Frac unknown 17870162 unknown unknown unknown tion_of_Blood_by_Automa ted_count bilirubin_serum_total unknown 37843556 unknown unknown u nknown alanine_aminotransfera unknown 79318951 unknown unknown unknown se_SGPT_serum carbon_dioxide_serum_t unknown 73933699 unknown unknown unknown otal aspartate_aminotransfe unknown 23914469 unknown unknown unknown rase_SGOT_serum protein_total_serum unknown 52027845 unknown unknown unk nown blood_glucose unknown 25516990 unknown unknown unknown potassium_blood unknown 08461434 unknown unknown unknown magnesium_serum unknown 01423974 unknown unknown unknown mean_corpuscular_volum unknown 31642999 unknown unknown unknown e_RBC Urea_nitrogen_Mass_vol unknown 48353059 unknown unknown unknown ume_in_Serum_or_Plasma globulin_serum unknown 33934250 unknown unknown unknown alkaline_phosphatase_s unknown 25723057 unknown unknown unknown anthony Sodium_Moles_volume_in unknown 48970548 unknown unknown unknown _Serum_or_Plasma Protein_Mass_volume_in unknown 06122297 unknown unknown unknown _Serum_or_Plasma anion_gap_serum unknown 82519883 unknown unknown unknown mean_platelet_volume unknown 46858281 unknown unknown un known Magnesium_Moles_volume unknown 32927647 unknown unknown unknown _in_Serum_or_Plasma Glucose_Mass_volume_in unknown 87507541 unknown unknown unknown _Serum_or_Plasma Globulin_Mass_volume_i unknown 98850822 unknown unknown unknown n_Serum Creatinine_Mass_volume unknown 09092769 unknown unknown unknown _in_Serum_or_Plasma Chloride_Moles_volume_ unknown 85035645 unknown unknown unknown in_Serum_or_Plasma carbon_dioxide_serum_t unknown 72302970 unknown unknown unknown otal Calcium_Moles_volume_i unknown 79303086 unknown unknown unknown n_Serum_or_Plasma albumin_serum unknown 18614018 unknown unknown unknown Bilirubin.total_Mass_v unknown 50277237 unknown unknown unknown olume_in_Serum_or_Plasm a Aspartate_aminotransfe unknown 32132028 unknown unknown unknown rase_Enzymatic_activity _volume_in_Serum_or_Pla sma Anion_gap_4_in_Serum_o unknown 57489748 unknown unknown unknown r_Plasma creatinine_serum unknown 22308074 unknown unknown unknow n Alkaline_phosphatase_E unknown 71276939 unknown unknown unknown nzymatic_activity_volum e_in_Blood Albumin_Globulin_Mass_ unknown 65088936 unknown unknown unknown Ratio_in_Serum_or_Plasm a Albumin_Mass_volume_in unknown 70695161 unknown unknown unknown _Serum_or_Plasma Alanine_aminotransfera unknown 38916180 unknown unknown unknown se_Enzymatic_activity_v olume_in_Serum_or_Plasm a mean_corpuscular_hemog unknown 74190954 unknown unknown unknown lobin_concentration_rbc sodium_serum unknown 64937511 unknown unknown unknown albumin_globulin_ratio unknown 47012972 unknown unknown unknown _serum chloride_serum unknown 21640244 unknown unknown unknown calcium_serum unknown 29263720 unknown unknown unknown mean_corpuscular_hemog unknown 44420531 unknown unknown unknown lobin_RBC red_blood_cell_distrib unknown 46764610 unknown unknown unknown ution_width T unknown 10385432 unknown unknown unknown T unknown 38834917 unknown unknown unknown T unknown 87470240 unknown unknown unknown T unknown [id number] unknown unknown unknown T unknown 32533630 unknown unknown unknown T unknown 28105488 unknown unknown unknown T unknown 27495047 unknown unknown unknown T unknown 64584645 unknown unknown unknown T unknown 29237429 unknown unknown unknown T unknown 65978796 unknown unknown unknown T unknown 46137413 unknown unknown unknown T unknown 35723984 unknown unknown unknown T unknown 68767412 unknown unknown unknown T unknown 18636062 unknown unknown unknown T unknown [id number] unknown unknown unknown T unknown [id number] unknown unknown unknown T unknown [id number] unknown unknown unknown T unknown [id number] unknown unknown unknown GFR_-_MDRD unknown [id number] unknown unknown unknown T unknown [id number] unknown unknown unknown T unknown [id number] unknown unknown unknown T unknown [id number] unknown unknown unknown T unknown [id number] unknown unknown unknown T unknown [id number] unknown unknown unknown T unknown [id number] unknown unknown unknown BILIRUBIN_TOTAL unknown [id number] unknown unknown unknown T unknown [id number] unknown unknown unknown T unknown [id number] unknown unknown unknown T unknown [id number] unknown unknown unknown ALT_ALANINE_AMINOTRANS unknown [id number] unknown unknown unknown FERASE ALKALINE_PHOSPHATASE unknown [id number] unknown unknown un known T unknown [id number] unknown unknown unknown T unknown [id number] unknown unknown unknown ALBUMIN_GLOBULIN_RATIO unknown [id number] unknown unknown unknown magnesium_serum unknown [id number] unknown unknown unknown Magnesium_Moles_volume unknown [id number] unknown unknown unknown _in_Serum_or_Plasma T unknown 18652579 unknown unknown unknown urea_nitrogen_blood unknown [id number] unknown unknown unk nown urea_nitrogen_blood unknown 01473930 unknown unknown unk nown Erythrocytes_volume_in unknown 04221520 unknown unknown unknown _Blood_by_Automated_cou nt Erythrocytes_volume_in unknown 02373326 unknown unknown unknown _Blood_by_Automated_cou nt Erythrocyte_distributi unknown [id number] unknown unknown unknown on_width_Ratio_by_Autom ated_count MCV_Entitic_volume_by_ unknown [id number] unknown unknown unknown Automated_count MCV_Entitic_volume_by_ unknown 72322319 unknown unknown unknown Automated_count MCH_Entitic_mass_by_Au unknown 98786516 unknown unknown unknown tomated_count MCH_Entitic_mass_by_Au unknown 15258623 unknown unknown unknown tomated_count Platelets_volume_in_Bl unknown 94416386 unknown unknown unknown ood_by_Automated_count Platelets_volume_in_Bl unknown 53179183 unknown unknown unknown ood_by_Automated_count Platelet_mean_volume_E unknown 06066853 unknown unknown unknown ntitic_volume_in_Blood_ by_Rees-Ericka neutrophil_count_blood unknown 46631412 unknown unknown unknown neutrophil_count_blood unknown 87245836 unknown unknown unknown monocyte_count_blood unknown 50280540 unknown unknown un known monocyte_count_blood unknown 57143675 unknown unknown un known lymphocyte_count_blood unknown 49366844 unknown unknown unknown lymphocyte_count_blood unknown 45726192 unknown unknown unknown Hemoglobin_Mass_volume unknown 70014496 unknown unknown unknown _in_Blood Hemoglobin_Mass_volume unknown 47513823 unknown unknown unknown _in_Blood eosinophil_count_blood unknown 73236399 unknown unknown unknown Basophils_volume_in_Bl unknown 74069274 unknown unknown unknown ood_by_Manual_count leukocyte_count_blood unknown 72394481 unknown unknown u nknown leukocyte_count_blood unknown 01083357 unknown unknown u nknown erythrocyte_RBC_count unknown [id number] unknown unknown u nknown erythrocyte_RBC_count unknown [id number] unknown unknown u nknown Leukocytes_volume_in_B unknown 22098669 unknown unknown unknown lood_by_Automated_count Leukocytes_volume_in_B unknown 68960194 unknown unknown unknown lood_by_Automated_count Glomerular_Filtration_ unknown 22157078 unknown unknown unknown rate Glomerular_Filtration_ unknown 95888921 unknown unknown unknown rate platelet_count unknown 54732058 unknown unknown unknown platelet_count unknown 73450218 unknown unknown unknown hemoglobin_blood unknown 08457018 unknown unknown unknow n hemoglobin_blood unknown 86236681 unknown unknown unknow n hematocrit_blood unknown 22752918 unknown unknown unknow n hematocrit_blood unknown 29725507 unknown unknown unknow n potassium_blood unknown 52008117 unknown unknown unknown potassium_blood unknown 70692395 unknown unknown unknown Glomerular_filtration_r unknown 52493007 unknown unknown unknown ate_1.73_sq_M.predicted _among_non-blacks_Volum e_Rate_Area_in_Serum_Pl asma_or_Blood_by_Creati nine-based_formula_MDRD _ Glomerular_filtration_r unknown [id number] unknown unknown unknown ate_1.73_sq_M.predicted _among_non-blacks_Volum e_Rate_Area_in_Serum_Pl asma_or_Blood_by_Creati nine-based_formula_MDRD _ Hematocrit_Volume_Frac unknown [id number] unknown unknown unknown tion_of_Blood_by_Automa ted_count Hematocrit_Volume_Frac unknown 19033625 unknown unknown unknown tion_of_Blood_by_Automa ted_count bilirubin_serum_total unknown 35581905 unknown unknown u nknown bilirubin_serum_total unknown 18803446 unknown unknown u nknown alanine_aminotransfera unknown 23401095 unknown unknown unknown se_SGPT_serum alanine_aminotransfera unknown 54517340 unknown unknown unknown se_SGPT_serum carbon_dioxide_serum_t unknown 88361693 unknown unknown unknown otal aspartate_aminotransfe unknown [id number] unknown unknown unknown rase_SGOT_serum aspartate_aminotransfe unknown 89161024 unknown unknown unknown rase_SGOT_serum protein_total_serum unknown 13521105 unknown unknown unk nown protein_total_serum unknown 90686987 unknown unknown unk nown blood_glucose unknown 29654587 unknown unknown unknown blood_glucose unknown 04150713 unknown unknown unknown potassium_blood unknown 79064617 unknown unknown unknown potassium_blood unknown 52424799 unknown unknown unknown magnesium_serum unknown 51509263 unknown unknown unknown magnesium_serum unknown 73581606 unknown unknown unknown mean_corpuscular_volum unknown 15462893 unknown unknown unknown e_RBC mean_corpuscular_volum unknown 18556964 unknown unknown unknown e_RBC Urea_nitrogen_Mass_vol unknown 57114896 unknown unknown unknown ume_in_Serum_or_Plasma Urea_nitrogen_Mass_vol unknown 98620371 unknown unknown unknown ume_in_Serum_or_Plasma globulin_serum unknown 01048965 unknown unknown unknown globulin_serum unknown 38200275 unknown unknown unknown alkaline_phosphatase_s unknown 90495701 unknown unknown unknown anthony alkaline_phosphatase_s unknown 90081897 unknown unknown unknown anthony Sodium_Moles_volume_in unknown 86002941 unknown unknown unknown _Serum_or_Plasma Sodium_Moles_volume_in unknown 18168495 unknown unknown unknown _Serum_or_Plasma Protein_Mass_volume_in unknown 61093701 unknown unknown unknown _Serum_or_Plasma Protein_Mass_volume_in unknown 39134126 unknown unknown unknown _Serum_or_Plasma eosinophil_count_blood unknown 41891218 unknown unknown unknown anion_gap_serum unknown 38465085 unknown unknown unknown mean_platelet_volume unknown 05212007 unknown unknown un known Magnesium_Moles_volume unknown 96745091 unknown unknown unknown _in_Serum_or_Plasma Magnesium_Moles_volume unknown 25899691 unknown unknown unknown _in_Serum_or_Plasma basophil_count_blood unknown 71257489 unknown unknown un known monocyte_count_blood unknown 08303863 unknown unknown un known monocyte_count_blood unknown 43582978 unknown unknown un known lymphocyte_count_blood unknown 96343400 unknown unknown unknown lymphocyte_count_blood unknown 52022013 unknown unknown unknown neutrophil_count_blood unknown 48809267 unknown unknown unknown neutrophil_count_blood unknown 43962760 unknown unknown unknown Glucose_Mass_volume_in unknown 28060135 unknown unknown unknown _Serum_or_Plasma Glucose_Mass_volume_in unknown 64555042 unknown unknown unknown _Serum_or_Plasma Globulin_Mass_volume_i unknown 45356376 unknown unknown unknown n_Serum Globulin_Mass_volume_i unknown 93797171 unknown unknown unknown n_Serum Creatinine_Mass_volume unknown 58801320 unknown unknown unknown _in_Serum_or_Plasma Creatinine_Mass_volume unknown 11219756 unknown unknown unknown _in_Serum_or_Plasma Chloride_Moles_volume_ unknown 03143582 unknown unknown unknown in_Serum_or_Plasma Chloride_Moles_volume_ unknown 41965503 unknown unknown unknown in_Serum_or_Plasma carbon_dioxide_serum_t unknown 50662875 unknown unknown unknown otal Calcium_Moles_volume_i unknown 61183216 unknown unknown unknown n_Serum_or_Plasma albumin_serum unknown 71031625 unknown unknown unknown Bilirubin.total_Mass_v unknown 12874120 unknown unknown unknown olume_in_Serum_or_Plasm a Bilirubin.total_Mass_v unknown 90218042 unknown unknown unknown olume_in_Serum_or_Plasm a Aspartate_aminotransfe unknown 00731435 unknown unknown unknown rase_Enzymatic_activity _volume_in_Serum_or_Pla sma Aspartate_aminotransfe unknown 20700160 unknown unknown unknown rase_Enzymatic_activity _volume_in_Serum_or_Pla sma Anion_gap_4_in_Serum_o unknown 07350214 unknown unknown unknown r_Plasma creatinine_serum unknown 49649579 unknown unknown unknow n creatinine_serum unknown 66313553 unknown unknown unknow n Alkaline_phosphatase_E unknown 04106293 unknown unknown unknown nzymatic_activity_volum e_in_Blood Alkaline_phosphatase_E unknown 87299465 unknown unknown unknown nzymatic_activity_volum e_in_Blood Albumin_Globulin_Mass_ unknown 89923641 unknown unknown unknown Ratio_in_Serum_or_Plasm a Albumin_Globulin_Mass_ unknown 95565644 unknown unknown unknown Ratio_in_Serum_or_Plasm a Albumin_Mass_volume_in unknown 89736654 unknown unknown unknown _Serum_or_Plasma Alanine_aminotransfera unknown 89034062 unknown unknown unknown se_Enzymatic_activity_v olume_in_Serum_or_Plasm a Alanine_aminotransfera unknown 06064654 unknown unknown unknown se_Enzymatic_activity_v olume_in_Serum_or_Plasm a mean_corpuscular_hemog unknown 00271526 unknown unknown unknown lobin_concentration_rbc sodium_serum unknown 05045592 unknown unknown unknown sodium_serum unknown 54293752 unknown unknown unknown albumin_globulin_ratio unknown 96327629 unknown unknown unknown _serum albumin_globulin_ratio unknown 01233375 unknown unknown unknown _serum chloride_serum unknown 03957420 unknown unknown unknown chloride_serum unknown 66396482 unknown unknown unknown calcium_serum unknown 08294276 unknown unknown unknown mean_corpuscular_hemog unknown 89939069 unknown unknown unknown lobin_RBC mean_corpuscular_hemog unknown 63423044 unknown unknown unknown lobin_RBC red_blood_cell_distrib unknown 73969865 unknown unknown unknown ution_width T unknown 23082544 unknown unknown unknown T unknown [id number] unknown unknown unknown T unknown 94364493 unknown unknown unknown T unknown 18237224 unknown unknown unknown T unknown 67574389 unknown unknown unknown T unknown 22248043 unknown unknown unknown T unknown 79900507 unknown unknown unknown T unknown 56480002 unknown unknown unknown T unknown 64938243 unknown unknown unknown T unknown 23042513 unknown unknown unknown T unknown 94700383 unknown unknown unknown NEUTROPHILS_AUTO_ unknown 67849630 unknown unknown unkno wn NEUTROPHILS_AUTO_ unknown 59800456 unknown unknown unkno wn T unknown [id number] unknown unknown unknown T unknown [id number] unknown unknown unknown T unknown 34686558 unknown unknown unknown T unknown [id number] unknown unknown unknown T unknown [id number] unknown unknown unknown MONOCYTES_AUTO_ unknown [id number] unknown unknown unknown MONOCYTES_AUTO_ unknown 90056554 unknown unknown unknown T unknown 54273100 unknown unknown unknown T unknown 78865883 unknown unknown unknown T unknown 93356214 unknown unknown unknown T unknown [id number] unknown unknown unknown T unknown 80353464 unknown unknown unknown T unknown 74437638 unknown unknown unknown T unknown 28610472 unknown unknown unknown T unknown 93023709 unknown unknown unknown T unknown [id number] unknown unknown unknown LYMPHOCYTES_AUTO_ unknown [id number] unknown unknown unkno wn LYMPHOCYTES_AUTO_ unknown [id number] unknown unknown unkno wn T unknown [id number] unknown unknown unknown T unknown 13846600 unknown unknown unknown T unknown 11150381 unknown unknown unknown T unknown 64394525 unknown unknown unknown T unknown 01851803 unknown unknown unknown T unknown 62737596 unknown unknown unknown T unknown [id number] unknown unknown unknown T unknown 52290856 unknown unknown unknown T unknown [id number] unknown unknown unknown T unknown 20297416 unknown unknown unknown T unknown 46068844 unknown unknown unknown T unknown 60501992 unknown unknown unknown T unknown [id number] unknown unknown unknown T unknown 24213399 unknown unknown unknown GFR_-_MDRD unknown 39111127 unknown unknown unknown GFR_-_MDRD unknown 55523030 unknown unknown unknown T unknown 75478466 unknown unknown unknown EOSINOPHILS_AUTO_ unknown 87626378 unknown unknown unkno wn T unknown 17769917 unknown unknown unknown T unknown 06045504 unknown unknown unknown T unknown 29122144 unknown unknown unknown T unknown 07512964 unknown unknown unknown T unknown 77745716 unknown unknown unknown T unknown 03487739 unknown unknown unknown T unknown 20392064 unknown unknown unknown T unknown 52131127 unknown unknown unknown T unknown 48294622 unknown unknown unknown BILIRUBIN_TOTAL unknown 70335587 unknown unknown unknown BILIRUBIN_TOTAL unknown 26861403 unknown unknown unknown BASOPHILS_AUTO_ unknown [id number] unknown unknown unknown T unknown 17033084 unknown unknown unknown T unknown [id number] unknown unknown unknown T unknown 93046306 unknown unknown unknown T unknown 82902752 unknown unknown unknown T unknown 95226202 unknown unknown unknown T unknown [id number] unknown unknown unknown T unknown 88438384 unknown unknown unknown ALT_ALANINE_AMINOTRANS unknown 53411600 unknown unknown unknown FERASE ALT_ALANINE_AMINOTRANS unknown [id number] unknown unknown unknown FERASE ALKALINE_PHOSPHATASE unknown [id number] unknown unknown un known ALKALINE_PHOSPHATASE unknown [id number] unknown unknown un known T unknown [id number] unknown unknown unknown T unknown 78766129 unknown unknown unknown T unknown [id number] unknown unknown unknown ALBUMIN_GLOBULIN_RATIO unknown 29470183 unknown unknown unknown ALBUMIN_GLOBULIN_RATIO unknown 79576308 unknown unknown unknown neutrophil_count_blood unknown 74253573 unknown unknown unknown monocyte_count_blood unknown 12053117 unknown unknown un known lymphocyte_count_blood unknown 17485401 unknown unknown unknown eosinophil_count_blood unknown 43103501 unknown unknown unknown Basophils_volume_in_Bl unknown 08462113 unknown unknown unknown ood_by_Manual_count eosinophil_count_blood unknown 37975666 unknown unknown unknown basophil_count_blood unknown 53545600 unknown unknown un known monocyte_count_blood unknown 80035629 unknown unknown un known lymphocyte_count_blood unknown 68749202 unknown unknown unknown neutrophil_count_blood unknown 46893763 unknown unknown unknown NEUTROPHILS_AUTO_ unknown 38593835 unknown unknown unkno wn T unknown 15694413 unknown unknown unknown MONOCYTES_AUTO_ unknown [id number] unknown unknown unknown T unknown [id number] unknown unknown unknown LYMPHOCYTES_AUTO_ unknown [id number] unknown unknown unkno wn T unknown [id number] unknown unknown unknown EOSINOPHILS_AUTO_ unknown [id number] unknown unknown unkno wn T unknown [id number] unknown unknown unknown BASOPHILS_AUTO_ unknown [id number] unknown unknown unknown T unknown 63971788 unknown unknown unknown Chlamydia_trachomatis_ unknown [id number] unknown unknown unknown DNA_Presence_in_Specime n_by_NAA_with_probe_det ection chlamydia_DNA_probe unknown 63043076 unknown unknown unk nown TRICHOMONAS_VAGINALIS_ unknown 01402910 unknown unknown unknown DNA_PROBE TRICHOMONAS_VAGINALIS_ unknown [id number] unknown unknown unknown DNA T unknown [id number] unknown unknown unknown CHLAMYDIA_TRACHOMATIS_ unknown 21067557 unknown unknown unknown DNA T unknown [id number] unknown unknown unknown urea_nitrogen_blood unknown 84992318 unknown unknown unk nown Erythrocytes_volume_in unknown 86588180 unknown unknown unknown _Blood_by_Automated_cou nt Erythrocyte_distributi unknown 18642225 unknown unknown unknown on_width_Ratio_by_Autom ated_count MCV_Entitic_volume_by_ unknown 09556205 unknown unknown unknown Automated_count MCH_Entitic_mass_by_Au unknown 39422122 unknown unknown unknown tomated_count Platelets_volume_in_Bl unknown 43372996 unknown unknown unknown ood_by_Automated_count Platelet_mean_volume_E unknown 21508364 unknown unknown unknown ntitic_volume_in_Blood_ by_Rees-Ericka neutrophil_count_blood unknown 47792278 unknown unknown unknown monocyte_count_blood unknown 59037381 unknown unknown un known lymphocyte_count_blood unknown 53649865 unknown unknown unknown Hemoglobin_Mass_volume unknown 32374642 unknown unknown unknown _in_Blood eosinophil_count_blood unknown 40654414 unknown unknown unknown Basophils_volume_in_Bl unknown 77990248 unknown unknown unknown ood_by_Manual_count leukocyte_count_blood unknown 80011023 unknown unknown u nknown erythrocyte_RBC_count unknown 31082122 unknown unknown u nknown Leukocytes_volume_in_B unknown 37257169 unknown unknown unknown lood_by_Automated_count Glomerular_Filtration_ unknown 12823073 unknown unknown unknown rate platelet_count unknown 80964919 unknown unknown unknown hemoglobin_blood unknown 72714682 unknown unknown unknow n hematocrit_blood unknown 06982960 unknown unknown unknow n potassium_blood unknown 08327621 unknown unknown unknown Glomerular_filtration_r unknown 29395476 unknown unknown unknown ate_1.73_sq_M.predicted _among_non-blacks_Volum e_Rate_Area_in_Serum_Pl asma_or_Blood_by_Creati nine-based_formula_MDRD _ Hematocrit_Volume_Frac unknown 19950372 unknown unknown unknown tion_of_Blood_by_Automa ted_count bilirubin_serum_total unknown 27213659 unknown unknown u nknown alanine_aminotransfera unknown 50958574 unknown unknown unknown se_SGPT_serum carbon_dioxide_serum_t unknown 70577312 unknown unknown unknown otal aspartate_aminotransfe unknown 42749241 unknown unknown unknown rase_SGOT_serum protein_total_serum unknown 86124975 unknown unknown unk nown blood_glucose unknown 35850929 unknown unknown unknown potassium_blood unknown 72072827 unknown unknown unknown mean_corpuscular_volum unknown 90731329 unknown unknown unknown e_RBC Urea_nitrogen_Mass_vol unknown 40808729 unknown unknown unknown ume_in_Serum_or_Plasma globulin_serum unknown 94276474 unknown unknown unknown alkaline_phosphatase_s unknown 42103553 unknown unknown unknown anthony Sodium_Moles_volume_in unknown 21452770 unknown unknown unknown _Serum_or_Plasma Protein_Mass_volume_in unknown 61045421 unknown unknown unknown _Serum_or_Plasma eosinophil_count_blood unknown 33099212 unknown unknown unknown anion_gap_serum unknown 52134137 unknown unknown unknown mean_platelet_volume unknown 67441384 unknown unknown un known basophil_count_blood unknown 88647162 unknown unknown un known monocyte_count_blood unknown 49369123 unknown unknown un known lymphocyte_count_blood unknown 15034682 unknown unknown unknown neutrophil_count_blood unknown 06512010 unknown unknown unknown Glucose_Mass_volume_in unknown 71278625 unknown unknown unknown _Serum_or_Plasma Globulin_Mass_volume_i unknown 77088029 unknown unknown unknown n_Serum Chlamydia_trachomatis_ unknown [id number] unknown unknown unknown DNA_Presence_in_Specime n_by_NAA_with_probe_det ection Creatinine_Mass_volume unknown 92837197 unknown unknown unknown _in_Serum_or_Plasma Chloride_Moles_volume_ unknown 73234713 unknown unknown unknown in_Serum_or_Plasma carbon_dioxide_serum_t unknown 33755876 unknown unknown unknown otal Calcium_Moles_volume_i unknown 59662957 unknown unknown unknown n_Serum_or_Plasma albumin_serum unknown 99207917 unknown unknown unknown Bilirubin.total_Mass_v unknown 94362528 unknown unknown unknown olume_in_Serum_or_Plasm a Aspartate_aminotransfe unknown 47296995 unknown unknown unknown rase_Enzymatic_activity _volume_in_Serum_or_Pla sma Anion_gap_4_in_Serum_o unknown 67134830 unknown unknown unknown r_Plasma creatinine_serum unknown 95632536 unknown unknown unknow n Alkaline_phosphatase_E unknown 47898396 unknown unknown unknown nzymatic_activity_volum e_in_Blood Albumin_Globulin_Mass_ unknown 39659092 unknown unknown unknown Ratio_in_Serum_or_Plasm a Albumin_Mass_volume_in unknown 46140693 unknown unknown unknown _Serum_or_Plasma Alanine_aminotransfera unknown 14418318 unknown unknown unknown se_Enzymatic_activity_v olume_in_Serum_or_Plasm a mean_corpuscular_hemog unknown 23041684 unknown unknown unknown lobin_concentration_rbc sodium_serum unknown 11518965 unknown unknown unknown chlamydia_DNA_probe unknown 66354401 unknown unknown unk nown albumin_globulin_ratio unknown 20040439 unknown unknown unknown _serum chloride_serum unknown 63880362 unknown unknown unknown TRICHOMONAS_VAGINALIS_ unknown 43907602 unknown unknown unknown DNA_PROBE calcium_serum unknown 78166292 unknown unknown unknown mean_corpuscular_hemog unknown 51730761 unknown unknown unknown lobin_RBC red_blood_cell_distrib unknown 84086099 unknown unknown unknown ution_width T unknown 01463952 unknown unknown unknown TRICHOMONAS_VAGINALIS_ unknown 08758996 unknown unknown unknown DNA T unknown [id number] unknown unknown unknown T unknown 72816247 unknown unknown unknown T unknown 07942743 unknown unknown unknown T unknown 41989553 unknown unknown unknown T unknown 05902212 unknown unknown unknown T unknown 26920969 unknown unknown unknown NEUTROPHILS_AUTO_ unknown 25593711 unknown unknown unkno wn T unknown [id number] unknown unknown unknown T unknown 78352446 unknown unknown unknown T unknown 69630178 unknown unknown unknown MONOCYTES_AUTO_ unknown [id number] unknown unknown unknown T unknown 37149733 unknown unknown unknown T unknown 36539391 unknown unknown unknown T unknown 41018622 unknown unknown unknown T unknown 35560439 unknown unknown unknown LYMPHOCYTES_AUTO_ unknown 66383087 unknown unknown unkno wn T unknown 04002168 unknown unknown unknown T unknown 28798193 unknown unknown unknown T unknown 10452979 unknown unknown unknown T unknown [id number] unknown unknown unknown T unknown 28305573 unknown unknown unknown T unknown 72020948 unknown unknown unknown T unknown 10593979 unknown unknown unknown GFR_-_MDRD unknown [id number] unknown unknown unknown T unknown 76021088 unknown unknown unknown EOSINOPHILS_AUTO_ unknown [id number] unknown unknown unkno wn T unknown 59508516 unknown unknown unknown CHLAMYDIA_TRACHOMATIS_ unknown [id number] unknown unknown unknown DNA T unknown 82479368 unknown unknown unknown T unknown 56582829 unknown unknown unknown T unknown 18078331 unknown unknown unknown T unknown 28195931 unknown unknown unknown T unknown 95625920 unknown unknown unknown T unknown 89542050 unknown unknown unknown BILIRUBIN_TOTAL unknown 41263526 unknown unknown unknown BASOPHILS_AUTO_ unknown 12660989 unknown unknown unknown T unknown [id number] unknown unknown unknown T unknown [id number] unknown unknown unknown T unknown 46967419 unknown unknown unknown T unknown [id number] unknown unknown unknown ALT_ALANINE_AMINOTRANS unknown 37002827 unknown unknown unknown FERASE ALKALINE_PHOSPHATASE unknown [id number] unknown unknown un known T unknown [id number] unknown unknown unknown T unknown 67302621 unknown unknown unknown ALBUMIN_GLOBULIN_RATIO unknown 58292964 unknown unknown unknown Chlamydia_trachomatis_ unknown [id number] unknown unknown unknown DNA_Presence_in_Specime n_by_NAA_with_probe_det ection chlamydia_DNA_probe unknown 32485196 unknown unknown unk nown TRICHOMONAS_VAGINALIS_ unknown [id number] unknown unknown unknown DNA_PROBE TRICHOMONAS_VAGINALIS_ unknown 32466005 unknown unknown unknown DNA T unknown [id number] unknown unknown unknown CHLAMYDIA_TRACHOMATIS_ unknown [id number] unknown unknown unknown DNA T unknown [id number] unknown unknown unknown Chlamydia_trachomatis_ unknown [id number] unknown unknown unknown DNA_Presence_in_Specime n_by_NAA_with_probe_det ection chlamydia_DNA_probe unknown 98027802 unknown unknown unk nown TRICHOMONAS_VAGINALIS_ unknown [id number] unknown unknown unknown DNA_PROBE TRICHOMONAS_VAGINALIS_ unknown [id number] unknown unknown unknown DNA T unknown [id number] unknown unknown unknown CHLAMYDIA_TRACHOMATIS_ unknown [id number] unknown unknown unknown DNA T unknown 98316127 unknown unknown unknown platelet_count_estimat unknown 27197827 unknown unknown unknown e uric_acid_serum unknown 58111918 unknown unknown unknown platelet_count_estimat unknown 13056182 unknown unknown unknown e Urate_Mass_volume_in_S unknown 80518883 unknown unknown unknown erum_or_Plasma Vaginal_Group_B_Strep_ unknown 20210428 unknown unknown unknown by_Real-Time_PCR LACTATE_DEHYDROGENASE unknown [id number] unknown unknown u nknown Slide_Interpretation unknown [id number] unknown unknown un known T unknown [id number] unknown unknown unknown T unknown [id number] unknown unknown unknown SLIDE_REVIEW_ unknown [id number] unknown unknown unknown T unknown [id number] unknown unknown unknown PLATELET_ESTIMATE_MANU unknown [id number] unknown unknown unknown AL T unknown [id number] unknown unknown unknown T unknown 20210428 unknown unknown unknown GROUP_B_STREP_PCR unknown 20210428 unknown unknown unkno wn platelet_count_estimat unknown 20210428 unknown unknown unknown e Erythrocytes_volume_in unknown 20210428 unknown unknown unknown _Blood_by_Automated_cou nt Erythrocyte_distributi unknown 20210428 unknown unknown unknown on_width_Ratio_by_Autom ated_count MCV_Entitic_volume_by_ unknown [id number] unknown unknown unknown Automated_count MCH_Entitic_mass_by_Au unknown 16572001 unknown unknown unknown tomated_count Platelets_volume_in_Bl unknown 05531011 unknown unknown unknown ood_by_Automated_count Platelet_mean_volume_E unknown [id number] unknown unknown unknown ntitic_volume_in_Blood_ by_Rees-Ericka neutrophil_count_blood unknown 91672108 unknown unknown unknown monocyte_count_blood unknown 81309391 unknown unknown un known lymphocyte_count_blood unknown [id number] unknown unknown unknown Hemoglobin_Mass_volume unknown 16314704 unknown unknown unknown _in_Blood eosinophil_count_blood unknown 51089309 unknown unknown unknown Basophils_volume_in_Bl unknown [id number] unknown unknown unknown ood_by_Manual_count leukocyte_count_blood unknown [id number] unknown unknown u nknown erythrocyte_RBC_count unknown 82127178 unknown unknown u nknown Leukocytes_volume_in_B unknown 20210428 unknown unknown unknown lood_by_Automated_count platelet_count unknown 57632663 unknown unknown unknown hemoglobin_blood unknown [id number] unknown unknown unknow n hematocrit_blood unknown 67418925 unknown unknown unknow n uric_acid_serum unknown 81379554 unknown unknown unknown Hematocrit_Volume_Frac unknown 15520044 unknown unknown unknown tion_of_Blood_by_Automa ted_count alanine_aminotransfera unknown 80328460 unknown unknown unknown se_SGPT_serum aspartate_aminotransfe unknown 74942290 unknown unknown unknown rase_SGOT_serum mean_corpuscular_volum unknown 52419226 unknown unknown unknown e_RBC platelet_count_estimat unknown 52225930 unknown unknown unknown e Urate_Mass_volume_in_S unknown 98340394 unknown unknown unknown erum_or_Plasma eosinophil_count_blood unknown 89908628 unknown unknown unknown mean_platelet_volume unknown 77009423 unknown unknown un known basophil_count_blood unknown 17625665 unknown unknown un known monocyte_count_blood unknown 57867201 unknown unknown un known lymphocyte_count_blood unknown 45734645 unknown unknown unknown neutrophil_count_blood unknown 72590362 unknown unknown unknown Aspartate_aminotransfe unknown 37000239 unknown unknown unknown rase_Enzymatic_activity _volume_in_Serum_or_Pla sma Alanine_aminotransfera unknown 28535902 unknown unknown unknown se_Enzymatic_activity_v olume_in_Serum_or_Plasm a mean_corpuscular_hemog unknown 25508040 unknown unknown unknown lobin_concentration_rbc Vaginal_Group_B_Strep_ unknown 42526146 unknown unknown unknown by_Real-Time_PCR LACTATE_DEHYDROGENASE unknown 54122959 unknown unknown u nknown mean_corpuscular_hemog unknown [id number] unknown unknown unknown lobin_RBC red_blood_cell_distrib unknown 36369498 unknown unknown unknown ution_width Slide_Interpretation unknown 62578149 unknown unknown un known T unknown 35212952 unknown unknown unknown T unknown 23662169 unknown unknown unknown T unknown 29116871 unknown unknown unknown SLIDE_REVIEW_ unknown [id number] unknown unknown unknown T unknown 84870442 unknown unknown unknown T unknown 42078811 unknown unknown unknown T unknown 30993296 unknown unknown unknown PLATELET_ESTIMATE_MANU unknown 00349035 unknown unknown unknown AL T unknown [id number] unknown unknown unknown NEUTROPHILS_AUTO_ unknown [id number] unknown unknown unkno wn T unknown [id number] unknown unknown unknown T unknown 42518300 unknown unknown unknown MONOCYTES_AUTO_ unknown 25519119 unknown unknown unknown T unknown [id number] unknown unknown unknown T unknown 71830720 unknown unknown unknown T unknown 10080089 unknown unknown unknown T unknown [id number] unknown unknown unknown LYMPHOCYTES_AUTO_ unknown [id number] unknown unknown unkno wn T unknown [id number] unknown unknown unknown T unknown 02459853 unknown unknown unknown T unknown [id number] unknown unknown unknown T unknown 98564246 unknown unknown unknown T unknown 25174511 unknown unknown unknown GROUP_B_STREP_PCR unknown [id number] unknown unknown unkno wn EOSINOPHILS_AUTO_ unknown [id number] unknown unknown unkno wn T unknown 83287652 unknown unknown unknown BASOPHILS_AUTO_ unknown 29012528 unknown unknown unknown T unknown 18842598 unknown unknown unknown T unknown 87901961 unknown unknown unknown T unknown 17730427 unknown unknown unknown ALT_ALANINE_AMINOTRANS unknown 61348339 unknown unknown unknown FERASE platelet_count_estimat unknown [id number] unknown unknown unknown e Erythrocytes_volume_in unknown 20210428 unknown unknown unknown _Blood_by_Automated_cou nt Erythrocyte_distributi unknown 20210428 unknown unknown unknown on_width_Ratio_by_Autom ated_count MCV_Entitic_volume_by_ unknown 92379231 unknown unknown unknown Automated_count MCH_Entitic_mass_by_Au unknown 70294621 unknown unknown unknown tomated_count Platelets_volume_in_Bl unknown 49678294 unknown unknown unknown ood_by_Automated_count Platelet_mean_volume_E unknown 03821523 unknown unknown unknown ntitic_volume_in_Blood_ by_Rees-Ericka neutrophil_count_blood unknown 73933569 unknown unknown unknown monocyte_count_blood unknown 25633583 unknown unknown un known lymphocyte_count_blood unknown 72065817 unknown unknown unknown Hemoglobin_Mass_volume unknown 30573588 unknown unknown unknown _in_Blood eosinophil_count_blood unknown 22715660 unknown unknown unknown Basophils_volume_in_Bl unknown 02547640 unknown unknown unknown ood_by_Manual_count leukocyte_count_blood unknown 59084929 unknown unknown u nknown erythrocyte_RBC_count unknown 06237025 unknown unknown u nknown Leukocytes_volume_in_B unknown 75239053 unknown unknown unknown lood_by_Automated_count platelet_count unknown 30877250 unknown unknown unknown hemoglobin_blood unknown 63916907 unknown unknown unknow n hematocrit_blood unknown 18182912 unknown unknown unknow n uric_acid_serum unknown 54292115 unknown unknown unknown Hematocrit_Volume_Frac unknown 39610839 unknown unknown unknown tion_of_Blood_by_Automa ted_count alanine_aminotransfera unknown 74301594 unknown unknown unknown se_SGPT_serum aspartate_aminotransfe unknown 50753870 unknown unknown unknown rase_SGOT_serum mean_corpuscular_volum unknown 39276866 unknown unknown unknown e_RBC platelet_count_estimat unknown 68181822 unknown unknown unknown e Urate_Mass_volume_in_S unknown 63142592 unknown unknown unknown erum_or_Plasma eosinophil_count_blood unknown 36143681 unknown unknown unknown mean_platelet_volume unknown 34814420 unknown unknown un known basophil_count_blood unknown 97242133 unknown unknown un known monocyte_count_blood unknown 49937813 unknown unknown un known lymphocyte_count_blood unknown 94809461 unknown unknown unknown neutrophil_count_blood unknown 38380437 unknown unknown unknown Aspartate_aminotransfe unknown 79777796 unknown unknown unknown rase_Enzymatic_activity _volume_in_Serum_or_Pla sma Alanine_aminotransfera unknown 70953045 unknown unknown unknown se_Enzymatic_activity_v olume_in_Serum_or_Plasm a mean_corpuscular_hemog unknown 72751723 unknown unknown unknown lobin_concentration_rbc Vaginal_Group_B_Strep_ unknown 23456561 unknown unknown unknown by_Real-Time_PCR LACTATE_DEHYDROGENASE unknown 94434064 unknown unknown u nknown mean_corpuscular_hemog unknown 22304520 unknown unknown unknown lobin_RBC red_blood_cell_distrib unknown 95180907 unknown unknown unknown ution_width Slide_Interpretation unknown 12655488 unknown unknown un known T unknown 47390212 unknown unknown unknown T unknown 53841384 unknown unknown unknown T unknown 94397177 unknown unknown unknown SLIDE_REVIEW_ unknown 41790317 unknown unknown unknown T unknown 93995223 unknown unknown unknown T unknown 43025025 unknown unknown unknown T unknown 68289376 unknown unknown unknown PLATELET_ESTIMATE_MANU unknown 85662780 unknown unknown unknown AL T unknown 35110275 unknown unknown unknown NEUTROPHILS_AUTO_ unknown 22956406 unknown unknown unkno wn T unknown 28288452 unknown unknown unknown T unknown 57117218 unknown unknown unknown MONOCYTES_AUTO_ unknown 37292837 unknown unknown unknown T unknown 84874173 unknown unknown unknown T unknown 65318961 unknown unknown unknown T unknown 63326128 unknown unknown unknown T unknown 28826102 unknown unknown unknown LYMPHOCYTES_AUTO_ unknown 77082102 unknown unknown unkno wn T unknown 48845741 unknown unknown unknown T unknown 86329679 unknown unknown unknown T unknown [id number] unknown unknown unknown T unknown 07632283 unknown unknown unknown T unknown 84111991 unknown unknown unknown GROUP_B_STREP_PCR unknown 25588639 unknown unknown unkno wn EOSINOPHILS_AUTO_ unknown 50201824 unknown unknown unkno wn T unknown 22149156 unknown unknown unknown BASOPHILS_AUTO_ unknown [id number] unknown unknown unknown T unknown 72419912 unknown unknown unknown T unknown 69173437 unknown unknown unknown T unknown 24490192 unknown unknown unknown ALT_ALANINE_AMINOTRANS unknown 98477315 unknown unknown unknown FERASE platelet_count_estimat unknown 78225919 unknown unknown unknown e uric_acid_serum unknown 51012370 unknown unknown unknown platelet_count_estimat unknown 08540628 unknown unknown unknown e Urate_Mass_volume_in_S unknown 91568585 unknown unknown unknown erum_or_Plasma Vaginal_Group_B_Strep_ unknown 04298165 unknown unknown unknown by_Real-Time_PCR LACTATE_DEHYDROGENASE unknown 18035738 unknown unknown u nknown Slide_Interpretation unknown 01913235 unknown unknown un known T unknown 52954032 unknown unknown unknown T unknown [id number] unknown unknown unknown SLIDE_REVIEW_ unknown [id number] unknown unknown unknown T unknown [id number] unknown unknown unknown PLATELET_ESTIMATE_MANU unknown 59753177 unknown unknown unknown AL T unknown [id number] unknown unknown unknown T unknown 80398098 unknown unknown unknown GROUP_B_STREP_PCR unknown 33774530 unknown unknown unkno wn platelet_count_estimat unknown 26653423 unknown unknown unknown e uric_acid_serum unknown 61117735 unknown unknown unknown platelet_count_estimat unknown 16596062 unknown unknown unknown e Urate_Mass_volume_in_S unknown 88514959 unknown unknown unknown erum_or_Plasma Vaginal_Group_B_Strep_ unknown 88512035 unknown unknown unknown by_Real-Time_PCR LACTATE_DEHYDROGENASE unknown 88568267 unknown unknown u nknown Slide_Interpretation unknown 59581334 unknown unknown un known T unknown 75409258 unknown unknown unknown T unknown 33649232 unknown unknown unknown SLIDE_REVIEW_ unknown 28779371 unknown unknown unknown T unknown 24128745 unknown unknown unknown PLATELET_ESTIMATE_MANU unknown 55514731 unknown unknown unknown AL T unknown 80044621 unknown unknown unknown T unknown 93139397 unknown unknown unknown GROUP_B_STREP_PCR unknown 18850638 unknown unknown unkno wn urea_nitrogen_blood unknown 86877940 unknown unknown unk nown Glomerular_Filtration_ unknown 70955311 unknown unknown unknown rate potassium_blood unknown 92643884 unknown unknown unknown Glomerular_filtration_r unknown 83650317 unknown unknown unknown ate_1.73_sq_M.predicted _among_non-blacks_Volum e_Rate_Area_in_Serum_Pl asma_or_Blood_by_Creati nine-based_formula_MDRD _ bilirubin_serum_total unknown 29029287 unknown unknown u nknown carbon_dioxide_serum_t unknown 49260147 unknown unknown unknown otal protein_total_serum unknown 23552933 unknown unknown unk nown blood_glucose unknown 00675280 unknown unknown unknown potassium_blood unknown 46245257 unknown unknown unknown Urea_nitrogen_Mass_vol unknown 11522506 unknown unknown unknown ume_in_Serum_or_Plasma globulin_serum unknown 01397271 unknown unknown unknown alkaline_phosphatase_s unknown 76730183 unknown unknown unknown anthony Sodium_Moles_volume_in unknown 82339696 unknown unknown unknown _Serum_or_Plasma Protein_Mass_volume_in unknown 24012135 unknown unknown unknown _Serum_or_Plasma anion_gap_serum unknown 68497042 unknown unknown unknown Glucose_Mass_volume_in unknown 34017430 unknown unknown unknown _Serum_or_Plasma Globulin_Mass_volume_i unknown 75543854 unknown unknown unknown n_Serum Creatinine_Mass_volume unknown 42395501 unknown unknown unknown _in_Serum_or_Plasma Chloride_Moles_volume_ unknown 93466718 unknown unknown unknown in_Serum_or_Plasma carbon_dioxide_serum_t unknown 44237917 unknown unknown unknown otal Calcium_Moles_volume_i unknown 66411924 unknown unknown unknown n_Serum_or_Plasma albumin_serum unknown 19470266 unknown unknown unknown Bilirubin.total_Mass_v unknown 50259462 unknown unknown unknown olume_in_Serum_or_Plasm a Anion_gap_4_in_Serum_o unknown 21521835 unknown unknown unknown r_Plasma creatinine_serum unknown 28170249 unknown unknown unknow n Alkaline_phosphatase_E unknown 25252015 unknown unknown unknown nzymatic_activity_volum e_in_Blood Albumin_Globulin_Mass_ unknown 45757818 unknown unknown unknown Ratio_in_Serum_or_Plasm a Albumin_Mass_volume_in unknown 53101835 unknown unknown unknown _Serum_or_Plasma sodium_serum unknown 58329452 unknown unknown unknown albumin_globulin_ratio unknown 16351083 unknown unknown unknown _serum chloride_serum unknown 56663410 unknown unknown unknown calcium_serum unknown 56543137 unknown unknown unknown T unknown 68312166 unknown unknown unknown T unknown 74127849 unknown unknown unknown T unknown 10472993 unknown unknown unknown T unknown 08898853 unknown unknown unknown T unknown 64484216 unknown unknown unknown T unknown 31595679 unknown unknown unknown T unknown 22424701 unknown unknown unknown GFR_-_MDRD unknown 12319461 unknown unknown unknown T unknown 59735619 unknown unknown unknown T unknown 59018560 unknown unknown unknown T unknown 56035904 unknown unknown unknown T unknown 25733122 unknown unknown unknown T unknown 55842687 unknown unknown unknown T unknown 68976782 unknown unknown unknown BILIRUBIN_TOTAL unknown 07596196 unknown unknown unknown T unknown 51113929 unknown unknown unknown ALKALINE_PHOSPHATASE unknown 39053316 unknown unknown un known T unknown 35611383 unknown unknown unknown T unknown 30643867 unknown unknown unknown ALBUMIN_GLOBULIN_RATIO unknown 36501550 unknown unknown unknown urea_nitrogen_blood unknown 04310909 unknown unknown unk nown Erythrocytes_volume_in unknown 98488702 unknown unknown unknown _Blood_by_Automated_cou nt Erythrocyte_distributi unknown 50262072 unknown unknown unknown on_width_Ratio_by_Autom ated_count MCV_Entitic_volume_by_ unknown 02982208 unknown unknown unknown Automated_count MCH_Entitic_mass_by_Au unknown 10606464 unknown unknown unknown tomated_count Platelets_volume_in_Bl unknown 63604470 unknown unknown unknown ood_by_Automated_count Platelet_mean_volume_E unknown 33972549 unknown unknown unknown ntitic_volume_in_Blood_ by_Rees-Ericka neutrophil_count_blood unknown 53629567 unknown unknown unknown monocyte_count_blood unknown 48120249 unknown unknown un known lymphocyte_count_blood unknown 32728142 unknown unknown unknown Hemoglobin_Mass_volume unknown 23363085 unknown unknown unknown _in_Blood eosinophil_count_blood unknown 73007242 unknown unknown unknown Basophils_volume_in_Bl unknown 34843365 unknown unknown unknown ood_by_Manual_count leukocyte_count_blood unknown 89751863 unknown unknown u nknown erythrocyte_RBC_count unknown 98645062 unknown unknown u nknown Leukocytes_volume_in_B unknown 32849494 unknown unknown unknown lood_by_Automated_count Glomerular_Filtration_ unknown 61977954 unknown unknown unknown rate platelet_count unknown 45565171 unknown unknown unknown hemoglobin_blood unknown 25731284 unknown unknown unknow n hematocrit_blood unknown 41387730 unknown unknown unknow n potassium_blood unknown 68133504 unknown unknown unknown Glomerular_filtration_r unknown 42699825 unknown unknown unknown ate_1.73_sq_M.predicted _among_non-blacks_Volum e_Rate_Area_in_Serum_Pl asma_or_Blood_by_Creati nine-based_formula_MDRD _ Hematocrit_Volume_Frac unknown 09022228 unknown unknown unknown tion_of_Blood_by_Automa ted_count bilirubin_serum_total unknown 00050637 unknown unknown u nknown alanine_aminotransfera unknown 10026349 unknown unknown unknown se_SGPT_serum carbon_dioxide_serum_t unknown 22548751 unknown unknown unknown otal aspartate_aminotransfe unknown 82796915 unknown unknown unknown rase_SGOT_serum protein_total_serum unknown 25103800 unknown unknown unk nown blood_glucose unknown 59373678 unknown unknown unknown potassium_blood unknown 73725585 unknown unknown unknown mean_corpuscular_volum unknown 32995673 unknown unknown unknown e_RBC Urea_nitrogen_Mass_vol unknown 21912262 unknown unknown unknown ume_in_Serum_or_Plasma globulin_serum unknown 39230853 unknown unknown unknown alkaline_phosphatase_s unknown 58050402 unknown unknown unknown anthony Sodium_Moles_volume_in unknown 45856738 unknown unknown unknown _Serum_or_Plasma Protein_Mass_volume_in unknown 37355732 unknown unknown unknown _Serum_or_Plasma eosinophil_count_blood unknown 02019645 unknown unknown unknown anion_gap_serum unknown 62233152 unknown unknown unknown mean_platelet_volume unknown 16058335 unknown unknown un known basophil_count_blood unknown 56962653 unknown unknown un known monocyte_count_blood unknown 71434424 unknown unknown un known lymphocyte_count_blood unknown 34608837 unknown unknown unknown neutrophil_count_blood unknown 75282249 unknown unknown unknown Glucose_Mass_volume_in unknown 51867783 unknown unknown unknown _Serum_or_Plasma Globulin_Mass_volume_i unknown 18772465 unknown unknown unknown n_Serum Creatinine_Mass_volume unknown 33452068 unknown unknown unknown _in_Serum_or_Plasma Chloride_Moles_volume_ unknown 33498954 unknown unknown unknown in_Serum_or_Plasma carbon_dioxide_serum_t unknown 53701472 unknown unknown unknown otal Calcium_Moles_volume_i unknown 18569689 unknown unknown unknown n_Serum_or_Plasma albumin_serum unknown 98907285 unknown unknown unknown Bilirubin.total_Mass_v unknown 69251621 unknown unknown unknown olume_in_Serum_or_Plasm a Aspartate_aminotransfe unknown 79290857 unknown unknown unknown rase_Enzymatic_activity _volume_in_Serum_or_Pla sma Anion_gap_4_in_Serum_o unknown 24968261 unknown unknown unknown r_Plasma creatinine_serum unknown 40364745 unknown unknown unknow n Alkaline_phosphatase_E unknown 31176644 unknown unknown unknown nzymatic_activity_volum e_in_Blood Albumin_Globulin_Mass_ unknown 02801115 unknown unknown unknown Ratio_in_Serum_or_Plasm a Albumin_Mass_volume_in unknown 66270986 unknown unknown unknown _Serum_or_Plasma Alanine_aminotransfera unknown 30186468 unknown unknown unknown se_Enzymatic_activity_v olume_in_Serum_or_Plasm a mean_corpuscular_hemog unknown 73431760 unknown unknown unknown lobin_concentration_rbc sodium_serum unknown 87101004 unknown unknown unknown albumin_globulin_ratio unknown 58513240 unknown unknown unknown _serum chloride_serum unknown 49333581 unknown unknown unknown calcium_serum unknown 05883103 unknown unknown unknown mean_corpuscular_hemog unknown 57910860 unknown unknown unknown lobin_RBC red_blood_cell_distrib unknown 10187349 unknown unknown unknown ution_width T unknown 17896197 unknown unknown unknown T unknown 74757362 unknown unknown unknown T unknown 66377470 unknown unknown unknown T unknown 06637324 unknown unknown unknown T unknown 75802603 unknown unknown unknown T unknown 55981418 unknown unknown unknown NEUTROPHILS_AUTO_ unknown 43363317 unknown unknown unkno wn T unknown 22067018 unknown unknown unknown T unknown 26339250 unknown unknown unknown T unknown 69159189 unknown unknown unknown MONOCYTES_AUTO_ unknown 66983340 unknown unknown unknown T unknown 00638542 unknown unknown unknown T unknown 74171866 unknown unknown unknown T unknown 43677560 unknown unknown unknown T unknown 85189476 unknown unknown unknown LYMPHOCYTES_AUTO_ unknown [id number] unknown unknown unkno wn T unknown 56469588 unknown unknown unknown T unknown 25626648 unknown unknown unknown T unknown 78713279 unknown unknown unknown T unknown 39120918 unknown unknown unknown T unknown 41393262 unknown unknown unknown T unknown 74072188 unknown unknown unknown T unknown 15338557 unknown unknown unknown GFR_-_MDRD unknown 15615247 unknown unknown unknown T unknown 11984449 unknown unknown unknown EOSINOPHILS_AUTO_ unknown 20412300 unknown unknown unkno wn T unknown 84053921 unknown unknown unknown T unknown 66845661 unknown unknown unknown T unknown 17608275 unknown unknown unknown T unknown 89114538 unknown unknown unknown T unknown 28878121 unknown unknown unknown T unknown 44893852 unknown unknown unknown BILIRUBIN_TOTAL unknown 29212894 unknown unknown unknown BASOPHILS_AUTO_ unknown 80188467 unknown unknown unknown T unknown 11224513 unknown unknown unknown T unknown 89551067 unknown unknown unknown T unknown 42796187 unknown unknown unknown T unknown 58289779 unknown unknown unknown ALT_ALANINE_AMINOTRANS unknown 09566040 unknown unknown unknown FERASE ALKALINE_PHOSPHATASE unknown 82229645 unknown unknown un known T unknown 09998746 unknown unknown unknown T unknown 61613977 unknown unknown unknown ALBUMIN_GLOBULIN_RATIO unknown 19097990 unknown unknown unknown urea_nitrogen_blood unknown 69478688 unknown unknown unk nown Erythrocytes_volume_in unknown 57209100 unknown unknown unknown _Blood_by_Automated_cou nt Erythrocyte_distributi unknown 91847780 unknown unknown unknown on_width_Ratio_by_Autom ated_count MCV_Entitic_volume_by_ unknown 22484971 unknown unknown unknown Automated_count MCH_Entitic_mass_by_Au unknown 88908012 unknown unknown unknown tomated_count Platelets_volume_in_Bl unknown 60961053 unknown unknown unknown ood_by_Automated_count Platelet_mean_volume_E unknown 26131920 unknown unknown unknown ntitic_volume_in_Blood_ by_Rees-Ericka neutrophil_count_blood unknown 02635481 unknown unknown unknown monocyte_count_blood unknown 71703229 unknown unknown un known lymphocyte_count_blood unknown 91055598 unknown unknown unknown Hemoglobin_Mass_volume unknown 22278281 unknown unknown unknown _in_Blood eosinophil_count_blood unknown 18568185 unknown unknown unknown Basophils_volume_in_Bl unknown 08155638 unknown unknown unknown ood_by_Manual_count leukocyte_count_blood unknown 39375243 unknown unknown u nknown erythrocyte_RBC_count unknown 43160765 unknown unknown u nknown Leukocytes_volume_in_B unknown 70807942 unknown unknown unknown lood_by_Automated_count Glomerular_Filtration_ unknown 62822794 unknown unknown unknown rate platelet_count unknown 25928249 unknown unknown unknown hemoglobin_blood unknown 29012773 unknown unknown unknow n hematocrit_blood unknown 71529171 unknown unknown unknow n potassium_blood unknown 13101683 unknown unknown unknown Glomerular_filtration_r unknown 90905221 unknown unknown unknown ate_1.73_sq_M.predicted _among_non-blacks_Volum e_Rate_Area_in_Serum_Pl asma_or_Blood_by_Creati nine-based_formula_MDRD _ Hematocrit_Volume_Frac unknown 32870588 unknown unknown unknown tion_of_Blood_by_Automa ted_count bilirubin_serum_total unknown 27775205 unknown unknown u nknown alanine_aminotransfera unknown 66916215 unknown unknown unknown se_SGPT_serum carbon_dioxide_serum_t unknown 49599255 unknown unknown unknown otal aspartate_aminotransfe unknown 64994932 unknown unknown unknown rase_SGOT_serum protein_total_serum unknown 56237452 unknown unknown unk nown blood_glucose unknown 73927801 unknown unknown unknown potassium_blood unknown 27537262 unknown unknown unknown mean_corpuscular_volum unknown 57516401 unknown unknown unknown e_RBC Urea_nitrogen_Mass_vol unknown 66521766 unknown unknown unknown ume_in_Serum_or_Plasma globulin_serum unknown 14528041 unknown unknown unknown alkaline_phosphatase_s unknown 72165796 unknown unknown unknown anthony Sodium_Moles_volume_in unknown 70922176 unknown unknown unknown _Serum_or_Plasma Protein_Mass_volume_in unknown [id number] unknown unknown unknown _Serum_or_Plasma eosinophil_count_blood unknown [id number] unknown unknown unknown anion_gap_serum unknown 29907790 unknown unknown unknown mean_platelet_volume unknown [id number] unknown unknown un known basophil_count_blood unknown 55963419 unknown unknown un known monocyte_count_blood unknown 18773373 unknown unknown un known lymphocyte_count_blood unknown 71919723 unknown unknown unknown neutrophil_count_blood unknown 23130521 unknown unknown unknown Glucose_Mass_volume_in unknown 88441069 unknown unknown unknown _Serum_or_Plasma Globulin_Mass_volume_i unknown 88566129 unknown unknown unknown n_Serum Creatinine_Mass_volume unknown 88312458 unknown unknown unknown _in_Serum_or_Plasma Chloride_Moles_volume_ unknown 65882207 unknown unknown unknown in_Serum_or_Plasma carbon_dioxide_serum_t unknown 38772020 unknown unknown unknown otal Calcium_Moles_volume_i unknown 64251182 unknown unknown unknown n_Serum_or_Plasma albumin_serum unknown 02268447 unknown unknown unknown Bilirubin.total_Mass_v unknown 45466985 unknown unknown unknown olume_in_Serum_or_Plasm a Aspartate_aminotransfe unknown 19484490 unknown unknown unknown rase_Enzymatic_activity _volume_in_Serum_or_Pla sma Anion_gap_4_in_Serum_o unknown 91448351 unknown unknown unknown r_Plasma creatinine_serum unknown 08116187 unknown unknown unknow n Alkaline_phosphatase_E unknown 71651657 unknown unknown unknown nzymatic_activity_volum e_in_Blood Albumin_Globulin_Mass_ unknown 51511466 unknown unknown unknown Ratio_in_Serum_or_Plasm a Albumin_Mass_volume_in unknown 75065756 unknown unknown unknown _Serum_or_Plasma Alanine_aminotransfera unknown 35630573 unknown unknown unknown se_Enzymatic_activity_v olume_in_Serum_or_Plasm a mean_corpuscular_hemog unknown 58635311 unknown unknown unknown lobin_concentration_rbc sodium_serum unknown 32918514 unknown unknown unknown albumin_globulin_ratio unknown 29700298 unknown unknown unknown _serum chloride_serum unknown 90873293 unknown unknown unknown calcium_serum unknown 11411384 unknown unknown unknown mean_corpuscular_hemog unknown 21363857 unknown unknown unknown lobin_RBC red_blood_cell_distrib unknown 23476492 unknown unknown unknown ution_width T unknown 59021086 unknown unknown unknown T unknown 53162426 unknown unknown unknown T unknown 22596105 unknown unknown unknown T unknown 30443834 unknown unknown unknown T unknown [id number] unknown unknown unknown T unknown 69593556 unknown unknown unknown NEUTROPHILS_AUTO_ unknown [id number] unknown unknown unkno wn T unknown 06354946 unknown unknown unknown T unknown 63810519 unknown unknown unknown T unknown 40254304 unknown unknown unknown MONOCYTES_AUTO_ unknown 32383769 unknown unknown unknown T unknown 52754692 unknown unknown unknown T unknown 15158631 unknown unknown unknown T unknown 34508412 unknown unknown unknown T unknown 87536547 unknown unknown unknown LYMPHOCYTES_AUTO_ unknown 41971490 unknown unknown unkno wn T unknown 20495253 unknown unknown unknown T unknown 04840416 unknown unknown unknown T unknown 56693832 unknown unknown unknown T unknown 73552721 unknown unknown unknown T unknown 44218156 unknown unknown unknown T unknown 23145433 unknown unknown unknown T unknown [id number] unknown unknown unknown GFR_-_MDRD unknown 14805783 unknown unknown unknown T unknown 34721202 unknown unknown unknown EOSINOPHILS_AUTO_ unknown 59409705 unknown unknown unkno wn T unknown 60672418 unknown unknown unknown T unknown [id number] unknown unknown unknown T unknown 01514629 unknown unknown unknown T unknown 83659584 unknown unknown unknown T unknown [id number] unknown unknown unknown T unknown 57825722 unknown unknown unknown BILIRUBIN_TOTAL unknown 80784471 unknown unknown unknown BASOPHILS_AUTO_ unknown 27057074 unknown unknown unknown T unknown 54113042 unknown unknown unknown T unknown 92162271 unknown unknown unknown T unknown 94835342 unknown unknown unknown T unknown 52817053 unknown unknown unknown ALT_ALANINE_AMINOTRANS unknown [id number] unknown unknown unknown FERASE ALKALINE_PHOSPHATASE unknown [id number] unknown unknown un known T unknown 32001356 unknown unknown unknown T unknown 74045066 unknown unknown unknown ALBUMIN_GLOBULIN_RATIO unknown 70189566 unknown unknown unknown urea_nitrogen_blood unknown 14239323 unknown unknown unk nown Erythrocytes_volume_in unknown 62364392 unknown unknown unknown _Blood_by_Automated_cou nt Erythrocyte_distributi unknown 63526544 unknown unknown unknown on_width_Ratio_by_Autom ated_count MCV_Entitic_volume_by_ unknown 57066975 unknown unknown unknown Automated_count MCH_Entitic_mass_by_Au unknown 53377730 unknown unknown unknown tomated_count Platelets_volume_in_Bl unknown 72826499 unknown unknown unknown ood_by_Automated_count Platelet_mean_volume_E unknown 29329603 unknown unknown unknown ntitic_volume_in_Blood_ by_Rees-Ericka Hemoglobin_Mass_volume unknown 61991069 unknown unknown unknown _in_Blood leukocyte_count_blood unknown 31830977 unknown unknown u nknown erythrocyte_RBC_count unknown 77137876 unknown unknown u nknown Leukocytes_volume_in_B unknown 48261120 unknown unknown unknown lood_by_Automated_count Glomerular_Filtration_ unknown 87785026 unknown unknown unknown rate platelet_count unknown 88293097 unknown unknown unknown hemoglobin_blood unknown 06645418 unknown unknown unknow n hematocrit_blood unknown 06496358 unknown unknown unknow n potassium_blood unknown 01348118 unknown unknown unknown Glomerular_filtration_r unknown 55624642 unknown unknown unknown ate_1.73_sq_M.predicted _among_non-blacks_Volum e_Rate_Area_in_Serum_Pl asma_or_Blood_by_Creati nine-based_formula_MDRD _ Hematocrit_Volume_Frac unknown 20181418 unknown unknown unknown tion_of_Blood_by_Automa ted_count bilirubin_serum_total unknown 03202154 unknown unknown u nknown alanine_aminotransfera unknown 29693224 unknown unknown unknown se_SGPT_serum carbon_dioxide_serum_t unknown 75939588 unknown unknown unknown otal aspartate_aminotransfe unknown 57641202 unknown unknown unknown rase_SGOT_serum protein_total_serum unknown 64055797 unknown unknown unk nown blood_glucose unknown 44489989 unknown unknown unknown potassium_blood unknown 24966389 unknown unknown unknown mean_corpuscular_volum unknown 88337814 unknown unknown unknown e_RBC Urea_nitrogen_Mass_vol unknown 38801242 unknown unknown unknown ume_in_Serum_or_Plasma globulin_serum unknown 27088766 unknown unknown unknown alkaline_phosphatase_s unknown 53658407 unknown unknown unknown anthony Sodium_Moles_volume_in unknown 58633843 unknown unknown unknown _Serum_or_Plasma Protein_Mass_volume_in unknown 31768053 unknown unknown unknown _Serum_or_Plasma anion_gap_serum unknown 98765333 unknown unknown unknown mean_platelet_volume unknown 03801044 unknown unknown un known Glucose_Mass_volume_in unknown 18043661 unknown unknown unknown _Serum_or_Plasma Globulin_Mass_volume_i unknown 27680759 unknown unknown unknown n_Serum Creatinine_Mass_volume unknown 85895750 unknown unknown unknown _in_Serum_or_Plasma Chloride_Moles_volume_ unknown 91570288 unknown unknown unknown in_Serum_or_Plasma carbon_dioxide_serum_t unknown 76981388 unknown unknown unknown otal Calcium_Moles_volume_i unknown 55465985 unknown unknown unknown n_Serum_or_Plasma albumin_serum unknown 07547649 unknown unknown unknown Bilirubin.total_Mass_v unknown 49678335 unknown unknown unknown olume_in_Serum_or_Plasm a Aspartate_aminotransfe unknown 88086655 unknown unknown unknown rase_Enzymatic_activity _volume_in_Serum_or_Pla sma Anion_gap_4_in_Serum_o unknown 62317929 unknown unknown unknown r_Plasma creatinine_serum unknown 63873167 unknown unknown unknow n Alkaline_phosphatase_E unknown 96798573 unknown unknown unknown nzymatic_activity_volum e_in_Blood Albumin_Globulin_Mass_ unknown 09064851 unknown unknown unknown Ratio_in_Serum_or_Plasm a Albumin_Mass_volume_in unknown 09170932 unknown unknown unknown _Serum_or_Plasma Alanine_aminotransfera unknown 83462903 unknown unknown unknown se_Enzymatic_activity_v olume_in_Serum_or_Plasm a mean_corpuscular_hemog unknown 61730038 unknown unknown unknown lobin_concentration_rbc sodium_serum unknown 18755246 unknown unknown unknown albumin_globulin_ratio unknown 13456562 unknown unknown unknown _serum chloride_serum unknown 35184994 unknown unknown unknown calcium_serum unknown 23891355 unknown unknown unknown mean_corpuscular_hemog unknown 64694943 unknown unknown unknown lobin_RBC red_blood_cell_distrib unknown 99586098 unknown unknown unknown ution_width T unknown 95185142 unknown unknown unknown T unknown 52703333 unknown unknown unknown T unknown 91227110 unknown unknown unknown T unknown 58850848 unknown unknown unknown T unknown 09403404 unknown unknown unknown T unknown 52873412 unknown unknown unknown T unknown 70596247 unknown unknown unknown T unknown 18191606 unknown unknown unknown T unknown 20099697 unknown unknown unknown T unknown 27003922 unknown unknown unknown T unknown 46770977 unknown unknown unknown T unknown 56135346 unknown unknown unknown T unknown 61302049 unknown unknown unknown T unknown 06121832 unknown unknown unknown T unknown 09972187 unknown unknown unknown T unknown 99981646 unknown unknown unknown T unknown 94053692 unknown unknown unknown GFR_-_MDRD unknown 21299690 unknown unknown unknown T unknown 51214345 unknown unknown unknown T unknown 50505321 unknown unknown unknown T unknown 79919362 unknown unknown unknown T unknown 87510359 unknown unknown unknown T unknown 74643961 unknown unknown unknown T unknown 38200579 unknown unknown unknown BILIRUBIN_TOTAL unknown 41435971 unknown unknown unknown T unknown 19018761 unknown unknown unknown T unknown 65219334 unknown unknown unknown T unknown 97036415 unknown unknown unknown ALT_ALANINE_AMINOTRANS unknown 78878033 unknown unknown unknown FERASE ALKALINE_PHOSPHATASE unknown 36526649 unknown unknown un known T unknown 78435588 unknown unknown unknown T unknown 28635914 unknown unknown unknown ALBUMIN_GLOBULIN_RATIO unknown 56410190 unknown unknown unknown urea_nitrogen_blood unknown 60047259 unknown unknown unk nown Erythrocytes_volume_in unknown 76822547 unknown unknown unknown _Blood_by_Automated_cou nt Erythrocyte_distributi unknown 21507569 unknown unknown unknown on_width_Ratio_by_Autom ated_count MCV_Entitic_volume_by_ unknown 06568296 unknown unknown unknown Automated_count MCH_Entitic_mass_by_Au unknown 63625557 unknown unknown unknown tomated_count Platelets_volume_in_Bl unknown 35991633 unknown unknown unknown ood_by_Automated_count Platelet_mean_volume_E unknown 62956192 unknown unknown unknown ntitic_volume_in_Blood_ by_Rees-Ericka Hemoglobin_Mass_volume unknown 65665670 unknown unknown unknown _in_Blood leukocyte_count_blood unknown 35259161 unknown unknown u nknown erythrocyte_RBC_count unknown 51526702 unknown unknown u nknown Leukocytes_volume_in_B unknown 54474183 unknown unknown unknown lood_by_Automated_count Glomerular_Filtration_ unknown 93930117 unknown unknown unknown rate platelet_count unknown 47579218 unknown unknown unknown hemoglobin_blood unknown 00097986 unknown unknown unknow n hematocrit_blood unknown 98904131 unknown unknown unknow n potassium_blood unknown 78891963 unknown unknown unknown Glomerular_filtration_r unknown 74608263 unknown unknown unknown ate_1.73_sq_M.predicted _among_non-blacks_Volum e_Rate_Area_in_Serum_Pl asma_or_Blood_by_Creati nine-based_formula_MDRD _ Hematocrit_Volume_Frac unknown 57971761 unknown unknown unknown tion_of_Blood_by_Automa ted_count bilirubin_serum_total unknown 45672840 unknown unknown u nknown alanine_aminotransfera unknown 06988322 unknown unknown unknown se_SGPT_serum carbon_dioxide_serum_t unknown 90134447 unknown unknown unknown otal aspartate_aminotransfe unknown 53402520 unknown unknown unknown rase_SGOT_serum protein_total_serum unknown 77625475 unknown unknown unk nown blood_glucose unknown 66958609 unknown unknown unknown potassium_blood unknown 11348121 unknown unknown unknown mean_corpuscular_volum unknown 78745326 unknown unknown unknown e_RBC Urea_nitrogen_Mass_vol unknown 12802690 unknown unknown unknown ume_in_Serum_or_Plasma globulin_serum unknown 14250191 unknown unknown unknown alkaline_phosphatase_s unknown 21176699 unknown unknown unknown anthony Sodium_Moles_volume_in unknown 16576602 unknown unknown unknown _Serum_or_Plasma Protein_Mass_volume_in unknown 03176513 unknown unknown unknown _Serum_or_Plasma anion_gap_serum unknown 55969188 unknown unknown unknown mean_platelet_volume unknown 28457641 unknown unknown un known Glucose_Mass_volume_in unknown 12992742 unknown unknown unknown _Serum_or_Plasma Globulin_Mass_volume_i unknown 26917725 unknown unknown unknown n_Serum Creatinine_Mass_volume unknown 30441985 unknown unknown unknown _in_Serum_or_Plasma Chloride_Moles_volume_ unknown 66567509 unknown unknown unknown in_Serum_or_Plasma carbon_dioxide_serum_t unknown 68587597 unknown unknown unknown otal Calcium_Moles_volume_i unknown 80168666 unknown unknown unknown n_Serum_or_Plasma albumin_serum unknown 40087425 unknown unknown unknown Bilirubin.total_Mass_v unknown 25900422 unknown unknown unknown olume_in_Serum_or_Plasm a Aspartate_aminotransfe unknown 22011099 unknown unknown unknown rase_Enzymatic_activity _volume_in_Serum_or_Pla sma Anion_gap_4_in_Serum_o unknown 49886316 unknown unknown unknown r_Plasma creatinine_serum unknown 70804221 unknown unknown unknow n Alkaline_phosphatase_E unknown 26622454 unknown unknown unknown nzymatic_activity_volum e_in_Blood Albumin_Globulin_Mass_ unknown 01487761 unknown unknown unknown Ratio_in_Serum_or_Plasm a Albumin_Mass_volume_in unknown 32132986 unknown unknown unknown _Serum_or_Plasma Alanine_aminotransfera unknown 98404450 unknown unknown unknown se_Enzymatic_activity_v olume_in_Serum_or_Plasm a mean_corpuscular_hemog unknown 51008780 unknown unknown unknown lobin_concentration_rbc sodium_serum unknown 54641897 unknown unknown unknown albumin_globulin_ratio unknown 79367757 unknown unknown unknown _serum chloride_serum unknown 53088325 unknown unknown unknown calcium_serum unknown 30052306 unknown unknown unknown mean_corpuscular_hemog unknown 28405113 unknown unknown unknown lobin_RBC red_blood_cell_distrib unknown 68747206 unknown unknown unknown ution_width T unknown 10589780 unknown unknown unknown T unknown 47786997 unknown unknown unknown T unknown 37559520 unknown unknown unknown T unknown 60047662 unknown unknown unknown T unknown 50562572 unknown unknown unknown T unknown 29064165 unknown unknown unknown T unknown 57184817 unknown unknown unknown T unknown 95745711 unknown unknown unknown T unknown 86344232 unknown unknown unknown T unknown 46429797 unknown unknown unknown T unknown 23524202 unknown unknown unknown T unknown 96207828 unknown unknown unknown T unknown 85730238 unknown unknown unknown T unknown 33512930 unknown unknown unknown T unknown 04369727 unknown unknown unknown T unknown 51988901 unknown unknown unknown T unknown 23121177 unknown unknown unknown GFR_-_MDRD unknown 75775735 unknown unknown unknown T unknown 61826429 unknown unknown unknown T unknown 11376037 unknown unknown unknown T unknown 54523980 unknown unknown unknown T unknown 22204069 unknown unknown unknown T unknown 44916367 unknown unknown unknown T unknown 79780339 unknown unknown unknown BILIRUBIN_TOTAL unknown 31612040 unknown unknown unknown T unknown 77602074 unknown unknown unknown T unknown 90087577 unknown unknown unknown T unknown 77119571 unknown unknown unknown ALT_ALANINE_AMINOTRANS unknown 22311959 unknown unknown unknown FERASE ALKALINE_PHOSPHATASE unknown 83983426 unknown unknown un known T unknown 76300973 unknown unknown unknown T unknown 41462615 unknown unknown unknown ALBUMIN_GLOBULIN_RATIO unknown 73912448 unknown unknown unknown urea_nitrogen_blood unknown 15437207 unknown unknown unk nown Erythrocytes_volume_in unknown 68040324 unknown unknown unknown _Blood_by_Automated_cou nt Erythrocyte_distributi unknown 41456608 unknown unknown unknown on_width_Ratio_by_Autom ated_count MCV_Entitic_volume_by_ unknown 02242135 unknown unknown unknown Automated_count MCH_Entitic_mass_by_Au unknown 78272699 unknown unknown unknown tomated_count Platelets_volume_in_Bl unknown 05207451 unknown unknown unknown ood_by_Automated_count Platelet_mean_volume_E unknown 65962331 unknown unknown unknown ntitic_volume_in_Blood_ by_Rees-Ericka Hemoglobin_Mass_volume unknown 88821421 unknown unknown unknown _in_Blood leukocyte_count_blood unknown 75894329 unknown unknown u nknown erythrocyte_RBC_count unknown 58490178 unknown unknown u nknown Leukocytes_volume_in_B unknown 38033704 unknown unknown unknown lood_by_Automated_count Glomerular_Filtration_ unknown 38081780 unknown unknown unknown rate platelet_count unknown 56735468 unknown unknown unknown hemoglobin_blood unknown 05030509 unknown unknown unknow n hematocrit_blood unknown 88786359 unknown unknown unknow n potassium_blood unknown 26095868 unknown unknown unknown Glomerular_filtration_r unknown 02390691 unknown unknown unknown ate_1.73_sq_M.predicted _among_non-blacks_Volum e_Rate_Area_in_Serum_Pl asma_or_Blood_by_Creati nine-based_formula_MDRD _ Hematocrit_Volume_Frac unknown 09394533 unknown unknown unknown tion_of_Blood_by_Automa ted_count bilirubin_serum_total unknown 57645044 unknown unknown u nknown alanine_aminotransfera unknown 26473486 unknown unknown unknown se_SGPT_serum carbon_dioxide_serum_t unknown 42203601 unknown unknown unknown otal aspartate_aminotransfe unknown 32461378 unknown unknown unknown rase_SGOT_serum protein_total_serum unknown 72053406 unknown unknown unk nown blood_glucose unknown 94010980 unknown unknown unknown potassium_blood unknown 27029568 unknown unknown unknown mean_corpuscular_volum unknown 94825170 unknown unknown unknown e_RBC Urea_nitrogen_Mass_vol unknown 21172638 unknown unknown unknown ume_in_Serum_or_Plasma globulin_serum unknown 08057870 unknown unknown unknown alkaline_phosphatase_s unknown 63876443 unknown unknown unknown anthony Sodium_Moles_volume_in unknown 71902608 unknown unknown unknown _Serum_or_Plasma Protein_Mass_volume_in unknown 77910543 unknown unknown unknown _Serum_or_Plasma anion_gap_serum unknown 23281528 unknown unknown unknown mean_platelet_volume unknown 46532060 unknown unknown un known Glucose_Mass_volume_in unknown 55919346 unknown unknown unknown _Serum_or_Plasma Globulin_Mass_volume_i unknown 59246649 unknown unknown unknown n_Serum Creatinine_Mass_volume unknown 60527623 unknown unknown unknown _in_Serum_or_Plasma Chloride_Moles_volume_ unknown 96799361 unknown unknown unknown in_Serum_or_Plasma carbon_dioxide_serum_t unknown 59571912 unknown unknown unknown otal Calcium_Moles_volume_i unknown 84091123 unknown unknown unknown n_Serum_or_Plasma albumin_serum unknown 59535100 unknown unknown unknown Bilirubin.total_Mass_v unknown 10891592 unknown unknown unknown olume_in_Serum_or_Plasm a Aspartate_aminotransfe unknown 83810818 unknown unknown unknown rase_Enzymatic_activity _volume_in_Serum_or_Pla sma Anion_gap_4_in_Serum_o unknown 29379551 unknown unknown unknown r_Plasma creatinine_serum unknown 62144540 unknown unknown unknow n Alkaline_phosphatase_E unknown 13005378 unknown unknown unknown nzymatic_activity_volum e_in_Blood Albumin_Globulin_Mass_ unknown 89195405 unknown unknown unknown Ratio_in_Serum_or_Plasm a Albumin_Mass_volume_in unknown 80690594 unknown unknown unknown _Serum_or_Plasma Alanine_aminotransfera unknown 88521846 unknown unknown unknown se_Enzymatic_activity_v olume_in_Serum_or_Plasm a mean_corpuscular_hemog unknown 73064104 unknown unknown unknown lobin_concentration_rbc sodium_serum unknown 83618708 unknown unknown unknown albumin_globulin_ratio unknown 22365833 unknown unknown unknown _serum chloride_serum unknown 52064381 unknown unknown unknown calcium_serum unknown 78653780 unknown unknown unknown mean_corpuscular_hemog unknown 57062693 unknown unknown unknown lobin_RBC red_blood_cell_distrib unknown 26878797 unknown unknown unknown ution_width T unknown 61245666 unknown unknown unknown T unknown 14293241 unknown unknown unknown T unknown 51844693 unknown unknown unknown T unknown 08936864 unknown unknown unknown T unknown 65835154 unknown unknown unknown T unknown 56188052 unknown unknown unknown T unknown 46937288 unknown unknown unknown T unknown 19728364 unknown unknown unknown T unknown 56426314 unknown unknown unknown T unknown 31607444 unknown unknown unknown T unknown 08750629 unknown unknown unknown T unknown 96638995 unknown unknown unknown T unknown 11306479 unknown unknown unknown T unknown 51645558 unknown unknown unknown T unknown 78909077 unknown unknown unknown T unknown 28842446 unknown unknown unknown T unknown 46730091 unknown unknown unknown GFR_-_MDRD unknown 36335266 unknown unknown unknown T unknown 03897469 unknown unknown unknown T unknown 60120013 unknown unknown unknown T unknown 57925728 unknown unknown unknown T unknown 80221723 unknown unknown unknown T unknown 29936964 unknown unknown unknown T unknown 99185232 unknown unknown unknown BILIRUBIN_TOTAL unknown 60771732 unknown unknown unknown T unknown 32986231 unknown unknown unknown T unknown 91233984 unknown unknown unknown T unknown 18069921 unknown unknown unknown ALT_ALANINE_AMINOTRANS unknown 03833817 unknown unknown unknown FERASE ALKALINE_PHOSPHATASE unknown 70384792 unknown unknown un known T unknown 50615009 unknown unknown unknown T unknown 34930765 unknown unknown unknown ALBUMIN_GLOBULIN_RATIO unknown 49967094 unknown unknown unknown facility observation status value reference units lab abnor mal line range code notes All urea_nitroge unknown 19 unknown mg/dL _9 unknown unknown n_blood All Erythrocytes unknown 4.60 10 unknown _789-8 unknow n unknown _volume_in_Bl 6/UL ood_by_Automa ted_count All Erythrocyte_ unknown 15.6 unknown % _788-0 unknown unknown distribution_ width_Ratio_b y_Automated_c ount All MCV_Entitic_ unknown 86.1 unknown fL _787-2 unknown unknown volume_by_Aut omated_count All MCH_Entitic_ unknown 29.1 unknown pg _785-6 unknown unknown mass_by_Autom ated_count All Platelets_vo unknown 383 10 unknown _777-3 unknown unknown lume_in_Blood 3/UL _by_Automated _count All Platelet_mea unknown 9.6 unknown fL _776-5 unknown unknown n_volume_Enti tic_volume_in _Blood_by_Ree s-Ericka All neutrophil_c unknown 3.7 10 unknown _752-6 unknown unknown ount_blood 3/UL All monocyte_cou unknown 0.9 10 unknown _743-5 unknown unknown nt_blood 3/UL All lymphocyte_c unknown 2.5 10 unknown _732-8 unknown unknown ount_blood 3/UL All Hemoglobin_M unknown 13.4 unknown g/dL _718-7 unknown unknown ass_volume_in _Blood All eosinophil_c unknown 0.4 10 unknown _712-0 unknown unknown ount_blood 3/UL All Basophils_vo unknown 0.1 10 unknown _705-4 unknown unknown lume_in_Blood 3/UL _by_Manual_co unt All leukocyte_co unknown 7.6 X10 unknown _68 unknow n unknown unt_blood 3/UL All erythrocyte_ unknown 4.60 10 unknown _67 unknow n unknown RBC_count 6/UL All Leukocytes_v unknown 7.6 X10 unknown _6690-2 unkno wn unknown olume_in_Bloo 3/UL d_by_Automate d_count All Glomerular_F unknown 121 unknown mL/mi _66455 unknown unknown iltration_rat n e All platelet_cou unknown 383 10 unknown _66 unknown unknown nt 3/UL All hemoglobin_b unknown 13.4 unknown g/dL _65 unknown unknown lood All hematocrit_b unknown 39.6 unknown % _64 unknown unknown lood All potassium_bl unknown 4.8 unknown meq/L _6298-4 unknow n unknown ood All Glomerular_fi unknown 121 unknown mL/mi _48642- unknow n unknown ltration_rate n 3 _1.73_sq_M.pr edicted_among _non-blacks_V olume_Rate_Ar ea_in_Serum_P lasma_or_Bloo d_by_Creatini ne-based_form ula_MDRD_ All Hematocrit_V unknown 39.6 unknown % _4544-3 unknow n unknown olume_Fractio n_of_Blood_by _Automated_co unt All bilirubin_se unknown 0.2 unknown mg/dL _43 unknown unknown rum_total All alanine_amin unknown 101 unknown U/L _40 unknown unknown otransferase_ SGPT_serum All carbon_dioxi unknown 23 unknown mmol/ _3962 unknown unknown de_serum_tota L l All aspartate_am unknown 39 unknown U/L _39 unknown unknown inotransferas e_SGOT_serum All protein_tota unknown 6.8 unknown g/dL _36 unknown unknown l_serum All blood_glucos unknown 76 unknown mg/dL _3565 unknown unknown e All potassium_bl unknown 4.8 unknown meq/L _3483 unknown unknown ood All mean_corpusc unknown 86.1 unknown fL _315 unknown unknown ular_volume_R BC All Urea_nitroge unknown 19 unknown mg/dL _3094-0 unknow n unknown n_Mass_volume _in_Serum_or_ Plasma All globulin_ser unknown 4.3 unknown _3059 unknown unknown um All alkaline_pho unknown 139 unknown U/L _3 unknown unknown sphatase_seru m All Sodium_Moles unknown 133 unknown mmol/ _2951-2 unknow n unknown _volume_in_Se L rum_or_Plasma All Protein_Mass unknown 6.8 unknown g/dL _2885-2 unknow n unknown _volume_in_Se rum_or_Plasma All eosinophil_c unknown 0.4 10 unknown _285 unknown unknown ount_blood 3/UL All anion_gap_se unknown 11.0 unknown _279 unknown unknown rum All mean_platele unknown 9.6 unknown fL _2784 unknown unknown t_volume All basophil_cou unknown 0.1 10 unknown _2427 unknown unknown nt_blood 3/UL All monocyte_cou unknown 0.9 10 unknown _2422 unknown unknown nt_blood 3/UL All lymphocyte_c unknown 2.5 10 unknown _2420 unknown unknown ount_blood 3/UL All neutrophil_c unknown 3.7 10 unknown _2418 unknown unknown ount_blood 3/UL All Glucose_Mass unknown 76 unknown mg/dL _2345-7 unknow n unknown _volume_in_Se rum_or_Plasma All Globulin_Mas unknown 4.3 unknown _2336-6 unknow n unknown s_volume_in_S anthony All Creatinine_M unknown 0.6 unknown mg/dL _2160-0 unknow n unknown ass_volume_in _Serum_or_Pla sma All Chloride_Mol unknown 99 unknown mmol/ _2075-0 unknow n unknown es_volume_in_ L Serum_or_Plas ma All carbon_dioxi unknown 23 unknown mmol/ _2027- unknow n unknown de_serum_tota L l All Calcium_Mole unknown 8.8 unknown mg/dL _1999- unknow n unknown s_volume_in_S erum_or_Plasm a All albumin_seru unknown 2.5 unknown g/dL _2 unknown unknown m All Bilirubin.to unknown 0.2 unknown mg/dL _1974- unknow n unknown tal_Mass_volu me_in_Serum_o r_Plasma All Aspartate_am unknown 39 unknown U/L _192-8 unknow n unknown inotransferas e_Enzymatic_a ctivity_volum e_in_Serum_or _Plasma All Anion_gap_4_ unknown 11.0 unknown _1863-0 unknow n unknown in_Serum_or_P lasma All creatinine_s unknown 0.6 unknown mg/dL _18 unknown unknown anthony All Alkaline_pho unknown 139 unknown U/L _1783-0 unknow n unknown sphatase_Enzy matic_activit y_volume_in_B lood All Albumin_Glob unknown 0.6 unknown _1759-0 unknow n unknown ulin_Mass_Rat io_in_Serum_o r_Plasma All Albumin_Mass unknown 2.5 unknown g/dL _1751-7 unknow n unknown _volume_in_Se rum_or_Plasma All Alanine_amin unknown 101 unknown U/L _1742-6 unknow n unknown otransferase_ Enzymatic_act ivity_volume_ in_Serum_or_P lasma All mean_corpusc unknown 33.8 unknown g/dL _17029 unknown unknown ular_hemoglob in_concentrat ion_rbc All sodium_serum unknown 133 unknown mmol/ _159 unknown unknown L All albumin_glob unknown 0.6 unknown _146 unknown unknown ulin_ratio_se rum All chloride_ser unknown 99 unknown mmol/ _13 unknown unknown um L All calcium_seru unknown 8.8 unknown mg/dL _11 unknown unknown m All mean_corpusc unknown 29.1 unknown pg _1031 unknown unknown ular_hemoglob in_RBC All red_blood_ce unknown 15.6 unknown % _1030 unknown unknown ll_distributi on_width All T unknown 7.6 X10 unknown WBC unknown unk nown 3/UL All T unknown 0.2 unknown mg/dL TOTAL_B unknown unk nown THONG All T unknown 15.6 unknown % RDW unknown unkn own All T unknown 4.60 10 unknown RBC unknown unk nown 6/UL All T unknown 6.8 unknown g/dL PRO_TOT unknown unk nown AL All T unknown 383 10 unknown PLT unknown unkn own 3/UL All NEUTROPHILS_ unknown 3.7 10 unknown NE_ unknown unknown AUTO_ 3/UL All T unknown 3.7 10 unknown NEUT_AU unknown unk nown 3/UL TO_ All T unknown 133 unknown mmol/ NA unknown unkn own L All T unknown 9.6 unknown fL MPV unknown unkn own All MONOCYTES_AU unknown 0.9 10 unknown MO_ unknown unknown TO_ 3/UL All T unknown 0.9 10 unknown MONO_AU unknown unk nown 3/UL TO_ All T unknown 86.1 unknown fL MCV unknown unkn own All T unknown 33.8 unknown g/dL MCHC unknown unkn own All T unknown 29.1 unknown pg MCH unknown unkn own All LYMPHOCYTES_ unknown 2.5 10 unknown LY_ unknown unknown AUTO_ 3/UL All T unknown 2.5 10 unknown LYMPH_A unknown unk nown 3/UL UTO_ All T unknown 4.8 unknown meq/L K unknown unkn own All T unknown 13.4 unknown g/dL HGB unknown unkn own All T unknown 39.6 unknown % HCT unknown unkn own All T unknown 76 unknown mg/dL GLU unknown unkn own All T unknown 4.3 unknown GLOB unknown unkn own All T unknown 121 unknown mL/mi GFR_-_M unknown unk nown n DRD All GFR_-_MDRD unknown 121 unknown mL/mi GFR unknown unknown n All T unknown 11.0 unknown GAP unknown unkn own All EOSINOPHILS_ unknown 0.4 10 unknown EO_ unknown unknown AUTO_ 3/UL All T unknown 0.4 10 unknown EOS_AUT unknown unk nown 3/UL O_ All T unknown 0.6 unknown mg/dL CREAT unknown unkn own All T unknown 23 unknown mmol/ CO2 unknown unkn own L All T unknown 99 unknown mmol/ CL unknown unkn own L All T unknown 8.8 unknown mg/dL CA unknown unkn own All T unknown 19 unknown mg/dL BUN unknown unkn own All BILIRUBIN_TO unknown 0.2 unknown mg/dL BILIT unknown unknown JULIO All BASOPHILS_AU unknown 0.1 10 unknown BA_ unknown unknown TO_ 3/UL All T unknown 0.1 10 unknown BASO_AU unknown unk nown 3/UL TO_ All T unknown 0.6 unknown A_G_RAT unknown unk nown IO All T unknown 39 unknown U/L AST unknown unkn own All T unknown 101 unknown U/L ALT_SGP unknown unk nown T_ All ALT_ALANINE_ unknown 101 unknown U/L ALT unknown unknown AMINOTRANSFER ASE All ALKALINE_PHO unknown 139 unknown U/L ALP unknown unknown SPHATASE All T unknown 139 unknown U/L ALK_PHO unknown unk nown S All T unknown 2.5 unknown g/dL ALB unknown unkn own All ALBUMIN_GLOB unknown 0.6 unknown AGRATIO unknow n unknown ULIN_RATIO All urea_nitroge unknown 19 unknown mg/dL _9 unknown unknown n_blood All Erythrocytes unknown 4.60 10 unknown _789-8 unknow n unknown _volume_in_Bl 6/UL ood_by_Automa ted_count All Erythrocyte_ unknown 15.6 unknown % _788-0 unknown unknown distribution_ width_Ratio_b y_Automated_c ount All MCV_Entitic_ unknown 86.1 unknown fL _787-2 unknown unknown volume_by_Aut omated_count All MCH_Entitic_ unknown 29.1 unknown pg _785-6 unknown unknown mass_by_Autom ated_count All Platelets_vo unknown 383 10 unknown _777-3 unknown unknown lume_in_Blood 3/UL _by_Automated _count All Platelet_mea unknown 9.6 unknown fL _776-5 unknown unknown n_volume_Enti tic_volume_in _Blood_by_Ree s-Ericka All neutrophil_c unknown 3.7 10 unknown _752-6 unknown unknown ount_blood 3/UL All monocyte_cou unknown 0.9 10 unknown _743-5 unknown unknown nt_blood 3/UL All lymphocyte_c unknown 2.5 10 unknown _732-8 unknown unknown ount_blood 3/UL All Hemoglobin_M unknown 13.4 unknown g/dL _718-7 unknown unknown ass_volume_in _Blood All eosinophil_c unknown 0.4 10 unknown _712-0 unknown unknown ount_blood 3/UL All Basophils_vo unknown 0.1 10 unknown _705-4 unknown unknown lume_in_Blood 3/UL _by_Manual_co unt All leukocyte_co unknown 7.6 X10 unknown _68 unknow n unknown unt_blood 3/UL All erythrocyte_ unknown 4.60 10 unknown _67 unknow n unknown RBC_count 6/UL All Leukocytes_v unknown 7.6 X10 unknown _6690-2 unkno wn unknown olume_in_Bloo 3/UL d_by_Automate d_count All Glomerular_F unknown 121 unknown mL/mi _66455 unknown unknown iltration_rat n e All platelet_cou unknown 383 10 unknown _66 unknown unknown nt 3/UL All hemoglobin_b unknown 13.4 unknown g/dL _65 unknown unknown lood All hematocrit_b unknown 39.6 unknown % _64 unknown unknown lood All potassium_bl unknown 4.8 unknown meq/L _6298-4 unknow n unknown ood All Glomerular_fi unknown 121 unknown mL/mi _48642- unknow n unknown ltration_rate n 3 _1.73_sq_M.pr edicted_among _non-blacks_V olume_Rate_Ar ea_in_Serum_P lasma_or_Bloo d_by_Creatini ne-based_form ula_MDRD_ All Hematocrit_V unknown 39.6 unknown % _4544-3 unknow n unknown olume_Fractio n_of_Blood_by _Automated_co unt All bilirubin_se unknown 0.2 unknown mg/dL _43 unknown unknown rum_total All alanine_amin unknown 101 unknown U/L _40 unknown unknown otransferase_ SGPT_serum All carbon_dioxi unknown 23 unknown mmol/ _3962 unknown unknown de_serum_tota L l All aspartate_am unknown 39 unknown U/L _39 unknown unknown inotransferas e_SGOT_serum All protein_tota unknown 6.8 unknown g/dL _36 unknown unknown l_serum All blood_glucos unknown 76 unknown mg/dL _3565 unknown unknown e All potassium_bl unknown 4.8 unknown meq/L _3483 unknown unknown ood All mean_corpusc unknown 86.1 unknown fL _315 unknown unknown ular_volume_R BC All Urea_nitroge unknown 19 unknown mg/dL _3094-0 unknow n unknown n_Mass_volume _in_Serum_or_ Plasma All globulin_ser unknown 4.3 unknown _3059 unknown unknown um All alkaline_pho unknown 139 unknown U/L _3 unknown unknown sphatase_seru m All Sodium_Moles unknown 133 unknown mmol/ _2951-2 unknow n unknown _volume_in_Se L rum_or_Plasma All Protein_Mass unknown 6.8 unknown g/dL _2885-2 unknow n unknown _volume_in_Se rum_or_Plasma All eosinophil_c unknown 0.4 10 unknown _285 unknown unknown ount_blood 3/UL All anion_gap_se unknown 11.0 unknown _279 unknown unknown rum All mean_platele unknown 9.6 unknown fL _2784 unknown unknown t_volume All basophil_cou unknown 0.1 10 unknown _2427 unknown unknown nt_blood 3/UL All monocyte_cou unknown 0.9 10 unknown _2422 unknown unknown nt_blood 3/UL All lymphocyte_c unknown 2.5 10 unknown _2420 unknown unknown ount_blood 3/UL All neutrophil_c unknown 3.7 10 unknown _2418 unknown unknown ount_blood 3/UL All Glucose_Mass unknown 76 unknown mg/dL _2345-7 unknow n unknown _volume_in_Se rum_or_Plasma All Globulin_Mas unknown 4.3 unknown _2336-6 unknow n unknown s_volume_in_S anthony All Creatinine_M unknown 0.6 unknown mg/dL _2160-0 unknow n unknown ass_volume_in _Serum_or_Pla sma All Chloride_Mol unknown 99 unknown mmol/ _2075-0 unknow n unknown es_volume_in_ L Serum_or_Plas ma All carbon_dioxi unknown 23 unknown mmol/ _2028-9 unknow n unknown de_serum_tota L l All Calcium_Mole unknown 8.8 unknown mg/dL _2000-8 unknow n unknown s_volume_in_S erum_or_Plasm a All albumin_seru unknown 2.5 unknown g/dL _2 unknown unknown m All Bilirubin.to unknown 0.2 unknown mg/dL _1975- unknow n unknown tal_Mass_volu me_in_Serum_o r_Plasma All Aspartate_am unknown 39 unknown U/L _1920-8 unknow n unknown inotransferas e_Enzymatic_a ctivity_volum e_in_Serum_or _Plasma All Anion_gap_4_ unknown 11.0 unknown _1863-0 unknow n unknown in_Serum_or_P lasma All creatinine_s unknown 0.6 unknown mg/dL _18 unknown unknown anthony All Alkaline_pho unknown 139 unknown U/L _1783-0 unknow n unknown sphatase_Enzy matic_activit y_volume_in_B lood All Albumin_Glob unknown 0.6 unknown _1759-0 unknow n unknown ulin_Mass_Rat io_in_Serum_o r_Plasma All Albumin_Mass unknown 2.5 unknown g/dL _1751-7 unknow n unknown _volume_in_Se rum_or_Plasma All Alanine_amin unknown 101 unknown U/L _1742-6 unknow n unknown otransferase_ Enzymatic_act ivity_volume_ in_Serum_or_P lasma All mean_corpusc unknown 33.8 unknown g/dL _17029 unknown unknown ular_hemoglob in_concentrat ion_rbc All sodium_serum unknown 133 unknown mmol/ _159 unknown unknown L All albumin_glob unknown 0.6 unknown _146 unknown unknown ulin_ratio_se rum All chloride_ser unknown 99 unknown mmol/ _13 unknown unknown um L All calcium_seru unknown 8.8 unknown mg/dL _11 unknown unknown m All mean_corpusc unknown 29.1 unknown pg _1031 unknown unknown ular_hemoglob in_RBC All red_blood_ce unknown 15.6 unknown % _1030 unknown unknown ll_distributi on_width All T unknown 7.6 X10 unknown WBC unknown unk nown 3/UL All T unknown 0.2 unknown mg/dL TOTAL_B unknown unk nown THONG All T unknown 15.6 unknown % RDW unknown unkn own All T unknown 4.60 10 unknown RBC unknown unk nown 6/UL All T unknown 6.8 unknown g/dL PRO_TOT unknown unk nown AL All T unknown 383 10 unknown PLT unknown unkn own 3/UL All NEUTROPHILS_ unknown 3.7 10 unknown NE_ unknown unknown AUTO_ 3/UL All T unknown 3.7 10 unknown NEUT_AU unknown unk nown 3/UL TO_ All T unknown 133 unknown mmol/ NA unknown unkn own L All T unknown 9.6 unknown fL MPV unknown unkn own All MONOCYTES_AU unknown 0.9 10 unknown MO_ unknown unknown TO_ 3/UL All T unknown 0.9 10 unknown MONO_AU unknown unk nown 3/UL TO_ All T unknown 86.1 unknown fL MCV unknown unkn own All T unknown 33.8 unknown g/dL MCHC unknown unkn own All T unknown 29.1 unknown pg MCH unknown unkn own All LYMPHOCYTES_ unknown 2.5 10 unknown LY_ unknown unknown AUTO_ 3/UL All T unknown 2.5 10 unknown LYMPH_A unknown unk nown 3/UL UTO_ All T unknown 4.8 unknown meq/L K unknown unkn own All T unknown 13.4 unknown g/dL HGB unknown unkn own All T unknown 39.6 unknown % HCT unknown unkn own All T unknown 76 unknown mg/dL GLU unknown unkn own All T unknown 4.3 unknown GLOB unknown unkn own All T unknown 121 unknown mL/mi GFR_-_M unknown unk nown n DRD All GFR_-_MDRD unknown 121 unknown mL/mi GFR unknown unknown n All T unknown 11.0 unknown GAP unknown unkn own All EOSINOPHILS_ unknown 0.4 10 unknown EO_ unknown unknown AUTO_ 3/UL All T unknown 0.4 10 unknown EOS_AUT unknown unk nown 3/UL O_ All T unknown 0.6 unknown mg/dL CREAT unknown unkn own All T unknown 23 unknown mmol/ CO2 unknown unkn own L All T unknown 99 unknown mmol/ CL unknown unkn own L All T unknown 8.8 unknown mg/dL CA unknown unkn own All T unknown 19 unknown mg/dL BUN unknown unkn own All BILIRUBIN_TO unknown 0.2 unknown mg/dL BILIT unknown unknown JULIO All BASOPHILS_AU unknown 0.1 10 unknown BA_ unknown unknown TO_ 3/UL All T unknown 0.1 10 unknown BASO_AU unknown unk nown 3/UL TO_ All T unknown 0.6 unknown A_G_RAT unknown unk nown IO All T unknown 39 unknown U/L AST unknown unkn own All T unknown 101 unknown U/L ALT_SGP unknown unk nown T_ All ALT_ALANINE_ unknown 101 unknown U/L ALT unknown unknown AMINOTRANSFER ASE All ALKALINE_PHO unknown 139 unknown U/L ALP unknown unknown SPHATASE All T unknown 139 unknown U/L ALK_PHO unknown unk nown S All T unknown 2.5 unknown g/dL ALB unknown unkn own All ALBUMIN_GLOB unknown 0.6 unknown AGRATIO unknow n unknown ULIN_RATIO All urea_nitroge unknown 19 unknown mg/dL _9 unknown unknown n_blood All Erythrocytes unknown 4.60 10 unknown _789-8 unknow n unknown _volume_in_Bl 6/UL ood_by_Automa ted_count All Erythrocyte_ unknown 15.6 unknown % _788-0 unknown unknown distribution_ width_Ratio_b y_Automated_c ount All MCV_Entitic_ unknown 86.1 unknown fL _787-2 unknown unknown volume_by_Aut omated_count All MCH_Entitic_ unknown 29.1 unknown pg _785-6 unknown unknown mass_by_Autom ated_count All Platelets_vo unknown 383 10 unknown _777-3 unknown unknown lume_in_Blood 3/UL _by_Automated _count All Platelet_mea unknown 9.6 unknown fL _776-5 unknown unknown n_volume_Enti tic_volume_in _Blood_by_Ree s-Ericka All neutrophil_c unknown 3.7 10 unknown _752-6 unknown unknown ount_blood 3/UL All monocyte_cou unknown 0.9 10 unknown _743-5 unknown unknown nt_blood 3/UL All lymphocyte_c unknown 2.5 10 unknown _732-8 unknown unknown ount_blood 3/UL All Hemoglobin_M unknown 13.4 unknown g/dL _718-7 unknown unknown ass_volume_in _Blood All eosinophil_c unknown 0.4 10 unknown _712-0 unknown unknown ount_blood 3/UL All Basophils_vo unknown 0.1 10 unknown _705-4 unknown unknown lume_in_Blood 3/UL _by_Manual_co unt All leukocyte_co unknown 7.6 X10 unknown _68 unknow n unknown unt_blood 3/UL All erythrocyte_ unknown 4.60 10 unknown _67 unknow n unknown RBC_count 6/UL All Leukocytes_v unknown 7.6 X10 unknown _6690-2 unkno wn unknown olume_in_Bloo 3/UL d_by_Automate d_count All Glomerular_F unknown 121 unknown mL/mi _66455 unknown unknown iltration_rat n e All platelet_cou unknown 383 10 unknown _66 unknown unknown nt 3/UL All hemoglobin_b unknown 13.4 unknown g/dL _65 unknown unknown lood All hematocrit_b unknown 39.6 unknown % _64 unknown unknown lood All potassium_bl unknown 4.8 unknown meq/L _6298-4 unknow n unknown ood All Glomerular_fi unknown 121 unknown mL/mi _48642- unknow n unknown ltration_rate n 3 _1.73_sq_M.pr edicted_among _non-blacks_V olume_Rate_Ar ea_in_Serum_P lasma_or_Bloo d_by_Creatini ne-based_form ula_MDRD_ All Hematocrit_V unknown 39.6 unknown % _4544-3 unknow n unknown olume_Fractio n_of_Blood_by _Automated_co unt All bilirubin_se unknown 0.2 unknown mg/dL _43 unknown unknown rum_total All alanine_amin unknown 101 unknown U/L _40 unknown unknown otransferase_ SGPT_serum All carbon_dioxi unknown 23 unknown mmol/ _3962 unknown unknown de_serum_tota L l All aspartate_am unknown 39 unknown U/L _39 unknown unknown inotransferas e_SGOT_serum All protein_tota unknown 6.8 unknown g/dL _36 unknown unknown l_serum All blood_glucos unknown 76 unknown mg/dL _3565 unknown unknown e All potassium_bl unknown 4.8 unknown meq/L _3483 unknown unknown ood All mean_corpusc unknown 86.1 unknown fL _315 unknown unknown ular_volume_R BC All Urea_nitroge unknown 19 unknown mg/dL _3094-0 unknow n unknown n_Mass_volume _in_Serum_or_ Plasma All globulin_ser unknown 4.3 unknown _3059 unknown unknown um All alkaline_pho unknown 139 unknown U/L _3 unknown unknown sphatase_seru m All Sodium_Moles unknown 133 unknown mmol/ _2951-2 unknow n unknown _volume_in_Se L rum_or_Plasma All Protein_Mass unknown 6.8 unknown g/dL _2885-2 unknow n unknown _volume_in_Se rum_or_Plasma All eosinophil_c unknown 0.4 10 unknown _285 unknown unknown ount_blood 3/UL All anion_gap_se unknown 11.0 unknown _279 unknown unknown rum All mean_platele unknown 9.6 unknown fL _2784 unknown unknown t_volume All basophil_cou unknown 0.1 10 unknown _2427 unknown unknown nt_blood 3/UL All monocyte_cou unknown 0.9 10 unknown _2422 unknown unknown nt_blood 3/UL All lymphocyte_c unknown 2.5 10 unknown _2420 unknown unknown ount_blood 3/UL All neutrophil_c unknown 3.7 10 unknown _2418 unknown unknown ount_blood 3/UL All Glucose_Mass unknown 76 unknown mg/dL _2345-7 unknow n unknown _volume_in_Se rum_or_Plasma All Globulin_Mas unknown 4.3 unknown _2336-6 unknow n unknown s_volume_in_S anthony All Creatinine_M unknown 0.6 unknown mg/dL _2160-0 unknow n unknown ass_volume_in _Serum_or_Pla sma All Chloride_Mol unknown 99 unknown mmol/ _2075-0 unknow n unknown es_volume_in_ L Serum_or_Plas ma All carbon_dioxi unknown 23 unknown mmol/ _8-9 unknow n unknown de_serum_tota L l All Calcium_Mole unknown 8.8 unknown mg/dL _1999-8 unknow n unknown s_volume_in_S erum_or_Plasm a All albumin_seru unknown 2.5 unknown g/dL _2 unknown unknown m All Bilirubin.to unknown 0.2 unknown mg/dL _1974-2 unknow n unknown tal_Mass_volu me_in_Serum_o r_Plasma All Aspartate_am unknown 39 unknown U/L _192-8 unknow n unknown inotransferas e_Enzymatic_a ctivity_volum e_in_Serum_or _Plasma All Anion_gap_4_ unknown 11.0 unknown _1863-0 unknow n unknown in_Serum_or_P lasma All creatinine_s unknown 0.6 unknown mg/dL _18 unknown unknown anthony All Alkaline_pho unknown 139 unknown U/L _1783-0 unknow n unknown sphatase_Enzy matic_activit y_volume_in_B lood All Albumin_Glob unknown 0.6 unknown _1759-0 unknow n unknown ulin_Mass_Rat io_in_Serum_o r_Plasma All Albumin_Mass unknown 2.5 unknown g/dL _1751-7 unknow n unknown _volume_in_Se rum_or_Plasma All Alanine_amin unknown 101 unknown U/L _1742-6 unknow n unknown otransferase_ Enzymatic_act ivity_volume_ in_Serum_or_P lasma All mean_corpusc unknown 33.8 unknown g/dL _17029 unknown unknown ular_hemoglob in_concentrat ion_rbc All sodium_serum unknown 133 unknown mmol/ _159 unknown unknown L All albumin_glob unknown 0.6 unknown _146 unknown unknown ulin_ratio_se rum All chloride_ser unknown 99 unknown mmol/ _13 unknown unknown um L All calcium_seru unknown 8.8 unknown mg/dL _11 unknown unknown m All mean_corpusc unknown 29.1 unknown pg _1031 unknown unknown ular_hemoglob in_RBC All red_blood_ce unknown 15.6 unknown % _1030 unknown unknown ll_distributi on_width All T unknown 7.6 X10 unknown WBC unknown unk nown 3/UL All T unknown 0.2 unknown mg/dL TOTAL_B unknown unk nown THONG All T unknown 15.6 unknown % RDW unknown unkn own All T unknown 4.60 10 unknown RBC unknown unk nown 6/UL All T unknown 6.8 unknown g/dL PRO_TOT unknown unk nown AL All T unknown 383 10 unknown PLT unknown unkn own 3/UL All NEUTROPHILS_ unknown 3.7 10 unknown NE_ unknown unknown AUTO_ 3/UL All T unknown 3.7 10 unknown NEUT_AU unknown unk nown 3/UL TO_ All T unknown 133 unknown mmol/ NA unknown unkn own L All T unknown 9.6 unknown fL MPV unknown unkn own All MONOCYTES_AU unknown 0.9 10 unknown MO_ unknown unknown TO_ 3/UL All T unknown 0.9 10 unknown MONO_AU unknown unk nown 3/UL TO_ All T unknown 86.1 unknown fL MCV unknown unkn own All T unknown 33.8 unknown g/dL MCHC unknown unkn own All T unknown 29.1 unknown pg MCH unknown unkn own All LYMPHOCYTES_ unknown 2.5 10 unknown LY_ unknown unknown AUTO_ 3/UL All T unknown 2.5 10 unknown LYMPH_A unknown unk nown 3/UL UTO_ All T unknown 4.8 unknown meq/L K unknown unkn own All T unknown 13.4 unknown g/dL HGB unknown unkn own All T unknown 39.6 unknown % HCT unknown unkn own All T unknown 76 unknown mg/dL GLU unknown unkn own All T unknown 4.3 unknown GLOB unknown unkn own All T unknown 121 unknown mL/mi GFR_-_M unknown unk nown n DRD All GFR_-_MDRD unknown 121 unknown mL/mi GFR unknown unknown n All T unknown 11.0 unknown GAP unknown unkn own All EOSINOPHILS_ unknown 0.4 10 unknown EO_ unknown unknown AUTO_ 3/UL All T unknown 0.4 10 unknown EOS_AUT unknown unk nown 3/UL O_ All T unknown 0.6 unknown mg/dL CREAT unknown unkn own All T unknown 23 unknown mmol/ CO2 unknown unkn own L All T unknown 99 unknown mmol/ CL unknown unkn own L All T unknown 8.8 unknown mg/dL CA unknown unkn own All T unknown 19 unknown mg/dL BUN unknown unkn own All BILIRUBIN_TO unknown 0.2 unknown mg/dL BILIT unknown unknown JULIO All BASOPHILS_AU unknown 0.1 10 unknown BA_ unknown unknown TO_ 3/UL All T unknown 0.1 10 unknown BASO_AU unknown unk nown 3/UL TO_ All T unknown 0.6 unknown A_G_RAT unknown unk nown IO All T unknown 39 unknown U/L AST unknown unkn own All T unknown 101 unknown U/L ALT_SGP unknown unk nown T_ All ALT_ALANINE_ unknown 101 unknown U/L ALT unknown unknown AMINOTRANSFER ASE All ALKALINE_PHO unknown 139 unknown U/L ALP unknown unknown SPHATASE All T unknown 139 unknown U/L ALK_PHO unknown unk nown S All T unknown 2.5 unknown g/dL ALB unknown unkn own All ALBUMIN_GLOB unknown 0.6 unknown AGRATIO unknow n unknown ULIN_RATIO All urea_nitroge unknown 19 unknown mg/dL _9 unknown unknown n_blood All Erythrocytes unknown 4.60 10 unknown _789-8 unknow n unknown _volume_in_Bl 6/UL ood_by_Automa ted_count All Erythrocyte_ unknown 15.6 unknown % _788-0 unknown unknown distribution_ width_Ratio_b y_Automated_c ount All MCV_Entitic_ unknown 86.1 unknown fL _787-2 unknown unknown volume_by_Aut omated_count All MCH_Entitic_ unknown 29.1 unknown pg _785-6 unknown unknown mass_by_Autom ated_count All Platelets_vo unknown 383 10 unknown _777-3 unknown unknown lume_in_Blood 3/UL _by_Automated _count All Platelet_mea unknown 9.6 unknown fL _776-5 unknown unknown n_volume_Enti tic_volume_in _Blood_by_Ree s-Ericka All neutrophil_c unknown 3.7 10 unknown _752-6 unknown unknown ount_blood 3/UL All monocyte_cou unknown 0.9 10 unknown _743-5 unknown unknown nt_blood 3/UL All lymphocyte_c unknown 2.5 10 unknown _732-8 unknown unknown ount_blood 3/UL All Hemoglobin_M unknown 13.4 unknown g/dL _718-7 unknown unknown ass_volume_in _Blood All eosinophil_c unknown 0.4 10 unknown _712-0 unknown unknown ount_blood 3/UL All Basophils_vo unknown 0.1 10 unknown _705-4 unknown unknown lume_in_Blood 3/UL _by_Manual_co unt All leukocyte_co unknown 7.6 X10 unknown _68 unknow n unknown unt_blood 3/UL All erythrocyte_ unknown 4.60 10 unknown _67 unknow n unknown RBC_count 6/UL All Leukocytes_v unknown 7.6 X10 unknown _6690-2 unkno wn unknown olume_in_Bloo 3/UL d_by_Automate d_count All Glomerular_F unknown 121 unknown mL/mi _66455 unknown unknown iltration_rat n e All platelet_cou unknown 383 10 unknown _66 unknown unknown nt 3/UL All hemoglobin_b unknown 13.4 unknown g/dL _65 unknown unknown lood All hematocrit_b unknown 39.6 unknown % _64 unknown unknown lood All potassium_bl unknown 4.8 unknown meq/L _6298-4 unknow n unknown ood All Glomerular_fi unknown 121 unknown mL/mi _48642- unknow n unknown ltration_rate n 3 _1.73_sq_M.pr edicted_among _non-blacks_V olume_Rate_Ar ea_in_Serum_P lasma_or_Bloo d_by_Creatini ne-based_form ula_MDRD_ All Hematocrit_V unknown 39.6 unknown % _4544-3 unknow n unknown olume_Fractio n_of_Blood_by _Automated_co unt All bilirubin_se unknown 0.2 unknown mg/dL _43 unknown unknown rum_total All alanine_amin unknown 101 unknown U/L _40 unknown unknown otransferase_ SGPT_serum All carbon_dioxi unknown 23 unknown mmol/ _3962 unknown unknown de_serum_tota L l All aspartate_am unknown 39 unknown U/L _39 unknown unknown inotransferas e_SGOT_serum All protein_tota unknown 6.8 unknown g/dL _36 unknown unknown l_serum All blood_glucos unknown 76 unknown mg/dL _3565 unknown unknown e All potassium_bl unknown 4.8 unknown meq/L _3483 unknown unknown ood All mean_corpusc unknown 86.1 unknown fL _315 unknown unknown ular_volume_R BC All Urea_nitroge unknown 19 unknown mg/dL _3094-0 unknow n unknown n_Mass_volume _in_Serum_or_ Plasma All globulin_ser unknown 4.3 unknown _3059 unknown unknown um All alkaline_pho unknown 139 unknown U/L _3 unknown unknown sphatase_seru m All Sodium_Moles unknown 133 unknown mmol/ _2951-2 unknow n unknown _volume_in_Se L rum_or_Plasma All Protein_Mass unknown 6.8 unknown g/dL _2885-2 unknow n unknown _volume_in_Se rum_or_Plasma All eosinophil_c unknown 0.4 10 unknown _285 unknown unknown ount_blood 3/UL All anion_gap_se unknown 11.0 unknown _279 unknown unknown rum All mean_platele unknown 9.6 unknown fL _2784 unknown unknown t_volume All basophil_cou unknown 0.1 10 unknown _2427 unknown unknown nt_blood 3/UL All monocyte_cou unknown 0.9 10 unknown _2422 unknown unknown nt_blood 3/UL All lymphocyte_c unknown 2.5 10 unknown _2420 unknown unknown ount_blood 3/UL All neutrophil_c unknown 3.7 10 unknown _2418 unknown unknown ount_blood 3/UL All Glucose_Mass unknown 76 unknown mg/dL _2345-7 unknow n unknown _volume_in_Se rum_or_Plasma All Globulin_Mas unknown 4.3 unknown _2336-6 unknow n unknown s_volume_in_S anthony All Creatinine_M unknown 0.6 unknown mg/dL _2160-0 unknow n unknown ass_volume_in _Serum_or_Pla sma All Chloride_Mol unknown 99 unknown mmol/ _5-0 unknow n unknown es_volume_in_ L Serum_or_Plas ma All carbon_dioxi unknown 23 unknown mmol/ _2027-9 unknow n unknown de_serum_tota L l All Calcium_Mole unknown 8.8 unknown mg/dL _1999- unknow n unknown s_volume_in_S erum_or_Plasm a All albumin_seru unknown 2.5 unknown g/dL _2 unknown unknown m All Bilirubin.to unknown 0.2 unknown mg/dL _1974- unknow n unknown tal_Mass_volu me_in_Serum_o r_Plasma All Aspartate_am unknown 39 unknown U/L _192-8 unknow n unknown inotransferas e_Enzymatic_a ctivity_volum e_in_Serum_or _Plasma All Anion_gap_4_ unknown 11.0 unknown _1863-0 unknow n unknown in_Serum_or_P lasma All creatinine_s unknown 0.6 unknown mg/dL _18 unknown unknown anthony All Alkaline_pho unknown 139 unknown U/L _1783-0 unknow n unknown sphatase_Enzy matic_activit y_volume_in_B lood All Albumin_Glob unknown 0.6 unknown _1759-0 unknow n unknown ulin_Mass_Rat io_in_Serum_o r_Plasma All Albumin_Mass unknown 2.5 unknown g/dL _1751-7 unknow n unknown _volume_in_Se rum_or_Plasma All Alanine_amin unknown 101 unknown U/L _1742-6 unknow n unknown otransferase_ Enzymatic_act ivity_volume_ in_Serum_or_P lasma All mean_corpusc unknown 33.8 unknown g/dL _17029 unknown unknown ular_hemoglob in_concentrat ion_rbc All sodium_serum unknown 133 unknown mmol/ _159 unknown unknown L All albumin_glob unknown 0.6 unknown _146 unknown unknown ulin_ratio_se rum All chloride_ser unknown 99 unknown mmol/ _13 unknown unknown um L All calcium_seru unknown 8.8 unknown mg/dL _11 unknown unknown m All mean_corpusc unknown 29.1 unknown pg _1031 unknown unknown ular_hemoglob in_RBC All red_blood_ce unknown 15.6 unknown % _1030 unknown unknown ll_distributi on_width All T unknown 7.6 X10 unknown WBC unknown unk nown 3/UL All T unknown 0.2 unknown mg/dL TOTAL_B unknown unk nown THONG All T unknown 15.6 unknown % RDW unknown unkn own All T unknown 4.60 10 unknown RBC unknown unk nown 6/UL All T unknown 6.8 unknown g/dL PRO_TOT unknown unk nown AL All T unknown 383 10 unknown PLT unknown unkn own 3/UL All NEUTROPHILS_ unknown 3.7 10 unknown NE_ unknown unknown AUTO_ 3/UL All T unknown 3.7 10 unknown NEUT_AU unknown unk nown 3/UL TO_ All T unknown 133 unknown mmol/ NA unknown unkn own L All T unknown 9.6 unknown fL MPV unknown unkn own All MONOCYTES_AU unknown 0.9 10 unknown MO_ unknown unknown TO_ 3/UL All T unknown 0.9 10 unknown MONO_AU unknown unk nown 3/UL TO_ All T unknown 86.1 unknown fL MCV unknown unkn own All T unknown 33.8 unknown g/dL MCHC unknown unkn own All T unknown 29.1 unknown pg MCH unknown unkn own All LYMPHOCYTES_ unknown 2.5 10 unknown LY_ unknown unknown AUTO_ 3/UL All T unknown 2.5 10 unknown LYMPH_A unknown unk nown 3/UL UTO_ All T unknown 4.8 unknown meq/L K unknown unkn own All T unknown 13.4 unknown g/dL HGB unknown unkn own All T unknown 39.6 unknown % HCT unknown unkn own All T unknown 76 unknown mg/dL GLU unknown unkn own All T unknown 4.3 unknown GLOB unknown unkn own All T unknown 121 unknown mL/mi GFR_-_M unknown unk nown n DRD All GFR_-_MDRD unknown 121 unknown mL/mi GFR unknown unknown n All T unknown 11.0 unknown GAP unknown unkn own All EOSINOPHILS_ unknown 0.4 10 unknown EO_ unknown unknown AUTO_ 3/UL All T unknown 0.4 10 unknown EOS_AUT unknown unk nown 3/UL O_ All T unknown 0.6 unknown mg/dL CREAT unknown unkn own All T unknown 23 unknown mmol/ CO2 unknown unkn own L All T unknown 99 unknown mmol/ CL unknown unkn own L All T unknown 8.8 unknown mg/dL CA unknown unkn own All T unknown 19 unknown mg/dL BUN unknown unkn own All BILIRUBIN_TO unknown 0.2 unknown mg/dL BILIT unknown unknown JULIO All BASOPHILS_AU unknown 0.1 10 unknown BA_ unknown unknown TO_ 3/UL All T unknown 0.1 10 unknown BASO_AU unknown unk nown 3/UL TO_ All T unknown 0.6 unknown A_G_RAT unknown unk nown IO All T unknown 39 unknown U/L AST unknown unkn own All T unknown 101 unknown U/L ALT_SGP unknown unk nown T_ All ALT_ALANINE_ unknown 101 unknown U/L ALT unknown unknown AMINOTRANSFER ASE All ALKALINE_PHO unknown 139 unknown U/L ALP unknown unknown SPHATASE All T unknown 139 unknown U/L ALK_PHO unknown unk nown S All T unknown 2.5 unknown g/dL ALB unknown unkn own All ALBUMIN_GLOB unknown 0.6 unknown AGRATIO unknow n unknown ULIN_RATIO All urea_nitroge unknown 16 unknown mg/dL _9 unknown unknown n_blood All Erythrocytes unknown 4.28 10 unknown _789-8 unknow n unknown _volume_in_Bl 6/UL ood_by_Automa ted_count All Erythrocyte_ unknown 15.7 unknown % _788-0 unknown unknown distribution_ width_Ratio_b y_Automated_c ount All MCV_Entitic_ unknown 87.1 unknown fL _787-2 unknown unknown volume_by_Aut omated_count All MCH_Entitic_ unknown 29.0 unknown pg _785-6 unknown unknown mass_by_Autom ated_count All Platelets_vo unknown 348 10 unknown _777-3 unknown unknown lume_in_Blood 3/UL _by_Automated _count All Platelet_mea unknown 10.5 unknown fL _776-5 unknown unknown n_volume_Enti tic_volume_in _Blood_by_Ree s-Ericka All Hemoglobin_M unknown 12.4 unknown g/dL _718-7 unknown unknown ass_volume_in _Blood All leukocyte_co unknown 14.7 X10 unknown _68 unkno wn unknown unt_blood 3/UL All erythrocyte_ unknown 4.28 10 unknown _67 unknow n unknown RBC_count 6/UL All Leukocytes_v unknown 14.7 X10 unknown _6690-2 unkn own unknown olume_in_Bloo 3/UL d_by_Automate d_count All Glomerular_F unknown 76 unknown mL/mi _66455 unknown unknown iltration_rat n e All platelet_cou unknown 348 10 unknown _66 unknown unknown nt 3/UL All hemoglobin_b unknown 12.4 unknown g/dL _65 unknown unknown lood All hematocrit_b unknown 37.3 unknown % _64 unknown unknown lood All potassium_bl unknown 4.2 unknown meq/L _6298-4 unknow n unknown ood All Glomerular_fi unknown 76 unknown mL/mi _48642- unknow n unknown ltration_rate n 3 _1.73_sq_M.pr edicted_among _non-blacks_V olume_Rate_Ar ea_in_Serum_P lasma_or_Bloo d_by_Creatini ne-based_form ula_MDRD_ All Hematocrit_V unknown 37.3 unknown % _4544-3 unknow n unknown olume_Fractio n_of_Blood_by _Automated_co unt All bilirubin_se unknown 0.2 unknown mg/dL _43 unknown unknown rum_total All alanine_amin unknown 132 unknown U/L _40 unknown unknown otransferase_ SGPT_serum All carbon_dioxi unknown 24 unknown mmol/ _3962 unknown unknown de_serum_tota L l All aspartate_am unknown 56 unknown U/L _39 unknown unknown inotransferas e_SGOT_serum All protein_tota unknown 6.4 unknown g/dL _36 unknown unknown l_serum All blood_glucos unknown 88 unknown mg/dL _3565 unknown unknown e All potassium_bl unknown 4.2 unknown meq/L _3483 unknown unknown ood All mean_corpusc unknown 87.1 unknown fL _315 unknown unknown ular_volume_R BC All Urea_nitroge unknown 16 unknown mg/dL _3094-0 unknow n unknown n_Mass_volume _in_Serum_or_ Plasma All globulin_ser unknown 4.0 unknown _3059 unknown unknown um All alkaline_pho unknown 126 unknown U/L _3 unknown unknown sphatase_seru m All Sodium_Moles unknown 135 unknown mmol/ _2951-2 unknow n unknown _volume_in_Se L rum_or_Plasma All Protein_Mass unknown 6.4 unknown g/dL _2885-2 unknow n unknown _volume_in_Se rum_or_Plasma All anion_gap_se unknown 11.0 unknown _279 unknown unknown rum All mean_platele unknown 10.5 unknown fL _2784 unknown unknown t_volume All Glucose_Mass unknown 88 unknown mg/dL _2345-7 unknow n unknown _volume_in_Se rum_or_Plasma All Globulin_Mas unknown 4.0 unknown _2336-6 unknow n unknown s_volume_in_S anthony All Creatinine_M unknown 0.9 unknown mg/dL _2160-0 unknow n unknown ass_volume_in _Serum_or_Pla sma All Chloride_Mol unknown 100 unknown mmol/ _2075-0 unknow n unknown es_volume_in_ L Serum_or_Plas ma All carbon_dioxi unknown 24 unknown mmol/ _2028-9 unknow n unknown de_serum_tota L l All Calcium_Mole unknown 8.4 unknown mg/dL _1999-8 unknow n unknown s_volume_in_S erum_or_Plasm a All albumin_seru unknown 2.4 unknown g/dL _2 unknown unknown m All Bilirubin.to unknown 0.2 unknown mg/dL _1974- unknow n unknown tal_Mass_volu me_in_Serum_o r_Plasma All Aspartate_am unknown 56 unknown U/L _1920-8 unknow n unknown inotransferas e_Enzymatic_a ctivity_volum e_in_Serum_or _Plasma All Anion_gap_4_ unknown 11.0 unknown _1863-0 unknow n unknown in_Serum_or_P lasma All creatinine_s unknown 0.9 unknown mg/dL _18 unknown unknown anthony All Alkaline_pho unknown 126 unknown U/L _1783-0 unknow n unknown sphatase_Enzy matic_activit y_volume_in_B lood All Albumin_Glob unknown 0.6 unknown _1759-0 unknow n unknown ulin_Mass_Rat io_in_Serum_o r_Plasma All Albumin_Mass unknown 2.4 unknown g/dL _1751-7 unknow n unknown _volume_in_Se rum_or_Plasma All Alanine_amin unknown 132 unknown U/L _1742-6 unknow n unknown otransferase_ Enzymatic_act ivity_volume_ in_Serum_or_P lasma All mean_corpusc unknown 33.2 unknown g/dL _17029 unknown unknown ular_hemoglob in_concentrat ion_rbc All sodium_serum unknown 135 unknown mmol/ _159 unknown unknown L All albumin_glob unknown 0.6 unknown _146 unknown unknown ulin_ratio_se rum All chloride_ser unknown 100 unknown mmol/ _13 unknown unknown um L All calcium_seru unknown 8.4 unknown mg/dL _11 unknown unknown m All mean_corpusc unknown 29.0 unknown pg _1031 unknown unknown ular_hemoglob in_RBC All red_blood_ce unknown 15.7 unknown % _1030 unknown unknown ll_distributi on_width All T unknown 14.7 X10 unknown WBC unknown un known 3/UL All T unknown 0.2 unknown mg/dL TOTAL_B unknown unk nown THONG All T unknown 15.7 unknown % RDW unknown unkn own All T unknown 4.28 10 unknown RBC unknown unk nown 6/UL All T unknown 6.4 unknown g/dL PRO_TOT unknown unk nown AL All T unknown 348 10 unknown PLT unknown unkn own 3/UL All T unknown 135 unknown mmol/ NA unknown unkn own L All T unknown 10.5 unknown fL MPV unknown unkn own All T unknown 87.1 unknown fL MCV unknown unkn own All T unknown 33.2 unknown g/dL MCHC unknown unkn own All T unknown 29.0 unknown pg MCH unknown unkn own All T unknown 4.2 unknown meq/L K unknown unkn own All T unknown 12.4 unknown g/dL HGB unknown unkn own All T unknown 37.3 unknown % HCT unknown unkn own All T unknown 88 unknown mg/dL GLU unknown unkn own All T unknown 4.0 unknown GLOB unknown unkn own All T unknown 76 unknown mL/mi GFR_-_M unknown unk nown n DRD All GFR_-_MDRD unknown 76 unknown mL/mi GFR unknown unknown n All T unknown 11.0 unknown GAP unknown unkn own All T unknown 0.9 unknown mg/dL CREAT unknown unkn own All T unknown 24 unknown mmol/ CO2 unknown unkn own L All T unknown 100 unknown mmol/ CL unknown unkn own L All T unknown 8.4 unknown mg/dL CA unknown unkn own All T unknown 16 unknown mg/dL BUN unknown unkn own All BILIRUBIN_TO unknown 0.2 unknown mg/dL BILIT unknown unknown JULIO All T unknown 0.6 unknown A_G_RAT unknown unk nown IO All T unknown 56 unknown U/L AST unknown unkn own All T unknown 132 unknown U/L ALT_SGP unknown unk nown T_ All ALT_ALANINE_ unknown 132 unknown U/L ALT unknown unknown AMINOTRANSFER ASE All ALKALINE_PHO unknown 126 unknown U/L ALP unknown unknown SPHATASE All T unknown 126 unknown U/L ALK_PHO unknown unk nown S All T unknown 2.4 unknown g/dL ALB unknown unkn own All ALBUMIN_GLOB unknown 0.6 unknown AGRATIO unknow n unknown ULIN_RATIO All magnesium_se unknown 5.2 unknown mg/dL _32 unknown unknown rum All Magnesium_Mo unknown 5.2 unknown mg/dL _2601-3 unknow n unknown les_volume_in _Serum_or_Pla sma All T unknown 5.2 unknown mg/dL MG unknown unkn own All urea_nitroge unknown 14 unknown mg/dL _9 unknown unknown n_blood All Erythrocytes unknown 4.26 10 unknown _789-8 unknow n unknown _volume_in_Bl 6/UL ood_by_Automa ted_count All Erythrocyte_ unknown 15.5 unknown % _788-0 unknown unknown distribution_ width_Ratio_b y_Automated_c ount All MCV_Entitic_ unknown 86.4 unknown fL _787-2 unknown unknown volume_by_Aut omated_count All MCH_Entitic_ unknown 29.6 unknown pg _785-6 unknown unknown mass_by_Autom ated_count All Platelets_vo unknown 269 10 unknown _777-3 unknown unknown lume_in_Blood 3/UL _by_Automated _count All Platelet_mea unknown 10.5 unknown fL _776-5 unknown unknown n_volume_Enti tic_volume_in _Blood_by_Ree s-Ericka All Hemoglobin_M unknown 12.6 unknown g/dL _718-7 unknown unknown ass_volume_in _Blood All leukocyte_co unknown 17.7 X10 unknown _68 unkno wn unknown unt_blood 3/UL All erythrocyte_ unknown 4.26 10 unknown _67 unknow n unknown RBC_count 6/UL All Leukocytes_v unknown 17.7 X10 unknown _6690-2 unkn own unknown olume_in_Bloo 3/UL d_by_Automate d_count All Glomerular_F unknown 76 unknown mL/mi _66455 unknown unknown iltration_rat n e All platelet_cou unknown 269 10 unknown _66 unknown unknown nt 3/UL All hemoglobin_b unknown 12.6 unknown g/dL _65 unknown unknown lood All hematocrit_b unknown 36.8 unknown % _64 unknown unknown lood All potassium_bl unknown 4.6 unknown meq/L _6298-4 unknow n unknown ood All Glomerular_fi unknown 76 unknown mL/mi _48642- unknow n unknown ltration_rate n 3 _1.73_sq_M.pr edicted_among _non-blacks_V olume_Rate_Ar ea_in_Serum_P lasma_or_Bloo d_by_Creatini ne-based_form ula_MDRD_ All Hematocrit_V unknown 36.8 unknown % _4544-3 unknow n unknown olume_Fractio n_of_Blood_by _Automated_co unt All bilirubin_se unknown 0.2 unknown mg/dL _43 unknown unknown rum_total All alanine_amin unknown 176 unknown U/L _40 unknown unknown otransferase_ SGPT_serum All carbon_dioxi unknown 24 unknown mmol/ _3962 unknown unknown de_serum_tota L l All aspartate_am unknown 93 unknown U/L _39 unknown unknown inotransferas e_SGOT_serum All protein_tota unknown 5.7 unknown g/dL _36 unknown unknown l_serum All blood_glucos unknown 89 unknown mg/dL _3565 unknown unknown e All potassium_bl unknown 4.6 unknown meq/L _3483 unknown unknown ood All magnesium_se unknown 5.2 unknown mg/dL _32 unknown unknown rum All mean_corpusc unknown 86.4 unknown fL _315 unknown unknown ular_volume_R BC All Urea_nitroge unknown 14 unknown mg/dL _3094-0 unknow n unknown n_Mass_volume _in_Serum_or_ Plasma All globulin_ser unknown 3.6 unknown _3059 unknown unknown um All alkaline_pho unknown 125 unknown U/L _3 unknown unknown sphatase_seru m All Sodium_Moles unknown 134 unknown mmol/ _2951-2 unknow n unknown _volume_in_Se L rum_or_Plasma All Protein_Mass unknown 5.7 unknown g/dL _2885-2 unknow n unknown _volume_in_Se rum_or_Plasma All anion_gap_se unknown 8.0 unknown _279 unknown unknown rum All mean_platele unknown 10.5 unknown fL _2784 unknown unknown t_volume All Magnesium_Mo unknown 5.2 unknown mg/dL _2601-3 unknow n unknown les_volume_in _Serum_or_Pla sma All Glucose_Mass unknown 89 unknown mg/dL _2345-7 unknow n unknown _volume_in_Se rum_or_Plasma All Globulin_Mas unknown 3.6 unknown _2336-6 unknow n unknown s_volume_in_S anthony All Creatinine_M unknown 0.9 unknown mg/dL _2160-0 unknow n unknown ass_volume_in _Serum_or_Pla sma All Chloride_Mol unknown 102 unknown mmol/ _2075-0 unknow n unknown es_volume_in_ L Serum_or_Plas ma All carbon_dioxi unknown 24 unknown mmol/ _2028-9 unknow n unknown de_serum_tota L l All Calcium_Mole unknown 6.7 unknown mg/dL _1999- unknow n unknown s_volume_in_S erum_or_Plasm a All albumin_seru unknown 2.1 unknown g/dL _2 unknown unknown m All Bilirubin.to unknown 0.2 unknown mg/dL _1974- unknow n unknown tal_Mass_volu me_in_Serum_o r_Plasma All Aspartate_am unknown 93 unknown U/L _1920-8 unknow n unknown inotransferas e_Enzymatic_a ctivity_volum e_in_Serum_or _Plasma All Anion_gap_4_ unknown 8.0 unknown _1863-0 unknow n unknown in_Serum_or_P lasma All creatinine_s unknown 0.9 unknown mg/dL _18 unknown unknown anthony All Alkaline_pho unknown 125 unknown U/L _1783-0 unknow n unknown sphatase_Enzy matic_activit y_volume_in_B lood All Albumin_Glob unknown 0.6 unknown _1759-0 unknow n unknown ulin_Mass_Rat io_in_Serum_o r_Plasma All Albumin_Mass unknown 2.1 unknown g/dL _1751-7 unknow n unknown _volume_in_Se rum_or_Plasma All Alanine_amin unknown 176 unknown U/L _1742-6 unknow n unknown otransferase_ Enzymatic_act ivity_volume_ in_Serum_or_P lasma All mean_corpusc unknown 34.2 unknown g/dL _17029 unknown unknown ular_hemoglob in_concentrat ion_rbc All sodium_serum unknown 134 unknown mmol/ _159 unknown unknown L All albumin_glob unknown 0.6 unknown _146 unknown unknown ulin_ratio_se rum All chloride_ser unknown 102 unknown mmol/ _13 unknown unknown um L All calcium_seru unknown 6.7 unknown mg/dL _11 unknown unknown m All mean_corpusc unknown 29.6 unknown pg _1031 unknown unknown ular_hemoglob in_RBC All red_blood_ce unknown 15.5 unknown % _1030 unknown unknown ll_distributi on_width All T unknown 17.7 X10 unknown WBC unknown un known 3/UL All T unknown 0.2 unknown mg/dL TOTAL_B unknown unk nown THONG All T unknown 15.5 unknown % RDW unknown unkn own All T unknown 4.26 10 unknown RBC unknown unk nown 6/UL All T unknown 5.7 unknown g/dL PRO_TOT unknown unk nown AL All T unknown 269 10 unknown PLT unknown unkn own 3/UL All T unknown 134 unknown mmol/ NA unknown unkn own L All T unknown 10.5 unknown fL MPV unknown unkn own All T unknown 5.2 unknown mg/dL MG unknown unkn own All T unknown 86.4 unknown fL MCV unknown unkn own All T unknown 34.2 unknown g/dL MCHC unknown unkn own All T unknown 29.6 unknown pg MCH unknown unkn own All T unknown 4.6 unknown meq/L K unknown unkn own All T unknown 12.6 unknown g/dL HGB unknown unkn own All T unknown 36.8 unknown % HCT unknown unkn own All T unknown 89 unknown mg/dL GLU unknown unkn own All T unknown 3.6 unknown GLOB unknown unkn own All T unknown 76 unknown mL/mi GFR_-_M unknown unk nown n DRD All GFR_-_MDRD unknown 76 unknown mL/mi GFR unknown unknown n All T unknown 8.0 unknown GAP unknown unkn own All T unknown 0.9 unknown mg/dL CREAT unknown unkn own All T unknown 24 unknown mmol/ CO2 unknown unkn own L All T unknown 102 unknown mmol/ CL unknown unkn own L All T unknown 6.7 unknown mg/dL CA unknown unkn own All T unknown 14 unknown mg/dL BUN unknown unkn own All BILIRUBIN_TO unknown 0.2 unknown mg/dL BILIT unknown unknown JULIO All T unknown 0.6 unknown A_G_RAT unknown unk nown IO All T unknown 93 unknown U/L AST unknown unkn own All T unknown 176 unknown U/L ALT_SGP unknown unk nown T_ All ALT_ALANINE_ unknown 176 unknown U/L ALT unknown unknown AMINOTRANSFER ASE All ALKALINE_PHO unknown 125 unknown U/L ALP unknown unknown SPHATASE All T unknown 125 unknown U/L ALK_PHO unknown unk nown S All T unknown 2.1 unknown g/dL ALB unknown unkn own All ALBUMIN_GLOB unknown 0.6 unknown AGRATIO unknow n unknown ULIN_RATIO All urea_nitroge unknown 14 unknown mg/dL _9 unknown unknown n_blood All Erythrocytes unknown 4.26 10 unknown _789-8 unknow n unknown _volume_in_Bl 6/UL ood_by_Automa ted_count All Erythrocyte_ unknown 15.5 unknown % _788-0 unknown unknown distribution_ width_Ratio_b y_Automated_c ount All MCV_Entitic_ unknown 86.4 unknown fL _787-2 unknown unknown volume_by_Aut omated_count All MCH_Entitic_ unknown 29.6 unknown pg _785-6 unknown unknown mass_by_Autom ated_count All Platelets_vo unknown 269 10 unknown _777-3 unknown unknown lume_in_Blood 3/UL _by_Automated _count All Platelet_mea unknown 10.5 unknown fL _776-5 unknown unknown n_volume_Enti tic_volume_in _Blood_by_Ree s-Ericka All Hemoglobin_M unknown 12.6 unknown g/dL _718-7 unknown unknown ass_volume_in _Blood All leukocyte_co unknown 17.7 X10 unknown _68 unkno wn unknown unt_blood 3/UL All erythrocyte_ unknown 4.26 10 unknown _67 unknow n unknown RBC_count 6/UL All Leukocytes_v unknown 17.7 X10 unknown _6690-2 unkn own unknown olume_in_Bloo 3/UL d_by_Automate d_count All Glomerular_F unknown 76 unknown mL/mi _66455 unknown unknown iltration_rat n e All platelet_cou unknown 269 10 unknown _66 unknown unknown nt 3/UL All hemoglobin_b unknown 12.6 unknown g/dL _65 unknown unknown lood All hematocrit_b unknown 36.8 unknown % _64 unknown unknown lood All potassium_bl unknown 4.6 unknown meq/L _6298-4 unknow n unknown ood All Glomerular_fi unknown 76 unknown mL/mi _48642- unknow n unknown ltration_rate n 3 _1.73_sq_M.pr edicted_among _non-blacks_V olume_Rate_Ar ea_in_Serum_P lasma_or_Bloo d_by_Creatini ne-based_form ula_MDRD_ All Hematocrit_V unknown 36.8 unknown % _4544-3 unknow n unknown olume_Fractio n_of_Blood_by _Automated_co unt All bilirubin_se unknown 0.2 unknown mg/dL _43 unknown unknown rum_total All alanine_amin unknown 176 unknown U/L _40 unknown unknown otransferase_ SGPT_serum All carbon_dioxi unknown 24 unknown mmol/ _3962 unknown unknown de_serum_tota L l All aspartate_am unknown 93 unknown U/L _39 unknown unknown inotransferas e_SGOT_serum All protein_tota unknown 5.7 unknown g/dL _36 unknown unknown l_serum All blood_glucos unknown 89 unknown mg/dL _3565 unknown unknown e All potassium_bl unknown 4.6 unknown meq/L _3483 unknown unknown ood All magnesium_se unknown 5.2 unknown mg/dL _32 unknown unknown rum All mean_corpusc unknown 86.4 unknown fL _315 unknown unknown ular_volume_R BC All Urea_nitroge unknown 14 unknown mg/dL _3094-0 unknow n unknown n_Mass_volume _in_Serum_or_ Plasma All globulin_ser unknown 3.6 unknown _3059 unknown unknown um All alkaline_pho unknown 125 unknown U/L _3 unknown unknown sphatase_seru m All Sodium_Moles unknown 134 unknown mmol/ _2951-2 unknow n unknown _volume_in_Se L rum_or_Plasma All Protein_Mass unknown 5.7 unknown g/dL _2885-2 unknow n unknown _volume_in_Se rum_or_Plasma All anion_gap_se unknown 8.0 unknown _279 unknown unknown rum All mean_platele unknown 10.5 unknown fL _2784 unknown unknown t_volume All Magnesium_Mo unknown 5.2 unknown mg/dL _2601-3 unknow n unknown les_volume_in _Serum_or_Pla sma All Glucose_Mass unknown 89 unknown mg/dL _2345-7 unknow n unknown _volume_in_Se rum_or_Plasma All Globulin_Mas unknown 3.6 unknown _2336-6 unknow n unknown s_volume_in_S anthony All Creatinine_M unknown 0.9 unknown mg/dL _2160-0 unknow n unknown ass_volume_in _Serum_or_Pla sma All Chloride_Mol unknown 102 unknown mmol/ _2075-0 unknow n unknown es_volume_in_ L Serum_or_Plas ma All carbon_dioxi unknown 24 unknown mmol/ _2028-9 unknow n unknown de_serum_tota L l All Calcium_Mole unknown 6.7 unknown mg/dL _1999- unknow n unknown s_volume_in_S erum_or_Plasm a All albumin_seru unknown 2.1 unknown g/dL _2 unknown unknown m All Bilirubin.to unknown 0.2 unknown mg/dL _1974- unknow n unknown tal_Mass_volu me_in_Serum_o r_Plasma All Aspartate_am unknown 93 unknown U/L _192-8 unknow n unknown inotransferas e_Enzymatic_a ctivity_volum e_in_Serum_or _Plasma All Anion_gap_4_ unknown 8.0 unknown _1863-0 unknow n unknown in_Serum_or_P lasma All creatinine_s unknown 0.9 unknown mg/dL _18 unknown unknown anthony All Alkaline_pho unknown 125 unknown U/L _1783-0 unknow n unknown sphatase_Enzy matic_activit y_volume_in_B lood All Albumin_Glob unknown 0.6 unknown _1759-0 unknow n unknown ulin_Mass_Rat io_in_Serum_o r_Plasma All Albumin_Mass unknown 2.1 unknown g/dL _1751-7 unknow n unknown _volume_in_Se rum_or_Plasma All Alanine_amin unknown 176 unknown U/L _1742-6 unknow n unknown otransferase_ Enzymatic_act ivity_volume_ in_Serum_or_P lasma All mean_corpusc unknown 34.2 unknown g/dL _17029 unknown unknown ular_hemoglob in_concentrat ion_rbc All sodium_serum unknown 134 unknown mmol/ _159 unknown unknown L All albumin_glob unknown 0.6 unknown _146 unknown unknown ulin_ratio_se rum All chloride_ser unknown 102 unknown mmol/ _13 unknown unknown um L All calcium_seru unknown 6.7 unknown mg/dL _11 unknown unknown m All mean_corpusc unknown 29.6 unknown pg _1031 unknown unknown ular_hemoglob in_RBC All red_blood_ce unknown 15.5 unknown % _1030 unknown unknown ll_distributi on_width All T unknown 17.7 X10 unknown WBC unknown un known 3/UL All T unknown 0.2 unknown mg/dL TOTAL_B unknown unk nown THONG All T unknown 15.5 unknown % RDW unknown unkn own All T unknown 4.26 10 unknown RBC unknown unk nown 6/UL All T unknown 5.7 unknown g/dL PRO_TOT unknown unk nown AL All T unknown 269 10 unknown PLT unknown unkn own 3/UL All T unknown 134 unknown mmol/ NA unknown unkn own L All T unknown 10.5 unknown fL MPV unknown unkn own All T unknown 5.2 unknown mg/dL MG unknown unkn own All T unknown 86.4 unknown fL MCV unknown unkn own All T unknown 34.2 unknown g/dL MCHC unknown unkn own All T unknown 29.6 unknown pg MCH unknown unkn own All T unknown 4.6 unknown meq/L K unknown unkn own All T unknown 12.6 unknown g/dL HGB unknown unkn own All T unknown 36.8 unknown % HCT unknown unkn own All T unknown 89 unknown mg/dL GLU unknown unkn own All T unknown 3.6 unknown GLOB unknown unkn own All T unknown 76 unknown mL/mi GFR_-_M unknown unk nown n DRD All GFR_-_MDRD unknown 76 unknown mL/mi GFR unknown unknown n All T unknown 8.0 unknown GAP unknown unkn own All T unknown 0.9 unknown mg/dL CREAT unknown unkn own All T unknown 24 unknown mmol/ CO2 unknown unkn own L All T unknown 102 unknown mmol/ CL unknown unkn own L All T unknown 6.7 unknown mg/dL CA unknown unkn own All T unknown 14 unknown mg/dL BUN unknown unkn own All BILIRUBIN_TO unknown 0.2 unknown mg/dL BILIT unknown unknown JULIO All T unknown 0.6 unknown A_G_RAT unknown unk nown IO All T unknown 93 unknown U/L AST unknown unkn own All T unknown 176 unknown U/L ALT_SGP unknown unk nown T_ All ALT_ALANINE_ unknown 176 unknown U/L ALT unknown unknown AMINOTRANSFER ASE All ALKALINE_PHO unknown 125 unknown U/L ALP unknown unknown SPHATASE All T unknown 125 unknown U/L ALK_PHO unknown unk nown S All T unknown 2.1 unknown g/dL ALB unknown unkn own All ALBUMIN_GLOB unknown 0.6 unknown AGRATIO unknow n unknown ULIN_RATIO All magnesium_se unknown 5.2 unknown mg/dL _32 unknown unknown rum All Magnesium_Mo unknown 5.2 unknown mg/dL _2601-3 unknow n unknown les_volume_in _Serum_or_Pla sma All T unknown 5.2 unknown mg/dL MG unknown unkn own All urea_nitroge unknown 14 unknown mg/dL _9 unknown unknown n_blood All urea_nitroge unknown 12 unknown mg/dL _9 unknown unknown n_blood All Erythrocytes unknown 4.65 10 unknown _789-8 unknow n unknown _volume_in_Bl 6/UL ood_by_Automa ted_count All Erythrocytes unknown 4.42 10 unknown _789-8 unknow n unknown _volume_in_Bl 6/UL ood_by_Automa ted_count All Erythrocyte_ unknown 15.4 unknown % _788-0 unknown unknown distribution_ width_Ratio_b y_Automated_c ount All MCV_Entitic_ unknown 86.0 unknown fL _787-2 unknown unknown volume_by_Aut omated_count All MCV_Entitic_ unknown 85.3 unknown fL _787-2 unknown unknown volume_by_Aut omated_count All MCH_Entitic_ unknown 29.7 unknown pg _785-6 unknown unknown mass_by_Autom ated_count All MCH_Entitic_ unknown 29.4 unknown pg _785-6 unknown unknown mass_by_Autom ated_count All Platelets_vo unknown 315 10 unknown _777-3 unknown unknown lume_in_Blood 3/UL _by_Automated _count All Platelets_vo unknown 310 10 unknown _777-3 unknown unknown lume_in_Blood 3/UL _by_Automated _count All Platelet_mea unknown 10.7 unknown fL _776-5 unknown unknown n_volume_Enti tic_volume_in _Blood_by_Ree s-Ericka All neutrophil_c unknown 9.6 10 unknown _752-6 unknown unknown ount_blood 3/UL All neutrophil_c unknown 10.6 10 unknown _752-6 unknow n unknown ount_blood 3/UL All monocyte_cou unknown 1.2 10 unknown _743-5 unknown unknown nt_blood 3/UL All monocyte_cou unknown 0.7 10 unknown _743-5 unknown unknown nt_blood 3/UL All lymphocyte_c unknown 1.9 10 unknown _732-8 unknown unknown ount_blood 3/UL All lymphocyte_c unknown 1.7 10 unknown _732-8 unknown unknown ount_blood 3/UL All Hemoglobin_M unknown 13.8 unknown g/dL _718-7 unknown unknown ass_volume_in _Blood All Hemoglobin_M unknown 13.0 unknown g/dL _718-7 unknown unknown ass_volume_in _Blood All eosinophil_c unknown 0.0 10 unknown _712-0 unknown unknown ount_blood 3/UL All Basophils_vo unknown 0.1 10 unknown _705-4 unknown unknown lume_in_Blood 3/UL _by_Manual_co unt All leukocyte_co unknown 13.1 X10 unknown _68 unkno wn unknown unt_blood 3/UL All leukocyte_co unknown 12.8 X10 unknown _68 unkno wn unknown unt_blood 3/UL All erythrocyte_ unknown 4.65 10 unknown _67 unknow n unknown RBC_count 6/UL All erythrocyte_ unknown 4.42 10 unknown _67 unknow n unknown RBC_count 6/UL All Leukocytes_v unknown 13.1 X10 unknown _6690-2 unkn own unknown olume_in_Bloo 3/UL d_by_Automate d_count All Leukocytes_v unknown 12.8 X10 unknown _6690-2 unkn own unknown olume_in_Bloo 3/UL d_by_Automate d_count All Glomerular_F unknown 76 unknown mL/mi _66455 unknown unknown iltration_rat n e All Glomerular_F unknown 67 unknown mL/mi _66455 unknown unknown iltration_rat n e All platelet_cou unknown 315 10 unknown _66 unknown unknown nt 3/UL All platelet_cou unknown 310 10 unknown _66 unknown unknown nt 3/UL All hemoglobin_b unknown 13.8 unknown g/dL _65 unknown unknown lood All hemoglobin_b unknown 13.0 unknown g/dL _65 unknown unknown lood All hematocrit_b unknown 40.0 unknown % _64 unknown unknown lood All hematocrit_b unknown 37.7 unknown % _64 unknown unknown lood All potassium_bl unknown 4.1 unknown meq/L _6298-4 unknow n unknown ood All potassium_bl unknown 3.8 unknown meq/L _6298-4 unknow n unknown ood All Glomerular_fi unknown 76 unknown mL/mi _48642- unknow n unknown ltration_rate n 3 _1.73_sq_M.pr edicted_among _non-blacks_V olume_Rate_Ar ea_in_Serum_P lasma_or_Bloo d_by_Creatini ne-based_form ula_MDRD_ All Glomerular_fi unknown 67 unknown mL/mi _48642- unknow n unknown ltration_rate n 3 _1.73_sq_M.pr edicted_among _non-blacks_V olume_Rate_Ar ea_in_Serum_P lasma_or_Bloo d_by_Creatini ne-based_form ula_MDRD_ All Hematocrit_V unknown 40.0 unknown % _4544-3 unknow n unknown olume_Fractio n_of_Blood_by _Automated_co unt All Hematocrit_V unknown 37.7 unknown % _4544-3 unknow n unknown olume_Fractio n_of_Blood_by _Automated_co unt All bilirubin_se unknown 0.4 unknown mg/dL _43 unknown unknown rum_total All bilirubin_se unknown 0.3 unknown mg/dL _43 unknown unknown rum_total All alanine_amin unknown 294 unknown U/L _40 unknown unknown otransferase_ SGPT_serum All alanine_amin unknown 271 unknown U/L _40 unknown unknown otransferase_ SGPT_serum All carbon_dioxi unknown 20 unknown mmol/ _3962 unknown unknown de_serum_tota L l All aspartate_am unknown 186 unknown U/L _39 unknown unknown inotransferas e_SGOT_serum All aspartate_am unknown 168 unknown U/L _39 unknown unknown inotransferas e_SGOT_serum All protein_tota unknown 6.6 unknown g/dL _36 unknown unknown l_serum All protein_tota unknown 6.3 unknown g/dL _36 unknown unknown l_serum All blood_glucos unknown 99 unknown mg/dL _3565 unknown unknown e All blood_glucos unknown 104 unknown mg/dL _3565 unknown unknown e All potassium_bl unknown 4.1 unknown meq/L _3483 unknown unknown ood All potassium_bl unknown 3.8 unknown meq/L _3483 unknown unknown ood All magnesium_se unknown 6.8 unknown mg/dL _32 unknown unknown rum All magnesium_se unknown 5.0 unknown mg/dL _32 unknown unknown rum All mean_corpusc unknown 86.0 unknown fL _315 unknown unknown ular_volume_R BC All mean_corpusc unknown 85.3 unknown fL _315 unknown unknown ular_volume_R BC All Urea_nitroge unknown 14 unknown mg/dL _3094-0 unknow n unknown n_Mass_volume _in_Serum_or_ Plasma All Urea_nitroge unknown 12 unknown mg/dL _3094-0 unknow n unknown n_Mass_volume _in_Serum_or_ Plasma All globulin_ser unknown 4.1 unknown _3059 unknown unknown um All globulin_ser unknown 3.8 unknown _3059 unknown unknown um All alkaline_pho unknown 164 unknown U/L _3 unknown unknown sphatase_seru m All alkaline_pho unknown 163 unknown U/L _3 unknown unknown sphatase_seru m All Sodium_Moles unknown 128 unknown mmol/ _2951-2 unknow n unknown _volume_in_Se L rum_or_Plasma All Sodium_Moles unknown 126 unknown mmol/ _2951-2 unknow n unknown _volume_in_Se L rum_or_Plasma All Protein_Mass unknown 6.6 unknown g/dL _2885-2 unknow n unknown _volume_in_Se rum_or_Plasma All Protein_Mass unknown 6.3 unknown g/dL _2885-2 unknow n unknown _volume_in_Se rum_or_Plasma All eosinophil_c unknown 0.0 10 unknown _285 unknown unknown ount_blood 3/UL All anion_gap_se unknown 12.0 unknown _279 unknown unknown rum All mean_platele unknown 10.7 unknown fL _2784 unknown unknown t_volume All Magnesium_Mo unknown 6.8 unknown mg/dL _2601-3 unknow n unknown les_volume_in _Serum_or_Pla sma All Magnesium_Mo unknown 5.0 unknown mg/dL _2601-3 unknow n unknown les_volume_in _Serum_or_Pla sma All basophil_cou unknown 0.1 10 unknown _2427 unknown unknown nt_blood 3/UL All monocyte_cou unknown 1.2 10 unknown _2422 unknown unknown nt_blood 3/UL All monocyte_cou unknown 0.7 10 unknown _2422 unknown unknown nt_blood 3/UL All lymphocyte_c unknown 1.9 10 unknown _2420 unknown unknown ount_blood 3/UL All lymphocyte_c unknown 1.7 10 unknown _2420 unknown unknown ount_blood 3/UL All neutrophil_c unknown 9.6 10 unknown _2418 unknown unknown ount_blood 3/UL All neutrophil_c unknown 10.6 10 unknown _2418 unknow n unknown ount_blood 3/UL All Glucose_Mass unknown 99 unknown mg/dL _2345-7 unknow n unknown _volume_in_Se rum_or_Plasma All Glucose_Mass unknown 104 unknown mg/dL _2345-7 unknow n unknown _volume_in_Se rum_or_Plasma All Globulin_Mas unknown 4.1 unknown _2336-6 unknow n unknown s_volume_in_S anthony All Globulin_Mas unknown 3.8 unknown _2336-6 unknow n unknown s_volume_in_S anthony All Creatinine_M unknown 1.0 unknown mg/dL _2160-0 unknow n unknown ass_volume_in _Serum_or_Pla sma All Creatinine_M unknown 0.9 unknown mg/dL _2160-0 unknow n unknown ass_volume_in _Serum_or_Pla sma All Chloride_Mol unknown 96 unknown mmol/ _2075-0 unknow n unknown es_volume_in_ L Serum_or_Plas ma All Chloride_Mol unknown 94 unknown mmol/ _2075-0 unknow n unknown es_volume_in_ L Serum_or_Plas ma All carbon_dioxi unknown 20 unknown mmol/ _2028-9 unknow n unknown de_serum_tota L l All Calcium_Mole unknown 6.7 unknown mg/dL _1999-8 unknow n unknown s_volume_in_S erum_or_Plasm a All albumin_seru unknown 2.5 unknown g/dL _2 unknown unknown m All Bilirubin.to unknown 0.4 unknown mg/dL _1974- unknow n unknown tal_Mass_volu me_in_Serum_o r_Plasma All Bilirubin.to unknown 0.3 unknown mg/dL _1974-2 unknow n unknown tal_Mass_volu me_in_Serum_o r_Plasma All Aspartate_am unknown 186 unknown U/L _1920-8 unknow n unknown inotransferas e_Enzymatic_a ctivity_volum e_in_Serum_or _Plasma All Aspartate_am unknown 168 unknown U/L _1920-8 unknow n unknown inotransferas e_Enzymatic_a ctivity_volum e_in_Serum_or _Plasma All Anion_gap_4_ unknown 12.0 unknown _1863-0 unknow n unknown in_Serum_or_P lasma All creatinine_s unknown 1.0 unknown mg/dL _18 unknown unknown anthony All creatinine_s unknown 0.9 unknown mg/dL _18 unknown unknown anthony All Alkaline_pho unknown 164 unknown U/L _1783-0 unknow n unknown sphatase_Enzy matic_activit y_volume_in_B lood All Alkaline_pho unknown 163 unknown U/L _1783-0 unknow n unknown sphatase_Enzy matic_activit y_volume_in_B lood All Albumin_Glob unknown 0.7 unknown _1759-0 unknow n unknown ulin_Mass_Rat io_in_Serum_o r_Plasma All Albumin_Glob unknown 0.6 unknown _1759-0 unknow n unknown ulin_Mass_Rat io_in_Serum_o r_Plasma All Albumin_Mass unknown 2.5 unknown g/dL _1751-7 unknow n unknown _volume_in_Se rum_or_Plasma All Alanine_amin unknown 294 unknown U/L _1742-6 unknow n unknown otransferase_ Enzymatic_act ivity_volume_ in_Serum_or_P lasma All Alanine_amin unknown 271 unknown U/L _1742-6 unknow n unknown otransferase_ Enzymatic_act ivity_volume_ in_Serum_or_P lasma All mean_corpusc unknown 34.5 unknown g/dL _17029 unknown unknown ular_hemoglob in_concentrat ion_rbc All sodium_serum unknown 128 unknown mmol/ _159 unknown unknown L All sodium_serum unknown 126 unknown mmol/ _159 unknown unknown L All albumin_glob unknown 0.7 unknown _146 unknown unknown ulin_ratio_se rum All albumin_glob unknown 0.6 unknown _146 unknown unknown ulin_ratio_se rum All chloride_ser unknown 96 unknown mmol/ _13 unknown unknown um L All chloride_ser unknown 94 unknown mmol/ _13 unknown unknown um L All calcium_seru unknown 6.7 unknown mg/dL _11 unknown unknown m All mean_corpusc unknown 29.7 unknown pg _1031 unknown unknown ular_hemoglob in_RBC All mean_corpusc unknown 29.4 unknown pg _1031 unknown unknown ular_hemoglob in_RBC All red_blood_ce unknown 15.4 unknown % _1030 unknown unknown ll_distributi on_width All T unknown 13.1 X10 unknown WBC unknown un known 3/UL All T unknown 12.8 X10 unknown WBC unknown un known 3/UL All T unknown 0.4 unknown mg/dL TOTAL_B unknown unk nown THONG All T unknown 0.3 unknown mg/dL TOTAL_B unknown unk nown THONG All T unknown 15.4 unknown % RDW unknown unkn own All T unknown 4.65 10 unknown RBC unknown unk nown 6/UL All T unknown 4.42 10 unknown RBC unknown unk nown 6/UL All T unknown 6.6 unknown g/dL PRO_TOT unknown unk nown AL All T unknown 6.3 unknown g/dL PRO_TOT unknown unk nown AL All T unknown 315 10 unknown PLT unknown unkn own 3/UL All T unknown 310 10 unknown PLT unknown unkn own 3/UL All NEUTROPHILS_ unknown 9.6 10 unknown NE_ unknown unknown AUTO_ 3/UL All NEUTROPHILS_ unknown 10.6 10 unknown NE_ unknow n unknown AUTO_ 3/UL All T unknown 9.6 10 unknown NEUT_AU unknown unk nown 3/UL TO_ All T unknown 10.6 10 unknown NEUT_AU unknown un known 3/UL TO_ All T unknown 128 unknown mmol/ NA unknown unkn own L All T unknown 126 unknown mmol/ NA unknown unkn own L All T unknown 10.7 unknown fL MPV unknown unkn own All MONOCYTES_AU unknown 1.2 10 unknown MO_ unknown unknown TO_ 3/UL All MONOCYTES_AU unknown 0.7 10 unknown MO_ unknown unknown TO_ 3/UL All T unknown 1.2 10 unknown MONO_AU unknown unk nown 3/UL TO_ All T unknown 0.7 10 unknown MONO_AU unknown unk nown 3/UL TO_ All T unknown 6.8 unknown mg/dL MG unknown unkn own All T unknown 5.0 unknown mg/dL MG unknown unkn own All T unknown 86.0 unknown fL MCV unknown unkn own All T unknown 85.3 unknown fL MCV unknown unkn own All T unknown 34.5 unknown g/dL MCHC unknown unkn own All T unknown 29.7 unknown pg MCH unknown unkn own All T unknown 29.4 unknown pg MCH unknown unkn own All LYMPHOCYTES_ unknown 1.9 10 unknown LY_ unknown unknown AUTO_ 3/UL All LYMPHOCYTES_ unknown 1.7 10 unknown LY_ unknown unknown AUTO_ 3/UL All T unknown 1.9 10 unknown LYMPH_A unknown unk nown 3/UL UTO_ All T unknown 1.7 10 unknown LYMPH_A unknown unk nown 3/UL UTO_ All T unknown 4.1 unknown meq/L K unknown unkn own All T unknown 3.8 unknown meq/L K unknown unkn own All T unknown 13.8 unknown g/dL HGB unknown unkn own All T unknown 13.0 unknown g/dL HGB unknown unkn own All T unknown 40.0 unknown % HCT unknown unkn own All T unknown 37.7 unknown % HCT unknown unkn own All T unknown 99 unknown mg/dL GLU unknown unkn own All T unknown 104 unknown mg/dL GLU unknown unkn own All T unknown 4.1 unknown GLOB unknown unkn own All T unknown 3.8 unknown GLOB unknown unkn own All T unknown 76 unknown mL/mi GFR_-_M unknown unk nown n DRD All T unknown 67 unknown mL/mi GFR_-_M unknown unk nown n DRD All GFR_-_MDRD unknown 76 unknown mL/mi GFR unknown unknown n All GFR_-_MDRD unknown 67 unknown mL/mi GFR unknown unknown n All T unknown 12.0 unknown GAP unknown unkn own All EOSINOPHILS_ unknown 0.0 10 unknown EO_ unknown unknown AUTO_ 3/UL All T unknown 0.0 10 unknown EOS_AUT unknown unk nown 3/UL O_ All T unknown 1.0 unknown mg/dL CREAT unknown unkn own All T unknown 0.9 unknown mg/dL CREAT unknown unkn own All T unknown 20 unknown mmol/ CO2 unknown unkn own L All T unknown 96 unknown mmol/ CL unknown unkn own L All T unknown 94 unknown mmol/ CL unknown unkn own L All T unknown 6.7 unknown mg/dL CA unknown unkn own All T unknown 14 unknown mg/dL BUN unknown unkn own All T unknown 12 unknown mg/dL BUN unknown unkn own All BILIRUBIN_TO unknown 0.4 unknown mg/dL BILIT unknown unknown JULIO All BILIRUBIN_TO unknown 0.3 unknown mg/dL BILIT unknown unknown JULIO All BASOPHILS_AU unknown 0.1 10 unknown BA_ unknown unknown TO_ 3/UL All T unknown 0.1 10 unknown BASO_AU unknown unk nown 3/UL TO_ All T unknown 0.7 unknown A_G_RAT unknown unk nown IO All T unknown 0.6 unknown A_G_RAT unknown unk nown IO All T unknown 186 unknown U/L AST unknown unkn own All T unknown 168 unknown U/L AST unknown unkn own All T unknown 294 unknown U/L ALT_SGP unknown unk nown T_ All T unknown 271 unknown U/L ALT_SGP unknown unk nown T_ All ALT_ALANINE_ unknown 294 unknown U/L ALT unknown unknown AMINOTRANSFER ASE All ALT_ALANINE_ unknown 271 unknown U/L ALT unknown unknown AMINOTRANSFER ASE All ALKALINE_PHO unknown 164 unknown U/L ALP unknown unknown SPHATASE All ALKALINE_PHO unknown 163 unknown U/L ALP unknown unknown SPHATASE All T unknown 164 unknown U/L ALK_PHO unknown unk nown S All T unknown 163 unknown U/L ALK_PHO unknown unk nown S All T unknown 2.5 unknown g/dL ALB unknown unkn own All ALBUMIN_GLOB unknown 0.7 unknown AGRATIO unknow n unknown ULIN_RATIO All ALBUMIN_GLOB unknown 0.6 unknown AGRATIO unknow n unknown ULIN_RATIO All neutrophil_c unknown 10.6 10 unknown _752-6 unknow n unknown ount_blood 3/UL All monocyte_cou unknown 0.7 10 unknown _743-5 unknown unknown nt_blood 3/UL All lymphocyte_c unknown 1.7 10 unknown _732-8 unknown unknown ount_blood 3/UL All eosinophil_c unknown 0.0 10 unknown _712-0 unknown unknown ount_blood 3/UL All Basophils_vo unknown 0.1 10 unknown _705-4 unknown unknown lume_in_Blood 3/UL _by_Manual_co unt All eosinophil_c unknown 0.0 10 unknown _285 unknown unknown ount_blood 3/UL All basophil_cou unknown 0.1 10 unknown _2427 unknown unknown nt_blood 3/UL All monocyte_cou unknown 0.7 10 unknown _2422 unknown unknown nt_blood 3/UL All lymphocyte_c unknown 1.7 10 unknown _2420 unknown unknown ount_blood 3/UL All neutrophil_c unknown 10.6 10 unknown _2418 unknow n unknown ount_blood 3/UL All NEUTROPHILS_ unknown 10.6 10 unknown NE_ unknow n unknown AUTO_ 3/UL All T unknown 10.6 10 unknown NEUT_AU unknown un known 3/UL TO_ All MONOCYTES_AU unknown 0.7 10 unknown MO_ unknown unknown TO_ 3/UL All T unknown 0.7 10 unknown MONO_AU unknown unk nown 3/UL TO_ All LYMPHOCYTES_ unknown 1.7 10 unknown LY_ unknown unknown AUTO_ 3/UL All T unknown 1.7 10 unknown LYMPH_A unknown unk nown 3/UL UTO_ All EOSINOPHILS_ unknown 0.0 10 unknown EO_ unknown unknown AUTO_ 3/UL All T unknown 0.0 10 unknown EOS_AUT unknown unk nown 3/UL O_ All BASOPHILS_AU unknown 0.1 10 unknown BA_ unknown unknown TO_ 3/UL All T unknown 0.1 10 unknown BASO_AU unknown unk nown 3/UL TO_ All Chlamydia_tr unknown NEGATIVE unknown _21613- unkn own unknown achomatis_DNA 5 _Presence_in_ Specimen_by_N AA_with_probe _detection All chlamydia_DN unknown NEGATIVE unknown _14722 unkno wn unknown A_probe All TRICHOMONAS_ unknown NEGATIVE unknown _113002 unkn own unknown VAGINALIS_DNA _PROBE All TRICHOMONAS_ unknown NEGATIVE unknown TVDNA unkno wn unknown VAGINALIS_DNA All T unknown NEGATIVE unknown T.VAGIN unknown u nknown ALIS_DNA All CHLAMYDIA_TR unknown NEGATIVE unknown CTDNA unkno wn unknown ACHOMATIS_DNA All T unknown NEGATIVE unknown C.TRACH unknown u nknown _DNA All urea_nitroge unknown 12 unknown mg/dL _9 [...] _2336-6 unknow n unknown s_volume_in_S anthony All Chlamydia_tr unknown NEGATIVE unknown _21613- unkn own unknown achomatis_DNA 5 _Presence_in_ Specimen_by_N AA_with_probe _detection All Creatinine_M unknown 0.8 unknown mg/dL _2160-0 unknow n unknown ass_volume_in _Serum_or_Pla sma All Chloride_Mol unknown 106 unknown mmol/ _5-0 unknow n unknown es_volume_in_ L Serum_or_Plas ma All carbon_dioxi unknown 21 unknown mmol/ _2027- unknow n unknown de_serum_tota [...] unknown mmol/ _159 unknown unknown L All chlamydia_DN unknown NEGATIVE unknown _14722 unkno wn unknown A_probe All albumin_glob unknown 0.7 unknown _146 unknown unknown ulin_ratio_se rum All chloride_ser unknown 106 unknown mmol/ _13 unknown unknown um L All TRICHOMONAS_ unknown NEGATIVE unknown _113002 unkn own unknown VAGINALIS_DNA _PROBE All calcium_seru unknown 8.7 unknown mg/dL _11 unknown unknown m All mean_corpusc unknown 29.5 unknown pg _1031 unknown unknown ular_hemoglob in_RBC All red_blood_ce unknown 15.4 unknown % _1030 unknown unknown ll_distributi on_width All T unknown 5.2 X10 unknown WBC unknown unk nown 3/UL All TRICHOMONAS_ unknown NEGATIVE unknown TVDNA unkno wn unknown VAGINALIS_DNA All T unknown < 0.2 unknown TOTAL_B unknown unk nown mg/dL THONG All T unknown NEGATIVE unknown T.VAGIN unknown u nknown ALIS_DNA All T unknown 15.4 unknown % RDW [...] EOS_AUT unknown unk nown 3/UL O_ All CHLAMYDIA_TR unknown NEGATIVE unknown CTDNA unkno wn unknown ACHOMATIS_DNA All T unknown 0.8 unknown mg/dL CREAT unknown unkn own All T unknown 21 unknown mmol/ CO2 unknown unkn own L All T unknown 106 unknown mmol/ CL unknown unkn own L All T unknown 8.7 unknown mg/dL CA unknown unkn own All T unknown NEGATIVE unknown C.TRACH unknown u nknown _DNA All T unknown 12 unknown mg/dL BUN [...] unknown AGRATIO unknow n unknown ULIN_RATIO All Chlamydia_tr unknown NEGATIVE unknown _21613- unkn own unknown achomatis_DNA 5 _Presence_in_ Specimen_by_N AA_with_probe _detection All chlamydia_DN unknown NEGATIVE unknown _14722 unkno wn unknown A_probe All TRICHOMONAS_ unknown NEGATIVE unknown _113002 unkn own unknown VAGINALIS_DNA _PROBE All TRICHOMONAS_ unknown NEGATIVE unknown TVDNA unkno wn unknown VAGINALIS_DNA All T unknown NEGATIVE unknown T.VAGIN unknown u nknown ALIS_DNA All CHLAMYDIA_TR unknown NEGATIVE unknown CTDNA unkno wn unknown ACHOMATIS_DNA All T unknown NEGATIVE unknown C.TRACH unknown u nknown _DNA All Chlamydia_tr unknown NEGATIVE unknown _21613- unkn own unknown achomatis_DNA 5 _Presence_in_ Specimen_by_N AA_with_probe _detection All chlamydia_DN unknown NEGATIVE unknown _14722 unkno wn unknown A_probe All TRICHOMONAS_ unknown NEGATIVE unknown _113002 unkn own unknown VAGINALIS_DNA _PROBE All TRICHOMONAS_ unknown NEGATIVE unknown TVDNA unkno wn unknown VAGINALIS_DNA All T unknown NEGATIVE unknown T.VAGIN unknown u nknown ALIS_DNA All CHLAMYDIA_TR unknown NEGATIVE unknown CTDNA unkno wn unknown ACHOMATIS_DNA All T unknown NEGATIVE unknown C.TRACH unknown u nknown _DNA All platelet_cou unknown NORMAL unknown _9317-9 unknow n unknown nt_estimate (130-450,00 0) All uric_acid_se unknown 10.3 unknown mg/dL _46 unknown unknown rum All platelet_cou unknown NORMAL unknown _3109 unknown unknown nt_estimate (130-450,00 0) All Urate_Mass_v unknown 10.3 unknown mg/dL _3084-1 unknow n unknown olume_in_Seru m_or_Plasma All Vaginal_Grou unknown NEGATIVE unknown _[id number] unkn own unknown p_B_Strep_by_ Real-Time_PCR All LACTATE_DEHY unknown 181 unknown U/L _124575 unknow n unknown DROGENASE All Slide_Interp unknown Indicated unknown _102992 unk nown unknown retation All T unknown 10.3 unknown mg/dL URIC unknown unkn own All T unknown Indicated unknown SLIDE_R unknown unknown EVIEW_ All SLIDE_REVIEW unknown Indicated unknown SLIDERE unk nown unknown _ V_ All T unknown NORMAL unknown PLT_EST unknown unk nown (130-450,00 0) All PLATELET_EST unknown NORMAL unknown PLTEST unknown unknown IMATE_MANUAL (130-450,00 0) All T unknown 181 unknown U/L LDH unknown unkn own All T unknown NEGATIVE unknown GBS_PCR unknown u nknown All GROUP_B_STRE unknown NEGATIVE unknown GBSPCR unkno wn unknown P_PCR All platelet_cou unknown NORMAL unknown _9317-9 unknow [...] unknow n unknown nt_estimate (130-450,00 0) All uric_acid_se unknown 10.3 unknown mg/dL _46 unknown unknown rum All platelet_cou unknown NORMAL unknown _3109 unknown unknown nt_estimate (130-450,00 0) All Urate_Mass_v unknown 10.3 unknown mg/dL _3084-1 unknow n unknown olume_in_Seru m_or_Plasma All Vaginal_Grou unknown NEGATIVE unknown _[id number] unkn own unknown p_B_Strep_by_ Real-Time_PCR All LACTATE_DEHY unknown 181 unknown U/L _124575 unknow n unknown DROGENASE All Slide_Interp unknown Indicated unknown _102992 unk nown unknown retation All T unknown 10.3 unknown mg/dL URIC unknown unkn own All T unknown Indicated unknown SLIDE_R unknown unknown EVIEW_ All SLIDE_REVIEW unknown Indicated unknown SLIDERE unk nown unknown _ V_ All T unknown NORMAL unknown PLT_EST unknown unk nown (130-450,00 0) All PLATELET_EST unknown NORMAL unknown PLTEST unknown unknown IMATE_MANUAL (130-450,00 0) All T unknown 181 unknown U/L LDH unknown unkn own All T unknown NEGATIVE unknown GBS_PCR unknown u nknown All GROUP_B_STRE unknown NEGATIVE unknown GBSPCR unkno wn unknown P_PCR All platelet_cou unknown NORMAL unknown _9317-9 unknow n unknown nt_estimate (130-450,00 0) All uric_acid_se unknown 10.3 unknown mg/dL _46 unknown unknown rum All platelet_cou unknown NORMAL unknown _3109 unknown unknown nt_estimate (130-450,00 0) All Urate_Mass_v unknown 10.3 unknown mg/dL _3084-1 unknow n unknown olume_in_Seru m_or_Plasma All Vaginal_Grou unknown NEGATIVE unknown _[id number] unkn own unknown p_B_Strep_by_ Real-Time_PCR All LACTATE_DEHY unknown 181 unknown U/L _124575 unknow n unknown DROGENASE All Slide_Interp unknown Indicated unknown _102992 unk nown unknown retation All T unknown 10.3 unknown mg/dL URIC unknown unkn own All T unknown Indicated unknown SLIDE_R unknown unknown EVIEW_ All SLIDE_REVIEW unknown Indicated unknown SLIDERE unk nown unknown _ V_ All T unknown NORMAL unknown PLT_EST unknown unk nown (130-450,00 0) All PLATELET_EST unknown NORMAL unknown PLTEST unknown unknown IMATE_MANUAL (130-450,00 0) All T unknown 181 unknown U/L LDH unknown unkn own All T unknown NEGATIVE unknown GBS_PCR unknown u nknown All GROUP_B_STRE unknown NEGATIVE unknown GBSPCR unkno wn unknown P_PCR All urea_nitroge unknown 12 unknown mg/dL _9 [...] l All Calcium_Mole unknown 9.1 unknown mg/dL _2000-8 unknow n unknown s_volume_in_S erum_or_Plasm a All albumin_seru unknown 2.7 unknown g/dL _2 unknown unknown m All Bilirubin.to unknown 0.6 unknown mg/dL _1974-2 unknow n unknown tal_Mass_volu [...] r_Plasma All Aspartate_am unknown 27 unknown U/L _1919-8 unknow n unknown inotransferas e_Enzymatic_a ctivity_volum e_in_Serum_or [...] sma All Chloride_Mol unknown 100 unknown mmol/ _2074-0 unknow n unknown es_volume_in_ L Serum_or_Plas ma All carbon_dioxi unknown 23 unknown mmol/ _2027-9 unknow n unknown de_serum_tota [...] 0.7 unknown AGRATIO unknow n unknown ULIN_RATIO Vital Signs date measurement value source [id number] weight_standard 135.4 lb [id number] weight_metric 61.42 [...] BP_diastolic 100 mm[Hg] 20210421 BMI 26.06 kg/m2 20210511 weight_standard 124.4 lb 20210511 weight_metric 56.43 kg 20210511 temperature_standard 97.4 F 20210511 temperature_metric 36.33 C 20210511 height_standard 61 in [id number] height_metric 154.94 cm 20210511 BP_systolic 132 mm[Hg] 20210511 BP_diastolic 80 mm[Hg] 20210511 BMI 23.59 kg/m2 20210511 weight_standard 124.4 lb 20210511 weight_metric 56.43 kg 20210511 temperature_standard 97.4 F 20210511 temperature_metric 36.33 C 20210511 height_standard 61 in 20210511 height_metric 154.94 cm 20210511 BP_systolic 132 mm[Hg] 20210511 BP_diastolic 80 mm[Hg] 20210511 BMI 23.59 kg/m2 20210511 weight_standard 124.4 lb 20210511 weight_metric 56.43 kg 20210511 temperature_standard 97.4 F 20210511 temperature_metric 36.33 C 20210511 height_standard 61 in 20210511 height_metric 154.94 cm 20210511 BP_systolic 132 mm[Hg] 20210511 BP_diastolic 80 mm[Hg] 20210511 BMI 23.59 kg/m2
[2021-06-17] MEDS ORDERED: LIDOCAINE 1%-EPI 1:100000 20 ML MDV SUBQ STA (19:37)
[2021-06-17] MEDS ORDERED: MORPHINE 2 MG/ML CARPUJECT IVP STA (19:38)
[2021-06-17] MEDS ORDERED: CLINDAMYCIN 600 MG/50 ML 50 ML IV ONE (19:38)
[2021-06-17] MEDS ORDERED: MIDAZOLAM 2 MG/2 ML VIAL IVP STA (19:38)
--- NOTE | 2021-06-17 19:48 | ED Physician Documentation ---
History of Present Illness - Stated complaint Stated Complaint: FEVER,BREAST PX - Chief complaint Chief Complaint: General - History obtained from History obtained from: Patient - Additonal information Additional information: 25-year-old G1, P1 about a month and a half with about 2 weeks of right breast pain and intermittent fevers. She developed more of a pimple-like lesion maybe 4 days ago and was started on dicloxacillin 3 days ago but continues to worsen with fevers and pain and drainage. Review of Systems Ten Systems: 10 systems reviewed and negative Constitutional: reports: Fever, Chills Cardiac: denies: Chest pain / pressure, Palpitations Respiratory: denies: Dyspnea, Cough PD PAST MEDICAL HISTORY - Past Surgical History Past Surgical History: No - Present Medications Home Medications: Ambulatory Orders Medication Instructions Recorded Confirmed Pnv No.95/Ferrous Fum/Folic AC 1 tab PO DAILY 02/15/21 06/17/21 [ Caplet] Docusate Sodium 100Mg Capsule 100 - 200 mg PO BID PRN #60 cap 05/05/21 06/17/21 [Colace 100Mg Capsule] Ibuprofen [Motrin] 600 mg PO Q6H PRN #60 tab 05/05/21 06/17/21 Labetalol [Trandate] 200 mg PO BID #90 tablet 05/05/21 06/17/21 Dicloxacillin [Dynapen] 250 mg PO ONCE 06/17/21 06/17/21 clindamycin HCL [Cleocin HCl] 300 mg PO QID #28 cap 06/17/21 - Allergies Allergies/Adverse Reactions: Allergies Allergy/AdvReac Type Severity Reaction Status Date / Time No Known Drug Allergies Allergy Verified 06/17/21 19:22 - Social History Does the pt smoke?: No Smoking Status: Never smoker Does the pt drink ETOH?: No Does the pt have substance abuse?: No - Immunizations Immunizations are current?: Yes PD ED PE NORMAL - Vitals Vital signs reviewed: Yes - General General: Alert and oriented X 3, No acute distress - HEENT HEENT: PERRL, EOMI - Neck Neck: Supple, no meningeal sign, No bony TTP - Cardiac Cardiac: RRR, No murmur - Respiratory Respiratory: No respiratory distress, Clear bilaterally - Abdomen Abdomen: Normal bowel sounds, Soft, Non tender - Derm Derm: Other (Exam done with JOSHUA Teran present and chaperoning. There is mastitis with a pointed abscess that is spontaneously draining at 3:00 about 2 to 3 cm medial to the areola.) - Extremities Extremities: No edema, No calf tenderness / cord - Neuro Neuro: Alert and oriented X 3, Normal speech Results - Vitals Vitals: Vital Signs - 24 hr 06/17/21 19:16 Temperature 38.1 C H Heart Rate 114 H Respiratory 18 Rate Blood Pressure 130/84 H O2 Saturation 98 Oxygen O2 Source Room air - Labs Labs: Laboratory Tests 06/17/21 06/17/21 19:43 19:43 WBC 10.1 RBC 4.17 L Hgb 11.9 L Hct 34.5 L MCV 82.7 MCH 28.5 MCHC 34.5 RDW 14.3 Plt Count 365 MPV 9.7 Neut # (Auto) 6.1 Lymph # (Auto) 2.0 [place] # (Auto) 1.1 H Eos # (Auto) 0.7 Baso # (Auto) 0.1 Absolute Nucleated RBC 0.00 Nucleated RBC % 0.0 Sodium 133 L Potassium 3.2 L Chloride 100 L Carbon Dioxide 22 Anion Gap 11.0 BUN 12 Creatinine 0.7 Estimated GFR (MDRD) 101 Glucose 177 H Calcium 8.6 Procedures - Abscess I&D (location) R breast Preparation: Confirmed with ultrasound, Betadine, Lidocaine 1%, With epi Incision: Incised with scalpel (A small incision was made where the opening pore already was. When this was done probably a quarter of cup of pus came out, no milk), Loculations broken, Packed (with 1/4 plain gauze), Culture obtained Other: Pt tolerated well, Dressing applied, Antibiotic prescribed PD MEDICAL DECISION MAKING - ED course ED course: 25-year-old woman with purulent mastitis with breast abscess identified on bedside ultrasound by me. There is no surgeon on-call unfortunately and I did discuss the case by phone with the on-call ELDER COUNSELOR. Given the fact that it is already spontaneously draining she agreed that it probably needed to be more completely drained and agreed with a bedside I&D with cultures and switching her antibiotics to clindamycin. And even though she was not on-call I also spoke with Dr. Mayes by phone as I did not know if it was appropriate to pack it or not. She said it was appropriate to pack it with plain Nu Gauze, not iodoform which was done. Departure - Departure Disposition: 01 Home, Self Care Clinical Impression: Breast abscess Condition: Good Record reviewed to determine appropriate education?: Yes Instructions: ED Abscess IandD Follow-Up: Bruno Mayes MD [Provider Admit Priv/Credential] - Prescriptions: clindamycin HCL [Cleocin HCl] 300 mg PO QID #28 cap Comments: Return tomorrow midday for wound check, packing removal, and initial culture review. The breast surgeon with whom I spoke love did not think that the packing would need to be replaced. You should follow-up with her to next week, her numbers on this form. Her name is Dr. Mayes. Call Saturday for an appointment. I sent your new prescription to [facility] in [place].
[2021-06-17 20:15] LABS: BASOPHILS # (AUTO) 0.1 10^3/uL (0.0-0.1); BASOPHILS % (AUTO) 1.1 %; EOSINOPHILS # (AUTO) 0.7 10^3/uL (0.0-0.7); EOSINOPHILS % (AUTO) 6.9 %; HCT - HEMATOCRIT 34.5 % (37.0-47.0); HGB - HEMOGLOBIN 11.9 g/dL (12.0-16.0); LYMPHOCYTES % (AUTO) 20.2 %; MEAN CORPUSCULAR HEMOGLOBIN 28.5 pg (27.0-31.0); MEAN CORPUSCULAR HGB CONC 34.5 g/dL (32.0-36.0); MEAN CORPUSCULAR VOLUME 82.7 fL (81.0-99.0); MEAN PLATELET VOLUME 9.7 fL (7.9-10.8); MONOCYTES # (AUTO) 1.1 10^3/uL (0.0-1.0); MONOCYTES % (AUTO) 10.6 %; NEUTROPHILS # (AUTO) 6.1 10^3/uL (1.5-6.6); NEUTROPHILS % (AUTO) 60.6 %; PLT - PLATELET COUNT 365 10^3/uL (130-450); RED BLOOD COUNT 4.17 10^6/uL (4.20-5.40); RED CELL DISTRIBUTION WIDTH 14.3 % (12.0-15.0); WHITE BLOOD COUNT 10.1 x10^3/uL (4.8-10.8)
[2021-06-17 20:19] LABS: CALCIUM 8.6 mg/dL (8.5-10.3); CREATININE 0.7 mg/dL (0.4-1.0); POTASSIUM 3.2 mmol/L (3.5-5.0)
== END 2021-06-17 21:20 | disposition home or self-care (01) ==
LOC: ED 19:12
DX: N61.1 Abscess of the breast and nipple (principal)
CPT/HCPCS: 10061; 36415; 80048; 85025; 87070; 87077; 87181; 87205; 99282

== ENCOUNTER 2021-06-18 17:27 | Emergency (ER) | payer OTHER ==
--- OUTSIDE RECORDS SUMMARY | 2021-06-18 17:34 | EXTERNAL MEDICAL SUMMARY RPT | Continuity of Care Document ---
:1995 Author Organization [facility] Address [address] [place] [address] Phone Care Team Providers Name Role Phone BEV, Lorena Soto Unavailable Unavailable CNM, Michelle BAILEY, Unavailable Unavailable RN, Annie Mcdaniel Unavailable Unavailable Direct, Rafa RN Unavailable Unavailable , Brendan Ricardo Unavailable Unavailable Enrike, Provider Unavailable Unavailable , Jordyn Barker Unavailable Unavailable Allergies No information. Encounters No information. Medications date description facility [id number] dicloxacillin All 20210612 dicloxacillin All 20210612 dicloxacillin All Problems [...] 20210421 0502F - SUBSEQUENT VISIT All 20210421 0502F - SUBSEQUENT VISIT All 20210411 CBC [...] 20210411 URINE PROTEIN TO CREATININE RATIO All [id number] 0502F - SUBSEQUENT VISIT All [id number] 0502F - SUBSEQUENT VISIT All [id number] 0502F - SUBSEQUENT VISIT All [id number] 0502F - SUBSEQUENT VISIT All [id number] 0502F - SUBSEQUENT VISIT All [id number] 0502F - SUBSEQUENT VISIT All [id number] 0502F - SUBSEQUENT VISIT All Results test status date ordered by attending specimen geovanna e urea_nitrogen_blood unknown 20210617 unknown unknown unk nown Erythrocytes_volume_in unknown 20210617 unknown unknown unknown _Blood_by_Automated_cou nt Erythrocyte_distributi unknown 20210617 unknown unknown unknown on_width_Ratio_by_Autom ated_count MCV_Entitic_volume_by_ unknown 34060802 unknown unknown unknown Automated_count MCH_Entitic_mass_by_Au unknown 34812744 unknown unknown unknown tomated_count Platelets_volume_in_Bl unknown 92259880 unknown unknown unknown ood_by_Automated_count Platelet_mean_volume_E unknown 51940486 unknown unknown unknown ntitic_volume_in_Blood_ by_Rees-Ericka neutrophil_count_blood unknown 26360064 unknown unknown unknown monocyte_count_blood unknown 85410590 unknown unknown un known lymphocyte_count_blood unknown 48361421 unknown unknown unknown Hemoglobin_Mass_volume unknown 59760966 unknown unknown unknown _in_Blood eosinophil_count_blood unknown 66007696 unknown unknown unknown Basophils_volume_in_Bl unknown 00434729 unknown unknown unknown ood_by_Manual_count leukocyte_count_blood unknown 63367403 unknown unknown u nknown erythrocyte_RBC_count unknown 65756739 unknown unknown u nknown Leukocytes_volume_in_B unknown 58956713 unknown unknown unknown lood_by_Automated_count Glomerular_Filtration_ unknown 20210617 unknown unknown unknown rate platelet_count unknown 40470432 unknown unknown unknown hemoglobin_blood unknown 27751514 unknown unknown unknow n hematocrit_blood unknown 99432780 unknown unknown unknow n potassium_blood unknown 55008091 unknown unknown unknown Glomerular_filtration_r unknown 76846119 unknown unknown unknown ate_1.73_sq_M.predicted _among_non-blacks_Volum e_Rate_Area_in_Serum_Pl asma_or_Blood_by_Creati nine-based_formula_MDRD _ Hematocrit_Volume_Frac unknown 90048128 unknown unknown unknown tion_of_Blood_by_Automa ted_count carbon_dioxide_serum_t unknown 11487138 unknown unknown unknown otal blood_glucose unknown 15349914 unknown unknown unknown potassium_blood unknown 57747257 unknown unknown unknown mean_corpuscular_volum unknown 79218739 unknown unknown unknown e_RBC Urea_nitrogen_Mass_vol unknown 58335241 unknown unknown unknown ume_in_Serum_or_Plasma Sodium_Moles_volume_in unknown 44742253 unknown unknown unknown _Serum_or_Plasma eosinophil_count_blood unknown 56388388 unknown unknown unknown anion_gap_serum unknown 17527124 unknown unknown unknown mean_platelet_volume unknown 35294917 unknown unknown un known basophil_count_blood unknown 45236421 unknown unknown un known monocyte_count_blood unknown 02303257 unknown unknown un known lymphocyte_count_blood unknown 28156588 unknown unknown unknown neutrophil_count_blood unknown 04645626 unknown unknown unknown Glucose_Mass_volume_in unknown 53362713 unknown unknown unknown _Serum_or_Plasma Creatinine_Mass_volume unknown 04934470 unknown unknown unknown _in_Serum_or_Plasma Chloride_Moles_volume_ unknown 33328725 unknown unknown unknown in_Serum_or_Plasma carbon_dioxide_serum_t unknown 98380561 unknown unknown unknown otal Calcium_Moles_volume_i unknown 17912657 unknown unknown unknown n_Serum_or_Plasma Anion_gap_4_in_Serum_o unknown 04825322 unknown unknown unknown r_Plasma creatinine_serum unknown 37191968 unknown unknown unknow n mean_corpuscular_hemog unknown 18520848 unknown unknown unknown lobin_concentration_rbc sodium_serum unknown 99462009 unknown unknown unknown chloride_serum unknown 50131471 unknown unknown unknown calcium_serum unknown 38480240 unknown unknown unknown mean_corpuscular_hemog unknown 36585105 unknown unknown unknown lobin_RBC red_blood_cell_distrib unknown 40505291 unknown unknown unknown ution_width T unknown 54963804 unknown unknown unknown T unknown 75234673 unknown unknown unknown T unknown 49575017 unknown unknown unknown T unknown 64079390 unknown unknown unknown NEUTROPHILS_AUTO_ unknown 25714653 unknown unknown unkno wn T unknown 84851633 unknown unknown unknown T unknown 46662290 unknown unknown unknown T unknown 86591138 unknown unknown unknown MONOCYTES_AUTO_ unknown 33393378 unknown unknown unknown T unknown 10372169 unknown unknown unknown T unknown 51212643 unknown unknown unknown T unknown 69722418 unknown unknown unknown T unknown 53543917 unknown unknown unknown LYMPHOCYTES_AUTO_ unknown 37421654 unknown unknown unkno wn T unknown 26982449 unknown unknown unknown T unknown 34119744 unknown unknown unknown T unknown 93608344 unknown unknown unknown T unknown 65796340 unknown unknown unknown T unknown 43639108 unknown unknown unknown T unknown 70492672 unknown unknown unknown GFR_-_MDRD unknown 92226523 unknown unknown unknown T unknown 85028684 unknown unknown unknown EOSINOPHILS_AUTO_ unknown 40095506 unknown unknown unkno wn T unknown 95482673 unknown unknown unknown T unknown 50970631 unknown unknown unknown T unknown 32969337 unknown unknown unknown T unknown 73320434 unknown unknown unknown T unknown 87770126 unknown unknown unknown T unknown 60986606 unknown unknown unknown BASOPHILS_AUTO_ unknown 06215191 unknown unknown unknown T unknown 71224437 unknown unknown unknown urea_nitrogen_blood unknown 68226083 unknown unknown unk nown Erythrocytes_volume_in unknown 60691934 unknown unknown unknown _Blood_by_Automated_cou nt Erythrocyte_distributi unknown 49778923 unknown unknown unknown on_width_Ratio_by_Autom ated_count MCV_Entitic_volume_by_ unknown 07553091 unknown unknown unknown Automated_count MCH_Entitic_mass_by_Au unknown 22937387 unknown unknown unknown tomated_count Platelets_volume_in_Bl unknown 87254145 unknown unknown unknown ood_by_Automated_count Platelet_mean_volume_E unknown 36260651 unknown unknown unknown ntitic_volume_in_Blood_ by_Rees-Ericka neutrophil_count_blood unknown 39944683 unknown unknown unknown monocyte_count_blood unknown 41477237 unknown unknown un known lymphocyte_count_blood unknown 09113546 unknown unknown unknown Hemoglobin_Mass_volume unknown 04444400 unknown unknown unknown _in_Blood eosinophil_count_blood unknown 07057200 unknown unknown unknown Basophils_volume_in_Bl unknown 03776777 unknown unknown unknown ood_by_Manual_count leukocyte_count_blood unknown 64395719 unknown unknown u nknown erythrocyte_RBC_count unknown 42929512 unknown unknown u nknown Leukocytes_volume_in_B unknown 32515822 unknown unknown unknown lood_by_Automated_count Glomerular_Filtration_ unknown 26954195 unknown unknown unknown rate platelet_count unknown 60163214 unknown unknown unknown hemoglobin_blood unknown 84662407 unknown unknown unknow n hematocrit_blood unknown 42462571 unknown unknown unknow n potassium_blood unknown 90498726 unknown unknown unknown Glomerular_filtration_r unknown 70555279 unknown unknown unknown ate_1.73_sq_M.predicted _among_non-blacks_Volum e_Rate_Area_in_Serum_Pl asma_or_Blood_by_Creati nine-based_formula_MDRD _ Hematocrit_Volume_Frac unknown 22470795 unknown unknown unknown tion_of_Blood_by_Automa ted_count bilirubin_serum_total unknown 53078175 unknown unknown u nknown alanine_aminotransfera unknown 67470563 unknown unknown unknown se_SGPT_serum carbon_dioxide_serum_t unknown 05521474 unknown unknown unknown otal aspartate_aminotransfe unknown 97281882 unknown unknown unknown rase_SGOT_serum protein_total_serum unknown 88127802 unknown unknown unk nown blood_glucose unknown 04001847 unknown unknown unknown potassium_blood unknown 16263569 unknown unknown unknown mean_corpuscular_volum unknown 39425096 unknown unknown unknown e_RBC Urea_nitrogen_Mass_vol unknown 23357203 unknown unknown unknown ume_in_Serum_or_Plasma globulin_serum unknown 81169444 unknown unknown unknown alkaline_phosphatase_s unknown 34000305 unknown unknown unknown anthony Sodium_Moles_volume_in unknown 40718322 unknown unknown unknown _Serum_or_Plasma Protein_Mass_volume_in unknown 27820664 unknown unknown unknown _Serum_or_Plasma eosinophil_count_blood unknown 30944837 unknown unknown unknown anion_gap_serum unknown 32114480 unknown unknown unknown mean_platelet_volume unknown 33228211 unknown unknown un known basophil_count_blood unknown 43171391 unknown unknown un known monocyte_count_blood unknown 43997887 unknown unknown un known lymphocyte_count_blood unknown 77236511 unknown unknown unknown neutrophil_count_blood unknown 01883946 unknown unknown unknown Glucose_Mass_volume_in unknown 87352471 unknown unknown unknown _Serum_or_Plasma Globulin_Mass_volume_i unknown 81435974 unknown unknown unknown n_Serum Creatinine_Mass_volume unknown 55436459 unknown unknown unknown _in_Serum_or_Plasma Chloride_Moles_volume_ unknown 90629692 unknown unknown unknown in_Serum_or_Plasma carbon_dioxide_serum_t unknown 40320118 unknown unknown unknown otal Calcium_Moles_volume_i unknown 80804470 unknown unknown unknown n_Serum_or_Plasma albumin_serum unknown 73703447 unknown unknown unknown Bilirubin.total_Mass_v unknown 92804780 unknown unknown unknown olume_in_Serum_or_Plasm a Aspartate_aminotransfe unknown 50067374 unknown unknown unknown rase_Enzymatic_activity _volume_in_Serum_or_Pla sma Anion_gap_4_in_Serum_o unknown 91739552 unknown unknown unknown r_Plasma creatinine_serum unknown 68241618 unknown unknown unknow n Alkaline_phosphatase_E unknown 66169331 unknown unknown unknown nzymatic_activity_volum e_in_Blood Albumin_Globulin_Mass_ unknown 35712316 unknown unknown unknown Ratio_in_Serum_or_Plasm a Albumin_Mass_volume_in unknown 08337405 unknown unknown unknown _Serum_or_Plasma Alanine_aminotransfera unknown 52013144 unknown unknown unknown se_Enzymatic_activity_v olume_in_Serum_or_Plasm a mean_corpuscular_hemog unknown 30597245 unknown unknown unknown lobin_concentration_rbc sodium_serum unknown 18084920 unknown unknown unknown albumin_globulin_ratio unknown 40446553 unknown unknown unknown _serum chloride_serum unknown 21733842 unknown unknown unknown calcium_serum unknown 16138136 unknown unknown unknown mean_corpuscular_hemog unknown 42348406 unknown unknown unknown lobin_RBC red_blood_cell_distrib unknown 98062805 unknown unknown unknown ution_width T unknown 41558934 unknown unknown unknown T unknown 17382788 unknown unknown unknown T unknown 48545626 unknown unknown unknown T unknown 95258524 unknown unknown unknown T unknown 93010634 unknown unknown unknown T unknown 00815974 unknown unknown unknown NEUTROPHILS_AUTO_ unknown 98940264 unknown unknown unkno wn T unknown 92915045 unknown unknown unknown T unknown 79047610 unknown unknown unknown T unknown 58241841 unknown unknown unknown MONOCYTES_AUTO_ unknown 89071552 unknown unknown unknown T unknown 70604903 unknown unknown unknown T unknown 22574700 unknown unknown unknown T unknown 68498176 unknown unknown unknown T unknown 72458030 unknown unknown unknown LYMPHOCYTES_AUTO_ unknown 92141278 unknown unknown unkno wn T unknown 25358367 unknown unknown unknown T unknown 82332205 unknown unknown unknown T unknown 47610170 unknown unknown unknown T unknown 19351384 unknown unknown unknown T unknown 16509143 unknown unknown unknown T unknown 64857138 unknown unknown unknown T unknown 23258046 unknown unknown unknown GFR_-_MDRD unknown 94663925 unknown unknown unknown T unknown 32262802 unknown unknown unknown EOSINOPHILS_AUTO_ unknown 29713650 unknown unknown unkno wn T unknown 64361491 unknown unknown unknown T unknown 14671886 unknown unknown unknown T unknown 37327882 unknown unknown unknown T unknown 74477303 unknown unknown unknown T unknown 98629442 unknown unknown unknown T unknown 50408651 unknown unknown unknown BILIRUBIN_TOTAL unknown 76004353 unknown unknown unknown BASOPHILS_AUTO_ unknown 54065193 unknown unknown unknown T unknown 05524038 unknown unknown unknown T unknown 11062519 unknown unknown unknown T unknown 71716038 unknown unknown unknown T unknown 87011449 unknown unknown unknown ALT_ALANINE_AMINOTRANS unknown 16683232 unknown unknown unknown FERASE ALKALINE_PHOSPHATASE unknown 02770915 unknown unknown un known T unknown 46444704 unknown unknown unknown T unknown 34264765 unknown unknown unknown ALBUMIN_GLOBULIN_RATIO unknown 00673330 unknown unknown unknown urea_nitrogen_blood unknown 94973316 unknown unknown unk nown Erythrocytes_volume_in unknown 15743284 unknown unknown unknown _Blood_by_Automated_cou nt Erythrocyte_distributi unknown 49824069 unknown unknown unknown on_width_Ratio_by_Autom ated_count MCV_Entitic_volume_by_ unknown 84274020 unknown unknown unknown Automated_count MCH_Entitic_mass_by_Au unknown 17839926 unknown unknown unknown tomated_count Platelets_volume_in_Bl unknown 72064234 unknown unknown unknown ood_by_Automated_count Platelet_mean_volume_E unknown 59127270 unknown unknown unknown ntitic_volume_in_Blood_ by_Rees-Ericka neutrophil_count_blood unknown 27861838 unknown unknown unknown monocyte_count_blood unknown 80326845 unknown unknown un known lymphocyte_count_blood unknown 57099667 unknown unknown unknown Hemoglobin_Mass_volume unknown 61325945 unknown unknown unknown _in_Blood eosinophil_count_blood unknown 41848178 unknown unknown unknown Basophils_volume_in_Bl unknown 15210546 unknown unknown unknown ood_by_Manual_count leukocyte_count_blood unknown 96790785 unknown unknown u nknown erythrocyte_RBC_count unknown 99355318 unknown unknown u nknown Leukocytes_volume_in_B unknown 46195881 unknown unknown unknown lood_by_Automated_count Glomerular_Filtration_ unknown 12948559 unknown unknown unknown rate platelet_count unknown 16050294 unknown unknown unknown hemoglobin_blood unknown 89655088 unknown unknown unknow n hematocrit_blood unknown 80334128 unknown unknown unknow n potassium_blood unknown 43405866 unknown unknown unknown Glomerular_filtration_r unknown 02765464 unknown unknown unknown ate_1.73_sq_M.predicted _among_non-blacks_Volum e_Rate_Area_in_Serum_Pl asma_or_Blood_by_Creati nine-based_formula_MDRD _ Hematocrit_Volume_Frac unknown 85358777 unknown unknown unknown tion_of_Blood_by_Automa ted_count bilirubin_serum_total unknown 69621532 unknown unknown u nknown alanine_aminotransfera unknown 65206555 unknown unknown unknown se_SGPT_serum carbon_dioxide_serum_t unknown 94365900 unknown unknown unknown otal aspartate_aminotransfe unknown 99244342 unknown unknown unknown rase_SGOT_serum protein_total_serum unknown 99533128 unknown unknown unk nown blood_glucose unknown 20450062 unknown unknown unknown potassium_blood unknown 38749398 unknown unknown unknown mean_corpuscular_volum unknown 39601698 unknown unknown unknown e_RBC Urea_nitrogen_Mass_vol unknown 64709969 unknown unknown unknown ume_in_Serum_or_Plasma globulin_serum unknown 46801349 unknown unknown unknown alkaline_phosphatase_s unknown 41674562 unknown unknown unknown anthony Sodium_Moles_volume_in unknown 98290303 unknown unknown unknown _Serum_or_Plasma Protein_Mass_volume_in unknown 25330100 unknown unknown unknown _Serum_or_Plasma eosinophil_count_blood unknown 32787655 unknown unknown unknown anion_gap_serum unknown 45341970 unknown unknown unknown mean_platelet_volume unknown 03648193 unknown unknown un known basophil_count_blood unknown 77126907 unknown unknown un known monocyte_count_blood unknown 60822151 unknown unknown un known lymphocyte_count_blood unknown 63352475 unknown unknown unknown neutrophil_count_blood unknown 06113304 unknown unknown unknown Glucose_Mass_volume_in unknown 25507266 unknown unknown unknown _Serum_or_Plasma Globulin_Mass_volume_i unknown 36465507 unknown unknown unknown n_Serum Creatinine_Mass_volume unknown 94727223 unknown unknown unknown _in_Serum_or_Plasma Chloride_Moles_volume_ unknown 13902192 unknown unknown unknown in_Serum_or_Plasma carbon_dioxide_serum_t unknown 20659866 unknown unknown unknown otal Calcium_Moles_volume_i unknown 50594580 unknown unknown unknown n_Serum_or_Plasma albumin_serum unknown 85610888 unknown unknown unknown Bilirubin.total_Mass_v unknown 89668457 unknown unknown unknown olume_in_Serum_or_Plasm a Aspartate_aminotransfe unknown 17377524 unknown unknown unknown rase_Enzymatic_activity _volume_in_Serum_or_Pla sma Anion_gap_4_in_Serum_o unknown 37423247 unknown unknown unknown r_Plasma creatinine_serum unknown 78017031 unknown unknown unknow n Alkaline_phosphatase_E unknown 68698568 unknown unknown unknown nzymatic_activity_volum e_in_Blood Albumin_Globulin_Mass_ unknown 44815269 unknown unknown unknown Ratio_in_Serum_or_Plasm a Albumin_Mass_volume_in unknown 33162075 unknown unknown unknown _Serum_or_Plasma Alanine_aminotransfera unknown 60729279 unknown unknown unknown se_Enzymatic_activity_v olume_in_Serum_or_Plasm a mean_corpuscular_hemog unknown 85583935 unknown unknown unknown lobin_concentration_rbc sodium_serum unknown 26722707 unknown unknown unknown albumin_globulin_ratio unknown 38927360 unknown unknown unknown _serum chloride_serum unknown 35831789 unknown unknown unknown calcium_serum unknown 39065073 unknown unknown unknown mean_corpuscular_hemog unknown 32928674 unknown unknown unknown lobin_RBC red_blood_cell_distrib unknown 85479738 unknown unknown unknown ution_width T unknown 19061758 unknown unknown unknown T unknown 18169789 unknown unknown unknown T unknown 03684186 unknown unknown unknown T unknown 29447963 unknown unknown unknown T unknown 68468450 unknown unknown unknown T unknown 59256961 unknown unknown unknown NEUTROPHILS_AUTO_ unknown 85136105 unknown unknown unkno wn T unknown 74068182 unknown unknown unknown T unknown 93292835 unknown unknown unknown T unknown 21190484 unknown unknown unknown MONOCYTES_AUTO_ unknown 30652264 unknown unknown unknown T unknown 75663440 unknown unknown unknown T unknown 66175555 unknown unknown unknown T unknown 63330834 unknown unknown unknown T unknown 43198041 unknown unknown unknown LYMPHOCYTES_AUTO_ unknown 27751871 unknown unknown unkno wn T unknown 49507034 unknown unknown unknown T unknown 47142663 unknown unknown unknown T unknown 58011665 unknown unknown unknown T unknown 26630878 unknown unknown unknown T unknown 59193543 unknown unknown unknown T unknown 13561121 unknown unknown unknown T unknown 62525970 unknown unknown unknown GFR_-_MDRD unknown 12384875 unknown unknown unknown T unknown 25622103 unknown unknown unknown EOSINOPHILS_AUTO_ unknown 82390568 unknown unknown unkno wn T unknown 63064856 unknown unknown unknown T unknown 30623672 unknown unknown unknown T unknown 50597194 unknown unknown unknown T unknown 52994041 unknown unknown unknown T unknown 95568312 unknown unknown unknown T unknown 52048222 unknown unknown unknown BILIRUBIN_TOTAL unknown 22304587 unknown unknown unknown BASOPHILS_AUTO_ unknown 01083300 unknown unknown unknown T unknown 90045214 unknown unknown unknown T unknown 57799427 unknown unknown unknown T unknown 46626603 unknown unknown unknown T unknown 39225497 unknown unknown unknown ALT_ALANINE_AMINOTRANS unknown 86764256 unknown unknown unknown FERASE ALKALINE_PHOSPHATASE unknown 95680268 unknown unknown un known T unknown 63188705 unknown unknown unknown T unknown 24439728 unknown unknown unknown ALBUMIN_GLOBULIN_RATIO unknown 83433570 unknown unknown unknown urea_nitrogen_blood unknown 30276303 unknown unknown unk nown Erythrocytes_volume_in unknown 41541267 unknown unknown unknown _Blood_by_Automated_cou nt Erythrocyte_distributi unknown 42424591 unknown unknown unknown on_width_Ratio_by_Autom ated_count MCV_Entitic_volume_by_ unknown 26546248 unknown unknown unknown Automated_count MCH_Entitic_mass_by_Au unknown 50024674 unknown unknown unknown tomated_count Platelets_volume_in_Bl unknown 38655506 unknown unknown unknown ood_by_Automated_count Platelet_mean_volume_E unknown 93487059 unknown unknown unknown ntitic_volume_in_Blood_ by_Rees-Ericka neutrophil_count_blood unknown 00527525 unknown unknown unknown monocyte_count_blood unknown 17773229 unknown unknown un known lymphocyte_count_blood unknown 39800295 unknown unknown unknown Hemoglobin_Mass_volume unknown 41027319 unknown unknown unknown _in_Blood eosinophil_count_blood unknown 74709239 unknown unknown unknown Basophils_volume_in_Bl unknown 94223142 unknown unknown unknown ood_by_Manual_count leukocyte_count_blood unknown 55124533 unknown unknown u nknown erythrocyte_RBC_count unknown 51125258 unknown unknown u nknown Leukocytes_volume_in_B unknown 58053512 unknown unknown unknown lood_by_Automated_count Glomerular_Filtration_ unknown 47235697 unknown unknown unknown rate platelet_count unknown 17914161 unknown unknown unknown hemoglobin_blood unknown 88714552 unknown unknown unknow n hematocrit_blood unknown 76664813 unknown unknown unknow n potassium_blood unknown 73755910 unknown unknown unknown Glomerular_filtration_r unknown 63509304 unknown unknown unknown ate_1.73_sq_M.predicted _among_non-blacks_Volum e_Rate_Area_in_Serum_Pl asma_or_Blood_by_Creati nine-based_formula_MDRD _ Hematocrit_Volume_Frac unknown 39209935 unknown unknown unknown tion_of_Blood_by_Automa ted_count bilirubin_serum_total unknown 88119602 unknown unknown u nknown alanine_aminotransfera unknown 19753854 unknown unknown unknown se_SGPT_serum carbon_dioxide_serum_t unknown 59674126 unknown unknown unknown otal aspartate_aminotransfe unknown 51096945 unknown unknown unknown rase_SGOT_serum protein_total_serum unknown 64147033 unknown unknown unk nown blood_glucose unknown 02568805 unknown unknown unknown potassium_blood unknown 72593098 unknown unknown unknown mean_corpuscular_volum unknown 76116402 unknown unknown unknown e_RBC Urea_nitrogen_Mass_vol unknown 91571080 unknown unknown unknown ume_in_Serum_or_Plasma globulin_serum unknown 93847985 unknown unknown unknown alkaline_phosphatase_s unknown 59214935 unknown unknown unknown anthony Sodium_Moles_volume_in unknown 62991596 unknown unknown unknown _Serum_or_Plasma Protein_Mass_volume_in unknown 08706140 unknown unknown unknown _Serum_or_Plasma eosinophil_count_blood unknown 88956755 unknown unknown unknown anion_gap_serum unknown 21819792 unknown unknown unknown mean_platelet_volume unknown 28535452 unknown unknown un known basophil_count_blood unknown 16738477 unknown unknown un known monocyte_count_blood unknown 65291106 unknown unknown un known lymphocyte_count_blood unknown 94896368 unknown unknown unknown neutrophil_count_blood unknown 16091694 unknown unknown unknown Glucose_Mass_volume_in unknown 10479194 unknown unknown unknown _Serum_or_Plasma Globulin_Mass_volume_i unknown 03762599 unknown unknown unknown n_Serum Creatinine_Mass_volume unknown 88439746 unknown unknown unknown _in_Serum_or_Plasma Chloride_Moles_volume_ unknown 06226891 unknown unknown unknown in_Serum_or_Plasma carbon_dioxide_serum_t unknown 67335443 unknown unknown unknown otal Calcium_Moles_volume_i unknown 89673369 unknown unknown unknown n_Serum_or_Plasma albumin_serum unknown 12740134 unknown unknown unknown Bilirubin.total_Mass_v unknown 05629162 unknown unknown unknown olume_in_Serum_or_Plasm a Aspartate_aminotransfe unknown 85241239 unknown unknown unknown rase_Enzymatic_activity _volume_in_Serum_or_Pla sma Anion_gap_4_in_Serum_o unknown 10594866 unknown unknown unknown r_Plasma creatinine_serum unknown [id number] unknown unknown unknow n Alkaline_phosphatase_E unknown [id number] unknown unknown unknown nzymatic_activity_volum e_in_Blood Albumin_Globulin_Mass_ unknown [id number] unknown unknown unknown Ratio_in_Serum_or_Plasm a Albumin_Mass_volume_in unknown [id number] unknown unknown unknown _Serum_or_Plasma Alanine_aminotransfera unknown [id number] unknown unknown unknown se_Enzymatic_activity_v olume_in_Serum_or_Plasm a mean_corpuscular_hemog unknown [id number] unknown unknown unknown lobin_concentration_rbc sodium_serum unknown 86012473 unknown unknown unknown albumin_globulin_ratio unknown 40016903 unknown unknown unknown _serum chloride_serum unknown [id number] unknown unknown unknown calcium_serum unknown [id number] unknown unknown unknown mean_corpuscular_hemog unknown 25489209 unknown unknown unknown lobin_RBC red_blood_cell_distrib unknown 89926256 unknown unknown unknown ution_width T unknown [id number] unknown unknown unknown T unknown 52232544 unknown unknown unknown T unknown [id number] unknown unknown unknown T unknown [id number] unknown unknown unknown T unknown 74635262 unknown unknown unknown T unknown [id number] unknown unknown unknown NEUTROPHILS_AUTO_ unknown [id number] unknown unknown unkno wn T unknown 63828093 unknown unknown unknown T unknown 40418168 unknown unknown unknown T unknown 63053477 unknown unknown unknown MONOCYTES_AUTO_ unknown 19771164 unknown unknown unknown T unknown [id number] unknown unknown unknown T unknown [id number] unknown unknown unknown T unknown [id number] unknown unknown unknown T unknown [id number] unknown unknown unknown LYMPHOCYTES_AUTO_ unknown 10223621 unknown unknown unkno wn T unknown 71261441 unknown unknown unknown T unknown 73510095 unknown unknown unknown T unknown [id number] unknown unknown unknown T unknown 24191245 unknown unknown unknown T unknown 12001927 unknown unknown unknown T unknown 46243785 unknown unknown unknown T unknown [id number] unknown unknown unknown GFR_-_MDRD unknown [id number] unknown unknown unknown T unknown 20061314 unknown unknown unknown EOSINOPHILS_AUTO_ unknown [id number] unknown unknown unkno wn T unknown 71040500 unknown unknown unknown T unknown 45529789 unknown unknown unknown T unknown [id number] unknown unknown unknown T unknown [id number] unknown unknown unknown T unknown 57059065 unknown unknown unknown T unknown [id number] unknown unknown unknown BILIRUBIN_TOTAL unknown 62015200 unknown unknown unknown BASOPHILS_AUTO_ unknown 71478168 unknown unknown unknown T unknown [id number] unknown unknown unknown T unknown 12929792 unknown unknown unknown T unknown 61925181 unknown unknown unknown T unknown 88437558 unknown unknown unknown ALT_ALANINE_AMINOTRANS unknown [id number] unknown unknown unknown FERASE ALKALINE_PHOSPHATASE unknown [id number] unknown unknown un known T unknown [id number] unknown unknown unknown T unknown [id number] unknown unknown unknown ALBUMIN_GLOBULIN_RATIO unknown 85081154 unknown unknown unknown urea_nitrogen_blood unknown 13581132 unknown unknown unk nown Erythrocytes_volume_in unknown 15394611 unknown unknown unknown _Blood_by_Automated_cou nt Erythrocyte_distributi unknown [id number] unknown unknown unknown on_width_Ratio_by_Autom ated_count MCV_Entitic_volume_by_ unknown [id number] unknown unknown unknown Automated_count MCH_Entitic_mass_by_Au unknown 62034737 unknown unknown unknown tomated_count Platelets_volume_in_Bl unknown 58746066 unknown unknown unknown ood_by_Automated_count Platelet_mean_volume_E unknown 59334427 unknown unknown unknown ntitic_volume_in_Blood_ by_Rees-Ericka neutrophil_count_blood unknown 64428844 unknown unknown unknown monocyte_count_blood unknown 62231618 unknown unknown un known lymphocyte_count_blood unknown 89140679 unknown unknown unknown Hemoglobin_Mass_volume unknown 49648601 unknown unknown unknown _in_Blood eosinophil_count_blood unknown 86865867 unknown unknown unknown Basophils_volume_in_Bl unknown 27452161 unknown unknown unknown ood_by_Manual_count leukocyte_count_blood unknown 01303435 unknown unknown u nknown erythrocyte_RBC_count unknown 94063912 unknown unknown u nknown Leukocytes_volume_in_B unknown 28341317 unknown unknown unknown lood_by_Automated_count Glomerular_Filtration_ unknown 62497844 unknown unknown unknown rate platelet_count unknown 38353587 unknown unknown unknown hemoglobin_blood unknown 48203365 unknown unknown unknow n hematocrit_blood unknown 98640338 unknown unknown unknow n potassium_blood unknown 87142518 unknown unknown unknown Glomerular_filtration_r unknown 97850582 unknown unknown unknown ate_1.73_sq_M.predicted _among_non-blacks_Volum e_Rate_Area_in_Serum_Pl asma_or_Blood_by_Creati nine-based_formula_MDRD _ Hematocrit_Volume_Frac unknown 56437308 unknown unknown unknown tion_of_Blood_by_Automa ted_count bilirubin_serum_total unknown 23342092 unknown unknown u nknown alanine_aminotransfera unknown 43589182 unknown unknown unknown se_SGPT_serum carbon_dioxide_serum_t unknown 25991379 unknown unknown unknown otal aspartate_aminotransfe unknown 98552502 unknown unknown unknown rase_SGOT_serum protein_total_serum unknown 79696736 unknown unknown unk nown blood_glucose unknown 41174757 unknown unknown unknown potassium_blood unknown 42222531 unknown unknown unknown mean_corpuscular_volum unknown 46871832 unknown unknown unknown e_RBC Urea_nitrogen_Mass_vol unknown 06727191 unknown unknown unknown ume_in_Serum_or_Plasma globulin_serum unknown 65705531 unknown unknown unknown alkaline_phosphatase_s unknown 98953730 unknown unknown unknown anthony Sodium_Moles_volume_in unknown 04381530 unknown unknown unknown _Serum_or_Plasma Protein_Mass_volume_in unknown 28123304 unknown unknown unknown _Serum_or_Plasma eosinophil_count_blood unknown [id number] unknown unknown unknown anion_gap_serum unknown 65765866 unknown unknown unknown mean_platelet_volume unknown 71713868 unknown unknown un known basophil_count_blood unknown 45631594 unknown unknown un known monocyte_count_blood unknown 40281091 unknown unknown un known lymphocyte_count_blood unknown 81023550 unknown unknown unknown neutrophil_count_blood unknown 41341745 unknown unknown unknown Glucose_Mass_volume_in unknown 52670379 unknown unknown unknown _Serum_or_Plasma Globulin_Mass_volume_i unknown 46746256 unknown unknown unknown n_Serum Creatinine_Mass_volume unknown 45522001 unknown unknown unknown _in_Serum_or_Plasma Chloride_Moles_volume_ unknown 45514470 unknown unknown unknown in_Serum_or_Plasma carbon_dioxide_serum_t unknown 96606234 unknown unknown unknown otal Calcium_Moles_volume_i unknown 03936216 unknown unknown unknown n_Serum_or_Plasma albumin_serum unknown 36195932 unknown unknown unknown Bilirubin.total_Mass_v unknown 08398877 unknown unknown unknown olume_in_Serum_or_Plasm a Aspartate_aminotransfe unknown 04353033 unknown unknown unknown rase_Enzymatic_activity _volume_in_Serum_or_Pla sma Anion_gap_4_in_Serum_o unknown 03303955 unknown unknown unknown r_Plasma creatinine_serum unknown [id number] unknown unknown unknow n Alkaline_phosphatase_E unknown 58638128 unknown unknown unknown nzymatic_activity_volum e_in_Blood Albumin_Globulin_Mass_ unknown 07353480 unknown unknown unknown Ratio_in_Serum_or_Plasm a Albumin_Mass_volume_in unknown 33515675 unknown unknown unknown _Serum_or_Plasma Alanine_aminotransfera unknown 42085376 unknown unknown unknown se_Enzymatic_activity_v olume_in_Serum_or_Plasm a mean_corpuscular_hemog unknown 21727073 unknown unknown unknown lobin_concentration_rbc sodium_serum unknown 27215678 unknown unknown unknown albumin_globulin_ratio unknown 64231569 unknown unknown unknown _serum chloride_serum unknown 91797000 unknown unknown unknown calcium_serum unknown 43145147 unknown unknown unknown mean_corpuscular_hemog unknown 56832893 unknown unknown unknown lobin_RBC red_blood_cell_distrib unknown 88068265 unknown unknown unknown ution_width T unknown 21916957 unknown unknown unknown T unknown 70331512 unknown unknown unknown T unknown 60577426 unknown unknown unknown T unknown 15291578 unknown unknown unknown T unknown 70413858 unknown unknown unknown T unknown 50875156 unknown unknown unknown NEUTROPHILS_AUTO_ unknown [id number] unknown unknown unkno wn T unknown 25686722 unknown unknown unknown T unknown 04612592 unknown unknown unknown T unknown 43590743 unknown unknown unknown MONOCYTES_AUTO_ unknown 96902865 unknown unknown unknown T unknown [id number] unknown unknown unknown T unknown 65527055 unknown unknown unknown T unknown 96382725 unknown unknown unknown T unknown 70871098 unknown unknown unknown LYMPHOCYTES_AUTO_ unknown [id number] unknown unknown unkno wn T unknown [id number] unknown unknown unknown T unknown 28288415 unknown unknown unknown T unknown 12213684 unknown unknown unknown T unknown 51111305 unknown unknown unknown T unknown 03752774 unknown unknown unknown T unknown 15357083 unknown unknown unknown T unknown 59419148 unknown unknown unknown GFR_-_MDRD unknown 68573893 unknown unknown unknown T unknown 46599841 unknown unknown unknown EOSINOPHILS_AUTO_ unknown 52280582 unknown unknown unkno wn T unknown 71661017 unknown unknown unknown T unknown 59269598 unknown unknown unknown T unknown 60775426 unknown unknown unknown T unknown 85772929 unknown unknown unknown T unknown 84083877 unknown unknown unknown T unknown [id number] unknown unknown unknown BILIRUBIN_TOTAL unknown 65672977 unknown unknown unknown BASOPHILS_AUTO_ unknown 41268488 unknown unknown unknown T unknown 85085881 unknown unknown unknown T unknown 26439018 unknown unknown unknown T unknown 74698791 unknown unknown unknown T unknown 85015189 unknown unknown unknown ALT_ALANINE_AMINOTRANS unknown 22015965 unknown unknown unknown FERASE ALKALINE_PHOSPHATASE unknown [id number] unknown unknown un known T unknown 06415035 unknown unknown unknown T unknown 73322838 unknown unknown unknown ALBUMIN_GLOBULIN_RATIO unknown [id number] unknown unknown unknown urea_nitrogen_blood unknown 44958714 unknown unknown unk nown Erythrocytes_volume_in unknown 85410683 unknown unknown unknown _Blood_by_Automated_cou nt Erythrocyte_distributi unknown 51866228 unknown unknown unknown on_width_Ratio_by_Autom ated_count MCV_Entitic_volume_by_ unknown 55752063 unknown unknown unknown Automated_count MCH_Entitic_mass_by_Au unknown 75282159 unknown unknown unknown tomated_count Platelets_volume_in_Bl unknown 10164442 unknown unknown unknown ood_by_Automated_count Platelet_mean_volume_E unknown 08736403 unknown unknown unknown ntitic_volume_in_Blood_ by_Rees-Ericka Hemoglobin_Mass_volume unknown 79750698 unknown unknown unknown _in_Blood leukocyte_count_blood unknown 98284122 unknown unknown u nknown erythrocyte_RBC_count unknown 89266529 unknown unknown u nknown Leukocytes_volume_in_B unknown 70138826 unknown unknown unknown lood_by_Automated_count Glomerular_Filtration_ unknown 33430793 unknown unknown unknown rate platelet_count unknown 75755675 unknown unknown unknown hemoglobin_blood unknown 21936191 unknown unknown unknow n hematocrit_blood unknown 88514050 unknown unknown unknow n potassium_blood unknown 62147186 unknown unknown unknown Glomerular_filtration_r unknown 32820784 unknown unknown unknown ate_1.73_sq_M.predicted _among_non-blacks_Volum e_Rate_Area_in_Serum_Pl asma_or_Blood_by_Creati nine-based_formula_MDRD _ Hematocrit_Volume_Frac unknown 20210504 unknown unknown unknown tion_of_Blood_by_Automa ted_count bilirubin_serum_total unknown 20210504 unknown unknown u nknown alanine_aminotransfera unknown 20210504 unknown unknown unknown se_SGPT_serum carbon_dioxide_serum_t unknown 20210504 unknown unknown unknown otal aspartate_aminotransfe unknown 20210504 unknown unknown unknown rase_SGOT_serum protein_total_serum unknown 11322118 unknown unknown unk nown blood_glucose unknown 20210504 unknown unknown unknown potassium_blood unknown 20210504 unknown unknown unknown mean_corpuscular_volum unknown 20210504 unknown unknown unknown e_RBC Urea_nitrogen_Mass_vol unknown 20210504 unknown unknown unknown ume_in_Serum_or_Plasma globulin_serum unknown 20210504 unknown unknown unknown alkaline_phosphatase_s unknown 54037208 unknown unknown unknown anthony Sodium_Moles_volume_in unknown 03365838 unknown unknown unknown _Serum_or_Plasma Protein_Mass_volume_in unknown 20210504 unknown unknown unknown _Serum_or_Plasma anion_gap_serum unknown 54098322 unknown unknown unknown mean_platelet_volume unknown 57495248 unknown unknown un known Glucose_Mass_volume_in unknown 41157732 unknown unknown unknown _Serum_or_Plasma Globulin_Mass_volume_i unknown 12076636 unknown unknown unknown n_Serum Creatinine_Mass_volume unknown 19741026 unknown unknown unknown _in_Serum_or_Plasma Chloride_Moles_volume_ unknown 18661832 unknown unknown unknown in_Serum_or_Plasma carbon_dioxide_serum_t unknown 15007059 unknown unknown unknown otal Calcium_Moles_volume_i unknown 12888631 unknown unknown unknown n_Serum_or_Plasma albumin_serum unknown 43406985 unknown unknown unknown Bilirubin.total_Mass_v unknown 82759645 unknown unknown unknown olume_in_Serum_or_Plasm a Aspartate_aminotransfe unknown 76053555 unknown unknown unknown rase_Enzymatic_activity _volume_in_Serum_or_Pla sma Anion_gap_4_in_Serum_o unknown 66963150 unknown unknown unknown r_Plasma creatinine_serum unknown 97166492 unknown unknown unknow n Alkaline_phosphatase_E unknown 05572438 unknown unknown unknown nzymatic_activity_volum e_in_Blood Albumin_Globulin_Mass_ unknown 14605099 unknown unknown unknown Ratio_in_Serum_or_Plasm a Albumin_Mass_volume_in unknown 32062598 unknown unknown unknown _Serum_or_Plasma Alanine_aminotransfera unknown 36229243 unknown unknown unknown se_Enzymatic_activity_v olume_in_Serum_or_Plasm a mean_corpuscular_hemog unknown 88046102 unknown unknown unknown lobin_concentration_rbc sodium_serum unknown 73107012 unknown unknown unknown albumin_globulin_ratio unknown 98501042 unknown unknown unknown _serum chloride_serum unknown 16215562 unknown unknown unknown calcium_serum unknown 07457203 unknown unknown unknown mean_corpuscular_hemog unknown 63320358 unknown unknown unknown lobin_RBC red_blood_cell_distrib unknown 59392061 unknown unknown unknown ution_width T unknown 92023246 unknown unknown unknown T unknown 28356975 unknown unknown unknown T unknown 46984471 unknown unknown unknown T unknown 07798966 unknown unknown unknown T unknown 21912226 unknown unknown unknown T unknown 55607122 unknown unknown unknown T unknown 10376355 unknown unknown unknown T unknown 99131132 unknown unknown unknown T unknown 22421629 unknown unknown unknown T unknown 19481709 unknown unknown unknown T unknown 50803532 unknown unknown unknown T unknown [id number] unknown unknown unknown T unknown 20036717 unknown unknown unknown T unknown 13957571 unknown unknown unknown T unknown 34674686 unknown unknown unknown T unknown 77020119 unknown unknown unknown T unknown 42232869 unknown unknown unknown GFR_-_MDRD unknown 10809208 unknown unknown unknown T unknown 71612899 unknown unknown unknown T unknown 94066996 unknown unknown unknown T unknown 29394680 unknown unknown unknown T unknown 56852727 unknown unknown unknown T unknown 38935450 unknown unknown unknown T unknown 85386021 unknown unknown unknown BILIRUBIN_TOTAL unknown 93403343 unknown unknown unknown T unknown 95088613 unknown unknown unknown T unknown 68113720 unknown unknown unknown T unknown 34798301 unknown unknown unknown ALT_ALANINE_AMINOTRANS unknown 74009174 unknown unknown unknown FERASE ALKALINE_PHOSPHATASE unknown 92545422 unknown unknown un known T unknown 74900472 unknown unknown unknown T unknown 53971966 unknown unknown unknown ALBUMIN_GLOBULIN_RATIO unknown 37399168 unknown unknown unknown magnesium_serum unknown 28450021 unknown unknown unknown Magnesium_Moles_volume unknown 19308153 unknown unknown unknown _in_Serum_or_Plasma T unknown 02357418 unknown unknown unknown urea_nitrogen_blood unknown 74605144 unknown unknown unk nown Erythrocytes_volume_in unknown 31384980 unknown unknown unknown _Blood_by_Automated_cou nt Erythrocyte_distributi unknown 72684782 unknown unknown unknown on_width_Ratio_by_Autom ated_count MCV_Entitic_volume_by_ unknown 63472957 unknown unknown unknown Automated_count MCH_Entitic_mass_by_Au unknown 63610857 unknown unknown unknown tomated_count Platelets_volume_in_Bl unknown 02108532 unknown unknown unknown ood_by_Automated_count Platelet_mean_volume_E unknown 88057469 unknown unknown unknown ntitic_volume_in_Blood_ by_Rees-Ericka Hemoglobin_Mass_volume unknown 19722479 unknown unknown unknown _in_Blood leukocyte_count_blood unknown 79257327 unknown unknown u nknown erythrocyte_RBC_count unknown 59631129 unknown unknown u nknown Leukocytes_volume_in_B unknown 33246923 unknown unknown unknown lood_by_Automated_count Glomerular_Filtration_ unknown 55792635 unknown unknown unknown rate platelet_count unknown 52419447 unknown unknown unknown hemoglobin_blood unknown 93084197 unknown unknown unknow n hematocrit_blood unknown 49321093 unknown unknown unknow n potassium_blood unknown 03865445 unknown unknown unknown Glomerular_filtration_r unknown 83549850 unknown unknown unknown ate_1.73_sq_M.predicted _among_non-blacks_Volum e_Rate_Area_in_Serum_Pl asma_or_Blood_by_Creati nine-based_formula_MDRD _ Hematocrit_Volume_Frac unknown 66563500 unknown unknown unknown tion_of_Blood_by_Automa ted_count bilirubin_serum_total unknown 89998549 unknown unknown u nknown alanine_aminotransfera unknown 43608056 unknown unknown unknown se_SGPT_serum carbon_dioxide_serum_t unknown 17977960 unknown unknown unknown otal aspartate_aminotransfe unknown 98899602 unknown unknown unknown rase_SGOT_serum protein_total_serum unknown 60889646 unknown unknown unk nown blood_glucose unknown 62851668 unknown unknown unknown potassium_blood unknown 90469490 unknown unknown unknown magnesium_serum unknown 74586554 unknown unknown unknown mean_corpuscular_volum unknown 71508122 unknown unknown unknown e_RBC Urea_nitrogen_Mass_vol unknown 07348386 unknown unknown unknown ume_in_Serum_or_Plasma globulin_serum unknown 75350706 unknown unknown unknown alkaline_phosphatase_s unknown 24504177 unknown unknown unknown anthony Sodium_Moles_volume_in unknown 37828068 unknown unknown unknown _Serum_or_Plasma Protein_Mass_volume_in unknown 34063735 unknown unknown unknown _Serum_or_Plasma anion_gap_serum unknown 43534345 unknown unknown unknown mean_platelet_volume unknown 87739409 unknown unknown un known Magnesium_Moles_volume unknown 45897154 unknown unknown unknown _in_Serum_or_Plasma Glucose_Mass_volume_in unknown 77432936 unknown unknown unknown _Serum_or_Plasma Globulin_Mass_volume_i unknown 39085364 unknown unknown unknown n_Serum Creatinine_Mass_volume unknown 82338190 unknown unknown unknown _in_Serum_or_Plasma Chloride_Moles_volume_ unknown 48388542 unknown unknown unknown in_Serum_or_Plasma carbon_dioxide_serum_t unknown 73301441 unknown unknown unknown otal Calcium_Moles_volume_i unknown 96018155 unknown unknown unknown n_Serum_or_Plasma albumin_serum unknown 90532631 unknown unknown unknown Bilirubin.total_Mass_v unknown 36206230 unknown unknown unknown olume_in_Serum_or_Plasm a Aspartate_aminotransfe unknown 85664938 unknown unknown unknown rase_Enzymatic_activity _volume_in_Serum_or_Pla sma Anion_gap_4_in_Serum_o unknown 20287508 unknown unknown unknown r_Plasma creatinine_serum unknown 27867069 unknown unknown unknow n Alkaline_phosphatase_E unknown 48989089 unknown unknown unknown nzymatic_activity_volum e_in_Blood Albumin_Globulin_Mass_ unknown 45037462 unknown unknown unknown Ratio_in_Serum_or_Plasm a Albumin_Mass_volume_in unknown 39477494 unknown unknown unknown _Serum_or_Plasma Alanine_aminotransfera unknown 61901968 unknown unknown unknown se_Enzymatic_activity_v olume_in_Serum_or_Plasm a mean_corpuscular_hemog unknown 28280249 unknown unknown unknown lobin_concentration_rbc sodium_serum unknown 44675506 unknown unknown unknown albumin_globulin_ratio unknown 63445788 unknown unknown unknown _serum chloride_serum unknown 53871876 unknown unknown unknown calcium_serum unknown 89403408 unknown unknown unknown mean_corpuscular_hemog unknown 64099039 unknown unknown unknown lobin_RBC red_blood_cell_distrib unknown 76951392 unknown unknown unknown ution_width T unknown 80027143 unknown unknown unknown T unknown 62522626 unknown unknown unknown T unknown 62878953 unknown unknown unknown T unknown 54473267 unknown unknown unknown T unknown 14522876 unknown unknown unknown T unknown 89035459 unknown unknown unknown T unknown 76868258 unknown unknown unknown T unknown 17278847 unknown unknown unknown T unknown 57865349 unknown unknown unknown T unknown 05912690 unknown unknown unknown T unknown 04268053 unknown unknown unknown T unknown 64537866 unknown unknown unknown T unknown 49548313 unknown unknown unknown T unknown 83293260 unknown unknown unknown T unknown 92426626 unknown unknown unknown T unknown 61895317 unknown unknown unknown T unknown 18956274 unknown unknown unknown T unknown 23156671 unknown unknown unknown GFR_-_MDRD unknown 31386357 unknown unknown unknown T unknown 35584448 unknown unknown unknown T unknown 14311731 unknown unknown unknown T unknown 30179695 unknown unknown unknown T unknown 34146397 unknown unknown unknown T unknown 80832100 unknown unknown unknown T unknown 74639029 unknown unknown unknown BILIRUBIN_TOTAL unknown 77904859 unknown unknown unknown T unknown 97845986 unknown unknown unknown T unknown [id number] unknown unknown unknown T unknown 48713915 unknown unknown unknown ALT_ALANINE_AMINOTRANS unknown 21190229 unknown unknown unknown FERASE ALKALINE_PHOSPHATASE unknown 38700346 unknown unknown un known T unknown 01020661 unknown unknown unknown T unknown 36596472 unknown unknown unknown ALBUMIN_GLOBULIN_RATIO unknown 21534188 unknown unknown unknown urea_nitrogen_blood unknown 20406604 unknown unknown unk nown Erythrocytes_volume_in unknown 00552187 unknown unknown unknown _Blood_by_Automated_cou nt Erythrocyte_distributi unknown 72321514 unknown unknown unknown on_width_Ratio_by_Autom ated_count MCV_Entitic_volume_by_ unknown 37279272 unknown unknown unknown Automated_count MCH_Entitic_mass_by_Au unknown 76338045 unknown unknown unknown tomated_count Platelets_volume_in_Bl unknown 62710237 unknown unknown unknown ood_by_Automated_count Platelet_mean_volume_E unknown 51174382 unknown unknown unknown ntitic_volume_in_Blood_ by_Rees-Ericka Hemoglobin_Mass_volume unknown 34671770 unknown unknown unknown _in_Blood leukocyte_count_blood unknown 85625546 unknown unknown u nknown erythrocyte_RBC_count unknown 21542927 unknown unknown u nknown Leukocytes_volume_in_B unknown 07555244 unknown unknown unknown lood_by_Automated_count Glomerular_Filtration_ unknown 82241403 unknown unknown unknown rate platelet_count unknown 88352619 unknown unknown unknown hemoglobin_blood unknown 52253271 unknown unknown unknow n hematocrit_blood unknown 80474447 unknown unknown unknow n potassium_blood unknown 08868398 unknown unknown unknown Glomerular_filtration_r unknown 48442726 unknown unknown unknown ate_1.73_sq_M.predicted _among_non-blacks_Volum e_Rate_Area_in_Serum_Pl asma_or_Blood_by_Creati nine-based_formula_MDRD _ Hematocrit_Volume_Frac unknown 59908154 unknown unknown unknown tion_of_Blood_by_Automa ted_count bilirubin_serum_total unknown 29012691 unknown unknown u nknown alanine_aminotransfera unknown 33742501 unknown unknown unknown se_SGPT_serum carbon_dioxide_serum_t unknown 61031394 unknown unknown unknown otal aspartate_aminotransfe unknown 31571237 unknown unknown unknown rase_SGOT_serum protein_total_serum unknown 62838346 unknown unknown unk nown blood_glucose unknown 87162703 unknown unknown unknown potassium_blood unknown 25250217 unknown unknown unknown magnesium_serum unknown 72045923 unknown unknown unknown mean_corpuscular_volum unknown 01396345 unknown unknown unknown e_RBC Urea_nitrogen_Mass_vol unknown 61041954 unknown unknown unknown ume_in_Serum_or_Plasma globulin_serum unknown 77807458 unknown unknown unknown alkaline_phosphatase_s unknown 14184837 unknown unknown unknown anthony Sodium_Moles_volume_in unknown [id number] unknown unknown unknown _Serum_or_Plasma Protein_Mass_volume_in unknown [id number] unknown unknown unknown _Serum_or_Plasma anion_gap_serum unknown [id number] unknown unknown unknown mean_platelet_volume unknown [id number] unknown unknown un known Magnesium_Moles_volume unknown [id number] unknown unknown unknown _in_Serum_or_Plasma Glucose_Mass_volume_in unknown 71274814 unknown unknown unknown _Serum_or_Plasma Globulin_Mass_volume_i unknown 12143800 unknown unknown unknown n_Serum Creatinine_Mass_volume unknown [id number] unknown unknown unknown _in_Serum_or_Plasma Chloride_Moles_volume_ unknown [id number] unknown unknown unknown in_Serum_or_Plasma carbon_dioxide_serum_t unknown [id number] unknown unknown unknown otal Calcium_Moles_volume_i unknown 71343236 unknown unknown unknown n_Serum_or_Plasma albumin_serum unknown [id number] unknown unknown unknown Bilirubin.total_Mass_v unknown 15285209 unknown unknown unknown olume_in_Serum_or_Plasm a Aspartate_aminotransfe unknown 03913613 unknown unknown unknown rase_Enzymatic_activity _volume_in_Serum_or_Pla sma Anion_gap_4_in_Serum_o unknown 53520735 unknown unknown unknown r_Plasma creatinine_serum unknown 36291420 unknown unknown unknow n Alkaline_phosphatase_E unknown 81968279 unknown unknown unknown nzymatic_activity_volum e_in_Blood Albumin_Globulin_Mass_ unknown 53512465 unknown unknown unknown Ratio_in_Serum_or_Plasm a Albumin_Mass_volume_in unknown 15907665 unknown unknown unknown _Serum_or_Plasma Alanine_aminotransfera unknown 95790572 unknown unknown unknown se_Enzymatic_activity_v olume_in_Serum_or_Plasm a mean_corpuscular_hemog unknown 87593553 unknown unknown unknown lobin_concentration_rbc sodium_serum unknown 29464295 unknown unknown unknown albumin_globulin_ratio unknown 75260621 unknown unknown unknown _serum chloride_serum unknown 41877105 unknown unknown unknown calcium_serum unknown 61754794 unknown unknown unknown mean_corpuscular_hemog unknown [id number] unknown unknown unknown lobin_RBC red_blood_cell_distrib unknown 05783566 unknown unknown unknown ution_width T unknown [id number] unknown unknown unknown T unknown 82677190 unknown unknown unknown T unknown [id number] unknown unknown unknown T unknown 20753582 unknown unknown unknown T unknown [id number] unknown unknown unknown T unknown 24774419 unknown unknown unknown T unknown 09579228 unknown unknown unknown T unknown [id number] unknown unknown unknown T unknown [id number] unknown unknown unknown T unknown [id number] unknown unknown unknown T unknown [id number] unknown unknown unknown T unknown [id number] unknown unknown unknown T unknown 75472486 unknown unknown unknown T unknown [id number] unknown unknown unknown T unknown 80157988 unknown unknown unknown T unknown 99555015 unknown unknown unknown T unknown [id number] unknown unknown unknown T unknown 31992251 unknown unknown unknown GFR_-_MDRD unknown [id number] unknown unknown unknown T unknown [id number] unknown unknown unknown T unknown 85132351 unknown unknown unknown T unknown [id number] unknown unknown unknown T unknown 44208475 unknown unknown unknown T unknown 70570134 unknown unknown unknown T unknown [id number] unknown unknown unknown BILIRUBIN_TOTAL unknown 13436773 unknown unknown unknown T unknown [id number] unknown unknown unknown T unknown [id number] unknown unknown unknown T unknown [id number] unknown unknown unknown ALT_ALANINE_AMINOTRANS unknown [id number] unknown unknown unknown FERASE ALKALINE_PHOSPHATASE unknown [id number] unknown unknown un known T unknown [id number] unknown unknown unknown T unknown 04792900 unknown unknown unknown ALBUMIN_GLOBULIN_RATIO unknown [id number] unknown unknown unknown magnesium_serum unknown 94582807 unknown unknown unknown Magnesium_Moles_volume unknown 56121731 unknown unknown unknown _in_Serum_or_Plasma T unknown 72503712 unknown unknown unknown urea_nitrogen_blood unknown 82270447 unknown unknown unk nown urea_nitrogen_blood unknown 58331903 unknown unknown unk nown Erythrocytes_volume_in unknown 86696841 unknown unknown unknown _Blood_by_Automated_cou nt Erythrocytes_volume_in unknown 38407952 unknown unknown unknown _Blood_by_Automated_cou nt Erythrocyte_distributi unknown 13895138 unknown unknown unknown on_width_Ratio_by_Autom ated_count MCV_Entitic_volume_by_ unknown [id number] unknown unknown unknown Automated_count MCV_Entitic_volume_by_ unknown 85300683 unknown unknown unknown Automated_count MCH_Entitic_mass_by_Au unknown 70870239 unknown unknown unknown tomated_count MCH_Entitic_mass_by_Au unknown 53928060 unknown unknown unknown tomated_count Platelets_volume_in_Bl unknown 83354631 unknown unknown unknown ood_by_Automated_count Platelets_volume_in_Bl unknown 13850438 unknown unknown unknown ood_by_Automated_count Platelet_mean_volume_E unknown 23644213 unknown unknown unknown ntitic_volume_in_Blood_ by_Rees-Ericka neutrophil_count_blood unknown 75089182 unknown unknown unknown neutrophil_count_blood unknown 80058852 unknown unknown unknown monocyte_count_blood unknown 31995514 unknown unknown un known monocyte_count_blood unknown 06076214 unknown unknown un known lymphocyte_count_blood unknown 09638643 unknown unknown unknown lymphocyte_count_blood unknown 10064443 unknown unknown unknown Hemoglobin_Mass_volume unknown 95908637 unknown unknown unknown _in_Blood Hemoglobin_Mass_volume unknown 47442194 unknown unknown unknown _in_Blood eosinophil_count_blood unknown 41383172 unknown unknown unknown Basophils_volume_in_Bl unknown 15290194 unknown unknown unknown ood_by_Manual_count leukocyte_count_blood unknown 90592041 unknown unknown u nknown leukocyte_count_blood unknown 67379518 unknown unknown u nknown erythrocyte_RBC_count unknown 29102400 unknown unknown u nknown erythrocyte_RBC_count unknown 29441323 unknown unknown u nknown Leukocytes_volume_in_B unknown 30615639 unknown unknown unknown lood_by_Automated_count Leukocytes_volume_in_B unknown 86665698 unknown unknown unknown lood_by_Automated_count Glomerular_Filtration_ unknown 12470171 unknown unknown unknown rate Glomerular_Filtration_ unknown 13522336 unknown unknown unknown rate platelet_count unknown 94397419 unknown unknown unknown platelet_count unknown 50094377 unknown unknown unknown hemoglobin_blood unknown 67442010 unknown unknown unknow n hemoglobin_blood unknown 45204749 unknown unknown unknow n hematocrit_blood unknown 43443881 unknown unknown unknow n hematocrit_blood unknown 54090371 unknown unknown unknow n potassium_blood unknown 42500530 unknown unknown unknown potassium_blood unknown 90828994 unknown unknown unknown Glomerular_filtration_r unknown 06538238 unknown unknown unknown ate_1.73_sq_M.predicted _among_non-blacks_Volum e_Rate_Area_in_Serum_Pl asma_or_Blood_by_Creati nine-based_formula_MDRD _ Glomerular_filtration_r unknown 92025105 unknown unknown unknown ate_1.73_sq_M.predicted _among_non-blacks_Volum e_Rate_Area_in_Serum_Pl asma_or_Blood_by_Creati nine-based_formula_MDRD _ Hematocrit_Volume_Frac unknown 11501963 unknown unknown unknown tion_of_Blood_by_Automa ted_count Hematocrit_Volume_Frac unknown 51183372 unknown unknown unknown tion_of_Blood_by_Automa ted_count bilirubin_serum_total unknown 52786029 unknown unknown u nknown bilirubin_serum_total unknown 08104143 unknown unknown u nknown alanine_aminotransfera unknown 36319361 unknown unknown unknown se_SGPT_serum alanine_aminotransfera unknown 05825988 unknown unknown unknown se_SGPT_serum carbon_dioxide_serum_t unknown 26196957 unknown unknown unknown otal aspartate_aminotransfe unknown 07938850 unknown unknown unknown rase_SGOT_serum aspartate_aminotransfe unknown 62448491 unknown unknown unknown rase_SGOT_serum protein_total_serum unknown 09647056 unknown unknown unk nown protein_total_serum unknown 99654650 unknown unknown unk nown blood_glucose unknown 55164276 unknown unknown unknown blood_glucose unknown 85138616 unknown unknown unknown potassium_blood unknown 88024917 unknown unknown unknown potassium_blood unknown 41862121 unknown unknown unknown magnesium_serum unknown 24119812 unknown unknown unknown magnesium_serum unknown 89109668 unknown unknown unknown mean_corpuscular_volum unknown 99680214 unknown unknown unknown e_RBC mean_corpuscular_volum unknown 58567439 unknown unknown unknown e_RBC Urea_nitrogen_Mass_vol unknown 50647342 unknown unknown unknown ume_in_Serum_or_Plasma Urea_nitrogen_Mass_vol unknown 37657098 unknown unknown unknown ume_in_Serum_or_Plasma globulin_serum unknown 54981859 unknown unknown unknown globulin_serum unknown 79873372 unknown unknown unknown alkaline_phosphatase_s unknown 47492556 unknown unknown unknown anthony alkaline_phosphatase_s unknown 01742233 unknown unknown unknown anthony Sodium_Moles_volume_in unknown 17064464 unknown unknown unknown _Serum_or_Plasma Sodium_Moles_volume_in unknown 44742563 unknown unknown unknown _Serum_or_Plasma Protein_Mass_volume_in unknown 01817189 unknown unknown unknown _Serum_or_Plasma Protein_Mass_volume_in unknown 82623839 unknown unknown unknown _Serum_or_Plasma eosinophil_count_blood unknown 11083979 unknown unknown unknown anion_gap_serum unknown 68850661 unknown unknown unknown mean_platelet_volume unknown 40449800 unknown unknown un known Magnesium_Moles_volume unknown 97110437 unknown unknown unknown _in_Serum_or_Plasma Magnesium_Moles_volume unknown 02124877 unknown unknown unknown _in_Serum_or_Plasma basophil_count_blood unknown 77975565 unknown unknown un known monocyte_count_blood unknown 40327178 unknown unknown un known monocyte_count_blood unknown 71574734 unknown unknown un known lymphocyte_count_blood unknown 77019078 unknown unknown unknown lymphocyte_count_blood unknown 88672068 unknown unknown unknown neutrophil_count_blood unknown 08788534 unknown unknown unknown neutrophil_count_blood unknown 31715179 unknown unknown unknown Glucose_Mass_volume_in unknown 98013855 unknown unknown unknown _Serum_or_Plasma Glucose_Mass_volume_in unknown 54320487 unknown unknown unknown _Serum_or_Plasma Globulin_Mass_volume_i unknown 01153107 unknown unknown unknown n_Serum Globulin_Mass_volume_i unknown 78685703 unknown unknown unknown n_Serum Creatinine_Mass_volume unknown 51426932 unknown unknown unknown _in_Serum_or_Plasma Creatinine_Mass_volume unknown 92312030 unknown unknown unknown _in_Serum_or_Plasma Chloride_Moles_volume_ unknown 53518397 unknown unknown unknown in_Serum_or_Plasma Chloride_Moles_volume_ unknown 98385727 unknown unknown unknown in_Serum_or_Plasma carbon_dioxide_serum_t unknown 79565696 unknown unknown unknown otal Calcium_Moles_volume_i unknown 69645902 unknown unknown unknown n_Serum_or_Plasma albumin_serum unknown 59767829 unknown unknown unknown Bilirubin.total_Mass_v unknown 82422770 unknown unknown unknown olume_in_Serum_or_Plasm a Bilirubin.total_Mass_v unknown 32904514 unknown unknown unknown olume_in_Serum_or_Plasm a Aspartate_aminotransfe unknown 43666800 unknown unknown unknown rase_Enzymatic_activity _volume_in_Serum_or_Pla sma Aspartate_aminotransfe unknown 42072911 unknown unknown unknown rase_Enzymatic_activity _volume_in_Serum_or_Pla sma Anion_gap_4_in_Serum_o unknown 35133351 unknown unknown unknown r_Plasma creatinine_serum unknown 84091916 unknown unknown unknow n creatinine_serum unknown 92818661 unknown unknown unknow n Alkaline_phosphatase_E unknown 85540012 unknown unknown unknown nzymatic_activity_volum e_in_Blood Alkaline_phosphatase_E unknown 61143264 unknown unknown unknown nzymatic_activity_volum e_in_Blood Albumin_Globulin_Mass_ unknown 78795547 unknown unknown unknown Ratio_in_Serum_or_Plasm a Albumin_Globulin_Mass_ unknown 23038898 unknown unknown unknown Ratio_in_Serum_or_Plasm a Albumin_Mass_volume_in unknown 17944676 unknown unknown unknown _Serum_or_Plasma Alanine_aminotransfera unknown 02912439 unknown unknown unknown se_Enzymatic_activity_v olume_in_Serum_or_Plasm a Alanine_aminotransfera unknown 36995122 unknown unknown unknown se_Enzymatic_activity_v olume_in_Serum_or_Plasm a mean_corpuscular_hemog unknown 47540479 unknown unknown unknown lobin_concentration_rbc sodium_serum unknown 70215449 unknown unknown unknown sodium_serum unknown 69532944 unknown unknown unknown albumin_globulin_ratio unknown 07551456 unknown unknown unknown _serum albumin_globulin_ratio unknown 25044242 unknown unknown unknown _serum chloride_serum unknown 13268449 unknown unknown unknown chloride_serum unknown 48521499 unknown unknown unknown calcium_serum unknown 42406244 unknown unknown unknown mean_corpuscular_hemog unknown 52720249 unknown unknown unknown lobin_RBC mean_corpuscular_hemog unknown 64280783 unknown unknown unknown lobin_RBC red_blood_cell_distrib unknown 53204966 unknown unknown unknown ution_width T unknown 66278613 unknown unknown unknown T unknown 75479182 unknown unknown unknown T unknown 38715142 unknown unknown unknown T unknown 71056077 unknown unknown unknown T unknown 32011485 unknown unknown unknown T unknown 46219650 unknown unknown unknown T unknown 05046266 unknown unknown unknown T unknown 51592723 unknown unknown unknown T unknown 54367110 unknown unknown unknown T unknown 79080723 unknown unknown unknown T unknown [id number] unknown unknown unknown NEUTROPHILS_AUTO_ unknown 17231159 unknown unknown unkno wn NEUTROPHILS_AUTO_ unknown 83832242 unknown unknown unkno wn T unknown 86955837 unknown unknown unknown T unknown 05320236 unknown unknown unknown T unknown 38364117 unknown unknown unknown T unknown 01578588 unknown unknown unknown T unknown 91065949 unknown unknown unknown MONOCYTES_AUTO_ unknown 64623003 unknown unknown unknown MONOCYTES_AUTO_ unknown [id number] unknown unknown unknown T unknown 76502127 unknown unknown unknown T unknown 39447581 unknown unknown unknown T unknown 80168598 unknown unknown unknown T unknown 04892728 unknown unknown unknown T unknown 25643661 unknown unknown unknown T unknown 73936591 unknown unknown unknown T unknown 79332371 unknown unknown unknown T unknown 03093305 unknown unknown unknown T unknown 44058987 unknown unknown unknown LYMPHOCYTES_AUTO_ unknown [id number] unknown unknown unkno wn LYMPHOCYTES_AUTO_ unknown [id number] unknown unknown unkno wn T unknown 86790937 unknown unknown unknown T unknown 65780870 unknown unknown unknown T unknown 37688069 unknown unknown unknown T unknown 10935095 unknown unknown unknown T unknown 20175661 unknown unknown unknown T unknown 14098828 unknown unknown unknown T unknown 10763888 unknown unknown unknown T unknown [id number] unknown unknown unknown T unknown 84565281 unknown unknown unknown T unknown 31529637 unknown unknown unknown T unknown 69394014 unknown unknown unknown T unknown 50862219 unknown unknown unknown T unknown 20769794 unknown unknown unknown T unknown 68317985 unknown unknown unknown GFR_-_MDRD unknown 20712093 unknown unknown unknown GFR_-_MDRD unknown 88318071 unknown unknown unknown T unknown 52618378 unknown unknown unknown EOSINOPHILS_AUTO_ unknown [id number] unknown unknown unkno wn T unknown 26030840 unknown unknown unknown T unknown [id number] unknown unknown unknown T unknown 27175822 unknown unknown unknown T unknown 49700929 unknown unknown unknown T unknown 76661811 unknown unknown unknown T unknown 05096488 unknown unknown unknown T unknown 78881950 unknown unknown unknown T unknown 05326037 unknown unknown unknown T unknown 22491874 unknown unknown unknown BILIRUBIN_TOTAL unknown 08324137 unknown unknown unknown BILIRUBIN_TOTAL unknown 10611183 unknown unknown unknown BASOPHILS_AUTO_ unknown 22005715 unknown unknown unknown T unknown 50326120 unknown unknown unknown T unknown 20892545 unknown unknown unknown T unknown 95740133 unknown unknown unknown T unknown 27341071 unknown unknown unknown T unknown 11409783 unknown unknown unknown T unknown 05975247 unknown unknown unknown T unknown [id number] unknown unknown unknown ALT_ALANINE_AMINOTRANS unknown 02360408 unknown unknown unknown FERASE ALT_ALANINE_AMINOTRANS unknown 09169168 unknown unknown unknown FERASE ALKALINE_PHOSPHATASE unknown 84268524 unknown unknown un known ALKALINE_PHOSPHATASE unknown [id number] unknown unknown un known T unknown [id number] unknown unknown unknown T unknown 31282020 unknown unknown unknown T unknown 56441178 unknown unknown unknown ALBUMIN_GLOBULIN_RATIO unknown [id number] unknown unknown unknown ALBUMIN_GLOBULIN_RATIO unknown 71862208 unknown unknown unknown neutrophil_count_blood unknown 64848292 unknown unknown unknown monocyte_count_blood unknown 25908252 unknown unknown un known lymphocyte_count_blood unknown 63082736 unknown unknown unknown eosinophil_count_blood unknown 01898076 unknown unknown unknown Basophils_volume_in_Bl unknown 44149518 unknown unknown unknown ood_by_Manual_count eosinophil_count_blood unknown 52109399 unknown unknown unknown basophil_count_blood unknown 00713965 unknown unknown un known monocyte_count_blood unknown 82372536 unknown unknown un known lymphocyte_count_blood unknown 40574270 unknown unknown unknown neutrophil_count_blood unknown 41416936 unknown unknown unknown NEUTROPHILS_AUTO_ unknown 27673563 unknown unknown unkno wn T unknown 04732353 unknown unknown unknown MONOCYTES_AUTO_ unknown [id number] unknown unknown unknown T unknown 78272315 unknown unknown unknown LYMPHOCYTES_AUTO_ unknown 83200141 unknown unknown unkno wn T unknown 39203476 unknown unknown unknown EOSINOPHILS_AUTO_ unknown 99217970 unknown unknown unkno wn T unknown 21302401 unknown unknown unknown BASOPHILS_AUTO_ unknown 93945999 unknown unknown unknown T unknown 35923610 unknown unknown unknown Chlamydia_trachomatis_ unknown 01050965 unknown unknown unknown DNA_Presence_in_Specime n_by_NAA_with_probe_det ection chlamydia_DNA_probe unknown 13066335 unknown unknown unk nown TRICHOMONAS_VAGINALIS_ unknown [id number] unknown unknown unknown DNA_PROBE TRICHOMONAS_VAGINALIS_ unknown 71552390 unknown unknown unknown DNA T unknown [id number] unknown unknown unknown CHLAMYDIA_TRACHOMATIS_ unknown 37231995 unknown unknown unknown DNA T unknown 32626875 unknown unknown unknown urea_nitrogen_blood unknown 32463435 unknown unknown unk nown Erythrocytes_volume_in unknown 37214118 unknown unknown unknown _Blood_by_Automated_cou nt Erythrocyte_distributi unknown 04570148 unknown unknown unknown on_width_Ratio_by_Autom ated_count MCV_Entitic_volume_by_ unknown 29796935 unknown unknown unknown Automated_count MCH_Entitic_mass_by_Au unknown 72135762 unknown unknown unknown tomated_count Platelets_volume_in_Bl unknown 34547173 unknown unknown unknown ood_by_Automated_count Platelet_mean_volume_E unknown 51273492 unknown unknown unknown ntitic_volume_in_Blood_ by_Rees-Ericka neutrophil_count_blood unknown 00905909 unknown unknown unknown monocyte_count_blood unknown 77255894 unknown unknown un known lymphocyte_count_blood unknown 43924099 unknown unknown unknown Hemoglobin_Mass_volume unknown 97711169 unknown unknown unknown _in_Blood eosinophil_count_blood unknown 44238554 unknown unknown unknown Basophils_volume_in_Bl unknown 28005962 unknown unknown unknown ood_by_Manual_count leukocyte_count_blood unknown 30285494 unknown unknown u nknown erythrocyte_RBC_count unknown 35431156 unknown unknown u nknown Leukocytes_volume_in_B unknown 28792894 unknown unknown unknown lood_by_Automated_count Glomerular_Filtration_ unknown 80382694 unknown unknown unknown rate platelet_count unknown 20101370 unknown unknown unknown hemoglobin_blood unknown 54715886 unknown unknown unknow n hematocrit_blood unknown 68745319 unknown unknown unknow n potassium_blood unknown 43987195 unknown unknown unknown Glomerular_filtration_r unknown 55806184 unknown unknown unknown ate_1.73_sq_M.predicted _among_non-blacks_Volum e_Rate_Area_in_Serum_Pl asma_or_Blood_by_Creati nine-based_formula_MDRD _ Hematocrit_Volume_Frac unknown 82481976 unknown unknown unknown tion_of_Blood_by_Automa ted_count bilirubin_serum_total unknown 63925048 unknown unknown u nknown alanine_aminotransfera unknown 03854527 unknown unknown unknown se_SGPT_serum carbon_dioxide_serum_t unknown 66783963 unknown unknown unknown otal aspartate_aminotransfe unknown 69364863 unknown unknown unknown rase_SGOT_serum protein_total_serum unknown 30738772 unknown unknown unk nown blood_glucose unknown 35597906 unknown unknown unknown potassium_blood unknown 03976677 unknown unknown unknown mean_corpuscular_volum unknown 25482517 unknown unknown unknown e_RBC Urea_nitrogen_Mass_vol unknown 84795243 unknown unknown unknown ume_in_Serum_or_Plasma globulin_serum unknown 48260896 unknown unknown unknown alkaline_phosphatase_s unknown 16966061 unknown unknown unknown anthony Sodium_Moles_volume_in unknown 22861104 unknown unknown unknown _Serum_or_Plasma Protein_Mass_volume_in unknown 06844504 unknown unknown unknown _Serum_or_Plasma eosinophil_count_blood unknown 96481275 unknown unknown unknown anion_gap_serum unknown 84823459 unknown unknown unknown mean_platelet_volume unknown 21707551 unknown unknown un known basophil_count_blood unknown 54541879 unknown unknown un known monocyte_count_blood unknown 94182486 unknown unknown un known lymphocyte_count_blood unknown 05642390 unknown unknown unknown neutrophil_count_blood unknown 92633943 unknown unknown unknown Glucose_Mass_volume_in unknown 41825837 unknown unknown unknown _Serum_or_Plasma Globulin_Mass_volume_i unknown 46529660 unknown unknown unknown n_Serum Chlamydia_trachomatis_ unknown [id number] unknown unknown unknown DNA_Presence_in_Specime n_by_NAA_with_probe_det ection Creatinine_Mass_volume unknown 96983085 unknown unknown unknown _in_Serum_or_Plasma Chloride_Moles_volume_ unknown 19098073 unknown unknown unknown in_Serum_or_Plasma carbon_dioxide_serum_t unknown 27849438 unknown unknown unknown otal Calcium_Moles_volume_i unknown 31381479 unknown unknown unknown n_Serum_or_Plasma albumin_serum unknown 49386078 unknown unknown unknown Bilirubin.total_Mass_v unknown 92761675 unknown unknown unknown olume_in_Serum_or_Plasm a Aspartate_aminotransfe unknown 84313249 unknown unknown unknown rase_Enzymatic_activity _volume_in_Serum_or_Pla sma Anion_gap_4_in_Serum_o unknown 17736785 unknown unknown unknown r_Plasma creatinine_serum unknown 69604710 unknown unknown unknow n Alkaline_phosphatase_E unknown 78061790 unknown unknown unknown nzymatic_activity_volum e_in_Blood Albumin_Globulin_Mass_ unknown 18677189 unknown unknown unknown Ratio_in_Serum_or_Plasm a Albumin_Mass_volume_in unknown 99421090 unknown unknown unknown _Serum_or_Plasma Alanine_aminotransfera unknown [id number] unknown unknown unknown se_Enzymatic_activity_v olume_in_Serum_or_Plasm a mean_corpuscular_hemog unknown 87695659 unknown unknown unknown lobin_concentration_rbc sodium_serum unknown 91851647 unknown unknown unknown chlamydia_DNA_probe unknown 51027768 unknown unknown unk nown albumin_globulin_ratio unknown 12553228 unknown unknown unknown _serum chloride_serum unknown 41945145 unknown unknown unknown TRICHOMONAS_VAGINALIS_ unknown 35177249 unknown unknown unknown DNA_PROBE calcium_serum unknown 69660305 unknown unknown unknown mean_corpuscular_hemog unknown 94499856 unknown unknown unknown lobin_RBC red_blood_cell_distrib unknown 77574956 unknown unknown unknown ution_width T unknown 25548504 unknown unknown unknown TRICHOMONAS_VAGINALIS_ unknown 19658014 unknown unknown unknown DNA T unknown 57831652 unknown unknown unknown T unknown [id number] unknown unknown unknown T unknown 71444010 unknown unknown unknown T unknown 40237479 unknown unknown unknown T unknown [id number] unknown unknown unknown T unknown [id number] unknown unknown unknown NEUTROPHILS_AUTO_ unknown [id number] unknown unknown unkno wn T unknown 45903686 unknown unknown unknown T unknown 88693778 unknown unknown unknown T unknown [id number] unknown unknown unknown MONOCYTES_AUTO_ unknown 18383371 unknown unknown unknown T unknown 03919448 unknown unknown unknown T unknown [id number] unknown unknown unknown T unknown 57154072 unknown unknown unknown T unknown [id number] unknown unknown unknown LYMPHOCYTES_AUTO_ unknown [id number] unknown unknown unkno wn T unknown 92990145 unknown unknown unknown T unknown 19387294 unknown unknown unknown T unknown 46243859 unknown unknown unknown T unknown [id number] unknown unknown unknown T unknown [id number] unknown unknown unknown T unknown [id number] unknown unknown unknown T unknown [id number] unknown unknown unknown GFR_-_MDRD unknown [id number] unknown unknown unknown T unknown [id number] unknown unknown unknown EOSINOPHILS_AUTO_ unknown [id number] unknown unknown unkno wn T unknown [id number] unknown unknown unknown CHLAMYDIA_TRACHOMATIS_ unknown [id number] unknown unknown unknown DNA T unknown [id number] unknown unknown unknown T unknown [id number] unknown unknown unknown T unknown [id number] unknown unknown unknown T unknown [id number] unknown unknown unknown T unknown [id number] unknown unknown unknown T unknown [id number] unknown unknown unknown BILIRUBIN_TOTAL unknown [id number] unknown unknown unknown BASOPHILS_AUTO_ unknown [id number] unknown unknown unknown T unknown [id number] unknown unknown unknown T unknown [id number] unknown unknown unknown T unknown [id number] unknown unknown unknown T unknown [id number] unknown unknown unknown ALT_ALANINE_AMINOTRANS unknown [id number] unknown unknown unknown FERASE ALKALINE_PHOSPHATASE unknown [id number] unknown unknown un known T unknown [id number] unknown unknown unknown T unknown [id number] unknown unknown unknown ALBUMIN_GLOBULIN_RATIO unknown [id number] unknown unknown unknown Chlamydia_trachomatis_ unknown [id number] unknown unknown unknown DNA_Presence_in_Specime n_by_NAA_with_probe_det ection chlamydia_DNA_probe unknown [id number] unknown unknown unk nown TRICHOMONAS_VAGINALIS_ unknown [id number] unknown unknown unknown DNA_PROBE TRICHOMONAS_VAGINALIS_ unknown [id number] unknown unknown unknown DNA T unknown [id number] unknown unknown unknown CHLAMYDIA_TRACHOMATIS_ unknown [id number] unknown unknown unknown DNA T unknown [id number] unknown unknown unknown Chlamydia_trachomatis_ unknown [id number] unknown unknown unknown DNA_Presence_in_Specime n_by_NAA_with_probe_det ection chlamydia_DNA_probe unknown [id number] unknown unknown unk nown TRICHOMONAS_VAGINALIS_ unknown [id number] unknown unknown unknown DNA_PROBE TRICHOMONAS_VAGINALIS_ unknown [id number] unknown unknown unknown DNA T unknown [id number] unknown unknown unknown CHLAMYDIA_TRACHOMATIS_ unknown [id number] unknown unknown unknown DNA T unknown [id number] unknown unknown unknown platelet_count_estimat unknown [id number] unknown unknown unknown e uric_acid_serum unknown [id number] unknown unknown unknown platelet_count_estimat unknown [id number] unknown unknown unknown e Urate_Mass_volume_in_S unknown [id number] unknown unknown unknown erum_or_Plasma Vaginal_Group_B_Strep_ unknown [id number] unknown unknown unknown by_Real-Time_PCR LACTATE_DEHYDROGENASE unknown [id number] unknown unknown u nknown Slide_Interpretation unknown [id number] unknown unknown un known T unknown [id number] unknown unknown unknown T unknown [id number] unknown unknown unknown SLIDE_REVIEW_ unknown [id number] unknown unknown unknown T unknown [id number] unknown unknown unknown PLATELET_ESTIMATE_MANU unknown [id number] unknown unknown unknown AL T unknown [id number] unknown unknown unknown T unknown [id number] unknown unknown unknown GROUP_B_STREP_PCR unknown [id number] unknown unknown unkno wn platelet_count_estimat unknown [id number] unknown unknown unknown e Erythrocytes_volume_in unknown [id number] unknown unknown unknown _Blood_by_Automated_cou nt Erythrocyte_distributi unknown [id number] unknown unknown unknown on_width_Ratio_by_Autom ated_count MCV_Entitic_volume_by_ unknown [id number] unknown unknown unknown Automated_count MCH_Entitic_mass_by_Au unknown [id number] unknown unknown unknown tomated_count Platelets_volume_in_Bl unknown [id number] unknown unknown unknown ood_by_Automated_count Platelet_mean_volume_E unknown 75196797 unknown unknown unknown ntitic_volume_in_Blood_ by_Rees-Ericka neutrophil_count_blood unknown 84471732 unknown unknown unknown monocyte_count_blood unknown [id number] unknown unknown un known lymphocyte_count_blood unknown [id number] unknown unknown unknown Hemoglobin_Mass_volume unknown 74313030 unknown unknown unknown _in_Blood eosinophil_count_blood unknown 67868974 unknown unknown unknown Basophils_volume_in_Bl unknown [id number] unknown unknown unknown ood_by_Manual_count leukocyte_count_blood unknown 75234622 unknown unknown u nknown erythrocyte_RBC_count unknown 97796924 unknown unknown u nknown Leukocytes_volume_in_B unknown 63979426 unknown unknown unknown lood_by_Automated_count platelet_count unknown [id number] unknown unknown unknown hemoglobin_blood unknown [id number] unknown unknown unknow n hematocrit_blood unknown 77093829 unknown unknown unknow n uric_acid_serum unknown [id number] unknown unknown unknown Hematocrit_Volume_Frac unknown 79626197 unknown unknown unknown tion_of_Blood_by_Automa ted_count alanine_aminotransfera unknown 96350405 unknown unknown unknown se_SGPT_serum aspartate_aminotransfe unknown 13042121 unknown unknown unknown rase_SGOT_serum mean_corpuscular_volum unknown 54593205 unknown unknown unknown e_RBC platelet_count_estimat unknown 85142134 unknown unknown unknown e Urate_Mass_volume_in_S unknown 45923438 unknown unknown unknown erum_or_Plasma eosinophil_count_blood unknown [id number] unknown unknown unknown mean_platelet_volume unknown 13376937 unknown unknown un known basophil_count_blood unknown 18633263 unknown unknown un known monocyte_count_blood unknown 41772751 unknown unknown un known lymphocyte_count_blood unknown 26793112 unknown unknown unknown neutrophil_count_blood unknown [id number] unknown unknown unknown Aspartate_aminotransfe unknown 70848202 unknown unknown unknown rase_Enzymatic_activity _volume_in_Serum_or_Pla sma Alanine_aminotransfera unknown 66221380 unknown unknown unknown se_Enzymatic_activity_v olume_in_Serum_or_Plasm a mean_corpuscular_hemog unknown [id number] unknown unknown unknown lobin_concentration_rbc Vaginal_Group_B_Strep_ unknown [id number] unknown unknown unknown by_Real-Time_PCR LACTATE_DEHYDROGENASE unknown [id number] unknown unknown u nknown mean_corpuscular_hemog unknown [id number] unknown unknown unknown lobin_RBC red_blood_cell_distrib unknown 08486832 unknown unknown unknown ution_width Slide_Interpretation unknown 52682889 unknown unknown un known T unknown [id number] unknown unknown unknown T unknown [id number] unknown unknown unknown T unknown [id number] unknown unknown unknown SLIDE_REVIEW_ unknown [id number] unknown unknown unknown T unknown [id number] unknown unknown unknown T unknown [id number] unknown unknown unknown T unknown [id number] unknown unknown unknown PLATELET_ESTIMATE_MANU unknown [id number] unknown unknown unknown AL T unknown [id number] unknown unknown unknown NEUTROPHILS_AUTO_ unknown [id number] unknown unknown unkno wn T unknown [id number] unknown unknown unknown T unknown [id number] unknown unknown unknown MONOCYTES_AUTO_ unknown [id number] unknown unknown unknown T unknown [id number] unknown unknown unknown T unknown [id number] unknown unknown unknown T unknown [id number] unknown unknown unknown T unknown [id number] unknown unknown unknown LYMPHOCYTES_AUTO_ unknown [id number] unknown unknown unkno wn T unknown 25124564 unknown unknown unknown T unknown [id number] unknown unknown unknown T unknown 28629903 unknown unknown unknown T unknown 74484981 unknown unknown unknown T unknown [id number] unknown unknown unknown GROUP_B_STREP_PCR unknown [id number] unknown unknown unkno wn EOSINOPHILS_AUTO_ unknown [id number] unknown unknown unkno wn T unknown [id number] unknown unknown unknown BASOPHILS_AUTO_ unknown [id number] unknown unknown unknown T unknown [id number] unknown unknown unknown T unknown [id number] unknown unknown unknown T unknown [id number] unknown unknown unknown ALT_ALANINE_AMINOTRANS unknown [id number] unknown unknown unknown FERASE platelet_count_estimat unknown [id number] unknown unknown unknown e Erythrocytes_volume_in unknown [id number] unknown unknown unknown _Blood_by_Automated_cou nt Erythrocyte_distributi unknown [id number] unknown unknown unknown on_width_Ratio_by_Autom ated_count MCV_Entitic_volume_by_ unknown [id number] unknown unknown unknown Automated_count MCH_Entitic_mass_by_Au unknown 51382877 unknown unknown unknown tomated_count Platelets_volume_in_Bl unknown [id number] unknown unknown unknown ood_by_Automated_count Platelet_mean_volume_E unknown [id number] unknown unknown unknown ntitic_volume_in_Blood_ by_Rees-Ericka neutrophil_count_blood unknown [id number] unknown unknown unknown monocyte_count_blood unknown 88122316 unknown unknown un known lymphocyte_count_blood unknown 44107543 unknown unknown unknown Hemoglobin_Mass_volume unknown 34652132 unknown unknown unknown _in_Blood eosinophil_count_blood unknown [id number] unknown unknown unknown Basophils_volume_in_Bl unknown 64453706 unknown unknown unknown ood_by_Manual_count leukocyte_count_blood unknown 63986521 unknown unknown u nknown erythrocyte_RBC_count unknown 87439627 unknown unknown u nknown Leukocytes_volume_in_B unknown 46628029 unknown unknown unknown lood_by_Automated_count platelet_count unknown 02813674 unknown unknown unknown hemoglobin_blood unknown 61022669 unknown unknown unknow n hematocrit_blood unknown 18095468 unknown unknown unknow n uric_acid_serum unknown 13669903 unknown unknown unknown Hematocrit_Volume_Frac unknown 75433059 unknown unknown unknown tion_of_Blood_by_Automa ted_count alanine_aminotransfera unknown [id number] unknown unknown unknown se_SGPT_serum aspartate_aminotransfe unknown [id number] unknown unknown unknown rase_SGOT_serum mean_corpuscular_volum unknown [id number] unknown unknown unknown e_RBC platelet_count_estimat unknown 95124206 unknown unknown unknown e Urate_Mass_volume_in_S unknown 86544383 unknown unknown unknown erum_or_Plasma eosinophil_count_blood unknown 71547349 unknown unknown unknown mean_platelet_volume unknown 56061837 unknown unknown un known basophil_count_blood unknown 72359495 unknown unknown un known monocyte_count_blood unknown 58783750 unknown unknown un known lymphocyte_count_blood unknown 61283534 unknown unknown unknown neutrophil_count_blood unknown 59301170 unknown unknown unknown Aspartate_aminotransfe unknown 62786552 unknown unknown unknown rase_Enzymatic_activity _volume_in_Serum_or_Pla sma Alanine_aminotransfera unknown 27365944 unknown unknown unknown se_Enzymatic_activity_v olume_in_Serum_or_Plasm a mean_corpuscular_hemog unknown 10488068 unknown unknown unknown lobin_concentration_rbc Vaginal_Group_B_Strep_ unknown [id number] unknown unknown unknown by_Real-Time_PCR LACTATE_DEHYDROGENASE unknown [id number] unknown unknown u nknown mean_corpuscular_hemog unknown 72459316 unknown unknown unknown lobin_RBC red_blood_cell_distrib unknown [id number] unknown unknown unknown ution_width Slide_Interpretation unknown 87415882 unknown unknown un known T unknown [id number] unknown unknown unknown T unknown [id number] unknown unknown unknown T unknown 84049912 unknown unknown unknown SLIDE_REVIEW_ unknown [id number] unknown unknown unknown T unknown 01844298 unknown unknown unknown T unknown [id number] unknown unknown unknown T unknown [id number] unknown unknown unknown PLATELET_ESTIMATE_MANU unknown [id number] unknown unknown unknown AL T unknown [id number] unknown unknown unknown NEUTROPHILS_AUTO_ unknown [id number] unknown unknown unkno wn T unknown [id number] unknown unknown unknown T unknown 83425157 unknown unknown unknown MONOCYTES_AUTO_ unknown 50282508 unknown unknown unknown T unknown 12844706 unknown unknown unknown T unknown 07298870 unknown unknown unknown T unknown 10851964 unknown unknown unknown T unknown 07197592 unknown unknown unknown LYMPHOCYTES_AUTO_ unknown [id number] unknown unknown unkno wn T unknown 57298517 unknown unknown unknown T unknown 68552113 unknown unknown unknown T unknown 48648985 unknown unknown unknown T unknown [id number] unknown unknown unknown T unknown [id number] unknown unknown unknown GROUP_B_STREP_PCR unknown [id number] unknown unknown unkno wn EOSINOPHILS_AUTO_ unknown 58986709 unknown unknown unkno wn T unknown 78083861 unknown unknown unknown BASOPHILS_AUTO_ unknown [id number] unknown unknown unknown T unknown 62286380 unknown unknown unknown T unknown 92981411 unknown unknown unknown T unknown 88819082 unknown unknown unknown ALT_ALANINE_AMINOTRANS unknown [id number] unknown unknown unknown FERASE platelet_count_estimat unknown 38660406 unknown unknown unknown e uric_acid_serum unknown 88560126 unknown unknown unknown platelet_count_estimat unknown [id number] unknown unknown unknown e Urate_Mass_volume_in_S unknown 41963632 unknown unknown unknown erum_or_Plasma Vaginal_Group_B_Strep_ unknown 46053569 unknown unknown unknown by_Real-Time_PCR LACTATE_DEHYDROGENASE unknown 12958516 unknown unknown u nknown Slide_Interpretation unknown [id number] unknown unknown un known T unknown [id number] unknown unknown unknown T unknown [id number] unknown unknown unknown SLIDE_REVIEW_ unknown 94066949 unknown unknown unknown T unknown 15615429 unknown unknown unknown PLATELET_ESTIMATE_MANU unknown [id number] unknown unknown unknown AL T unknown 83485430 unknown unknown unknown T unknown 04019503 unknown unknown unknown GROUP_B_STREP_PCR unknown [id number] unknown unknown unkno wn platelet_count_estimat unknown [id number] unknown unknown unknown e uric_acid_serum unknown 65442436 unknown unknown unknown platelet_count_estimat unknown 49176250 unknown unknown unknown e Urate_Mass_volume_in_S unknown 53695924 unknown unknown unknown erum_or_Plasma Vaginal_Group_B_Strep_ unknown 93453947 unknown unknown unknown by_Real-Time_PCR LACTATE_DEHYDROGENASE unknown 71257596 unknown unknown u nknown Slide_Interpretation unknown [id number] unknown unknown un known T unknown [id number] unknown unknown unknown T unknown 80777468 unknown unknown unknown SLIDE_REVIEW_ unknown 51902697 unknown unknown unknown T unknown 16907746 unknown unknown unknown PLATELET_ESTIMATE_MANU unknown 17370976 unknown unknown unknown AL T unknown [id number] unknown unknown unknown T unknown [id number] unknown unknown unknown GROUP_B_STREP_PCR unknown 65519983 unknown unknown unkno wn urea_nitrogen_blood unknown 87347196 unknown unknown unk nown Glomerular_Filtration_ unknown 89068568 unknown unknown unknown rate potassium_blood unknown 22204702 unknown unknown unknown Glomerular_filtration_r unknown 14049231 unknown unknown unknown ate_1.73_sq_M.predicted _among_non-blacks_Volum e_Rate_Area_in_Serum_Pl asma_or_Blood_by_Creati nine-based_formula_MDRD _ bilirubin_serum_total unknown 92351639 unknown unknown u nknown carbon_dioxide_serum_t unknown 31672969 unknown unknown unknown otal protein_total_serum unknown 15111966 unknown unknown unk nown blood_glucose unknown 92374956 unknown unknown unknown potassium_blood unknown 53719328 unknown unknown unknown Urea_nitrogen_Mass_vol unknown 91680860 unknown unknown unknown ume_in_Serum_or_Plasma globulin_serum unknown 11246958 unknown unknown unknown alkaline_phosphatase_s unknown 22179604 unknown unknown unknown anthony Sodium_Moles_volume_in unknown 85624676 unknown unknown unknown _Serum_or_Plasma Protein_Mass_volume_in unknown 69829892 unknown unknown unknown _Serum_or_Plasma anion_gap_serum unknown 42995664 unknown unknown unknown Glucose_Mass_volume_in unknown 06109816 unknown unknown unknown _Serum_or_Plasma Globulin_Mass_volume_i unknown 22498080 unknown unknown unknown n_Serum Creatinine_Mass_volume unknown 57925247 unknown unknown unknown _in_Serum_or_Plasma Chloride_Moles_volume_ unknown 08018702 unknown unknown unknown in_Serum_or_Plasma carbon_dioxide_serum_t unknown 55032445 unknown unknown unknown otal Calcium_Moles_volume_i unknown 89786206 unknown unknown unknown n_Serum_or_Plasma albumin_serum unknown 87837314 unknown unknown unknown Bilirubin.total_Mass_v unknown 24265591 unknown unknown unknown olume_in_Serum_or_Plasm a Anion_gap_4_in_Serum_o unknown 24171375 unknown unknown unknown r_Plasma creatinine_serum unknown 85888311 unknown unknown unknow n Alkaline_phosphatase_E unknown 36514581 unknown unknown unknown nzymatic_activity_volum e_in_Blood Albumin_Globulin_Mass_ unknown 94164933 unknown unknown unknown Ratio_in_Serum_or_Plasm a Albumin_Mass_volume_in unknown 88905392 unknown unknown unknown _Serum_or_Plasma sodium_serum unknown 02546043 unknown unknown unknown albumin_globulin_ratio unknown 47982137 unknown unknown unknown _serum chloride_serum unknown 43348073 unknown unknown unknown calcium_serum unknown 82525934 unknown unknown unknown T unknown 56279931 unknown unknown unknown T unknown 27147602 unknown unknown unknown T unknown 86120508 unknown unknown unknown T unknown 35328209 unknown unknown unknown T unknown 86643935 unknown unknown unknown T unknown 48963180 unknown unknown unknown T unknown 01946070 unknown unknown unknown GFR_-_MDRD unknown [id number] unknown unknown unknown T unknown 70916838 unknown unknown unknown T unknown [id number] unknown unknown unknown T unknown 38275937 unknown unknown unknown T unknown 37203057 unknown unknown unknown T unknown 12631464 unknown unknown unknown T unknown 05265976 unknown unknown unknown BILIRUBIN_TOTAL unknown [id number] unknown unknown unknown T unknown 44861614 unknown unknown unknown ALKALINE_PHOSPHATASE unknown 72549770 unknown unknown un known T unknown 16562128 unknown unknown unknown T unknown [id number] unknown unknown unknown ALBUMIN_GLOBULIN_RATIO unknown [id number] unknown unknown unknown urea_nitrogen_blood unknown 21846412 unknown unknown unk nown Erythrocytes_volume_in unknown 93917789 unknown unknown unknown _Blood_by_Automated_cou nt Erythrocyte_distributi unknown 86979232 unknown unknown unknown on_width_Ratio_by_Autom ated_count MCV_Entitic_volume_by_ unknown 68722584 unknown unknown unknown Automated_count MCH_Entitic_mass_by_Au unknown 76152738 unknown unknown unknown tomated_count Platelets_volume_in_Bl unknown 89192981 unknown unknown unknown ood_by_Automated_count Platelet_mean_volume_E unknown 92704567 unknown unknown unknown ntitic_volume_in_Blood_ by_Rees-Ericka neutrophil_count_blood unknown 09457831 unknown unknown unknown monocyte_count_blood unknown 23684749 unknown unknown un known lymphocyte_count_blood unknown 65940689 unknown unknown unknown Hemoglobin_Mass_volume unknown 94843458 unknown unknown unknown _in_Blood eosinophil_count_blood unknown 83422731 unknown unknown unknown Basophils_volume_in_Bl unknown 17397106 unknown unknown unknown ood_by_Manual_count leukocyte_count_blood unknown 00548159 unknown unknown u nknown erythrocyte_RBC_count unknown 38110977 unknown unknown u nknown Leukocytes_volume_in_B unknown 40909670 unknown unknown unknown lood_by_Automated_count Glomerular_Filtration_ unknown 05756206 unknown unknown unknown rate platelet_count unknown 83397562 unknown unknown unknown hemoglobin_blood unknown 09046396 unknown unknown unknow n hematocrit_blood unknown 44237655 unknown unknown unknow n potassium_blood unknown 25531725 unknown unknown unknown Glomerular_filtration_r unknown 62347387 unknown unknown unknown ate_1.73_sq_M.predicted _among_non-blacks_Volum e_Rate_Area_in_Serum_Pl asma_or_Blood_by_Creati nine-based_formula_MDRD _ Hematocrit_Volume_Frac unknown 26015097 unknown unknown unknown tion_of_Blood_by_Automa ted_count bilirubin_serum_total unknown 22470330 unknown unknown u nknown alanine_aminotransfera unknown 98723812 unknown unknown unknown se_SGPT_serum carbon_dioxide_serum_t unknown 15712534 unknown unknown unknown otal aspartate_aminotransfe unknown 72585401 unknown unknown unknown rase_SGOT_serum protein_total_serum unknown 83513201 unknown unknown unk nown blood_glucose unknown 00161828 unknown unknown unknown potassium_blood unknown 22499727 unknown unknown unknown mean_corpuscular_volum unknown 95062737 unknown unknown unknown e_RBC Urea_nitrogen_Mass_vol unknown 57279913 unknown unknown unknown ume_in_Serum_or_Plasma globulin_serum unknown 04241259 unknown unknown unknown alkaline_phosphatase_s unknown 04488628 unknown unknown unknown anthony Sodium_Moles_volume_in unknown 22563392 unknown unknown unknown _Serum_or_Plasma Protein_Mass_volume_in unknown 00749189 unknown unknown unknown _Serum_or_Plasma eosinophil_count_blood unknown 66022626 unknown unknown unknown anion_gap_serum unknown 12929156 unknown unknown unknown mean_platelet_volume unknown 83964703 unknown unknown un known basophil_count_blood unknown 38333569 unknown unknown un known monocyte_count_blood unknown 15202071 unknown unknown un known lymphocyte_count_blood unknown 36499316 unknown unknown unknown neutrophil_count_blood unknown 36590240 unknown unknown unknown Glucose_Mass_volume_in unknown 91029956 unknown unknown unknown _Serum_or_Plasma Globulin_Mass_volume_i unknown 51019765 unknown unknown unknown n_Serum Creatinine_Mass_volume unknown 61451400 unknown unknown unknown _in_Serum_or_Plasma Chloride_Moles_volume_ unknown 63292550 unknown unknown unknown in_Serum_or_Plasma carbon_dioxide_serum_t unknown 39024170 unknown unknown unknown otal Calcium_Moles_volume_i unknown 87357031 unknown unknown unknown n_Serum_or_Plasma albumin_serum unknown 46203838 unknown unknown unknown Bilirubin.total_Mass_v unknown 00573622 unknown unknown unknown olume_in_Serum_or_Plasm a Aspartate_aminotransfe unknown 11190966 unknown unknown unknown rase_Enzymatic_activity _volume_in_Serum_or_Pla sma Anion_gap_4_in_Serum_o unknown 87930646 unknown unknown unknown r_Plasma creatinine_serum unknown 10635887 unknown unknown unknow n Alkaline_phosphatase_E unknown 55929678 unknown unknown unknown nzymatic_activity_volum e_in_Blood Albumin_Globulin_Mass_ unknown 89848489 unknown unknown unknown Ratio_in_Serum_or_Plasm a Albumin_Mass_volume_in unknown 30129928 unknown unknown unknown _Serum_or_Plasma Alanine_aminotransfera unknown 31437758 unknown unknown unknown se_Enzymatic_activity_v olume_in_Serum_or_Plasm a mean_corpuscular_hemog unknown 05173852 unknown unknown unknown lobin_concentration_rbc sodium_serum unknown 94207313 unknown unknown unknown albumin_globulin_ratio unknown 77534413 unknown unknown unknown _serum chloride_serum unknown 36060931 unknown unknown unknown calcium_serum unknown 88932111 unknown unknown unknown mean_corpuscular_hemog unknown 54686134 unknown unknown unknown lobin_RBC red_blood_cell_distrib unknown 33336348 unknown unknown unknown ution_width T unknown 96572106 unknown unknown unknown T unknown 05722005 unknown unknown unknown T unknown [id number] unknown unknown unknown T unknown 27201497 unknown unknown unknown T unknown 26130684 unknown unknown unknown T unknown 06729028 unknown unknown unknown NEUTROPHILS_AUTO_ unknown 93003228 unknown unknown unkno wn T unknown 51821293 unknown unknown unknown T unknown 48837571 unknown unknown unknown T unknown 51704886 unknown unknown unknown MONOCYTES_AUTO_ unknown 57549676 unknown unknown unknown T unknown [id number] unknown unknown unknown T unknown 81924384 unknown unknown unknown T unknown 44037446 unknown unknown unknown T unknown [id number] unknown unknown unknown LYMPHOCYTES_AUTO_ unknown 81594027 unknown unknown unkno wn T unknown 13188637 unknown unknown unknown T unknown 54439163 unknown unknown unknown T unknown 36886514 unknown unknown unknown T unknown [id number] unknown unknown unknown T unknown 44843033 unknown unknown unknown T unknown 30191421 unknown unknown unknown T unknown 71039252 unknown unknown unknown GFR_-_MDRD unknown 60450692 unknown unknown unknown T unknown [id number] unknown unknown unknown EOSINOPHILS_AUTO_ unknown 57353828 unknown unknown unkno wn T unknown 09252457 unknown unknown unknown T unknown 47072421 unknown unknown unknown T unknown [id number] unknown unknown unknown T unknown [id number] unknown unknown unknown T unknown 00412486 unknown unknown unknown T unknown [id number] unknown unknown unknown BILIRUBIN_TOTAL unknown 13968256 unknown unknown unknown BASOPHILS_AUTO_ unknown 23011348 unknown unknown unknown T unknown [id number] unknown unknown unknown T unknown 81878027 unknown unknown unknown T unknown [id number] unknown unknown unknown T unknown 31931712 unknown unknown unknown ALT_ALANINE_AMINOTRANS unknown [id number] unknown unknown unknown FERASE ALKALINE_PHOSPHATASE unknown [id number] unknown unknown un known T unknown 03150614 unknown unknown unknown T unknown [id number] unknown unknown unknown ALBUMIN_GLOBULIN_RATIO unknown [id number] unknown unknown unknown urea_nitrogen_blood unknown [id number] unknown unknown unk nown Erythrocytes_volume_in unknown [id number] unknown unknown unknown _Blood_by_Automated_cou nt Erythrocyte_distributi unknown [id number] unknown unknown unknown on_width_Ratio_by_Autom ated_count MCV_Entitic_volume_by_ unknown [id number] unknown unknown unknown Automated_count MCH_Entitic_mass_by_Au unknown 38297814 unknown unknown unknown tomated_count Platelets_volume_in_Bl unknown 33869555 unknown unknown unknown ood_by_Automated_count Platelet_mean_volume_E unknown 73870854 unknown unknown unknown ntitic_volume_in_Blood_ by_Rees-Ericka neutrophil_count_blood unknown 42735249 unknown unknown unknown monocyte_count_blood unknown 33195645 unknown unknown un known lymphocyte_count_blood unknown 51820946 unknown unknown unknown Hemoglobin_Mass_volume unknown 33619658 unknown unknown unknown _in_Blood eosinophil_count_blood unknown 75150354 unknown unknown unknown Basophils_volume_in_Bl unknown 92073379 unknown unknown unknown ood_by_Manual_count leukocyte_count_blood unknown 91465550 unknown unknown u nknown erythrocyte_RBC_count unknown 49533746 unknown unknown u nknown Leukocytes_volume_in_B unknown 64713646 unknown unknown unknown lood_by_Automated_count Glomerular_Filtration_ unknown 53068135 unknown unknown unknown rate platelet_count unknown 17987380 unknown unknown unknown hemoglobin_blood unknown 29273752 unknown unknown unknow n hematocrit_blood unknown 11983464 unknown unknown unknow n potassium_blood unknown 19287635 unknown unknown unknown Glomerular_filtration_r unknown 53220780 unknown unknown unknown ate_1.73_sq_M.predicted _among_non-blacks_Volum e_Rate_Area_in_Serum_Pl asma_or_Blood_by_Creati nine-based_formula_MDRD _ Hematocrit_Volume_Frac unknown 28362353 unknown unknown unknown tion_of_Blood_by_Automa ted_count bilirubin_serum_total unknown 21470084 unknown unknown u nknown alanine_aminotransfera unknown 92469134 unknown unknown unknown se_SGPT_serum carbon_dioxide_serum_t unknown 31904186 unknown unknown unknown otal aspartate_aminotransfe unknown 41312477 unknown unknown unknown rase_SGOT_serum protein_total_serum unknown 87218374 unknown unknown unk nown blood_glucose unknown 86142476 unknown unknown unknown potassium_blood unknown 77774650 unknown unknown unknown mean_corpuscular_volum unknown 63269756 unknown unknown unknown e_RBC Urea_nitrogen_Mass_vol unknown 05944847 unknown unknown unknown ume_in_Serum_or_Plasma globulin_serum unknown 50143907 unknown unknown unknown alkaline_phosphatase_s unknown 67098228 unknown unknown unknown anthony Sodium_Moles_volume_in unknown 77405167 unknown unknown unknown _Serum_or_Plasma Protein_Mass_volume_in unknown 15040331 unknown unknown unknown _Serum_or_Plasma eosinophil_count_blood unknown 75326705 unknown unknown unknown anion_gap_serum unknown 39193550 unknown unknown unknown mean_platelet_volume unknown 02230736 unknown unknown un known basophil_count_blood unknown 71426021 unknown unknown un known monocyte_count_blood unknown 02160569 unknown unknown un known lymphocyte_count_blood unknown 31746010 unknown unknown unknown neutrophil_count_blood unknown 84229286 unknown unknown unknown Glucose_Mass_volume_in unknown 96886033 unknown unknown unknown _Serum_or_Plasma Globulin_Mass_volume_i unknown 77511989 unknown unknown unknown n_Serum Creatinine_Mass_volume unknown 85659905 unknown unknown unknown _in_Serum_or_Plasma Chloride_Moles_volume_ unknown 80914038 unknown unknown unknown in_Serum_or_Plasma carbon_dioxide_serum_t unknown 32767498 unknown unknown unknown otal Calcium_Moles_volume_i unknown 03541924 unknown unknown unknown n_Serum_or_Plasma albumin_serum unknown 52699467 unknown unknown unknown Bilirubin.total_Mass_v unknown 61967304 unknown unknown unknown olume_in_Serum_or_Plasm a Aspartate_aminotransfe unknown 67261375 unknown unknown unknown rase_Enzymatic_activity _volume_in_Serum_or_Pla sma Anion_gap_4_in_Serum_o unknown 33150990 unknown unknown unknown r_Plasma creatinine_serum unknown 10627520 unknown unknown unknow n Alkaline_phosphatase_E unknown 64591613 unknown unknown unknown nzymatic_activity_volum e_in_Blood Albumin_Globulin_Mass_ unknown 28453210 unknown unknown unknown Ratio_in_Serum_or_Plasm a Albumin_Mass_volume_in unknown 15311350 unknown unknown unknown _Serum_or_Plasma Alanine_aminotransfera unknown [id number] unknown unknown unknown se_Enzymatic_activity_v olume_in_Serum_or_Plasm a mean_corpuscular_hemog unknown 69587687 unknown unknown unknown lobin_concentration_rbc sodium_serum unknown 65419230 unknown unknown unknown albumin_globulin_ratio unknown 45875431 unknown unknown unknown _serum chloride_serum unknown 47014933 unknown unknown unknown calcium_serum unknown 30759170 unknown unknown unknown mean_corpuscular_hemog unknown 87208653 unknown unknown unknown lobin_RBC red_blood_cell_distrib unknown 49309254 unknown unknown unknown ution_width T unknown 28118853 unknown unknown unknown T unknown 71462031 unknown unknown unknown T unknown 41476727 unknown unknown unknown T unknown 83563601 unknown unknown unknown T unknown 78260870 unknown unknown unknown T unknown 52843181 unknown unknown unknown NEUTROPHILS_AUTO_ unknown 39437975 unknown unknown unkno wn T unknown 56193003 unknown unknown unknown T unknown 08046464 unknown unknown unknown T unknown 10012737 unknown unknown unknown MONOCYTES_AUTO_ unknown 64480367 unknown unknown unknown T unknown 30568047 unknown unknown unknown T unknown 90168899 unknown unknown unknown T unknown 73056455 unknown unknown unknown T unknown 17543184 unknown unknown unknown LYMPHOCYTES_AUTO_ unknown 01515223 unknown unknown unkno wn T unknown 26660164 unknown unknown unknown T unknown 93616880 unknown unknown unknown T unknown 81882103 unknown unknown unknown T unknown 42320318 unknown unknown unknown T unknown 40826496 unknown unknown unknown T unknown 51592205 unknown unknown unknown T unknown 04934787 unknown unknown unknown GFR_-_MDRD unknown 26765340 unknown unknown unknown T unknown 04495889 unknown unknown unknown EOSINOPHILS_AUTO_ unknown [id number] unknown unknown unkno wn T unknown 21654961 unknown unknown unknown T unknown 18617500 unknown unknown unknown T unknown 56421125 unknown unknown unknown T unknown 26602108 unknown unknown unknown T unknown 07063068 unknown unknown unknown T unknown [id number] unknown unknown unknown BILIRUBIN_TOTAL unknown 96811717 unknown unknown unknown BASOPHILS_AUTO_ unknown 94844299 unknown unknown unknown T unknown 39708028 unknown unknown unknown T unknown 14879759 unknown unknown unknown T unknown 97221064 unknown unknown unknown T unknown 87838388 unknown unknown unknown ALT_ALANINE_AMINOTRANS unknown 55213553 unknown unknown unknown FERASE ALKALINE_PHOSPHATASE unknown 62576370 unknown unknown un known T unknown [id number] unknown unknown unknown T unknown 12077748 unknown unknown unknown ALBUMIN_GLOBULIN_RATIO unknown 20186098 unknown unknown unknown urea_nitrogen_blood unknown 46902959 unknown unknown unk nown Erythrocytes_volume_in unknown 86442853 unknown unknown unknown _Blood_by_Automated_cou nt Erythrocyte_distributi unknown 74867469 unknown unknown unknown on_width_Ratio_by_Autom ated_count MCV_Entitic_volume_by_ unknown 48118970 unknown unknown unknown Automated_count MCH_Entitic_mass_by_Au unknown 37751980 unknown unknown unknown tomated_count Platelets_volume_in_Bl unknown 41344548 unknown unknown unknown ood_by_Automated_count Platelet_mean_volume_E unknown 51399956 unknown unknown unknown ntitic_volume_in_Blood_ by_Rees-Ericka Hemoglobin_Mass_volume unknown 19003441 unknown unknown unknown _in_Blood leukocyte_count_blood unknown 32646787 unknown unknown u nknown erythrocyte_RBC_count unknown 70364114 unknown unknown u nknown Leukocytes_volume_in_B unknown 25864411 unknown unknown unknown lood_by_Automated_count Glomerular_Filtration_ unknown 58143563 unknown unknown unknown rate platelet_count unknown 33521337 unknown unknown unknown hemoglobin_blood unknown 76361433 unknown unknown unknow n hematocrit_blood unknown 42008963 unknown unknown unknow n potassium_blood unknown 97582903 unknown unknown unknown Glomerular_filtration_r unknown 12480513 unknown unknown unknown ate_1.73_sq_M.predicted _among_non-blacks_Volum e_Rate_Area_in_Serum_Pl asma_or_Blood_by_Creati nine-based_formula_MDRD _ Hematocrit_Volume_Frac unknown 87780681 unknown unknown unknown tion_of_Blood_by_Automa ted_count bilirubin_serum_total unknown 43375151 unknown unknown u nknown alanine_aminotransfera unknown 95263473 unknown unknown unknown se_SGPT_serum carbon_dioxide_serum_t unknown 66575477 unknown unknown unknown otal aspartate_aminotransfe unknown 91801311 unknown unknown unknown rase_SGOT_serum protein_total_serum unknown 16358705 unknown unknown unk nown blood_glucose unknown 55591491 unknown unknown unknown potassium_blood unknown 65379148 unknown unknown unknown mean_corpuscular_volum unknown 49154153 unknown unknown unknown e_RBC Urea_nitrogen_Mass_vol unknown 90260551 unknown unknown unknown ume_in_Serum_or_Plasma globulin_serum unknown 33157674 unknown unknown unknown alkaline_phosphatase_s unknown 30645349 unknown unknown unknown anthony Sodium_Moles_volume_in unknown 54675991 unknown unknown unknown _Serum_or_Plasma Protein_Mass_volume_in unknown 37342493 unknown unknown unknown _Serum_or_Plasma anion_gap_serum unknown 75920463 unknown unknown unknown mean_platelet_volume unknown 70582361 unknown unknown un known Glucose_Mass_volume_in unknown 05902321 unknown unknown unknown _Serum_or_Plasma Globulin_Mass_volume_i unknown 42855988 unknown unknown unknown n_Serum Creatinine_Mass_volume unknown 95098982 unknown unknown unknown _in_Serum_or_Plasma Chloride_Moles_volume_ unknown 38337348 unknown unknown unknown in_Serum_or_Plasma carbon_dioxide_serum_t unknown 38080339 unknown unknown unknown otal Calcium_Moles_volume_i unknown 66516473 unknown unknown unknown n_Serum_or_Plasma albumin_serum unknown 57138263 unknown unknown unknown Bilirubin.total_Mass_v unknown 42643412 unknown unknown unknown olume_in_Serum_or_Plasm a Aspartate_aminotransfe unknown 64315501 unknown unknown unknown rase_Enzymatic_activity _volume_in_Serum_or_Pla sma Anion_gap_4_in_Serum_o unknown 60618388 unknown unknown unknown r_Plasma creatinine_serum unknown 07527940 unknown unknown unknow n Alkaline_phosphatase_E unknown 02275012 unknown unknown unknown nzymatic_activity_volum e_in_Blood Albumin_Globulin_Mass_ unknown 33897819 unknown unknown unknown Ratio_in_Serum_or_Plasm a Albumin_Mass_volume_in unknown 45935062 unknown unknown unknown _Serum_or_Plasma Alanine_aminotransfera unknown 54523009 unknown unknown unknown se_Enzymatic_activity_v olume_in_Serum_or_Plasm a mean_corpuscular_hemog unknown 22143808 unknown unknown unknown lobin_concentration_rbc sodium_serum unknown 04688832 unknown unknown unknown albumin_globulin_ratio unknown 54794464 unknown unknown unknown _serum chloride_serum unknown 86756397 unknown unknown unknown calcium_serum unknown 26234713 unknown unknown unknown mean_corpuscular_hemog unknown 39191853 unknown unknown unknown lobin_RBC red_blood_cell_distrib unknown 47423791 unknown unknown unknown ution_width T unknown 55828212 unknown unknown unknown T unknown 23880747 unknown unknown unknown T unknown 11527733 unknown unknown unknown T unknown 22940576 unknown unknown unknown T unknown 70965256 unknown unknown unknown T unknown 32393236 unknown unknown unknown T unknown 36162276 unknown unknown unknown T unknown 29215067 unknown unknown unknown T unknown 37736002 unknown unknown unknown T unknown 40368170 unknown unknown unknown T unknown 63479051 unknown unknown unknown T unknown 63359908 unknown unknown unknown T unknown 35795660 unknown unknown unknown T unknown 51811412 unknown unknown unknown T unknown 12185631 unknown unknown unknown T unknown 80914748 unknown unknown unknown T unknown 83044020 unknown unknown unknown GFR_-_MDRD unknown 46156031 unknown unknown unknown T unknown 11408557 unknown unknown unknown T unknown 35485274 unknown unknown unknown T unknown 07814340 unknown unknown unknown T unknown 66060892 unknown unknown unknown T unknown 20732936 unknown unknown unknown T unknown 18298919 unknown unknown unknown BILIRUBIN_TOTAL unknown 26869959 unknown unknown unknown T unknown 91712541 unknown unknown unknown T unknown 65559983 unknown unknown unknown T unknown 25260644 unknown unknown unknown ALT_ALANINE_AMINOTRANS unknown 91958563 unknown unknown unknown FERASE ALKALINE_PHOSPHATASE unknown 28506516 unknown unknown un known T unknown 89070286 unknown unknown unknown T unknown 45696296 unknown unknown unknown ALBUMIN_GLOBULIN_RATIO unknown 48413557 unknown unknown unknown urea_nitrogen_blood unknown 36224492 unknown unknown unk nown Erythrocytes_volume_in unknown 02597799 unknown unknown unknown _Blood_by_Automated_cou nt Erythrocyte_distributi unknown 16042529 unknown unknown unknown on_width_Ratio_by_Autom ated_count MCV_Entitic_volume_by_ unknown 28472751 unknown unknown unknown Automated_count MCH_Entitic_mass_by_Au unknown 09345436 unknown unknown unknown tomated_count Platelets_volume_in_Bl unknown 54381935 unknown unknown unknown ood_by_Automated_count Platelet_mean_volume_E unknown 94051220 unknown unknown unknown ntitic_volume_in_Blood_ by_Rees-Ericka Hemoglobin_Mass_volume unknown 08727735 unknown unknown unknown _in_Blood leukocyte_count_blood unknown 41918357 unknown unknown u nknown erythrocyte_RBC_count unknown 27468083 unknown unknown u nknown Leukocytes_volume_in_B unknown 46129531 unknown unknown unknown lood_by_Automated_count Glomerular_Filtration_ unknown 74460727 unknown unknown unknown rate platelet_count unknown 05583933 unknown unknown unknown hemoglobin_blood unknown 11766015 unknown unknown unknow n hematocrit_blood unknown 55443004 unknown unknown unknow n potassium_blood unknown [id number] unknown unknown unknown Glomerular_filtration_r unknown 85042466 unknown unknown unknown ate_1.73_sq_M.predicted _among_non-blacks_Volum e_Rate_Area_in_Serum_Pl asma_or_Blood_by_Creati nine-based_formula_MDRD _ Hematocrit_Volume_Frac unknown 89911723 unknown unknown unknown tion_of_Blood_by_Automa ted_count bilirubin_serum_total unknown 60713042 unknown unknown u nknown alanine_aminotransfera unknown 23453973 unknown unknown unknown se_SGPT_serum carbon_dioxide_serum_t unknown 01597228 unknown unknown unknown otal aspartate_aminotransfe unknown 11308458 unknown unknown unknown rase_SGOT_serum protein_total_serum unknown 56099129 unknown unknown unk nown blood_glucose unknown 25274263 unknown unknown unknown potassium_blood unknown 78745910 unknown unknown unknown mean_corpuscular_volum unknown 60925399 unknown unknown unknown e_RBC Urea_nitrogen_Mass_vol unknown 10758806 unknown unknown unknown ume_in_Serum_or_Plasma globulin_serum unknown 38159928 unknown unknown unknown alkaline_phosphatase_s unknown 44964016 unknown unknown unknown anthony Sodium_Moles_volume_in unknown 66906398 unknown unknown unknown _Serum_or_Plasma Protein_Mass_volume_in unknown 38635682 unknown unknown unknown _Serum_or_Plasma anion_gap_serum unknown 29945027 unknown unknown unknown mean_platelet_volume unknown 91961850 unknown unknown un known Glucose_Mass_volume_in unknown 75114037 unknown unknown unknown _Serum_or_Plasma Globulin_Mass_volume_i unknown 87463548 unknown unknown unknown n_Serum Creatinine_Mass_volume unknown 80187368 unknown unknown unknown _in_Serum_or_Plasma Chloride_Moles_volume_ unknown 89730945 unknown unknown unknown in_Serum_or_Plasma carbon_dioxide_serum_t unknown 30181013 unknown unknown unknown otal Calcium_Moles_volume_i unknown 92597150 unknown unknown unknown n_Serum_or_Plasma albumin_serum unknown 77130465 unknown unknown unknown Bilirubin.total_Mass_v unknown 05374974 unknown unknown unknown olume_in_Serum_or_Plasm a Aspartate_aminotransfe unknown 21714231 unknown unknown unknown rase_Enzymatic_activity _volume_in_Serum_or_Pla sma Anion_gap_4_in_Serum_o unknown 62083295 unknown unknown unknown r_Plasma creatinine_serum unknown 25860075 unknown unknown unknow n Alkaline_phosphatase_E unknown 24512412 unknown unknown unknown nzymatic_activity_volum e_in_Blood Albumin_Globulin_Mass_ unknown 28860872 unknown unknown unknown Ratio_in_Serum_or_Plasm a Albumin_Mass_volume_in unknown 35628612 unknown unknown unknown _Serum_or_Plasma Alanine_aminotransfera unknown 92227227 unknown unknown unknown se_Enzymatic_activity_v olume_in_Serum_or_Plasm a mean_corpuscular_hemog unknown 61019688 unknown unknown unknown lobin_concentration_rbc sodium_serum unknown 93152992 unknown unknown unknown albumin_globulin_ratio unknown 43013909 unknown unknown unknown _serum chloride_serum unknown 08438956 unknown unknown unknown calcium_serum unknown 87438176 unknown unknown unknown mean_corpuscular_hemog unknown 45690514 unknown unknown unknown lobin_RBC red_blood_cell_distrib unknown 70808024 unknown unknown unknown ution_width T unknown 16225221 unknown unknown unknown T unknown 37152212 unknown unknown unknown T unknown 13791514 unknown unknown unknown T unknown 88962801 unknown unknown unknown T unknown [id number] unknown unknown unknown T unknown 49111482 unknown unknown unknown T unknown 48940255 unknown unknown unknown T unknown 86087164 unknown unknown unknown T unknown 70276447 unknown unknown unknown T unknown 81947026 unknown unknown unknown T unknown 98056716 unknown unknown unknown T unknown 62616508 unknown unknown unknown T unknown 24121900 unknown unknown unknown T unknown 37998564 unknown unknown unknown T unknown 76855057 unknown unknown unknown T unknown 67529719 unknown unknown unknown T unknown 58896375 unknown unknown unknown GFR_-_MDRD unknown 16234623 unknown unknown unknown T unknown 35320332 unknown unknown unknown T unknown 44627370 unknown unknown unknown T unknown 89290275 unknown unknown unknown T unknown 14372086 unknown unknown unknown T unknown 99741214 unknown unknown unknown T unknown 32177325 unknown unknown unknown BILIRUBIN_TOTAL unknown 32306111 unknown unknown unknown T unknown 91491435 unknown unknown unknown T unknown 75012018 unknown unknown unknown T unknown 18686083 unknown unknown unknown ALT_ALANINE_AMINOTRANS unknown 06534486 unknown unknown unknown FERASE ALKALINE_PHOSPHATASE unknown 40245699 unknown unknown un known T unknown 52018999 unknown unknown unknown T unknown 27792737 unknown unknown unknown ALBUMIN_GLOBULIN_RATIO unknown 59485305 unknown unknown unknown urea_nitrogen_blood unknown 10387086 unknown unknown unk nown Erythrocytes_volume_in unknown 18285346 unknown unknown unknown _Blood_by_Automated_cou nt Erythrocyte_distributi unknown 13689829 unknown unknown unknown on_width_Ratio_by_Autom ated_count MCV_Entitic_volume_by_ unknown 58898520 unknown unknown unknown Automated_count MCH_Entitic_mass_by_Au unknown 53231870 unknown unknown unknown tomated_count Platelets_volume_in_Bl unknown 02855970 unknown unknown unknown ood_by_Automated_count Platelet_mean_volume_E unknown 02344153 unknown unknown unknown ntitic_volume_in_Blood_ by_Rees-Ericka Hemoglobin_Mass_volume unknown 90237426 unknown unknown unknown _in_Blood leukocyte_count_blood unknown 65296879 unknown unknown u nknown erythrocyte_RBC_count unknown 96346744 unknown unknown u nknown Leukocytes_volume_in_B unknown 29416897 unknown unknown unknown lood_by_Automated_count Glomerular_Filtration_ unknown 36199217 unknown unknown unknown rate platelet_count unknown 79033784 unknown unknown unknown hemoglobin_blood unknown 98711552 unknown unknown unknow n hematocrit_blood unknown 06740524 unknown unknown unknow n potassium_blood unknown 59203623 unknown unknown unknown Glomerular_filtration_r unknown 85083340 unknown unknown unknown ate_1.73_sq_M.predicted _among_non-blacks_Volum e_Rate_Area_in_Serum_Pl asma_or_Blood_by_Creati nine-based_formula_MDRD _ Hematocrit_Volume_Frac unknown 95873189 unknown unknown unknown tion_of_Blood_by_Automa ted_count bilirubin_serum_total unknown 13844487 unknown unknown u nknown alanine_aminotransfera unknown 23973069 unknown unknown unknown se_SGPT_serum carbon_dioxide_serum_t unknown 74816408 unknown unknown unknown otal aspartate_aminotransfe unknown 78027347 unknown unknown unknown rase_SGOT_serum protein_total_serum unknown 93997091 unknown unknown unk nown blood_glucose unknown 72714664 unknown unknown unknown potassium_blood unknown 28562232 unknown unknown unknown mean_corpuscular_volum unknown 66753343 unknown unknown unknown e_RBC Urea_nitrogen_Mass_vol unknown 10482350 unknown unknown unknown ume_in_Serum_or_Plasma globulin_serum unknown 89296442 unknown unknown unknown alkaline_phosphatase_s unknown 02351725 unknown unknown unknown anthony Sodium_Moles_volume_in unknown 12915691 unknown unknown unknown _Serum_or_Plasma Protein_Mass_volume_in unknown 36873240 unknown unknown unknown _Serum_or_Plasma anion_gap_serum unknown 84184667 unknown unknown unknown mean_platelet_volume unknown 76348259 unknown unknown un known Glucose_Mass_volume_in unknown 60100192 unknown unknown unknown _Serum_or_Plasma Globulin_Mass_volume_i unknown 83754722 unknown unknown unknown n_Serum Creatinine_Mass_volume unknown 70186964 unknown unknown unknown _in_Serum_or_Plasma Chloride_Moles_volume_ unknown 63658798 unknown unknown unknown in_Serum_or_Plasma carbon_dioxide_serum_t unknown 62712527 unknown unknown unknown otal Calcium_Moles_volume_i unknown 39457230 unknown unknown unknown n_Serum_or_Plasma albumin_serum unknown 14370807 unknown unknown unknown Bilirubin.total_Mass_v unknown 28119784 unknown unknown unknown olume_in_Serum_or_Plasm a Aspartate_aminotransfe unknown 61950088 unknown unknown unknown rase_Enzymatic_activity _volume_in_Serum_or_Pla sma Anion_gap_4_in_Serum_o unknown 75301086 unknown unknown unknown r_Plasma creatinine_serum unknown 53440012 unknown unknown unknow n Alkaline_phosphatase_E unknown 55624771 unknown unknown unknown nzymatic_activity_volum e_in_Blood Albumin_Globulin_Mass_ unknown 14541880 unknown unknown unknown Ratio_in_Serum_or_Plasm a Albumin_Mass_volume_in unknown 80992506 unknown unknown unknown _Serum_or_Plasma Alanine_aminotransfera unknown 53495387 unknown unknown unknown se_Enzymatic_activity_v olume_in_Serum_or_Plasm a mean_corpuscular_hemog unknown 95312203 unknown unknown unknown lobin_concentration_rbc sodium_serum unknown 38845801 unknown unknown unknown albumin_globulin_ratio unknown 02402302 unknown unknown unknown _serum chloride_serum unknown 47854572 unknown unknown unknown calcium_serum unknown 46071987 unknown unknown unknown mean_corpuscular_hemog unknown 36327233 unknown unknown unknown lobin_RBC red_blood_cell_distrib unknown 95362450 unknown unknown unknown ution_width T unknown 31744092 unknown unknown unknown T unknown 68021948 unknown unknown unknown T unknown 33400139 unknown unknown unknown T unknown 17679804 unknown unknown unknown T unknown 67374509 unknown unknown unknown T unknown 15788439 unknown unknown unknown T unknown 04155758 unknown unknown unknown T unknown 66925904 unknown unknown unknown T unknown 58433504 unknown unknown unknown T unknown 12466069 unknown unknown unknown T unknown 44217080 unknown unknown unknown T unknown 12190395 unknown unknown unknown T unknown [id number] unknown unknown unknown T unknown 78722633 unknown unknown unknown T unknown 38873493 unknown unknown unknown T unknown 74281983 unknown unknown unknown T unknown 81496427 unknown unknown unknown GFR_-_MDRD unknown 43725682 unknown unknown unknown T unknown 99425489 unknown unknown unknown T unknown 78142166 unknown unknown unknown T unknown 85037727 unknown unknown unknown T unknown 30680531 unknown unknown unknown T unknown 27051214 unknown unknown unknown T unknown 27918125 unknown unknown unknown BILIRUBIN_TOTAL unknown 89705893 unknown unknown unknown T unknown 64674473 unknown unknown unknown T unknown 20248999 unknown unknown unknown T unknown 32942028 unknown unknown unknown ALT_ALANINE_AMINOTRANS unknown 78178077 unknown unknown unknown FERASE ALKALINE_PHOSPHATASE unknown 33235780 unknown unknown un known T unknown [id number] unknown unknown unknown T unknown [id number] unknown unknown unknown ALBUMIN_GLOBULIN_RATIO unknown [id number] unknown unknown unknown facility observation status value reference units lab [facility] line range code notes All urea_nitroge unknown 12 unknown mg/dL _9 unknown unknown n_blood All Erythrocytes unknown 4.17 10 unknown _789-8 unknow n unknown _volume_in_Bl 6/UL ood_by_Automa ted_count All Erythrocyte_ unknown 14.3 unknown % _788-0 unknown unknown distribution_ width_Ratio_b y_Automated_c ount All MCV_Entitic_ unknown 82.7 unknown fL _787-2 unknown unknown volume_by_Aut omated_count All MCH_Entitic_ unknown 28.5 unknown pg _785-6 unknown unknown mass_by_Autom ated_count All Platelets_vo unknown 365 10 unknown _777-3 unknown unknown lume_in_Blood 3/UL _by_Automated _count All Platelet_mea unknown 9.7 unknown fL _776-5 unknown unknown n_volume_Enti tic_volume_in _Blood_by_Ree s-Ericka All neutrophil_c unknown 6.1 10 unknown _752-6 unknown unknown ount_blood 3/UL All monocyte_cou unknown 1.1 10 unknown _743-5 unknown unknown nt_blood 3/UL All lymphocyte_c unknown 2.0 10 unknown _732-8 unknown unknown ount_blood 3/UL All Hemoglobin_M unknown 11.9 unknown g/dL _718-7 unknown unknown ass_volume_in _Blood All eosinophil_c unknown 0.7 10 unknown _712-0 unknown unknown ount_blood 3/UL All Basophils_vo unknown 0.1 10 unknown _705-4 unknown unknown lume_in_Blood 3/UL _by_Manual_co unt All leukocyte_co unknown 10.1 X10 unknown _68 unkno wn unknown unt_blood 3/UL All erythrocyte_ unknown 4.17 10 unknown _67 unknow n unknown RBC_count 6/UL All Leukocytes_v unknown 10.1 X10 unknown _6690-2 unkn own unknown olume_in_Bloo 3/UL d_by_Automate d_count All Glomerular_F unknown 101 unknown mL/mi _66455 unknown unknown iltration_rat n e All platelet_cou unknown 365 10 unknown _66 unknown unknown nt 3/UL All hemoglobin_b unknown 11.9 unknown g/dL _65 unknown unknown lood All hematocrit_b unknown 34.5 unknown % _64 unknown unknown lood All potassium_bl unknown 3.2 unknown meq/L _6298-4 unknow n unknown ood All Glomerular_fi unknown 101 unknown mL/mi _48642- unknow n unknown ltration_rate n 3 _1.73_sq_M.pr edicted_among _non-blacks_V olume_Rate_Ar ea_in_Serum_P lasma_or_Bloo d_by_Creatini ne-based_form ula_MDRD_ All Hematocrit_V unknown 34.5 unknown % _4544-3 unknow n unknown olume_Fractio n_of_Blood_by _Automated_co unt All carbon_dioxi unknown 22 unknown mmol/ _3962 unknown unknown de_serum_tota L l All blood_glucos unknown 177 unknown mg/dL _3565 unknown unknown e All potassium_bl unknown 3.2 unknown meq/L _3483 unknown unknown ood All mean_corpusc unknown 82.7 unknown fL _315 unknown unknown ular_volume_R BC All Urea_nitroge unknown 12 unknown mg/dL _3094-0 unknow n unknown n_Mass_volume _in_Serum_or_ Plasma All Sodium_Moles unknown 133 unknown mmol/ _2951-2 unknow n unknown _volume_in_Se L rum_or_Plasma All eosinophil_c unknown 0.7 10 unknown _285 unknown unknown ount_blood 3/UL All anion_gap_se unknown 11.0 unknown _279 unknown unknown rum All mean_platele unknown 9.7 unknown fL _2784 unknown unknown t_volume All basophil_cou unknown 0.1 10 unknown _2427 unknown unknown nt_blood 3/UL All monocyte_cou unknown 1.1 10 unknown _2422 unknown unknown nt_blood 3/UL All lymphocyte_c unknown 2.0 10 unknown _2420 unknown unknown ount_blood 3/UL All neutrophil_c unknown 6.1 10 unknown _2418 unknown unknown ount_blood 3/UL All Glucose_Mass unknown 177 unknown mg/dL _2345-7 unknow n unknown _volume_in_Se rum_or_Plasma All Creatinine_M unknown 0.7 unknown mg/dL _2160-0 unknow n unknown ass_volume_in _Serum_or_Pla sma All Chloride_Mol unknown 100 unknown mmol/ _2075-0 unknow n unknown es_volume_in_ L Serum_or_Plas ma All carbon_dioxi unknown 22 unknown mmol/ _2028-9 unknow n unknown de_serum_tota L l All Calcium_Mole unknown 8.6 unknown mg/dL _2000-8 unknow n unknown s_volume_in_S erum_or_Plasm a All Anion_gap_4_ unknown 11.0 unknown _1863-0 unknow n unknown in_Serum_or_P lasma All creatinine_s unknown 0.7 unknown mg/dL _18 unknown unknown anthony All mean_corpusc unknown 34.5 unknown g/dL _17029 unknown unknown ular_hemoglob in_concentrat ion_rbc All sodium_serum unknown 133 unknown mmol/ _159 unknown unknown L All chloride_ser unknown 100 unknown mmol/ _13 unknown unknown um L All calcium_seru unknown 8.6 unknown mg/dL _11 unknown unknown m All mean_corpusc unknown 28.5 unknown pg _1031 unknown unknown ular_hemoglob in_RBC All red_blood_ce unknown 14.3 unknown % _1030 unknown unknown ll_distributi on_width All T unknown 10.1 X10 unknown WBC unknown un known 3/UL All T unknown 14.3 unknown % RDW unknown unkn own All T unknown 4.17 10 unknown RBC unknown unk nown 6/UL All T unknown 365 10 unknown PLT unknown unkn own 3/UL All NEUTROPHILS_ unknown 6.1 10 unknown NE_ unknown unknown AUTO_ 3/UL All T unknown 6.1 10 unknown NEUT_AU unknown unk nown 3/UL TO_ All T unknown 133 unknown mmol/ NA unknown unkn own L All T unknown 9.7 unknown fL MPV unknown unkn own All MONOCYTES_AU unknown 1.1 10 unknown MO_ unknown unknown TO_ 3/UL All T unknown 1.1 10 unknown MONO_AU unknown unk nown 3/UL TO_ All T unknown 82.7 unknown fL MCV unknown unkn own All T unknown 34.5 unknown g/dL MCHC unknown unkn own All T unknown 28.5 unknown pg MCH unknown unkn own All LYMPHOCYTES_ unknown 2.0 10 unknown LY_ unknown unknown AUTO_ 3/UL All T unknown 2.0 10 unknown LYMPH_A unknown unk nown 3/UL UTO_ All T unknown 3.2 unknown meq/L K unknown unkn own All T unknown 11.9 unknown g/dL HGB unknown unkn own All T unknown 34.5 unknown % HCT unknown unkn own All T unknown 177 unknown mg/dL GLU unknown unkn own All T unknown 101 unknown mL/mi GFR_-_M unknown unk nown n DRD All GFR_-_MDRD unknown 101 unknown mL/mi GFR unknown unknown n All T unknown 11.0 unknown GAP unknown unkn own All EOSINOPHILS_ unknown 0.7 10 unknown EO_ unknown unknown AUTO_ 3/UL All T unknown 0.7 10 unknown EOS_AUT unknown unk nown 3/UL O_ All T unknown 0.7 unknown mg/dL CREAT unknown unkn own All T unknown 22 unknown mmol/ CO2 unknown unkn own L All T unknown 100 unknown mmol/ CL unknown unkn own L All T unknown 8.6 unknown mg/dL CA unknown unkn own All T unknown 12 unknown mg/dL BUN unknown unkn own All BASOPHILS_AU unknown 0.1 10 unknown BA_ unknown unknown TO_ 3/UL All T unknown 0.1 10 unknown BASO_AU unknown unk nown 3/UL TO_ All urea_nitroge unknown 19 unknown mg/dL _9 [...] ma All carbon_dioxi unknown 24 unknown mmol/ _8-9 unknow n unknown de_serum_tota [...] l All Calcium_Mole unknown 6.7 unknown mg/dL _2000-8 unknow n unknown s_volume_in_S [...] l All Calcium_Mole unknown 6.7 unknown mg/dL _2000-8 unknow n unknown s_volume_in_S erum_or_Plasm a All albumin_seru unknown 2.1 unknown g/dL _2 unknown unknown m All Bilirubin.to unknown 0.2 unknown mg/dL _1975-2 unknow n unknown tal_Mass_volu me_in_Serum_o r_Plasma All [...] ma All carbon_dioxi unknown 20 unknown mmol/ _2027- unknow n unknown de_serum_tota L l All Calcium_Mole unknown 6.7 unknown mg/dL _1999- unknow n unknown s_volume_in_S erum_or_Plasm a All albumin_seru unknown 2.5 unknown g/dL _2 unknown unknown m All Bilirubin.to unknown 0.4 unknown mg/dL _1974-03 unknow n unknown tal_Mass_volu me_in_Serum_o r_Plasma All Bilirubin.to unknown 0.3 unknown mg/dL _1974-03 unknow n unknown tal_Mass_volu me_in_Serum_o r_Plasma All Aspartate_am unknown 186 unknown U/L _1919-09 unknow n unknown inotransferas e_Enzymatic_a ctivity_volum e_in_Serum_or _Plasma All Aspartate_am unknown 168 unknown U/L _1919-09 unknow n unknown inotransferas e_Enzymatic_a ctivity_volum e_in_Serum_or [...] sma All Chloride_Mol unknown 106 unknown mmol/ _2074-0 unknow n unknown es_volume_in_ L Serum_or_Plas ma All carbon_dioxi unknown 21 unknown mmol/ _8-9 unknow n unknown de_serum_tota [...]
[2021-06-18] MEDS ORDERED: AMOX/CLAV 875 MG/125 MG TABLET PO STA (18:17)
--- NOTE | 2021-06-18 18:29 | ED Physician Documentation ---
History of Present Illness - Stated complaint Stated Complaint: INCISION FOLLOW UP - Chief complaint Chief Complaint: Wound - Additonal information Additional information: 25-year-old female returns to the emergency department for reevaluation of a right breast abscess as well as to have her antibiotics changed. She is approximately 6 weeks . She began having some right breast tenderness. She was started on antibiotics about 4 days ago. Seen by my colleague yesterday and did have an incision and drainage of the breast abscess as it had started to drain. She was started on clindamycin though the patient has not filled this prescription. Subsequent microbiology testing has revealed 4+ gram-negative bacterial growth. Species is pending but clindamycin not likely adequate coverage in the setting. She was advised to come to the ED for repeat evaluation. She reports that her pain is improved Review of Systems Constitutional: denies: Fever Ears: reports: Reviewed and negative Cardiac: reports: Reviewed and negative Respiratory: reports: Reviewed and negative Skin: reports: Lesions PD PAST MEDICAL HISTORY - Past Surgical History Past Surgical History: No - Present Medications Home Medications: Ambulatory Orders Medication Instructions Recorded Confirmed Pnv No.95/Ferrous Fum/Folic AC 1 tab PO DAILY 02/15/21 06/17/21 [ Caplet] Docusate Sodium 100Mg Capsule 100 - 200 mg PO BID PRN #60 cap 05/05/21 06/17/21 [Colace 100Mg Capsule] Ibuprofen [Motrin] 600 mg PO Q6H PRN #60 tab 05/05/21 06/17/21 Labetalol [Trandate] 200 mg PO BID #90 tablet 05/05/21 06/17/21 Dicloxacillin [Dynapen] 250 mg PO ONCE 06/17/21 06/17/21 Amox/Clav 875/125 [Augmentin] 1 each PO Q12H #20 tablet 06/18/21 - Allergies Allergies/Adverse Reactions: Allergies Allergy/AdvReac Type Severity Reaction Status Date / Time No Known Drug Allergies Allergy Verified 06/18/21 17:28 - Social History Does the pt smoke?: No Smoking Status: Never smoker Does the pt drink ETOH?: No Does the pt have substance abuse?: No - Immunizations Immunizations are current?: Yes PD ED PE EXPANDED - General General: Alert, No acute distress, Well developed/nourished - Derm Derm: Other (Right breast abscess and cellulitis evaluated. 4 cm area of erythema and induration. Packing was removed with scant amount of drainage. The wound was irrigated with 30 cc of saline. Packing was not replaced) Results - Vitals Vitals: Vital Signs - 24 hr 06/18/21 17:29 Temperature 36.5 C Heart Rate 88 Respiratory 16 Rate Blood Pressure 114/71 O2 Saturation 100 Oxygen O2 Source Room air PD MEDICAL DECISION MAKING - ED course Complexity details: considered differential, d/w patient ED course: 25-year-old female return to the emergency department to have her right breast abscess and cellulitis reevaluated. Packing was removed and the wound was irrigated. Subsequent microbiology cultures have yielded 4+ gram-negative growth. Clindamycin not likely adequate coverage. Therefore she will be started on Augmentin. Her first dose was given today in the emergency department. She is encouraged warm compress as well as routine care. We will continue follow-up as previously ordered. Emergent return precautions discussed Departure - Departure Disposition: Home, Self Care Clinical Impression: Abscess of right breast Condition: Stable Record reviewed to determine appropriate education?: Yes Prescriptions: Amox/Clav 875/125 [Augmentin] 1 each PO Q12H #20 tablet Comments: You were seen today for reevaluation of your breast abscess. Your packing was removed. You can shower normally and simply apply antibiotic ointment and a gauze bandage over the wound. You should apply a warm compress to the breast tissue for 10 minutes 3 times a day. Because your microbiology culture has grown gram-negative bacteria the previous antibiotic that was prescribed clindamycin will likely not treat this. Therefore do not fill the prescription for the clindamycin. Please fill the prescription for the Augmentin. This was sent to [facility] in [place]. Your first dose was given here in the emergency department. Return to the emergency department if you develop fevers, have increased pain milky drainage or increased redness
[2021-06-18 18:44] VITALS: BP 114/87
== END 2021-06-18 18:44 | disposition home or self-care (01) ==
LOC: ED 17:27
DX: N61.1 Abscess of the breast and nipple (principal)